=== PATIENT | male | born 1955 | race Caucasian/White ===

== ENCOUNTER 2018-04-20 19:27 | Inpatient (IN) | payer OTHER, MEDICAID ==
[~2018-04-20] VITALS: Ht 165.1 cm; Wt 62.6 kg
--- NOTE | 2018-04-20 19:27 | NUR ---
PT BIB EMS FOR SOB AND COUGH X2 WKS. CAME FROM [facility] IN [place]. PT GROSELY DISABLED. FACILITY CALLED 911 WHEN COUGH AND SOB DID NOT APPROVE. PT WAS TREATED BY FACILITY PHYSICIAN X2 WKS AGO GIVEN PREDNISONE AND AZITHROMYCIN. PT SEEN THIS AM BY PHYSICIAN AND GIVEN BREATHING TX. EMS BROUGHT PT IN ON 10L VIA NON-REBREATHER. PT O2SAT 100%. TESTED ON RA AT 96%. PT ALERT TO NAME AND PLACE. BASELINE MENTATION. PRODUCTIVE COUGH PRESENT. RIGHT LOWER LOBE DIMINISHED, LEFT LOWER LOBE COARSE, UPPER BRONCHIALS COARSE WITH THICK FLUID HEAR. WHEN PT COUGHING OX DROPS TO 90% AT RA. PROVING O2 NEEDED AT 10LMP NON-REPREATHER. REGIONAL TRAINING MANAGER FROM FACILITY AT BEDSIDE. HOB ELEVATED. SEIZURE PADS PROVIDED. ER MD AWARE. CONTINUE TO MONITOR.
--- NOTE | 2018-04-20 19:27 | NUR ---
PT BIB EMS. TRANSFERED FROM [facility] TO [facility] BY EMS AND ER STAFF. VSS UPON ER ADMISSION.
[2018-04-20 19:30] VITALS: BP 123/59
--- NOTE | 2018-04-20 19:30 | NUR ---
PT RESIDES AT: [facility], [facility]
[2018-04-20] MEDS ORDERED: NACL 0.9% 1,000 ML IV ONE (19:40)
[2018-04-20 20:16] LABS: BASOPHILS # (AUTO) 0.1 K/uL (0.00-0.22); BASOPHILS % (AUTO) 0.5 % (0.0-2.0); EOSINOPHILS # (AUTO) 0.3 K/uL (0-0.4); EOSINOPHILS % (AUTO) 2.2 % (0.0-4.0); HEMATOCRIT 38.1 % (36-52); HEMOGLOBIN 12.1 g/dL (12.0-18.0); LYMPHOCYTES # (AUTO) 1.6 K/uL (2.0-11.5); LYMPHOCYTES % (AUTO) 12.7 % (20.5-51.1); MEAN CORPUSCULAR HEMOGLOBIN 27 pg (27-31); MEAN CORPUSCULAR HGB CONC 32 g/dL (33-37); MEAN CORPUSCULAR VOLUME 85.3 fL (80-94); MONOCYTES # (AUTO) 1.3 K/uL (0.8-1.0); MONOCYTES % (AUTO) 9.7 % (1.7-9.3); NEUTROPHILS # (AUTO) 9.8 K/uL (1.8-7.7); NEUTROPHILS % (AUTO) 74.9 % (42.2-75.2); PLATELET COUNT (AUTO) 220 K/uL (140-450); RED BLOOD CELL COUNT(AUTO) 4.46 MIL/uL (4.20-6.10); RED CELL DISTRIBUTION WIDTH 15.1 % (11.6-13.7)
[2018-04-20 20:32] LABS: ANION GAP 12.1 (8-16); CARBON DIOXIDE 29.5 mmol/L (21-32); CREATININE 0.9 mg/dL (0.7-1.3); POTASSIUM 4.6 mmol/L (3.5-5.1)
[2018-04-20 20:38] LABS: ALBUMIN 2.8 g/dL (3.4-5.0); PROTHROMBIN TIME 9.9 secs (10.8-13.4); TOTAL BILIRUBIN 0.2 mg/dL (0.0-1.0)
--- NOTE | 2018-04-20 20:40 | NUR ---
CRITICAL LAB RECIEVED FROM LAB. LACTIC 3.3. DR MADDOX NOTIFIED IMMEDIATELY. CONTINUE TO MONITOR.
[2018-04-20] MEDS ORDERED: NACL 0.9% 2,000 ML IV ONE (20:45)
[2018-04-20] MEDS ORDERED: PEP15L PO (21:04)
[2018-04-20] MEDS ORDERED: RISP0.5T3 PO (21:04)
[2018-04-20] MEDS ORDERED: ACET-2619 PO (21:04)
[2018-04-20] MEDS ORDERED: FLEPED RC (21:04)
[2018-04-20] MEDS ORDERED: MULT1SGL58 PO (21:04)
[2018-04-20] MEDS ORDERED: LAM200 PO (21:04)
[2018-04-20] MEDS ORDERED: IBUP-2213 PO (21:04)
[2018-04-20] MEDS ORDERED: PRON INH (21:04)
[2018-04-20] MEDS ORDERED: BISA5ECT45 PO (21:04)
[2018-04-20] MEDS ORDERED: SYN.05 PO (21:04)
[2018-04-20] MEDS ORDERED: VALP250S5 PO (21:04)
[2018-04-20] MEDS ORDERED: METO-485 PO (21:04)
[2018-04-20] MEDS ORDERED: FAMO-90 PO (21:04)
[2018-04-20] MEDS ORDERED: PIPERACILLIN/TAZOBACTAM 3.375 GM in DEXTROSE 5% 50 ML IV ONE (21:30)
[2018-04-20] MEDS ORDERED: PIPERACILLIN/TAZOBACTAM 3.375 GM VIAL IV ONE (21:41)
[2018-04-20 22:00] VITALS: BP 115/60
--- NOTE | 2018-04-20 22:00 | NUR ---
REPORT GIVEN AND CARE TRANSFERED TO [facility] ROOM 121B. TRANSFERED VIA [facility].
--- NOTE | 2018-04-20 22:00 | NUR ---
RECEIVED FROM ER VIA [facility]. PT AWAKE, ALERT X 2. PT NON VERBAL,MUMBLING, BUT ABLE TO FOLLOW SIMPLE COMMANDS. PT WITH NON-PRODUCTIVE COUGH. NO SIGNS AND SYMPTOMS OF RESPIRATORY DISTRESS. PT TELE. PT WITH IV INFUSING ON LEFT AC, PATENT. FALL RISK. ASPIRATION RISK AND SEIZURE RISK. PT CAME IN WITH CAREGIVER FROM [facility].PLACED ON LOW BED, CALL LIGHT WITHIN EASY REACH. WILL CONTINUE TO MONITOR
[2018-04-20] MEDS ORDERED: ONDANSETRON 4 MG/2 ML VIAL IVP PRN (22:05)
[2018-04-20] MEDS ORDERED: SODIUM PHOSPHATE PEDIATRIC 67.5 ML ENEM RC PRN (22:05)
[2018-04-20] MEDS ORDERED: IBUPROFEN 600 MG TAB PO PRN (22:05)
[2018-04-20] MEDS ORDERED: ALBUTEROL 0.083% 2.5 MG/3 ML NEBU INH PRN (22:05)
[2018-04-20] MEDS ORDERED: BISMUTH SUBSALICYLATE 15 ML UDBTL PO PRN (22:05)
[2018-04-20] MEDS ORDERED: LORazepam 2 MG/ML VIAL IVP PRN (22:05)
[2018-04-20] MEDS ORDERED: BISACODYL 5 MG TABEC PO PRN (22:05)
[2018-04-20] MEDS ORDERED: ACETAMINOPHEN 325 MG TAB PO PRN (22:05)
[2018-04-20] MEDS: DEXT 5% /NACL 0.9% 1,000 ML IV SCH (22:52)
--- NOTE | 2018-04-21 02:00 | NUR ---
PT COUGHING NON-PRODUCTIVE PHLEGM. PLACED IN HIGH BACK POSITION. ORAL SUCTION DONE.NO SIGNS OF RESPIRATORY DISTRESS NOTED. WILL CONTINUE TO MONITOR
[2018-04-21] MEDS: HYDRAGUARD CREAM TP SCH ×2 (02:35→13:01)
[2018-04-21 04:00] VITALS: BP 120/60
--- NOTE | 2018-04-21 04:00 | NUR ---
VITAL SIGNS TAKEN. TELE MONITORED. NO DISTRESS NOTED. NO PAIN NOTED.WILL CONTINUE TO MONITOR. VOIDING FREELY.
[2018-04-21] MEDS ORDERED: PIPERACILLIN/TAZOBACTAM 3.375 GM in DEXTROSE 5% 50 ML IV SCH (05:00)
[2018-04-21] MEDS ORDERED: PIPERACILLIN/TAZOBACTAM 3.375 GM VIAL IV ONE (06:05)
[2018-04-21] MEDS: LEVOTHYROXINE 0.05 MG TAB PO SCH (07:04)
--- NOTE | 2018-04-21 07:20 | NUR ---
ENDORSED BEDSIDE REPORT TO AM SHIFT. NO SIGNS OF DISTRESS NOTED. NO PAIN NOTED. ABLE TO EAT PUREE FOOD/ APPLE SAUCE.
--- NOTE | 2018-04-21 07:22 | NUR ---
RECEIVED BEDSIDE REPORT FROM TIRE CENTER MANAGER RN. PT AWAKE, AOX 1-2. PT HAS HX OF MENTAL RETARDATION. ABLE TO SPEAK SIMPLE WORDS AND FOLLOW SIMPLE COMMANDS. WHEN ASKED IF PT HAS PAIN, HE REPLIED "I'M OKAY". FLACC 0. LUNG SOUNDS COARSE BILATERALLY. PT HAS INTERMITTENT, RATTLING COUGHING. SUCTIONED WITHOUT PHLEGM SEEN. NO SIGNS AND SYMPTOMS OF RESPIRATORY DISTRESS. SKIN INTACT, WITH REDNESS TO SACRUM. WILL APPLY HYDRAGUARD SCHEDULED AND PRN. ASPIRATION AND SEIZURE PRECAUTION IN PLACE. SIGN PLACED FOR THICKENED LIQUIDS ONLY. ALL SAFETY PRECAUTIONS IN PLACE, PLACED ON LOW BED, CALL LIGHT WITHIN EASY REACH. WILL CONTINUE TO MONITOR Addendum: 04/21/18 at 1447 by Myra Wilson Meng, RN PT HAS G-TUBE. PER TIRE CENTER MANAGER RN, PT HAS PASSED SWALLOW TEST AT [facility] AND DR. PATINO HAS PLACED PT ON PUREE DIET. NOT USING G-TUBE AT THIS TIME.
[2018-04-21 07:25] LABS: BASOPHILS # (AUTO) 0.1 K/uL (0.00-0.22); BASOPHILS % (AUTO) 0.5 % (0.0-2.0); EOSINOPHILS # (AUTO) 0.3 K/uL (0-0.4); EOSINOPHILS % (AUTO) 2.9 % (0.0-4.0); HEMATOCRIT 36.2 % (36-52); HEMOGLOBIN 11.6 g/dL (12.0-18.0); LYMPHOCYTES # (AUTO) 0.7 K/uL (2.0-11.5); MEAN CORPUSCULAR HEMOGLOBIN 27 pg (27-31); MEAN CORPUSCULAR HGB CONC 32 g/dL (33-37); MEAN CORPUSCULAR VOLUME 85.4 fL (80-94); MONOCYTES # (AUTO) 1.2 K/uL (0.8-1.0); MONOCYTES % (AUTO) 10.3 % (1.7-9.3); NEUTROPHILS # (AUTO) 9.1 K/uL (1.8-7.7); NEUTROPHILS % (AUTO) 80.5 % (42.2-75.2); PLATELET COUNT (AUTO) 177 K/uL (140-450); RED BLOOD CELL COUNT(AUTO) 4.24 MIL/uL (4.20-6.10); RED CELL DISTRIBUTION WIDTH 15.1 % (11.6-13.7); WHITE BLOOD COUNT (AUTO) 11.4 K/uL (4.8-10.8)
[2018-04-21] MEDS ORDERED: SODIUM PHOSPHATE 118 ML ENEM RC PRN ×2 (07:25→07:33)
[2018-04-21 07:42] LABS: ANION GAP 10.2 (8-16); CARBON DIOXIDE 26.7 mmol/L (21-32); CREATININE 0.6 mg/dL (0.7-1.3); POTASSIUM 3.9 mmol/L (3.5-5.1)
[2018-04-21 07:49] LABS: LYMPHOCYTES % (AUTO) 5.8 % (20.5-51.1)
[2018-04-21 08:00] VITALS: BP 117/57
[2018-04-21] MEDS: DEXT 5% /NACL 0.9% 1,000 ML IV SCH ×2 (08:05→11:21)
--- NOTE | 2018-04-21 08:41 | NUR ---
PATIENT HAS BEEN SCREENED AND CATEGORIZED HIGH NUTRITION RISK. PATIENT WILL BE SEEN WITHIN 1-2 DAYS OF ADMISSION. 04/21/18 04/22/[address]
[2018-04-21] MEDS ORDERED: MULTIVITAMIN 1 TAB PO SCH (09:00)
[2018-04-21] MEDS ORDERED: VALPROIC ACID 500 MG PO SCH (09:00)
[2018-04-21] MEDS: DIVALPROEX 500 MG TABEC PO SCH ×2 (09:21→21:21)
[2018-04-21] MEDS: FAMOTIDINE 20 MG TAB PO SCH ×2 (09:21→21:21)
[2018-04-21] MEDS: risperiDONE 1 MG TAB PO SCH ×2 (09:21→21:21)
[2018-04-21] MEDS: MULTIVITAMIN 1 TAB PO SCH (09:22)
[2018-04-21] MEDS: METOCLOPRAMIDE 10 MG TAB PO SCH ×3 (09:43→16:35)
--- NOTE | 2018-04-21 10:20 | NUR ---
EXPLAINED PLAN OF CARE AND PATIENT CONDITION/DX TO MARTINA, PUTTY AND PATCH WORKER AT [facility] [phone]. Addendum: 04/21/18 at 1021 by Myra Wilson Meng, RN MARTINA CALLED TO INQUIRE.
--- NOTE | 2018-04-21 10:31 | NUR ---
NOTIFIED RT TO GIVE PRN BREATHING TX TO PATIENT BECAUSE HE HAS BEEN HAVING BOUTS OF COUGHING.
--- NOTE | 2018-04-21 10:40 | NUR ---
PER RT, PT HAS REFUSED BREATHING TX AT THIS TIME. RT WILL KEEP CHECKING ON PT AND IF SHE FEELS LIKE PT NEEDS NT SUCTIONING, RT WILL CALL DR. PATINO FOR ORDER. WILL CONTINUE TO MONITOR. Addendum: 04/21/18 at 1042 by Myra Wilson Meng RN PT SATURATING AT 97% RA.
--- NOTE | 2018-04-21 10:52 | NUR ---
RT JUST GAVE PT A BREATHING TX. RT SAID SHE WILL CONTINUE TO MONITOR HIS CONDITION.
--- NOTE | 2018-04-21 11:41 | NUR ---
PT SLEEPING IN BED WITH LIGHT SNORING. AROUSABLE BY VOICE. NO COUGHING NOTED AT THIS TIME. PATIENT DENIES PAIN. STATES "I'M OKAY". VITALS WERE TAKEN ON LT ARM AND RT CALF WITH SIMILAR RESULTS. DIASTOLIC DECREASED. LT ARM BP 100/48, MAP 61, HR 78. LT CALF BP 115/43, MAP 67, HR 80. PT RECEIVING IVF AT 100ML/HR. WILL CONTINUE TO MONITOR.
[2018-04-21 12:00] VITALS: BP 115/43
[2018-04-21] MEDS: PIPER/TAZO 3.375GM/D5W PREMIX 50 ML IV SCH ×2 (13:01→21:20)
--- NOTE | 2018-04-21 13:07 | NUR ---
ADMINISTERED SCHEDULED 1300 MEDICATIONS TO PT. PT IS ABLE TO TAKE PILLS CRUSHED IN APPLE SAUCE WITHOUT PROBLEMS. NO COUGHING SEEN AT THIS TIME. PATIENT DENIES PAIN.
--- NOTE | 2018-04-21 14:38 | NUR ---
PER BASILIO EVANS, PATIENT WAS COUGHING. CRISTINA RICHMOND NOTIFIED DR. PATINO AND RECEIVED NEW ORDERS FOR BREATHING TX.
--- NOTE | 2018-04-21 15:20 | NUR ---
HELPED PATIENT WITH CHANGING THE CHANNEL FOR TV. NO S/S DISTRESS. DENIES PAIN. ABLE TO VERBALIZE SIMPLE NEEDS. PT WAS INQUIRING ABOUT DINNER TIME. TOLD PT DINNER IS SERVED AROUND 5:30PM. PT VERBALIZED UNDERSTANDING.
[2018-04-21 16:00] VITALS: BP 114/47
--- NOTE | 2018-04-21 17:16 | NUR ---
NO CHANGE IN CONDITION. PT SITTING IN BED, WATCHING TV. DENIES PAIN AND DISCOMFORT. WILL CONTINUE TO MONITOR.
--- NOTE | 2018-04-21 18:14 | NUR ---
PAGED DR. PATINO FOR 12 SEC V-FIB SEEN ON TELE STRIP AT 17:50. PT IS BEING FEED DINNER NOW. NO S/S DISTRESS. DENIES PAIN AND DISCOMFORT. WILL CONTINUE TO MONITOR.
[2018-04-21] MEDS: ACETYLCYSTEINE 10% (100 MG/ML) 100 MG/ML VIAL INH SCH (18:46)
--- NOTE | 2018-04-21 19:17 | NUR ---
ENDORSED PLAN OF CARE TO MICA MACHINE OPERATOR RN AT BEDSIDE. PT IN STABLE CONDITION. INFORMED MICA MACHINE OPERATOR RN OF THE 12 SEC VFIB EPISODE AND THAT DR. PATINO HAS BEEN PAGED.
--- NOTE | 2018-04-21 19:20 | NUR ---
RECEIVED REPORT FROM DAYSHIFT NURSE AT BEDSIDE FOR CONTINUITY OF CARE. PT AAOX1. PT IS MENTALLY DISABLED. NO SOB NO S/S OF DISTRESS LUNGS RHONCHI. IV IS LAC 20G D5 NS AT 100ML/HR. BED LOWERED CALL LIGHT WITHIN REACH WILL CONTINUE TO MONITOR.
[2018-04-21 20:00] VITALS: BP 102/40
[2018-04-22] VITALS: BP 93/50
--- NOTE | 2018-04-22 | NUR ---
PT IS SLEEPING NO SOB NO S/S OF DISTRESS ON RA. WILL CONTINUE TO MONITOR.
[2018-04-22] MEDS: HYDRAGUARD CREAM TP SCH ×2 (01:07→13:42)
[2018-04-22] MEDS: ALBUTEROL 0.083% 2.5 MG/3 ML NEBU INH SCH ×4 (01:12→19:03)
[2018-04-22] MEDS: ACETYLCYSTEINE 10% (100 MG/ML) 100 MG/ML VIAL INH SCH ×4 (01:13→19:03)
[2018-04-22 04:00] VITALS: BP 122/51
[2018-04-22] MEDS: DEXT 5% /NACL 0.9% 1,000 ML IV SCH ×2 (04:05→15:28)
[2018-04-22] MEDS: PIPER/TAZO 3.375GM/D5W PREMIX 50 ML IV SCH ×3 (05:10→21:37)
[2018-04-22] MEDS: LEVOTHYROXINE 0.05 MG TAB PO SCH (06:28)
[2018-04-22 07:08] LABS: BASOPHILS % (AUTO) 0.4 % (0.0-2.0); EOSINOPHILS # (AUTO) 0.4 K/uL (0-0.4); EOSINOPHILS % (AUTO) 3.7 % (0.0-4.0); HEMATOCRIT 34.5 % (36-52); HEMOGLOBIN 11.3 g/dL (12.0-18.0); LYMPHOCYTES # (AUTO) 0.6 K/uL (2.0-11.5); LYMPHOCYTES % (AUTO) 5.6 % (20.5-51.1); MEAN CORPUSCULAR HEMOGLOBIN 28 pg (27-31); MEAN CORPUSCULAR HGB CONC 33 g/dL (33-37); MEAN CORPUSCULAR VOLUME 85.3 fL (80-94); MONOCYTES % (AUTO) 8.6 % (1.7-9.3); NEUTROPHILS # (AUTO) 9.6 K/uL (1.8-7.7); NEUTROPHILS % (AUTO) 81.7 % (42.2-75.2); PLATELET COUNT (AUTO) 181 K/uL (140-450); RED BLOOD CELL COUNT(AUTO) 4.05 MIL/uL (4.20-6.10); WHITE BLOOD COUNT (AUTO) 11.7 K/uL (4.8-10.8)
[2018-04-22 07:16] LABS: ANION GAP 12.9 (8-16); CARBON DIOXIDE 24.8 mmol/L (21-32); CREATININE 0.9 mg/dL (0.7-1.3); POTASSIUM 3.7 mmol/L (3.5-5.1)
--- NOTE | 2018-04-22 07:23 | NUR ---
ENDORSED REPORT TO DAYSHIFT NURSE AT BEDSIDE FOR CONTINUITY OF CARE.
--- NOTE | 2018-04-22 07:24 | NUR ---
RECEIVED REPORT FROM INFORMATION SECURITY MANAGER NURSE. PATIENT LYING DOWN IN BED SLEEPING, AROUSABLE BY VOICE. NO DISTRESS NOTED. AAOX1, CALM, COOPERATIVE, SKIN COLOR APPROPRIATE TO ETHNICITY, WARM TO TOUCH. HAS SACRAL/PERINEAL REDNESS NOTED, HOWEVER, SKIN IS INTACT. LUNGS RHONCHI ON ALL LOBES. IV SITE INTACT, PATENT, AND INFUSING IVF PER MD ORDERS. GTUBE SITE INTACT, PATENT. PATIENT ABLE TO EAT ORALLY WITH ASSISTANCE. REVIEWED PLAN OF CARE WITH PATIENT. REINFORCEMENT NEEDED. SAFETY MEASURES IN PLACE, CALL LIGHT WITHIN REACH. WILL CONTINUE TO MONITOR.
[2018-04-22 08:00] VITALS: BP 144/59
[2018-04-22] MEDS: DIVALPROEX 500 MG TABEC PO SCH ×2 (10:10→21:37)
[2018-04-22] MEDS: risperiDONE 1 MG TAB PO SCH ×2 (10:10→21:39)
[2018-04-22] MEDS: MULTIVITAMIN 1 TAB PO SCH (10:10)
[2018-04-22] MEDS: FAMOTIDINE 20 MG TAB PO SCH ×2 (10:11→21:39)
[2018-04-22] MEDS: METOCLOPRAMIDE 10 MG TAB PO SCH ×3 (10:11→17:54)
[2018-04-22 12:00] VITALS: BP 109/50
--- NOTE | 2018-04-22 13:35 | NUR ---
OROPHARYNX SUCTION FOR LARGE THIN YELLOW SECRETIONS
--- NOTE | 2018-04-22 13:38 | NUR ---
PATIENT SITTING IN BED RECEIVING A BREATHING TREATMENT. SCHEDULED MEDICATIONS DUE GIVEN. SAFETY MEASURES IN PLACE, CALL LIGHT WITHIN REACH. WILL CONTINUE TO MONITOR.
--- NOTE | 2018-04-22 14:58 | NUR ---
04/22/18 RD INITIAL ASSESSMENT COMPLETED PLEASE REFER TO NUTRITION ASSESSMENT UNDER CARE ACTIVITY FOR ESTIMATED NUTRITIONAL NEEDS. 1. CONTINUE PUREE DIET WITH NECTAR THICK LIQUIDS TOLERATED 2. RD TO FOLLOW-UP 3-5 DAYS, MODERATE RISK [address]
--- NOTE | 2018-04-22 15:30 | NUR ---
PATIENT LYING DOWN IN BED SLEEPING, AROUSABLE BY VOICE. NO DISTRESS NOTED. CONDITION UNCHANGED. WILL CONTINUE TO MONITOR.
[2018-04-22 16:00] VITALS: BP 119/54
[2018-04-22] MEDS ORDERED: MUPIROCIN 2% OINT 22 GM TUBE TP SCH ×2 (16:45→17:40)
[2018-04-22] MEDS ORDERED: MUPIROCIN CA NASAL 2% 1GM TUBE NS SCH (17:45)
[2018-04-22] MEDS: CHLORHEXADINE GLUC 2% CLOTH TP SCH (17:54)
--- NOTE | 2018-04-22 18:00 | NUR ---
PATIENT SITTING DOWN IN BED WATCHING TV. NO DISTRESS NOTED. SCHEDULED MEDICATIONS DUE GIVEN. SAFETY MEASURES IN PLACE, CALL LIGHT WITHIN REACH. WILL CONTINUE TO MONITOR.
--- NOTE | 2018-04-22 19:25 | NUR ---
GAVE REPORT TO CANCER PROGRAM COORDINATOR NURSE FOR CONTINUITY OF CARE. PATIENT IN STABLE CONDITION.
--- NOTE | 2018-04-22 19:27 | NUR ---
RECEIVED PT FROM L[facility] PT AAOX2 HX MENTA; RETARDATION AND SEIZURES, ON TELMETRY SR , IV ON LEFT HAND INFUSING WELL G TUBE FEEDING IN PLACE NOT DISTRESS NOTED AT THIS TIME INITIAL ASSESSMENT DONE
[2018-04-22 20:00] VITALS: BP 105/49
[2018-04-22] MEDS ORDERED: guaiFENesin 20 MG/ML UDC PO PRN (20:20)
[2018-04-22] MEDS ORDERED: guaiFENesin 20 MG/ML UDC ONE (20:30)
[2018-04-22] MEDS: guaiFENesin 20 MG/ML UDC PO PRN (21:40)
--- NOTE | 2018-04-22 22:00 | NUR ---
PT REPOSITIONED Q2H LINEN CHANGED ON TELMETRY SR NOT SOB NOTED
[2018-04-23] VITALS: BP 108/57
--- NOTE | 2018-04-23 01:00 | NUR ---
PT REPOSITIONED Q2H AND LINEN CHANGED PT INCONTINENT ON TELEMETRY SR NOT DISTRESS NOTED
[2018-04-23] MEDS: ALBUTEROL 0.083% 2.5 MG/3 ML NEBU INH SCH ×4 (01:32→19:06)
[2018-04-23] MEDS: ACETYLCYSTEINE 10% (100 MG/ML) 100 MG/ML VIAL INH SCH ×5 (01:32→19:06)
[2018-04-23] MEDS: DEXT 5% /NACL 0.9% 1,000 ML IV SCH ×3 (01:58→13:54)
[2018-04-23] MEDS: HYDRAGUARD CREAM TP SCH ×2 (01:58→14:02)
[2018-04-23 04:00] VITALS: BP 110/62
--- NOTE | 2018-04-23 04:00 | NUR ---
SPONGE BATH GIVEN LINEN CHANGED NOT SOB NOTED NOT DISTRESS NOTED IV ON LEFT HAND INFUSING WELL
[2018-04-23] MEDS: PIPER/TAZO 3.375GM/D5W PREMIX 50 ML IV SCH ×3 (04:57→21:58)
[2018-04-23] MEDS: LEVOTHYROXINE 0.05 MG TAB PO SCH (06:03)
--- NOTE | 2018-04-23 06:08 | NUR ---
PT AWAKE, WITH PRODUCTIVE COUGH NOT SOB NOTED ON TELEMETRY SR
[2018-04-23 07:10] LABS: BASOPHILS # (AUTO) 0.1 K/uL (0.00-0.22); BASOPHILS % (AUTO) 0.5 % (0.0-2.0); EOSINOPHILS # (AUTO) 0.5 K/uL (0-0.4); EOSINOPHILS % (AUTO) 3.5 % (0.0-4.0); HEMATOCRIT 36.9 % (36-52); HEMOGLOBIN 11.9 g/dL (12.0-18.0); LYMPHOCYTES # (AUTO) 0.8 K/uL (2.0-11.5); LYMPHOCYTES % (AUTO) 5.7 % (20.5-51.1); MEAN CORPUSCULAR HEMOGLOBIN 28 pg (27-31); MEAN CORPUSCULAR HGB CONC 32 g/dL (33-37); MEAN CORPUSCULAR VOLUME 85.2 fL (80-94); MONOCYTES % (AUTO) 7.1 % (1.7-9.3); NEUTROPHILS # (AUTO) 11.7 K/uL (1.8-7.7); NEUTROPHILS % (AUTO) 83.2 % (42.2-75.2); PLATELET COUNT (AUTO) 195 K/uL (140-450); RED BLOOD CELL COUNT(AUTO) 4.33 MIL/uL (4.20-6.10); RED CELL DISTRIBUTION WIDTH 15.2 % (11.6-13.7); WHITE BLOOD COUNT (AUTO) 14.1 K/uL (4.8-10.8)
--- NOTE | 2018-04-23 07:23 | NUR ---
STARTED HHN TX BUT PT KEPT COUGHING HEAVILY. PT REQUESTED TO TURN OFF TREATMENT. TX OFF. PT IS NOW CALM. NO SOB OR DISTRESS NOTED. MUCOMYST NOT SOUND IN MED FRIDGE. WILL CONTINUE TO MONITOR.
--- NOTE | 2018-04-23 07:30 | NUR ---
RECEIVED REPORT FROM INSURANCE CLAIMS CLERK NURSE. PT LYING IN BED IN STABLE CONDITION. RESPIRATIONS EVEN AND UNLABORED. IV INTACT, PATENT, 24G LEFT HAND. REVIEWED CARE PLAN WITH PT, PT VERBALIZED UNDERSTANDING OF CARE PLAN. SAFETY MEASURES IN PLACE. CALL LIGHT AT BEDSIDE. WILL CONTINUE TO MONITOR.
[2018-04-23 07:41] LABS: ANION GAP 12.1 (8-16); CREATININE 0.8 mg/dL (0.7-1.3); POTASSIUM 4.1 mmol/L (3.5-5.1)
[2018-04-23 08:00] VITALS: BP 118/51
[2018-04-23] MEDS: risperiDONE 1 MG TAB PO SCH ×2 (09:14→21:59)
[2018-04-23] MEDS: FAMOTIDINE 20 MG TAB PO SCH ×2 (09:14→21:58)
[2018-04-23] MEDS: DIVALPROEX 500 MG TABEC PO SCH ×2 (09:14→21:59)
[2018-04-23] MEDS: METOCLOPRAMIDE 10 MG TAB PO SCH ×3 (09:15→17:58)
[2018-04-23] MEDS: MULTIVITAMIN 1 TAB PO SCH (09:15)
--- NOTE | 2018-04-23 09:15 | NUR ---
PT LYING IN BED IN STABLE CONDITION. RESPIRATIONS EVEN AND UNLABORED. DUE ORDERED MEDICATIONS GIVEN. SAFETY MEASURES IN PLACE. CALL LIGHT AT BEDSIDE. WILL CONTINUE TO MONITOR.
[2018-04-23] MEDS: MUPIROCIN CA NASAL 2% 1GM TUBE NS SCH (09:29)
[2018-04-23 10:21] LABS: APPEARANCE,URINE CLEAR (CLEAR); BILIRUBIN,URINE NEGATIVE (NEGATIVE); BLOOD, URINE NEGATIVE (NEGATIVE); COLOR,URINE YELLOW (YELLOW); LEUKOCYTE ESTERASE ,URINE NEGATIVE (NEGATIVE); NITRITE, URINE NEGATIVE (NEGATIVE); RBC,URINE 3-10 (FEW) /HPF (0-5); UGLUCOSE NEGATIVE (NEGATIVE); WBC,URINE 0-5 (RARE) /HPF (0-5)
--- NOTE | 2018-04-23 11:30 | NUR ---
PATIENT SITTING IN BED WATCHING TV. NO DISTRESS NOTED. DENIES ANY PAIN. FLACC 0. CONDITION UNCHANGED. WILL CONTINUE TO MONITOR.
[2018-04-23 12:00] VITALS: BP 109/54
--- NOTE | 2018-04-23 13:30 | NUR ---
ASSISTED ASSOCIATE CREATIVE DIRECTOR IN CLEANING AND REPOSITIONING PATIENT. CONDITION UNCHANGED. WILL CONTINUE TO MONITOR.
[2018-04-23 16:00] VITALS: BP 99/74
--- NOTE | 2018-04-23 16:00 | NUR ---
PATIENT LYING DOWN IN BED SLEEPING, AROUSABLE BY VOICE. NO DISTRESS NOTED. WILL CONTINUE TO MONITOR.
[2018-04-23] MEDS: CHLORHEXADINE GLUC 2% CLOTH TP SCH (17:50)
--- NOTE | 2018-04-23 18:31 | NUR ---
MED WAS GIVEN PER ORDER. PRIMARY NURSE LAMBERT WAS INFORMED
--- NOTE | 2018-04-23 19:25 | NUR ---
REPORTED TO PAD MACHINE FEEDER NURSE FOR CONTINUITY OF CARE. PT IN STABLE CONDITION.
--- NOTE | 2018-04-23 19:27 | NUR ---
RECEIVED REPORT FROM AM SHIFT NURSE. PT LYING IN BED IN STABLE CONDITION. RESPIRATIONS EVEN AND UNLABORED. IV INTACT, PATENT, 24G LEFT HAND. REVIEWED CARE PLAN WITH PT, PT VERBALIZED UNDERSTANDING OF CARE PLAN. SAFETY MEASURES IN PLACE. CALL LIGHT AT BEDSIDE. WILL CONTINUE TO MONITOR.
[2018-04-23 20:00] VITALS: BP 99/70
[2018-04-24] VITALS: BP 99/64
--- NOTE | 2018-04-24 | NUR ---
PT RESTING COMFORTABLE. WITH OCCASSIONAL NON-PRODUCTIVE COUGH, PT NOT IN RESPIRATORY DISTRESS. GAVE PUREE AND THICKENED LIQUIDS PT TOLERATED WELL. WILL CONTINUE TO MONITOR
[2018-04-24] MEDS: HYDRAGUARD CREAM TP SCH ×2 (01:25→13:16)
[2018-04-24] MEDS: ALBUTEROL 0.083% 2.5 MG/3 ML NEBU INH SCH ×4 (01:47→20:04)
[2018-04-24 04:00] VITALS: BP 100/63
[2018-04-24] MEDS: DEXT 5% /NACL 0.9% 1,000 ML IV SCH (05:09)
[2018-04-24] MEDS: PIPER/TAZO 3.375GM/D5W PREMIX 50 ML IV SCH ×3 (05:15→21:10)
[2018-04-24] MEDS: LEVOTHYROXINE 0.05 MG TAB PO SCH (06:46)
[2018-04-24 06:51] LABS: BASOPHILS # (AUTO) 0.1 K/uL (0.00-0.22); BASOPHILS % (AUTO) 0.6 % (0.0-2.0); EOSINOPHILS # (AUTO) 0.4 K/uL (0-0.4); EOSINOPHILS % (AUTO) 3.6 % (0.0-4.0); HEMATOCRIT 33.1 % (36-52); HEMOGLOBIN 10.9 g/dL (12.0-18.0); LYMPHOCYTES # (AUTO) 0.8 K/uL (2.0-11.5); MEAN CORPUSCULAR HEMOGLOBIN 28 pg (27-31); MEAN CORPUSCULAR HGB CONC 33 g/dL (33-37); MEAN CORPUSCULAR VOLUME 85.3 fL (80-94); MONOCYTES % (AUTO) 8.6 % (1.7-9.3); NEUTROPHILS # (AUTO) 9.7 K/uL (1.8-7.7); NEUTROPHILS % (AUTO) 80.2 % (42.2-75.2); PLATELET COUNT (AUTO) 169 K/uL (140-450); RED BLOOD CELL COUNT(AUTO) 3.88 MIL/uL (4.20-6.10); RED CELL DISTRIBUTION WIDTH 15.1 % (11.6-13.7)
--- NOTE | 2018-04-24 07:29 | NUR ---
GIVEN REPORT TO AM SHIFT NURSE. PT IN STABLE CONDITION AT THIST TIME. INFORMED STOOL 2X LAST NIGHT. LIITLE AMOUNT.
--- NOTE | 2018-04-24 07:30 | NUR ---
RECEIVED PATIENT BY BEDSIDE. PATIENT IS COMFORTABLE AND DENIES ANY PAIN AT THIS TIME.
[2018-04-24 07:41] LABS: ANION GAP 15.2 (8-16); CARBON DIOXIDE 22.8 mmol/L (21-32); CREATININE 0.8 mg/dL (0.7-1.3)
[2018-04-24 07:54] VITALS: BP 105/40
[2018-04-24] MEDS: guaiFENesin 20 MG/ML UDC PO PRN (09:51)
[2018-04-24] MEDS: risperiDONE 1 MG TAB PO SCH ×2 (09:53→21:10)
[2018-04-24] MEDS: METOCLOPRAMIDE 10 MG TAB PO SCH ×3 (09:54→16:36)
[2018-04-24] MEDS: MULTIVITAMIN 1 TAB PO SCH (09:55)
[2018-04-24] MEDS: FAMOTIDINE 20 MG TAB PO SCH ×2 (09:55→21:10)
[2018-04-24] MEDS: DIVALPROEX 500 MG TABEC PO SCH ×2 (09:56→21:10)
[2018-04-24] MEDS: MUPIROCIN CA NASAL 2% 1GM TUBE NS SCH (09:57)
--- NOTE | 2018-04-24 10:30 | NUR ---
CHANGED AND CLEANED THE PATIENT BECAUSE HE HAD A BM. PATIENT IS IN COMFORTABLE POSITION WITH THE BED AT THE LOWEST POSITION, AND CALL LIGHT WITHIN REACH.
--- NOTE | 2018-04-24 11:55 | NUR ---
PT SLEEPING . NOT IN RESPIRATORY DISTRESS. WILL CONTINUE TO MONITOR
[2018-04-24 12:00] VITALS: BP 95/48
--- NOTE | 2018-04-24 13:54 | NUR ---
PATIENT FINISHED EATING ALL OF HIS MEALS. HE IS CONTENT AND DENIES ANY PAIN. WILL CONTINUE TO MONITOR
[2018-04-24 16:00] VITALS: BP 124/52
[2018-04-24] MEDS: CHLORHEXADINE GLUC 2% CLOTH TP SCH (16:38)
--- NOTE | 2018-04-24 17:07 | NUR ---
PATIENT IS COMFORTABLE AND DENIES ANY PAIN. THE BED IS AT THE LOWEST POSITION AND CALL LIGHT WITHIN REACH. WILL CONTINUE TO FREQUENTLY MONITOR THE PATIENT
--- NOTE | 2018-04-24 18:51 | NUR ---
PATIENT VOIDED. CLEANED THE PATIENT AND REPLACED THE SOILED LINEN
--- NOTE | 2018-04-24 19:24 | NUR ---
ENDORSED PATIENT TO THE CONTINUOUS PILLOWCASE CUTTER RN BY THE PATIENT'S BEDSIDE. HE IS IN COMFORTABLE POSITION WITH THE CALL LIGHT WITHIN REACH AND BED AT THE LOWEST POSITION.
[2018-04-24 20:00] VITALS: BP 124/53
--- NOTE | 2018-04-24 20:15 | NUR ---
RECEIVED PATIENT ON ROOM AIR, O2 SAT 93%. SCHEDULED BREATHING TREATMENTS ADMINISTERED. PATIENT TOLERATED TX WELL, NO ADVERSE SIDE EFFECTS. NO DISTRESS NOTED AT THIS TIME. WILL CONTINUE TO MONITOR.
[2018-04-25] VITALS: BP 123/54
[2018-04-25] MEDS: ALBUTEROL 0.083% 2.5 MG/3 ML NEBU INH SCH ×3 (01:33→12:03)
[2018-04-25] MEDS: HYDRAGUARD CREAM TP SCH ×2 (01:34→13:00)
[2018-04-25] MEDS: guaiFENesin 20 MG/ML UDC PO PRN (01:40)
--- NOTE | 2018-04-25 01:40 | NUR ---
NON PRODUCTIVE COUGH NOTED. GIVEN COUGH MEDICINE. RT AT BEDSIDE. SUNCTION DONE BUT NO PHLEGM NOTED.
--- NOTE | 2018-04-25 01:44 | NUR ---
SCHEDULED BREATHING TREATMENT ADMINISTERED. TOLERATED TX WELL NO ADVERSE SIDE EFFECTS. WILL CONTINUE TO MONITOR.
[2018-04-25] MEDS ORDERED: LEVO750T2 PO (02:33)
[2018-04-25 04:06] VITALS: BP 122/55
--- NOTE | 2018-04-25 05:00 | NUR ---
DR. Yves PATINO CAME TO SEE PT WITH VERBAL ORDERS TO DISCHARGE IN THE AM. GIVEN PRESCRIPTION, ATTACHED TO CHART
[2018-04-25] MEDS: PIPER/TAZO 3.375GM/D5W PREMIX 50 ML IV SCH ×2 (05:26→12:16)
[2018-04-25] MEDS: LEVOTHYROXINE 0.05 MG TAB PO SCH (06:37)
[2018-04-25 06:54] VITALS: BP 122/55
--- NOTE | 2018-04-25 07:15 | NUR ---
ENDORSED BEDSIDE REPORT TO AM SHIFT PT IN STABLE CONDITION. WITH ORDERS FOR DISCHARGE TODAY IN THE AM.
[2018-04-25 07:19] LABS: BASOPHILS # (AUTO) 0.1 K/uL (0.00-0.22); BASOPHILS % (AUTO) 0.7 % (0.0-2.0); EOSINOPHILS # (AUTO) 0.3 K/uL (0-0.4); EOSINOPHILS % (AUTO) 2.9 % (0.0-4.0); HEMATOCRIT 36.6 % (36-52); HEMOGLOBIN 11.8 g/dL (12.0-18.0); LYMPHOCYTES # (AUTO) 0.9 K/uL (2.0-11.5); LYMPHOCYTES % (AUTO) 7.9 % (20.5-51.1); MEAN CORPUSCULAR HEMOGLOBIN 28 pg (27-31); MEAN CORPUSCULAR HGB CONC 32 g/dL (33-37); MEAN CORPUSCULAR VOLUME 85.4 fL (80-94); MONOCYTES # (AUTO) 0.9 K/uL (0.8-1.0); MONOCYTES % (AUTO) 7.7 % (1.7-9.3); NEUTROPHILS % (AUTO) 80.8 % (42.2-75.2); PLATELET COUNT (AUTO) 193 K/uL (140-450); RED BLOOD CELL COUNT(AUTO) 4.29 MIL/uL (4.20-6.10); RED CELL DISTRIBUTION WIDTH 15.5 % (11.6-13.7); WHITE BLOOD COUNT (AUTO) 11.1 K/uL (4.8-10.8)
[2018-04-25 07:22] LABS: ANION GAP 14.5 (8-16); CARBON DIOXIDE 26.7 mmol/L (21-32); CREATININE 0.6 mg/dL (0.7-1.3); POTASSIUM 4.2 mmol/L (3.5-5.1)
[2018-04-25 08:00] VITALS: BP 109/49
--- NOTE | 2018-04-25 08:17 | NUR ---
SPOKE TO BASILIO LUGO FROM [facility] AND INFORMED HIM ABOUT THE PATIENT'S DISCHARGE. PT TO CALL BACK REGARDING PATIENT'S TRANSPORTATION Addendum: 04/25/18 at 0910 by Nicola Jennings RN [facility] TO CALL BACK
--- NOTE | 2018-04-25 09:13 | NUR ---
PER BASILIO LUGO PATIENT TRANSPORTATION HAS BEEN ARRANGED FOR [phone] TODAY
[2018-04-25] MEDS: risperiDONE 1 MG TAB PO SCH (09:49)
[2018-04-25] MEDS: METOCLOPRAMIDE 10 MG TAB PO SCH ×2 (09:50→12:17)
[2018-04-25] MEDS: MUPIROCIN CA NASAL 2% 1GM TUBE NS SCH (09:50)
[2018-04-25] MEDS: MULTIVITAMIN 1 TAB PO SCH (09:50)
[2018-04-25] MEDS: FAMOTIDINE 20 MG TAB PO SCH (09:50)
[2018-04-25] MEDS: DIVALPROEX 500 MG TABEC PO SCH (09:50)
[2018-04-25 12:00] VITALS: BP 108/52
--- NOTE | 2018-04-25 15:50 | NUR ---
PATIENT DISCHARGED BACK TO [facility]. PATIENT PICKED UP BY HIS CAREGIVER. DISCHARGE INSTRUCTIONS AND DISCHARGE PRESCRIPTIONS GIVEN TO THE CAREGIVER. CAREGIVER VERBALIZED UNDERSTANDING. IV LINE DISCONTINUED. TELE MONITOR TAKEN OFF. PATIENT LEFT WITH ALL HIS BELONGINGS AND DISCHARGE PAPERS. PATIENT LEFT IN STABLE CONDITION
== END 2018-04-25 15:50 | DRG 871 ==
LOC: MED 19:27 → MTU 21:32
PROVIDERS: ADMIT Internal Medicine Cardiovascular Disease; ATTEND Internal Medicine Cardiovascular Disease
DX: A41.9 Sepsis, unspecified organism (principal); E43 Unspecified severe protein-calorie malnutrition; G40.909 Epilepsy, unspecified, not intractable, without status epilepticus; F31.9 Bipolar disorder, unspecified; I10 Essential (primary) hypertension; K21.9 Gastro-esophageal reflux disease without esophagitis; E03.9 Hypothyroidism, unspecified; R73.9 Hyperglycemia, unspecified; E83.52 Hypercalcemia; D64.9 Anemia, unspecified; J40 Bronchitis, not specified as acute or chronic; Z79.899 Other long term (current) drug therapy; Z68.23 Body mass index [BMI] 23.0-23.9, adult; Z88.1 Allergy status to other antibiotic agents; R54 Age-related physical debility
CPT/HCPCS: 36415; 71045; 80048; 80053; 81001; 83605; 83880; 84484; 85025; 85610; 85651; 85730; 86140; 87040; 87081; 87086; 87804; 93005; 94640; 96361; 96374; 99285; J2543; J7042; J7060; J7613; J8597; Q0092

== ENCOUNTER 2018-05-12 17:16 | Inpatient (IN) | payer OTHER, MEDICAID ==
[~2018-05-12] VITALS: Ht 167.6 cm; Wt 78.0 kg
[~2018-05-12 17:16] MED LIST: ACET-2619 PO; BISA5ECT45 PEG; FAMO-90 PO; FLEPED RC; IBUP-2213 PO; LAM200 PEG; LEVO750T2 PO; METO-485 PO; MULT1SGL58 PEG; PEP15L PO; PRON INH; RISP0.5T3 PO; SYN.05 PO; VALP250S5 PO
[2018-05-12 17:27] VITALS: BP 130/59
[2018-05-12] MEDS ORDERED: NACL 0.9% 1,000 ML IV ONE ×2 (17:31→19:00)
[2018-05-12] MEDS ORDERED: NACL 0.9% 1,000 ML IV SCH (17:31)
[2018-05-12] MEDS ORDERED: ONDANSETRON 4 MG/2 ML VIAL IVP ONE (17:35)
[2018-05-12] MEDS ORDERED: FAMOTIDINE 20 MG/2 ML VIAL IVP ONE (17:35)
[2018-05-12] MEDS ORDERED: SULF-59 PEG (17:51)
[2018-05-12] MEDS ORDERED: LACT1.4C PEG (17:51)
[2018-05-12 18:14] LABS: HEMATOCRIT 39.6 % (36-52); HEMOGLOBIN 12.9 g/dL (12.0-18.0); MEAN CORPUSCULAR HEMOGLOBIN 27 pg (27-31); MEAN CORPUSCULAR HGB CONC 33 g/dL (33-37); MEAN CORPUSCULAR VOLUME 83.6 fL (80-94); PLATELET COUNT (AUTO) 215 K/uL (140-450); RED BLOOD CELL COUNT(AUTO) 4.74 MIL/uL (4.20-6.10); RED CELL DISTRIBUTION WIDTH 14.9 % (11.6-13.7); WHITE BLOOD COUNT (AUTO) 18.7 K/uL (4.8-10.8)
[2018-05-12 18:23] LABS: ANION GAP 12.7 (8-16); CARBON DIOXIDE 27.5 mmol/L (21-32); CREATININE 0.9 mg/dL (0.7-1.3); POTASSIUM 4.2 mmol/L (3.5-5.1)
[2018-05-12 18:27] LABS: AMYLASE 36 U/L (25-115); LIPASE 226 U/L (73-393)
[2018-05-12 18:29] LABS: PROTHROMBIN TIME 9.6 secs (10.8-13.4)
[2018-05-12 18:40] LABS: ALBUMIN 3.3 g/dL (3.4-5.0); LYMPHOCYTES % (MANUAL) 6 % (20-46); MONOCYTES % (MANUAL) 5 % (5-12); TOTAL BILIRUBIN 0.2 mg/dL (0.0-1.0)
[2018-05-12 18:44] LABS: APPEARANCE,URINE CLEAR (CLEAR); BILIRUBIN,URINE NEGATIVE (NEGATIVE); BLOOD, URINE TRACE-I (NEGATIVE); COLOR,URINE YELLOW (YELLOW); LEUKOCYTE ESTERASE ,URINE NEGATIVE (NEGATIVE); NITRITE, URINE NEGATIVE (NEGATIVE); UGLUCOSE NEGATIVE (NEGATIVE)
[2018-05-12 18:45] LABS: RBC,URINE 0-5 (RARE) /HPF (0-5); WBC,URINE 0-5 (RARE) /HPF (0-5)
[2018-05-12] MEDS ORDERED: PIPERACILLIN/TAZOBACTAM 3.375 GM in DEXTROSE 5% 50 ML IV ONE (19:00)
[2018-05-12] MEDS ORDERED: methylPREDNISolone SS 125 MG/2 ML VIAL IVP ONE (19:00)
[2018-05-12] MEDS ORDERED: LEVOFLOXACIN 500 MG/D5W PREMIX 100 ML IV ONE (19:00)
[2018-05-12] MEDS ORDERED: PIPERACILLIN/TAZOBACTAM 3.375 GM VIAL IV ONE ×2 (19:12→21:07)
[2018-05-12 20:10] VITALS: BP 125/58
[2018-05-12] MEDS ORDERED: SODIUM PHOSPHATE PEDIATRIC 67.5 ML ENEM RC PRN (20:35)
[2018-05-12] MEDS ORDERED: BISACODYL 10 MG SUPP RC PRN (20:35)
[2018-05-12] MEDS ORDERED: ACETAMINOPHEN 325 MG TAB PO PRN (20:35)
[2018-05-12] MEDS ORDERED: BISMUTH SUBSALICYLATE 15 ML UDBTL PEG PRN (20:35)
[2018-05-12] MEDS ORDERED: IBUPROFEN 600 MG TAB PEG PRN (20:35)
[2018-05-12] MEDS: DEXT 5% /NACL 0.9% 1,000 ML IV SCH (20:40)
[2018-05-12] MEDS ORDERED: ONDANSETRON 4 MG/2 ML VIAL IVP PRN (20:40)
[2018-05-12] MEDS ORDERED: LORazepam 2 MG/ML VIAL IVP PRN (20:40)
[2018-05-12] MEDS ORDERED: HYDROcodone/APAP 5/325 MG 1 TAB TAB PEG PRN (20:40)
[2018-05-12] MEDS: risperiDONE 1 MG TAB PO SCH (21:34)
[2018-05-12] MEDS: FAMOTIDINE 20 MG TAB PEG SCH (21:34)
[2018-05-12] MEDS: PIPERACILLIN/TAZOBACTAM 3.375 GM in DEXTROSE 5% 50 ML IV SCH (21:52)
[2018-05-13] VITALS: BP 125/50
[2018-05-13] MEDS: ALBUTEROL 0.083% 2.5 MG/3 ML NEBU INH PRN (03:35)
[2018-05-13 04:00] VITALS: BP 126/51
[2018-05-13] MEDS ORDERED: PIPERACILLIN/TAZOBACTAM 3.375 GM VIAL IV ONE (04:12)
[2018-05-13] MEDS: PIPERACILLIN/TAZOBACTAM 3.375 GM in DEXTROSE 5% 50 ML IV SCH (04:23)
[2018-05-13] MEDS: DEXT 5% /NACL 0.9% 1,000 ML IV SCH ×2 (06:40→10:10)
[2018-05-13 07:04] LABS: HEMATOCRIT 36.4 % (36-52); HEMOGLOBIN 11.8 g/dL (12.0-18.0); MEAN CORPUSCULAR HEMOGLOBIN 27 pg (27-31); MEAN CORPUSCULAR HGB CONC 33 g/dL (33-37); MEAN CORPUSCULAR VOLUME 82.9 fL (80-94); PLATELET COUNT (AUTO) 204 K/uL (140-450); RED BLOOD CELL COUNT(AUTO) 4.39 MIL/uL (4.20-6.10); RED CELL DISTRIBUTION WIDTH 15.2 % (11.6-13.7)
[2018-05-13 07:09] LABS: ANION GAP 12.8 (8-16); CARBON DIOXIDE 25.2 mmol/L (21-32); CREATININE 0.8 mg/dL (0.7-1.3)
[2018-05-13 08:00] VITALS: BP 129/51
[2018-05-13] MEDS: ALBUTEROL 0.083% 2.5 MG/3 ML NEBU INH SCH ×3 (08:42→20:57)
[2018-05-13 08:50] LABS: LYMPHOCYTES % (MANUAL) 5 % (20-46); MONOCYTES % (MANUAL) 2 % (5-12)
[2018-05-13] MEDS: LACTOBACILLUS RHAMNOSUS GG 1 EACH CAP PEG SCH ×3 (10:05→16:49)
[2018-05-13] MEDS: MULTIVITAMIN/MINERALS 15 ML UDBTL PEG SCH (10:05)
[2018-05-13] MEDS: VALPROIC ACID 250 MG/5 ML UDC PEG SCH ×2 (10:05→20:22)
[2018-05-13] MEDS: risperiDONE 1 MG TAB PO SCH ×2 (10:06→20:23)
[2018-05-13] MEDS: FAMOTIDINE 20 MG TAB PEG SCH ×2 (10:06→20:23)
[2018-05-13] MEDS: LEVOTHYROXINE 0.05 MG TAB PEG SCH (10:06)
[2018-05-13] MEDS: METOCLOPRAMIDE 10 MG TAB PO SCH ×3 (10:07→16:49)
[2018-05-13 11:31] VITALS: BP_SYST 111; BP_SYST 129; BP_DIAS 51; BP_DIAS 56
[2018-05-13] MEDS: PIPER/TAZO 3.375GM/D5W PREMIX 50 ML IV SCH ×2 (12:41→20:22)
[2018-05-13] MEDS ORDERED: VANCOMYCIN PER PHARMACY MC PRN (14:35)
[2018-05-13] MEDS: VANCOMYCIN 1GM/DEXT 5% PREMIX 200 ML IV SCH (15:26)
[2018-05-13 16:00] VITALS: BP 138/69
[2018-05-13 20:00] VITALS: BP 121/68
[2018-05-13] MEDS: ACETYLCYSTEINE 10% (100 MG/ML) 100 MG/ML VIAL INH SCH (20:57)
[2018-05-14] VITALS: BP 135/56
[2018-05-14] MEDS: VANCOMYCIN 1GM/DEXT 5% PREMIX 200 ML IV SCH (03:05)
[2018-05-14] MEDS: DEXT 5% /NACL 0.9% 1,000 ML IV SCH ×4 (03:07→22:40)
[2018-05-14 04:00] VITALS: BP 141/60
[2018-05-14] MEDS: ACETYLCYSTEINE 10% (100 MG/ML) 100 MG/ML VIAL INH SCH ×3 (05:00→22:40)
[2018-05-14] MEDS: PIPER/TAZO 3.375GM/D5W PREMIX 50 ML IV SCH ×3 (05:08→20:09)
[2018-05-14] MEDS: ALBUTEROL 0.083% 2.5 MG/3 ML NEBU INH SCH ×3 (05:13→22:40)
[2018-05-14 06:47] LABS: BASOPHILS % (AUTO) 0.3 % (0.0-2.0); EOSINOPHILS # (AUTO) 0.1 K/uL (0-0.4); EOSINOPHILS % (AUTO) 0.4 % (0.0-4.0); HEMATOCRIT 33.5 % (36-52); LYMPHOCYTES # (AUTO) 1.3 K/uL (2.0-11.5); LYMPHOCYTES % (AUTO) 9.7 % (20.5-51.1); MEAN CORPUSCULAR HEMOGLOBIN 28 pg (27-31); MEAN CORPUSCULAR HGB CONC 33 g/dL (33-37); MONOCYTES # (AUTO) 1.4 K/uL (0.8-1.0); MONOCYTES % (AUTO) 10.2 % (1.7-9.3); NEUTROPHILS # (AUTO) 10.8 K/uL (1.8-7.7); NEUTROPHILS % (AUTO) 79.4 % (42.2-75.2); PLATELET COUNT (AUTO) 231 K/uL (140-450); RED BLOOD CELL COUNT(AUTO) 3.99 MIL/uL (4.20-6.10); RED CELL DISTRIBUTION WIDTH 15.1 % (11.6-13.7); WHITE BLOOD COUNT (AUTO) 13.7 K/uL (4.8-10.8)
[2018-05-14 07:04] LABS: ANION GAP 12.7 (8-16); CARBON DIOXIDE 25.2 mmol/L (21-32); CREATININE 0.8 mg/dL (0.7-1.3); POTASSIUM 3.9 mmol/L (3.5-5.1)
[2018-05-14] MEDS: ALBUTEROL 0.083% 2.5 MG/3 ML NEBU INH PRN (07:36)
[2018-05-14 08:00] VITALS: BP 113/57
[2018-05-14] MEDS ORDERED: SODIUM PHOSPHATE 118 ML ENEM RC PRN (08:53)
[2018-05-14] MEDS: VALPROIC ACID 250 MG/5 ML UDC PEG SCH ×2 (09:06→20:42)
[2018-05-14] MEDS: FAMOTIDINE 20 MG TAB PEG SCH ×2 (09:07→20:42)
[2018-05-14] MEDS: LEVOTHYROXINE 0.05 MG TAB PEG SCH (09:07)
[2018-05-14] MEDS: METOCLOPRAMIDE 10 MG TAB PO SCH ×3 (09:07→16:20)
[2018-05-14] MEDS: risperiDONE 1 MG TAB PO SCH ×2 (09:07→20:42)
[2018-05-14] MEDS: LACTOBACILLUS RHAMNOSUS GG 1 EACH CAP PEG SCH ×3 (09:07→16:20)
[2018-05-14] MEDS: MULTIVITAMIN/MINERALS 15 ML UDBTL PEG SCH (09:40)
[2018-05-14 12:00] VITALS: BP 105/53
[2018-05-14 16:00] VITALS: BP 107/50
[2018-05-14] MEDS: VANCOMYCIN 1,250 MG in DEXTROSE 5% 250 ML IV SCH (17:10)
[2018-05-14 21:15] VITALS: BP 98/43
[2018-05-15] VITALS: BP 112/66
[2018-05-15] MEDS: HYDRAGUARD CREAM TP SCH ×2 (01:26→13:00)
[2018-05-15 04:00] VITALS: BP 140/78
[2018-05-15] MEDS: PIPER/TAZO 3.375GM/D5W PREMIX 50 ML IV SCH ×3 (04:25→20:19)
[2018-05-15] MEDS: VANCOMYCIN 1,250 MG in DEXTROSE 5% 250 ML IV SCH ×2 (05:21→17:08)
[2018-05-15 07:05] LABS: BASOPHILS # (AUTO) 0.1 K/uL (0.00-0.22); BASOPHILS % (AUTO) 0.6 % (0.0-2.0); EOSINOPHILS # (AUTO) 0.4 K/uL (0-0.4); EOSINOPHILS % (AUTO) 2.8 % (0.0-4.0); HEMATOCRIT 32.8 % (36-52); HEMOGLOBIN 10.6 g/dL (12.0-18.0); LYMPHOCYTES % (AUTO) 15.9 % (20.5-51.1); MEAN CORPUSCULAR HEMOGLOBIN 27 pg (27-31); MEAN CORPUSCULAR HGB CONC 32 g/dL (33-37); MEAN CORPUSCULAR VOLUME 83.9 fL (80-94); MONOCYTES # (AUTO) 1.4 K/uL (0.8-1.0); NEUTROPHILS # (AUTO) 8.6 K/uL (1.8-7.7); NEUTROPHILS % (AUTO) 69.7 % (42.2-75.2); PLATELET COUNT (AUTO) 221 K/uL (140-450); RED BLOOD CELL COUNT(AUTO) 3.91 MIL/uL (4.20-6.10); RED CELL DISTRIBUTION WIDTH 14.7 % (11.6-13.7); WHITE BLOOD COUNT (AUTO) 12.4 K/uL (4.8-10.8)
[2018-05-15 07:21] LABS: ANION GAP 13.8 (8-16); CARBON DIOXIDE 25.3 mmol/L (21-32); CREATININE 0.9 mg/dL (0.7-1.3); POTASSIUM 4.1 mmol/L (3.5-5.1)
[2018-05-15] MEDS: ALBUTEROL 0.083% 2.5 MG/3 ML NEBU INH SCH ×3 (07:30→23:00)
[2018-05-15] MEDS: ACETYLCYSTEINE 10% (100 MG/ML) 100 MG/ML VIAL INH SCH ×3 (07:31→23:00)
[2018-05-15 08:07] VITALS: BP 130/70
[2018-05-15] MEDS: VALPROIC ACID 250 MG/5 ML UDC PEG SCH ×2 (09:18→20:24)
[2018-05-15] MEDS: MULTIVITAMIN/MINERALS 15 ML UDBTL PEG SCH (09:18)
[2018-05-15] MEDS: METOCLOPRAMIDE 10 MG TAB PO SCH ×3 (09:18→17:09)
[2018-05-15] MEDS: LEVOTHYROXINE 0.05 MG TAB PEG SCH (09:19)
[2018-05-15] MEDS: risperiDONE 1 MG TAB PO SCH ×2 (09:19→20:25)
[2018-05-15] MEDS: FAMOTIDINE 20 MG TAB PEG SCH ×2 (09:20→20:25)
[2018-05-15] MEDS: DEXT 5% /NACL 0.9% 1,000 ML IV SCH ×2 (09:20→20:17)
[2018-05-15] MEDS: LACTOBACILLUS RHAMNOSUS GG 1 EACH CAP PEG SCH ×3 (09:20→17:09)
[2018-05-15 12:00] VITALS: BP 120/55
[2018-05-15 16:00] VITALS: BP 114/53
[2018-05-15 20:00] VITALS: BP 109/50
[2018-05-16] VITALS: BP 129/59
[2018-05-16] MEDS: HYDRAGUARD CREAM TP SCH ×2 (01:13→12:05)
[2018-05-16 04:00] VITALS: BP 133/71
[2018-05-16] MEDS: DEXT 5% /NACL 0.9% 1,000 ML IV SCH ×3 (04:40→20:39)
[2018-05-16] MEDS: VANCOMYCIN 1,250 MG in DEXTROSE 5% 250 ML IV SCH ×2 (05:13→16:40)
[2018-05-16] MEDS: PIPER/TAZO 3.375GM/D5W PREMIX 50 ML IV SCH ×3 (05:14→20:40)
[2018-05-16] MEDS: ACETYLCYSTEINE 10% (100 MG/ML) 100 MG/ML VIAL INH SCH ×3 (06:46→23:43)
[2018-05-16] MEDS: ALBUTEROL 0.083% 2.5 MG/3 ML NEBU INH SCH ×3 (06:46→23:43)
[2018-05-16 07:24] LABS: ANION GAP 12.5 (8-16); CARBON DIOXIDE 26.7 mmol/L (21-32); CREATININE 0.8 mg/dL (0.7-1.3); POTASSIUM 4.2 mmol/L (3.5-5.1)
[2018-05-16 08:00] VITALS: BP 134/68
[2018-05-16] MEDS: LEVOTHYROXINE 0.05 MG TAB PEG SCH (09:08)
[2018-05-16] MEDS: LACTOBACILLUS RHAMNOSUS GG 1 EACH CAP PEG SCH ×3 (09:08→13:00)
[2018-05-16] MEDS: MULTIVITAMIN/MINERALS 15 ML UDBTL PEG SCH (09:08)
[2018-05-16] MEDS: VALPROIC ACID 250 MG/5 ML UDC PEG SCH ×2 (09:08→20:40)
[2018-05-16] MEDS: risperiDONE 1 MG TAB PO SCH ×2 (09:09→20:40)
[2018-05-16] MEDS: METOCLOPRAMIDE 10 MG TAB PO SCH ×4 (09:09→16:42)
[2018-05-16] MEDS: FAMOTIDINE 20 MG TAB PEG SCH ×2 (09:09→20:40)
[2018-05-16 12:00] VITALS: BP 129/57
[2018-05-16 16:00] VITALS: BP 121/51
[2018-05-16 20:00] VITALS: BP 111/61
[2018-05-17] VITALS: BP 97/54
[2018-05-17] MEDS: HYDRAGUARD CREAM TP SCH ×2 (00:54→12:57)
[2018-05-17 04:00] VITALS: BP 133/60
[2018-05-17] MEDS: PIPER/TAZO 3.375GM/D5W PREMIX 50 ML IV SCH ×2 (04:34→12:56)
[2018-05-17] MEDS: VANCOMYCIN 1,250 MG in DEXTROSE 5% 250 ML IV SCH (04:35)
[2018-05-17] MEDS: ACETYLCYSTEINE 10% (100 MG/ML) 100 MG/ML VIAL INH SCH (06:38)
[2018-05-17] MEDS: ALBUTEROL 0.083% 2.5 MG/3 ML NEBU INH SCH ×3 (06:39→23:01)
[2018-05-17 08:00] VITALS: BP 146/52
[2018-05-17] MEDS: VALPROIC ACID 250 MG/5 ML UDC PEG SCH (08:37)
[2018-05-17] MEDS: risperiDONE 1 MG TAB PO SCH ×2 (08:37→20:18)
[2018-05-17] MEDS: MULTIVITAMIN/MINERALS 15 ML UDBTL PEG SCH (08:37)
[2018-05-17] MEDS: LEVOTHYROXINE 0.05 MG TAB PEG SCH (08:38)
[2018-05-17] MEDS: LACTOBACILLUS RHAMNOSUS GG 1 EACH CAP PO SCH (08:38)
[2018-05-17] MEDS: FAMOTIDINE 20 MG TAB PEG SCH (08:38)
[2018-05-17] MEDS: METOCLOPRAMIDE 10 MG TAB PO SCH ×3 (08:40→16:29)
[2018-05-17 09:03] LABS: BASOPHILS # (AUTO) 0.1 K/uL (0.00-0.22); BASOPHILS % (AUTO) 0.8 % (0.0-2.0); EOSINOPHILS # (AUTO) 0.3 K/uL (0-0.4); EOSINOPHILS % (AUTO) 2.8 % (0.0-4.0); HEMATOCRIT 35.9 % (36-52); HEMOGLOBIN 11.7 g/dL (12.0-18.0); LYMPHOCYTES # (AUTO) 1.3 K/uL (2.0-11.5); LYMPHOCYTES % (AUTO) 12.4 % (20.5-51.1); MEAN CORPUSCULAR HEMOGLOBIN 27 pg (27-31); MEAN CORPUSCULAR HGB CONC 33 g/dL (33-37); MEAN CORPUSCULAR VOLUME 84.1 fL (80-94); MONOCYTES # (AUTO) 0.7 K/uL (0.8-1.0); MONOCYTES % (AUTO) 6.8 % (1.7-9.3); NEUTROPHILS # (AUTO) 8.2 K/uL (1.8-7.7); NEUTROPHILS % (AUTO) 77.2 % (42.2-75.2); PLATELET COUNT (AUTO) 216 K/uL (140-450); RED BLOOD CELL COUNT(AUTO) 4.27 MIL/uL (4.20-6.10); RED CELL DISTRIBUTION WIDTH 14.8 % (11.6-13.7); WHITE BLOOD COUNT (AUTO) 10.6 K/uL (4.8-10.8)
[2018-05-17 09:25] LABS: ANION GAP 10.6 (8-16); CARBON DIOXIDE 27.2 mmol/L (21-32); CREATININE 0.8 mg/dL (0.7-1.3); PHOSPHORUS 3.6 mg/dL (2.5-4.9); POTASSIUM 3.8 mmol/L (3.5-5.1)
[2018-05-17] MEDS: DEXT 5% /NACL 0.9% 1,000 ML IV SCH ×2 (10:40→12:56)
[2018-05-17 12:00] VITALS: BP 118/57
[2018-05-17 16:00] VITALS: BP 106/55
[2018-05-17] MEDS: VANCOMYCIN 1GM/DEXT 5% PREMIX 200 ML IV SCH (16:29)
[2018-05-17 20:00] VITALS: BP 116/55
[2018-05-17] MEDS: FAMOTIDINE 20 MG TAB PO SCH (20:17)
[2018-05-17] MEDS: VALPROIC ACID 250 MG/5 ML UDC PO SCH (20:19)
[2018-05-18] VITALS: BP 106/55
[2018-05-18] MEDS: HYDRAGUARD CREAM TP SCH ×2 (01:00→12:45)
[2018-05-18 03:45] VITALS: BP 117/68
[2018-05-18] MEDS: DEXT 5% /NACL 0.9% 1,000 ML IV SCH (05:34)
[2018-05-18] MEDS: VANCOMYCIN 1GM/DEXT 5% PREMIX 200 ML IV SCH ×2 (05:35→17:39)
[2018-05-18] MEDS ORDERED: LEVOTHYROXINE 0.05 MG TAB PO SCH (06:30)
[2018-05-18] MEDS: ALBUTEROL 0.083% 2.5 MG/3 ML NEBU INH SCH ×2 (06:39→15:15)
[2018-05-18 07:18] LABS: BASOPHILS # (AUTO) 0.1 K/uL (0.00-0.22); BASOPHILS % (AUTO) 1.1 % (0.0-2.0); EOSINOPHILS # (AUTO) 0.3 K/uL (0-0.4); EOSINOPHILS % (AUTO) 2.4 % (0.0-4.0); HEMATOCRIT 34.5 % (36-52); HEMOGLOBIN 11.2 g/dL (12.0-18.0); LYMPHOCYTES # (AUTO) 1.5 K/uL (2.0-11.5); LYMPHOCYTES % (AUTO) 14.9 % (20.5-51.1); MEAN CORPUSCULAR HEMOGLOBIN 27 pg (27-31); MEAN CORPUSCULAR HGB CONC 33 g/dL (33-37); MEAN CORPUSCULAR VOLUME 84.1 fL (80-94); MONOCYTES # (AUTO) 0.7 K/uL (0.8-1.0); MONOCYTES % (AUTO) 7.1 % (1.7-9.3); NEUTROPHILS # (AUTO) 7.7 K/uL (1.8-7.7); NEUTROPHILS % (AUTO) 74.5 % (42.2-75.2); PLATELET COUNT (AUTO) 232 K/uL (140-450); RED CELL DISTRIBUTION WIDTH 14.5 % (11.6-13.7); WHITE BLOOD COUNT (AUTO) 10.3 K/uL (4.8-10.8)
[2018-05-18 08:00] VITALS: BP 128/63
[2018-05-18] MEDS: VALPROIC ACID 250 MG/5 ML UDC PO SCH (08:35)
[2018-05-18] MEDS: FAMOTIDINE 20 MG TAB PO SCH (08:38)
[2018-05-18] MEDS: METOCLOPRAMIDE 10 MG TAB PO SCH ×2 (08:38→12:45)
[2018-05-18] MEDS: risperiDONE 1 MG TAB PO SCH (08:39)
[2018-05-18] MEDS: LACTOBACILLUS RHAMNOSUS GG 1 EACH CAP PO SCH (08:43)
[2018-05-18] MEDS ORDERED: MULTIVITAMIN/MINERALS 15 ML UDBTL PO SCH (09:00)
[2018-05-18 09:48] LABS: ANION GAP 10.7 (8-16); CARBON DIOXIDE 27.3 mmol/L (21-32); CREATININE 0.8 mg/dL (0.7-1.3)
[2018-05-18 09:53] LABS: ALBUMIN 2.7 g/dL (3.4-5.0); TOTAL BILIRUBIN 0.3 mg/dL (0.0-1.0)
[2018-05-18 12:00] VITALS: BP 118/65
[2018-05-18 16:00] VITALS: BP 105/61
[2018-05-18] MEDS ORDERED: PIPE1PDS26 IV (17:51)
[2018-05-18] MEDS ORDERED: VANC1PLA9 IV (17:51)
== END 2018-05-18 18:00 | DRG 871 ==
LOC: MED 17:16 → MTU 19:11
PROVIDERS: ADMIT Preventive Medicine Preventive Medicine/Occupational Environmental Medicine; ATTEND Preventive Medicine Preventive Medicine/Occupational Environmental Medicine
DX: A41.9 Sepsis, unspecified organism (principal); J18.9 Pneumonia, unspecified organism; E87.0 Hyperosmolality and hypernatremia; K80.20 Calculus of gallbladder without cholecystitis without obstruction; K57.90 Diverticulosis of intestine, part unspecified, without perforation or abscess without bleeding; K21.9 Gastro-esophageal reflux disease without esophagitis; G80.9 Cerebral palsy, unspecified; G40.909 Epilepsy, unspecified, not intractable, without status epilepticus; E03.9 Hypothyroidism, unspecified; D64.9 Anemia, unspecified; I10 Essential (primary) hypertension; E88.09 Other disorders of plasma-protein metabolism, not elsewhere classified; N20.0 Calculus of kidney; R13.10 Dysphagia, unspecified; Z93.1 Gastrostomy status; Z86.14 Personal history of Methicillin resistant Staphylococcus aureus infection; Z88.1 Allergy status to other antibiotic agents; R73.9 Hyperglycemia, unspecified
CPT/HCPCS: 36415; 36600; 71045; 80048; 80053; 80202; 81001; 82150; 82550; 82803; 83605; 83690; 83735; 83880; 84100; 84484; 85025; 85610; 85651; 85730; 86140; 87040; 87081; 87086; 92526; 92610; 93005; 94640; 96361; 96365; 96375; 97110; 97116; 97530; 99285; C1758; J1956; J2060; J2405; J2543; J2930; J3370; J3490; J7042; J7060; J7613; J8597; Q0092

== ENCOUNTER 2018-06-16 04:27 | Inpatient (IN) | payer OTHER, MEDICAID ==
[~2018-06-16] VITALS: Ht 167.6 cm; Wt 67.6 kg
[~2018-06-16 04:27] MED LIST changes: +LACT1.4C PEG; +PIPE1PDS26 IV; +SULF-59 PEG; +VANC1PLA9 IV
--- NOTE | 2018-06-16 04:27 | NUR ---
PT TYRA ALS. TAKEN TO BED 7
[2018-06-16 04:30] VITALS: BP 138/69
--- NOTE | 2018-06-16 04:35 | NUR ---
PT BIBA FOR DIFF. BREATHING / DE-SATING AT FACILITY. PT HAS PRODUCTIVE COUGH, RR EVEN AND UNLABORED, BL UPPER BS COARSE/RHONCHI NOTED ON EXPIRATION, BL LOWER LOBES CLEAR. PT BASELINE NEURO, ANSWERS QUESTIONS YES AND NO STATES NAME, PT STATES HE IS IN NO PAIN AT THIS TIME. PMH cerebral palsy, Sz dx, hypothyroid, GERD
--- NOTE | 2018-06-16 04:49 | NUR ---
Dr. Alex evaluating patient at bedside.
[2018-06-16] MEDS ORDERED: SYN.1 PO (04:50)
[2018-06-16] MEDS ORDERED: POLY17PD65 PO (04:50)
[2018-06-16] MEDS ORDERED: LEVOFLOXACIN 500 MG/D5W PREMIX 100 ML IV ONE (05:05)
--- NOTE | 2018-06-16 05:14 | NUR ---
X-Ray at bedside.
[2018-06-16] MEDS ORDERED: ALBUTEROL SULFATE/IPRATROPIU 3 ML SOL IH ONE (05:35)
--- NOTE | 2018-06-16 05:39 | NUR ---
Respiratory Therapist at bedside for respiratory intervention.
[2018-06-16 05:52] LABS: BASOPHILS % (AUTO) 0.2 % (0.0-2.0); EOSINOPHILS # (AUTO) 0.3 K/uL (0-0.4); EOSINOPHILS % (AUTO) 2.2 % (0.0-4.0); HEMATOCRIT 38.5 % (36-52); HEMOGLOBIN 12.3 g/dL (12.0-18.0); LYMPHOCYTES % (AUTO) 6.4 % (20.5-51.1); MEAN CORPUSCULAR HEMOGLOBIN 27 pg (27-31); MEAN CORPUSCULAR HGB CONC 32 g/dL (33-37); MEAN CORPUSCULAR VOLUME 83.5 fL (80-94); MONOCYTES # (AUTO) 1.1 K/uL (0.8-1.0); MONOCYTES % (AUTO) 7.3 % (1.7-9.3); NEUTROPHILS # (AUTO) 13.1 K/uL (1.8-7.7); NEUTROPHILS % (AUTO) 83.9 % (42.2-75.2); PLATELET COUNT (AUTO) 181 K/uL (140-450); RED BLOOD CELL COUNT(AUTO) 4.61 MIL/uL (4.20-6.10); RED CELL DISTRIBUTION WIDTH 14.7 % (11.6-13.7); WHITE BLOOD COUNT (AUTO) 15.5 K/uL (4.8-10.8)
[2018-06-16 05:56] LABS: ANION GAP 13.5 (8-16); CARBON DIOXIDE 28.7 mmol/L (21-32); CREATININE 0.8 mg/dL (0.7-1.3); POTASSIUM 4.2 mmol/L (3.5-5.1)
[2018-06-16 06:02] LABS: APPEARANCE,URINE CLEAR (CLEAR); BILIRUBIN,URINE NEGATIVE (NEGATIVE); BLOOD, URINE TRACE-I (NEGATIVE); COLOR,URINE YELLOW (YELLOW); LEUKOCYTE ESTERASE ,URINE NEGATIVE (NEGATIVE); NITRITE, URINE NEGATIVE (NEGATIVE); TOTAL BILIRUBIN 0.3 mg/dL (0.0-1.0); UGLUCOSE NEGATIVE (NEGATIVE)
--- NOTE | 2018-06-16 06:02 | NUR ---
PT IN BED SLEEPING, VSS, WILL CONTINUE TO MONITOR.
[2018-06-16] MEDS ORDERED: NACL 0.9% 1,000 ML IV ONE (06:05)
[2018-06-16 06:12] LABS: PROTHROMBIN TIME 9.3 secs (10.8-13.4)
[2018-06-16 06:17] LABS: RBC,URINE 3-10 (FEW) /HPF (0-5); WBC,URINE 0-5 (RARE) /HPF (0-5)
--- NOTE | 2018-06-16 07:16 | NUR ---
REPORT TO BASILIO MORA, TRANSFER OF CARE AT THIS TIME.
--- NOTE | 2018-06-16 07:30 | NUR ---
Patient appears to be resting comfortably in bed. Vital Signs within normal limits. Respirations even and unlabored.
--- NOTE | 2018-06-16 07:30 | NUR ---
ENDORSED PT TO BUILDING AND CONSTRUCTION MANAGER NURSEWILLIAM FOR CONTINUITY OF CARE. PT IS STABLE AT THIS TIME. Addendum: 06/16/18 at 1999 by Vale Alcaraz RN WRONG TIME ENTRY FOR THE SAID ABOVE NOTE. RIGHT TIME IS 1929.
[2018-06-16] MEDS ORDERED: NACL 0.9% 1,000 ML IV SCH (07:44)
[2018-06-16] MEDS ORDERED: IPRATROPIUM 0.02% 0.5 MG/2.5 ML NEBU INH PRN (07:45)
[2018-06-16] MEDS ORDERED: PNEUMOCOCCAL VACCINE 23 MCG/0.5 ML VIAL IMVAC SCH (07:45)
[2018-06-16] MEDS ORDERED: INFLUENZA VIRUS VACCINE QUAD 0.5 ML SYR IMVAC SCH (07:45)
--- NOTE | 2018-06-16 08:47 | NUR ---
Patient will be admitted to care of DR. PATINO. Admited to TELE FLOOR. Will go to room 121-B. Belongings list completed. Report to BASILIO FINK.
[2018-06-16 08:50] VITALS: BP 122/71
--- NOTE | 2018-06-16 08:50 | NUR ---
RECEIVED PT FROM ER NURSE VIA CHRIS, PT IS AWAKE AND WAS MADE COMFORTABLE ON THE BED, PT HAS A G-TUBE IN PLACE IN MID-ABDOMEN. PT HAS AN IV LINE ON THE LEFT AC G. 22 ON SALINE LOCK, INTACT, PT DENIES PAIN AND WAS HOOKED TO O2 2L VIA NC. VITAL SIGNS TAKEN AND IS WITHIN NORMAL LIMITS, O2 SATURATION AT 98%. NO SIGN OF DISTRESS NOTED AND WILL CONTINUE TO MONITOR PT.
[2018-06-16] MEDS ORDERED: ALBUTEROL 0.083% 2.5 MG/3 ML NEBU INH SCH (09:48)
[2018-06-16] MEDS ORDERED: ENOXAPARIN 40 MG/0.4 ML SYR SUBQ SCH (09:54)
[2018-06-16] MEDS ORDERED: IPRATROPIUM 0.02% 0.5 MG/2.5 ML NEBU INH SCH ×2 (09:56→12:00)
--- NOTE | 2018-06-16 10:15 | NUR ---
MRSA SWAB DONE TO PT AND SAMPLE WAS SENT TO LAB.
--- NOTE | 2018-06-16 10:37 | NUR ---
DR. SORIA CAME TO PT'S ROOM AND CHECKED ON PT.
--- NOTE | 2018-06-16 10:38 | NUR ---
PT IS AWAKE AND IV MEDICATION GIVEN VIA IVPB, AND LOVENOX VIA SUBQ INN ABDOMEN WAS GIVEN ALSO, PLATELET IS 181, NO SIGN OF DISTRESS BNOTED AND WILL CONTINUE TO MONITOR PT.
[2018-06-16] MEDS: ALBUTEROL 0.083% 2.5 MG/3 ML NEBU INH SCH ×2 (11:15→15:32)
[2018-06-16 12:00] VITALS: BP 135/65
--- NOTE | 2018-06-16 12:46 | NUR ---
PT IS AWAKE AND VITAL SIGNS TAKEN AND IS WITHIN NORMAL LIMIT, MEDICATION GIVEN VIA IVPB AND PT TOLERATED IT, NO REACTION NOTED, WILL CONTINUE TO MONITOR PT.
[2018-06-16] MEDS ORDERED: SODIUM CHLORIDE FLUSH 10 ML SYR IVF SCH (13:00)
[2018-06-16] MEDS ORDERED: metroNIDAZOLE 500 MG/NS PREMIX 100 ML IV SCH (13:00)
--- NOTE | 2018-06-16 13:31 | NUR ---
ELIAS BLACKMAN CALLED AND SAID THAT HE HAD COLLECTED SPUTUM FROM THE PT AND SAMPLE WAS SENT TO LAB, ACKNOWLEDGED.
[2018-06-16] MEDS: IPRATROPIUM 0.02% 0.5 MG/2.5 ML NEBU INH SCH ×2 (15:33→20:16)
[2018-06-16 16:00] VITALS: BP 125/62
--- NOTE | 2018-06-16 16:00 | NUR ---
INFLUENZA A&B ANTIGENS WAS DONE TO PT NOW AND SAMPLE WAS SENT TO LAB.
--- NOTE | 2018-06-16 17:44 | NUR ---
DR. COOL CAME TO THE PT'S ROOM AND ASSESSED PT, REPORTED TO DR. COOL INFORMATION REGARDING PT AND CONDITION. ACKNOWLEDGED AND SAID THAT HE WILL CHANGE THE ANTIBIOTIC.
[2018-06-16] MEDS ORDERED: VANCOMYCIN PER PHARMACY MC PRN (17:45)
--- NOTE | 2018-06-16 19:10 | NUR ---
RECEIVED REPORT FROM DAY SHIFT NURSE AT PT BEDSIDE. PT IN STABLE CONDITION. PT IS AA0X2. PT IS ON NC 2L WITH RESPIRATIONS EVEN AND UNLABORED. IV ACCESS IN L AC 22G SALINE LOCKED. IV IS PATENT AND INTACT. WOUND IN TO SACRAL AREA COVERED WITH DRY AND INTACT DRESSING. PT HAS NO C/O PAIN AT THIS TIME. SEIZURE PRECAUTIONS IN PLACE. BED IS LOCKED, LOW POSITION WITH SIDE RAILS UP X2. CALL LIGHT WITHIN REACH, BOARD UPDATED. WILL CONTINUE TO MONITOR PT.
[2018-06-16 20:00] VITALS: BP 134/66
[2018-06-16] MEDS ORDERED: VANCOMYCIN 1GM/DEXT 5% PREMIX 200 ML IV SCH (20:00)
--- NOTE | 2018-06-16 20:01 | NUR ---
DR. CAREY KHAN.
--- NOTE | 2018-06-16 20:30 | NUR ---
DR. MONACO, COVERING FOR DR. PATINO CALLED BACK. NO ORDERS GIVEN FOR DIET OR CODE STATUS. WILL PAGE DR. VAZQUEZ.
--- NOTE | 2018-06-16 20:35 | NUR ---
DR. MUNOZ CALLED BACK. ORDERS RECEIVED.
[2018-06-16] MEDS ORDERED: VANCOMYCIN 1,000 MG VIAL ONE (20:59)
--- NOTE | 2018-06-16 21:04 | NUR ---
ADMINISTERED SCHEDULED MEDICATION. PT TOLERATING WELL. NO S/SX OF DISTRESS. WILL CONTINUE TO MONITOR.
--- NOTE | 2018-06-16 23:09 | NUR ---
PT PULLED UP IN BED. PT REFUSING TO BE TURNED AT THIS TIME. PT HAS NO S/SX OF DISTRESS. WILL CONTINUE TO MONITOR.
[2018-06-17] VITALS: BP 138/57
--- NOTE | 2018-06-17 00:20 | NUR ---
RT AT BEDSIDE. PT HAS NO S/SX OF DISTRESS. WILL CONTINUE TO MONITOR.
--- NOTE | 2018-06-17 00:30 | NUR ---
SUCTIONED PATIENT'S UPPER AIRWAY WITH A 14FR CATHETER. PATIENT WAS ABLE TO COUGH UP/ EXPEL A SMALL AMOUNT OF THICK CLEAR SECRETIONS. VITALS REMAINED STABLE NAD PATIENT VERBALIZED FEELING BETTER.
--- NOTE | 2018-06-17 00:31 | NUR ---
PATIENT PLACED ON HUMIDIFIED AEROSOL ON 28%/ 6L TO SOOTHE UPPER AIRWAY AND PERSISTENT NON-PRODUCTIVE COUGH, AND TO HUMIDIFY SECRETIONS. WILL MONITOR CLOSELY FOR MORE INDICATIONS FOR SUCTIONING. VITALS STABLE.
--- NOTE | 2018-06-17 02:03 | NUR ---
PT ASLEEP IN BED. PT HAS NO S/SX OF DISTRESS. WILL CONTINUE TO MONITOR.
[2018-06-17 04:00] VITALS: BP 133/67
--- NOTE | 2018-06-17 04:00 | NUR ---
PT ASLEEP IN BED. NO SIGNS OR SYMPTOMS OF DISTRESS. WILL CONTINUE TO MONITOR.
[2018-06-17] MEDS: LEVOFLOXACIN 750 MG/D5W PREMIX 150 ML IV SCH (04:49)
--- NOTE | 2018-06-17 04:50 | NUR ---
SCHEDULED MEDICATION ADMINISTERED. PT TOLERATING WELL. NO SIGNS OR SYMPTOMS OF DISTRESS. WILL CONTINUE TO MONITOR.
[2018-06-17] MEDS: IPRATROPIUM 0.02% 0.5 MG/2.5 ML NEBU INH SCH ×5 (07:07→23:48)
--- NOTE | 2018-06-17 07:14 | NUR ---
ENDORSED PT TO DAY SHIFT NURSE FOR CONTINUITY OF CARE. PT IN STABLE CONDITION.
--- NOTE | 2018-06-17 07:16 | NUR ---
RECEIVED BEDSIDE REPORT FROM NUCLEAR MEDICINE PET CT TECHNOLOGIST NURSE. PATIENT AAOX4. PATIENT UNABLE TO AMBULATE. INCONTINENT OF BOWEL AND BLADDER. NO SIGNS OF RESPIRATORY DISTRESS, ON AEROSOL MIST AT 6 L. PATIENT ON TELE MONITOR. IV ON L AC 22 G INFUSING NS AT 20. IV CLEAN DRY AND INTACT. SKIN INTACT. FALL RISK PROTOCOL IN PLACE. SEIZURE PRECAUTION SIGN POSTED IN HOB. BED IN LOW POSITION, CALL LIGHT WITHIN REACH. WILL CONTINUE TO MONITOR.
[2018-06-17 08:00] VITALS: BP 112/67
--- NOTE | 2018-06-17 08:48 | NUR ---
PATIENT HAS BEEN SCREENED AND CATEGORIZED HIGH NUTRITION RISK. PATIENT WILL BE SEEN WITHIN 1-2 DAYS OF ADMISSION. 06/17/[address]
[2018-06-17] MEDS: ENOXAPARIN 40 MG/0.4 ML SYR SUBQ SCH (09:26)
[2018-06-17] MEDS: VANCOMYCIN 1GM/DEXT 5% PREMIX 200 ML IV SCH ×2 (09:30→20:47)
--- NOTE | 2018-06-17 09:35 | NUR ---
ADMINISTERED SCHEDULED MEDS. PATIENT TOLERATED WELL. WILL CONTINUE TO MONITOR.
--- NOTE | 2018-06-17 11:30 | NUR ---
PATIENT BEING FED HIS LUNCH. PATIENT TOLERATED WELL. WILL CONTINUE TO MONITOR.
--- NOTE | 2018-06-17 11:36 | NUR ---
WOUND CARE EVALUATION NOTE: REASON FOR EVALUATION: LOW JAMES SCALE SKIN ASSESSMENT DONE TO THIS 62 Y/O MALE FROM [facility] WITH INITIAL DX OF SOB AND COUGHING. PAST HX INCLUDING HTN, GERD AND SEIZURE. PT SKIN IS WARM AND DRY. CLARIFICATION: NO PRESSURE INJURY TO SACRALCOCCYX AREA. INTEGUMENTARY: - GT SITE MELCHOR STOMA SKIN DRY AND CLEAN -INCONTINENT ASSOCIATE DERMATITIS (IAD) TO: B/L GROINS EXTENDED TO PERINEUM REDNESS -IAD TO RIGHT AND LEFT INNER BUTTOCKS SLIT 1X0.5X0.1 CM, PARTIAL THICKNESS SKIN EROSION, WOUND BED IS DRY AND PINK, NO ODOR. -SACRALCOCCYX BLANCHABLE REDNESS WITH SKIN INTACT. RECOMMENDATIONS: -KEEP SKIN DRY AND CLEAN AT ALL TIMES, PLEASE CHECK Q2H AND PRN FOR INCONTINENCY OF BOWEL AND BLADDER. - CLEANSE INNER BUTTOCKS WITH MILD SOAP AND WATER, PAT DRY, APPLY Z-GUARD TO INNER BUTTOCKS SLIT AND COVER WITH FOAM DRESSING QD AND PRN IF SOILING -OFFLOAD BILATERAL HEELS BY PLACING PILLOWS UNDER CALVES UNLESS OTHERWISE CONTRAINDICATED -PRESSURE REDISTRIBUTION SURFACE THERAPY -TURN AND REPOSITION Q2H, OFFLOAD SACRALCOCCYX BY TURNING RIGHT AND LEFT -CONTINUE TO FOLLOW RD RECOMMENDATIONS ALL ABOVE RECOMMENDATIONS DISCUSSED WITH PRIMARY RN. WILL FOLLOW UP PT Q7-10 DAYS. PLEASE CONTACT WOUND CARE NURSE FOR ANY QUESTION AND CHANGE OF WOUND CONDITION.
--- NOTE | 2018-06-17 11:58 | NUR ---
06/17/18 RD INITIAL ASSESSMENT COMPLETED PLEASE REFER TO NUTRITION ASSESSMENT UNDER CARE ACTIVITY FOR ESTIMATED NUTRITIONAL NEEDS. 1. CONTINUE PUREE DIET TOLERATED 2. RECOMMEND OWEN BID 3. RD TO FOLLOW-UP 3-5 DAYS, MODERATE RISK [address] RD
[2018-06-17 12:00] VITALS: BP 143/64
[2018-06-17 12:38] LABS: HEMATOCRIT 39.3 % (36-52); HEMOGLOBIN 12.6 g/dL (12.0-18.0); MEAN CORPUSCULAR HEMOGLOBIN 27 pg (27-31); MEAN CORPUSCULAR HGB CONC 32 g/dL (33-37); PLATELET COUNT (AUTO) 186 K/uL (140-450); RED BLOOD CELL COUNT(AUTO) 4.68 MIL/uL (4.20-6.10); RED CELL DISTRIBUTION WIDTH 14.9 % (11.6-13.7)
[2018-06-17 12:50] LABS: EOSINOPHILS % (MANUAL) 2 % (0-4); LYMPHOCYTES % (MANUAL) 15 % (20-46); MONOCYTES % (MANUAL) 5 % (5-12)
--- NOTE | 2018-06-17 13:15 | NUR ---
PATIENT LYING IN BED. NO SIGNS OF RESPIRATORY DISTRESS, ON AEROSOL MIST AT 6 L. WILL CONTINUE TO MONITOR.
[2018-06-17] MEDS: HYDRAGUARD CREAM TP SCH (13:32)
[2018-06-17] MEDS: Z-GUARD PASTE TP SCH (13:32)
--- NOTE | 2018-06-17 15:20 | NUR ---
PATIENT WATCHING TV. NO SIGNS OF RESPIRATORY DISTRESS, ON AEROSOL MIST AT 6 L. WILL CONTINUE TO MONITOR.
[2018-06-17 16:00] VITALS: BP 125/61
--- NOTE | 2018-06-17 18:42 | NUR ---
PATIENT WATCHING TV. NO SIGNS OF DISTRESS NOTED, ON AEROSOL MIST. WILL CONTINUE TO MONITOR.
--- NOTE | 2018-06-17 19:37 | NUR ---
GAVE BEDSIDE REPORT TO INTEGRATED SPECIALIST NURSE. PATIENT ENDORSED IN STABLE CONDITION.
[2018-06-17] MEDS: ALBUTEROL 0.083% 2.5 MG/3 ML NEBU INH PRN (19:59)
[2018-06-17 20:00] VITALS: BP 111/73
--- NOTE | 2018-06-17 20:03 | NUR ---
RT AT BEDSIDE.
--- NOTE | 2018-06-17 20:47 | NUR ---
ADMINISTERED SCHEDULED MEDICATION. PT IS RESTING IN BED COMFORTABLY. NO SIGNS OR SYMPTOMS OF DISTRESS. WILL CONTINUE TO MONITOR.
--- NOTE | 2018-06-17 23:00 | NUR ---
PT ASLEEP IN BED. NO S/SX OF DISTRESS. WILL CONTINUE TO MONITOR.
[2018-06-18] VITALS: BP 114/54
[2018-06-18] MEDS: HYDRAGUARD CREAM TP SCH ×2 (01:14→13:00)
[2018-06-18] MEDS: Z-GUARD PASTE TP SCH ×2 (01:14→13:00)
--- NOTE | 2018-06-18 01:15 | NUR ---
NO CHANGE IN CONDITION. WILL CONTINUE TO MONITOR PT.
[2018-06-18] MEDS: IPRATROPIUM 0.02% 0.5 MG/2.5 ML NEBU INH SCH ×6 (03:27→23:45)
[2018-06-18 04:00] VITALS: BP 124/55
--- NOTE | 2018-06-18 04:33 | NUR ---
ADMINISTERED SCHEDULED MEDICATION. PT RESTING IN BED COMFORTABLY. NO S/SX OF DISTRESS. WILL CONTINUE TO MONITOR.
[2018-06-18] MEDS: LEVOFLOXACIN 750 MG/D5W PREMIX 150 ML IV SCH (04:34)
--- NOTE | 2018-06-18 07:34 | NUR ---
PATIENT INSTRUCTED ON SPUTUM INDUCTION AND ITS IMPORTANCE. PT WAS UNABLE TO PRODUCE SPUTUM AT THIS TIME. CUP LEFT AT BEDSIDE.
--- NOTE | 2018-06-18 07:40 | NUR ---
ENDORSED PT TO DAY SHIFT NURSE FOR CONTINUITY OF CARE. PT IN STABLE CONDITION.
--- NOTE | 2018-06-18 07:41 | NUR ---
RECEIVED BEDSIDE REPORT FROM ENGRAVER RUBBER NURSE. PATIENT IS AWAKE, ALERT AND ORIENTEDX3. NO SIGNS OF DISTRESS ON 2L NC. PATIENT IS BEDBOUND. SKIN HAS SKIN TEAR SACRAL AREA. DRESSING IS INTACT. PATIENT IS INCONTINENT. FALL RISK PROTOCOL, SEIZURE PRECAUTIONS IN PLACE. BED IN LOW POSITION. CALL LIGHT WITHIN REACH. PATIENT HAS NO COMPLAINTS AT THIS TIME. IV ON L AC 22G INFUSING NS AT 20. CLEAN,DRY AND INTACT.
[2018-06-18 07:47] LABS: BASOPHILS % (AUTO) 0.3 % (0.0-2.0); EOSINOPHILS # (AUTO) 0.3 K/uL (0-0.4); EOSINOPHILS % (AUTO) 2.1 % (0.0-4.0); HEMATOCRIT 37.6 % (36-52); HEMOGLOBIN 11.8 g/dL (12.0-18.0); LYMPHOCYTES % (AUTO) 8.7 % (20.5-51.1); MEAN CORPUSCULAR HEMOGLOBIN 27 pg (27-31); MEAN CORPUSCULAR HGB CONC 32 g/dL (33-37); MEAN CORPUSCULAR VOLUME 84.4 fL (80-94); MONOCYTES # (AUTO) 1.1 K/uL (0.8-1.0); MONOCYTES % (AUTO) 9.2 % (1.7-9.3); NEUTROPHILS # (AUTO) 9.5 K/uL (1.8-7.7); NEUTROPHILS % (AUTO) 79.7 % (42.2-75.2); PLATELET COUNT (AUTO) 199 K/uL (140-450); RED BLOOD CELL COUNT(AUTO) 4.46 MIL/uL (4.20-6.10); RED CELL DISTRIBUTION WIDTH 14.8 % (11.6-13.7); WHITE BLOOD COUNT (AUTO) 11.9 K/uL (4.8-10.8)
[2018-06-18 08:00] VITALS: BP 121/67
[2018-06-18 08:40] LABS: ANION GAP 12.3 (8-16); CARBON DIOXIDE 25.8 mmol/L (21-32); CREATININE 0.8 mg/dL (0.7-1.3); POTASSIUM 4.1 mmol/L (3.5-5.1)
[2018-06-18] MEDS: VANCOMYCIN 1GM/DEXT 5% PREMIX 200 ML IV SCH ×2 (09:21→21:56)
[2018-06-18] MEDS: ENOXAPARIN 40 MG/0.4 ML SYR SUBQ SCH (09:25)
--- NOTE | 2018-06-18 09:26 | NUR ---
ADMINISTERED MEDS. PATIENT TOLERATED WELL. WILL CONTINUE TO MONITOR THE PATIENT
--- NOTE | 2018-06-18 11:06 | NUR ---
PATIENT BEING CLEANED BY LINEMAN APPRENTICE. NO SIGNS OF DISTRESS. WILL CONTINUE TO MONITOR THE PATIENT.
[2018-06-18 12:00] VITALS: BP 145/77
--- NOTE | 2018-06-18 12:33 | NUR ---
PATIENT BEING FED. NO SIGNS OF DISTRESS. BED IN LOW POSITION. CALL LIGHT WITHIN REACH. WILL CONTINUE TO MONITOR
[2018-06-18] MEDS: MUPIROCIN CA NASAL 2% 1GM TUBE NS SCH (13:00)
[2018-06-18] MEDS: CHLORHEXADINE GLUC 2% CLOTH TP SCH (13:00)
--- NOTE | 2018-06-18 14:40 | NUR ---
PATIENT SITTING IN BED WATCHING TV. NO SIGNS OF DISTRESS ON 2L NC. BED IN LOW POSITION. CALL LIGHT WITHIN REACH
--- NOTE | 2018-06-18 15:26 | NUR ---
RT WITH PATIENT. WILL CONTINUE TO MONITOR
[2018-06-18 16:00] VITALS: BP 124/72
--- NOTE | 2018-06-18 16:53 | NUR ---
PATIENT ASKING WHEN DINNER WILL COME. TOLD PATIENT THAT IT WILL BE HERE IN ABOUT 30 MINS. PATIENT SAID OK. WILL CONTINUE TO MONITOR
--- NOTE | 2018-06-18 18:18 | NUR ---
PATIENT BEING FED AT THIS TIME BY PROPOSAL ENGINEER. WILL CONTINUE TO MONITOR
--- NOTE | 2018-06-18 18:50 | NUR ---
PATIENT HAD A BM, PATIENT BEING CLEANED BY MEDICAL RECORDS DIRECTOR
--- NOTE | 2018-06-18 19:26 | NUR ---
GAVE BEDSIDE REPORT TO CAREER AND TECHNOLOGY EDUCATION TEACHER NURSE. PATIENT ENDORSED IN STABLE CONDITION
[2018-06-18 20:00] VITALS: BP 132/75
--- NOTE | 2018-06-18 20:25 | NUR ---
PT REFUSED HHN TX. NO SOB OR DISTRESS NOTED. WILL CONTINUE TO MONITOR.
--- NOTE | 2018-06-18 21:57 | NUR ---
ADMINSTERED SCHEDULED MEDICATION. PT RESTING IN BED COMFORTABLY. NO S/SX OF DISTRESS. WILL CONTINUE TO MONITOR.
[2018-06-19] VITALS: BP 136/71
--- NOTE | 2018-06-19 | NUR ---
PT RESTING COMFORTABLY IN BED. NO S/SX OF DISTRESS. WILL CONTINUE TO MONITOR.
[2018-06-19] MEDS: HYDRAGUARD CREAM TP SCH ×2 (01:36→13:36)
[2018-06-19] MEDS: Z-GUARD PASTE TP SCH ×2 (01:36→13:36)
--- NOTE | 2018-06-19 02:03 | NUR ---
NO CHANGE IN CONDITION. WILL CONTINUE OT MONITOR.
[2018-06-19] MEDS: IPRATROPIUM 0.02% 0.5 MG/2.5 ML NEBU INH SCH ×6 (03:45→23:00)
[2018-06-19] MEDS: LEVOFLOXACIN 750 MG/D5W PREMIX 150 ML IV SCH (04:58)
--- NOTE | 2018-06-19 04:58 | NUR ---
ORDERED ANTIBIOTIC GIVEN. PT RESTING COMFORTABLY IN BED. NO S/SX OF DISTRESS. WILL CONTINUE TO MONITOR.
[2018-06-19 05:01] VITALS: BP 146/73
--- NOTE | 2018-06-19 07:16 | NUR ---
ENDORSED PT TO DAY SHIFT NURSE FOR CONTINUITY OF CARE. PT IN STABLE CONDITION.
[2018-06-19 08:00] VITALS: BP 136/61
--- NOTE | 2018-06-19 08:00 | NUR ---
PATIENT WAS AWAKE, ALERT, EATING BREAKFAST COMFORTABLY. RESPIRATION EVEN, UNLABOR ON 2L NC. SKIN DRY AND WARM. IV PATENT AND INTACT. DENIED PAIN AT THIS TIME. GTUBE DRY AND CLEAN. PLAN OF CARE WAS DISCUSSED WITH PATIENT. BED AT LOW POSITION, SIDE RAILS UP. CALL LIGHT WITHIN REACH.
--- NOTE | 2018-06-19 09:00 | NUR ---
DR. PATINO WAS PAGED REGARDING OR TO CONTINUE HOME MEDS
[2018-06-19] MEDS: VANCOMYCIN 1GM/DEXT 5% PREMIX 200 ML IV SCH ×2 (09:13→21:44)
[2018-06-19] MEDS: ENOXAPARIN 40 MG/0.4 ML SYR SUBQ SCH (09:17)
--- NOTE | 2018-06-19 10:00 | NUR ---
OK TO CONTINUE HOME MEDS PER DR. PATINO
[2018-06-19] MEDS ORDERED: risperiDONE 1 MG TAB PEG SCH (10:13)
[2018-06-19] MEDS ORDERED: VALPROIC ACID 250 MG/5 ML UDC GT SCH (10:16)
[2018-06-19] MEDS ORDERED: VALPROIC ACID 500 MG PO SCH (11:00)
--- NOTE | 2018-06-19 11:40 | NUR ---
PATIENT WAS AWAKE, FOLLOW COMMANDS. PATIENT DESAT ON 2L NC. PATIENT WAS PLACED ON 3L VIA NC, SP02 96%. RT WAS AT BEDSIDE. VS IS STABLE. DENIED PAIN, SOB AT THIS TIME. CALL LIGHT WITHIN REACH
--- NOTE | 2018-06-19 11:46 | NUR ---
SCHEDULED BREATHING TREATMENT ADMINISTERED. TOLERATED TX WELL, NO ADVERSE SIDE EFFECTS. WILL CONTINUE TO MONITOR.
[2018-06-19 12:00] VITALS: BP 104/80
[2018-06-19] MEDS: CHLORHEXADINE GLUC 2% CLOTH TP SCH (13:35)
[2018-06-19] MEDS: MUPIROCIN CA NASAL 2% 1GM TUBE NS SCH (13:35)
[2018-06-19] MEDS: METOCLOPRAMIDE 10 MG/10 ML SYRP UDC PO SCH ×2 (13:35→16:06)
--- NOTE | 2018-06-19 14:03 | NUR ---
PATIENT WAS AWAKE, FOLLOW COMMANDS. RESPIRATION EVEN, UNLABOR ON 3L NC. WOUND DRESSING WAS CHANGED, WOUND CARE WAS GIVEN, PATIENT TOLERATED WELL. NO DISTRESS NOTED. CALL LIGHT WITHIN REACH
[2018-06-19 15:35] LABS: BASOPHILS # (AUTO) 0.1 K/uL (0.00-0.22); BASOPHILS % (AUTO) 0.4 % (0.0-2.0); EOSINOPHILS # (AUTO) 0.2 K/uL (0-0.4); EOSINOPHILS % (AUTO) 1.3 % (0.0-4.0); HEMATOCRIT 38.7 % (36-52); HEMOGLOBIN 12.4 g/dL (12.0-18.0); LYMPHOCYTES # (AUTO) 1.6 K/uL (2.0-11.5); LYMPHOCYTES % (AUTO) 10.7 % (20.5-51.1); MEAN CORPUSCULAR HEMOGLOBIN 27 pg (27-31); MEAN CORPUSCULAR HGB CONC 32 g/dL (33-37); MEAN CORPUSCULAR VOLUME 82.7 fL (80-94); MONOCYTES % (AUTO) 6.8 % (1.7-9.3); NEUTROPHILS # (AUTO) 12.3 K/uL (1.8-7.7); NEUTROPHILS % (AUTO) 80.8 % (42.2-75.2); PLATELET COUNT (AUTO) 231 K/uL (140-450); RED BLOOD CELL COUNT(AUTO) 4.68 MIL/uL (4.20-6.10); RED CELL DISTRIBUTION WIDTH 14.5 % (11.6-13.7); WHITE BLOOD COUNT (AUTO) 15.2 K/uL (4.8-10.8)
[2018-06-19 16:00] VITALS: BP 122/69
--- NOTE | 2018-06-19 16:00 | NUR ---
PATIENT WAS AWAKE, FOLLOW COMMANDS. RESPIRATION EVEN, UNLABOR ON 3L NC. MOIST INTERMITTEN COUGH WAS SEEN. IV PATENT AND INTACT. G TUBE DRY AND CLEAN, FLUSHING WELL. VS IS STABLE. NO DISTRESS NOTED AT THIS TIME
--- NOTE | 2018-06-19 18:21 | NUR ---
PATIENT WAS AWAKE, FOLLOW COMMANDS. RESPIRATION EVEN, UNLABOR ON 3L NC. IV PATENT AND INTACT. NO DISTRESS NOTED AT THIS TIME. CALL LIGHT WITHIN REACH
--- NOTE | 2018-06-19 18:39 | NUR ---
SPUTUM SAMPLE WAS COLLECTED AND SENT TO LAB PER ORDER
--- NOTE | 2018-06-19 19:16 | NUR ---
ENDORSEMENT GIVEN TO CHISEL WORKER NURSE. PATIENT IS STABLE AT THIS TIME
--- NOTE | 2018-06-19 19:17 | NUR ---
RECEIVED BEDSIDE REPORT FROM DAY SHIFT NURSE JILLIAN RN, PT STABLE, NO DISTRESS NOTED, IV TO L AC 22G PATENT, INTACT, PT ON 3LPM O2 VIA NC, NO SOB NOTED, DRESSING INTACT, PT RESTING, NO C/O PAIN, FLACC 0, INITIAL ASSESSMENT DONE, ALL SAFETY PRECAUTION MET, CALL LIGHT WITHIN REACH, WILL CONTINUE TO MONITOR.
[2018-06-19] MEDS: ALBUTEROL 0.083% 2.5 MG/3 ML NEBU INH PRN (19:24)
[2018-06-19 20:00] VITALS: BP 112/66
--- NOTE | 2018-06-19 20:10 | NUR ---
CALLED PT SISTER LAKIA DAVIS AT TO OBTAIN PHONE CONSENT FOR PT PROCEDURE CT CHEST ANGIO WITH OR WITHOUT CONTRAST, CONSENT OBTAINED OVER THE PHONE, PT SISTER STATED UNDERSTANDING OF PROCEDURE, PT SISTER ALSO TALKED TO CHARGE NURSE MANUEL TO VERIFY CONSENT.
[2018-06-19] MEDS: VALPROIC ACID 250 MG/5 ML UDC GT SCH (21:44)
[2018-06-19] MEDS: risperiDONE 1 MG TAB PEG SCH (21:45)
--- NOTE | 2018-06-19 21:45 | NUR ---
DUE MEDICATION ADMINISTERED, PT TOLERATED WELL, NO DISTRESS NOTED, CALL LIGHT WITHIN REACH, WILL CONTINUE TO MONITOR.
--- NOTE | 2018-06-19 23:29 | NUR ---
CHECKED ON PT, PT SLEEPING, NO DISTRESS NOTED, V/S TAKEN WNL, CALL LIGHT WITHIN REACH, WILL CONTINUE TO MONITOR.
[2018-06-20 00:30] VITALS: BP 143/53
[2018-06-20] MEDS: HYDRAGUARD CREAM TP SCH ×2 (00:48→12:07)
[2018-06-20] MEDS: Z-GUARD PASTE TP SCH ×2 (00:48→12:07)
--- NOTE | 2018-06-20 00:58 | NUR ---
CHECKED ON PT, DRESSINGS CHANGED, PT TOLERATED WELL, NO DISTRESS NOTED, CALL LIGHT WITHIN REACH, WILL CONTINUE TO MONITOR.
[2018-06-20] MEDS: IPRATROPIUM 0.02% 0.5 MG/2.5 ML NEBU INH SCH ×6 (03:23→23:34)
--- NOTE | 2018-06-20 03:55 | NUR ---
CHECKED ON PT, PT SLEEPING, NO DISTRESS NOTED, V/S TAKEN, WNL, CALL LIGHT WITHIN REACH, WILL CONTINUE TO MONITOR.
[2018-06-20 04:00] VITALS: BP 108/51
[2018-06-20] MEDS: LEVOTHYROXINE 0.1 MG TAB PO SCH (05:34)
[2018-06-20] MEDS: LEVOFLOXACIN 750 MG/D5W PREMIX 150 ML IV SCH (05:34)
--- NOTE | 2018-06-20 05:34 | NUR ---
DUE MEDICATION ADMINISTERED, PT TOLERATED WELL, NO DISTRESS NOTED, CALL LIGHT WITHIN REACH, WILL CONTINUE TO MONITOR.
--- NOTE | 2018-06-20 07:16 | NUR ---
ENDORSED PT TO DAY SHIFT NURSE AKIL RN, PT STABLE, NO DISTRESS NOTED, CALL LIGHT WITHIN REACH.
--- NOTE | 2018-06-20 07:17 | NUR ---
Received bedside report from pm nurse Kellie. Pt awake, respirations even & nonlabored on O2 @ 2Lpm via n/c, FLACC 0. Call light within reach.
[2018-06-20 07:32] LABS: BASOPHILS # (AUTO) 0.1 K/uL (0.00-0.22); BASOPHILS % (AUTO) 0.6 % (0.0-2.0); EOSINOPHILS # (AUTO) 0.1 K/uL (0-0.4); EOSINOPHILS % (AUTO) 1.1 % (0.0-4.0); HEMATOCRIT 37.5 % (36-52); HEMOGLOBIN 12.1 g/dL (12.0-18.0); LYMPHOCYTES # (AUTO) 1.3 K/uL (2.0-11.5); MEAN CORPUSCULAR HEMOGLOBIN 27 pg (27-31); MEAN CORPUSCULAR HGB CONC 32 g/dL (33-37); MEAN CORPUSCULAR VOLUME 82.9 fL (80-94); MONOCYTES # (AUTO) 1.1 K/uL (0.8-1.0); MONOCYTES % (AUTO) 7.8 % (1.7-9.3); NEUTROPHILS # (AUTO) 11.4 K/uL (1.8-7.7); NEUTROPHILS % (AUTO) 81.5 % (42.2-75.2); PLATELET COUNT (AUTO) 221 K/uL (140-450); RED BLOOD CELL COUNT(AUTO) 4.53 MIL/uL (4.20-6.10); RED CELL DISTRIBUTION WIDTH 14.4 % (11.6-13.7)
[2018-06-20 08:00] VITALS: BP 109/47
[2018-06-20] MEDS ORDERED: NON-FORMULARY ITEM (Multivitamin (Multivitamins) 1 CAP) PEG SCH (09:00)
[2018-06-20] MEDS: VALPROIC ACID 250 MG/5 ML UDC GT SCH ×2 (09:01→22:25)
[2018-06-20] MEDS: METOCLOPRAMIDE 10 MG/10 ML SYRP UDC PO SCH ×3 (09:01→17:46)
[2018-06-20] MEDS: VANCOMYCIN 1GM/DEXT 5% PREMIX 200 ML IV SCH ×2 (09:01→21:00)
[2018-06-20] MEDS: MULTIVITAMIN 5 ML ORASYR GT SCH (09:01)
[2018-06-20] MEDS: risperiDONE 1 MG TAB PEG SCH ×2 (09:02→22:25)
--- NOTE | 2018-06-20 09:15 | NUR ---
Per [employer], unable to perform CT chest angiogram d/t pending physician signature. Awaiting Dr Martin/Dr Ivan. Pt currently resting comfortably at this time. Respirations even & nonlabored on O2 @ 2Lpm via n/c. Intermittent dry cough present. Call light within reach. Addendum: 06/20/18 at 1258 by Vicki Goldberg RN Addendum: Right forearm IV asymptomatic with ongoing NS @ 10ml/hr TKVO.
[2018-06-20] MEDS: ENOXAPARIN 40 MG/0.4 ML SYR SUBQ SCH (09:16)
--- NOTE | 2018-06-20 11:40 | NUR ---
SCHEDULED BREATHING TREATMENT ADMINISTERED. TOLERATED TREATMENT WELL, NO ADVERSE SIDE EFFECTS. NO RESPIRATORY DISTRESS NOTED AT THIS TIME. WILL CONTINUE TO MONITOR.
[2018-06-20 12:00] VITALS: BP 116/61
[2018-06-20] MEDS: MUPIROCIN CA NASAL 2% 1GM TUBE NS SCH (12:06)
[2018-06-20] MEDS: CHLORHEXADINE GLUC 2% CLOTH TP SCH (12:06)
--- NOTE | 2018-06-20 13:25 | NUR ---
Dr Martin in unit. Obtained signature for CT chest angiogram consent. nanoscience technician notified, states they will come for pt around 2pm.
[2018-06-20] MEDS: ALBUTEROL 0.083% 2.5 MG/3 ML NEBU INH PRN (14:18)
[2018-06-20 16:00] VITALS: BP 94/48
--- NOTE | 2018-06-20 16:50 | NUR ---
Pt left unit via hospital bed for CT. Pt awake, verbally responsive, respirations even & nonlabored on O2 @ 1.5Lpm via n/c.
--- NOTE | 2018-06-20 17:14 | NUR ---
Came back from CT via hospital bed. Pt awake, respirations even & nonlabored on O2 @ 1.5 Lpm via n/c, FLACC 0. Call light within reach.
--- NOTE | 2018-06-20 19:30 | NUR ---
RECEIVED REPORT FROM AKIL RN DAYSHIFT FOR CONTINUITY OF CARE, PT IN STABLE CONDITION.
--- NOTE | 2018-06-20 20:00 | NUR ---
PT IN BED WITH ALL FALLS AND SEIZURE PRECAUTIONS IN PLACE. PT HAS 1 LITER N/C SUPPLEMENTAL O2. PT LUNG SOUNDS NOTED WITH RAILS. PT HAS NO S/S OF RESPIRATORY DISTRESS NOTED. PT HAS GTUBE WHICH WAS FLUSHED PATENT HAS NO S/S OF PAIN OR DITRESS NOTED. V/S FOLLOWS T 97.7 P 72 R 18 B/P 130/68 02 94% WITH 1 LITER SUPPLEMENTAL 02. Addendum: 06/21/18 at 0424 by Ashtyn Modi RN B/P IS 114/44 P 87
--- NOTE | 2018-06-20 21:00 | NUR ---
PT GIVEN ALL DUE MEDICATIONS , DEPAKENE, LAMICTAL AND RISPERDAL WELL IV ABT VANCOMYCIN. NO ADVERSE EFFECTS OF MEDS NOTED.
--- NOTE | 2018-06-20 23:00 | NUR ---
PT TURNED AND CHANGED IN BED, NO S/S OF PAIN OR DISTRESS NOTED ALL ORDERED PRECAUTIONS IN PLACE.
[2018-06-21] VITALS: BP 130/68
--- NOTE | 2018-06-21 00:45 | NUR ---
PT ASLEEP IN BED NO S/S OF PAIN OR DISTRESS NOTED V/S FOLLOWS T 97.7 P 72 R 18 B/P 130/68 02 94% ON R/A. ALL NEEDS ATTENDED BY STAFF AND CALL [place] IN REACH.
[2018-06-21] MEDS: Z-GUARD PASTE TP SCH ×2 (01:00→13:21)
[2018-06-21] MEDS: HYDRAGUARD CREAM TP SCH ×2 (01:00→13:23)
[2018-06-21] MEDS: IPRATROPIUM 0.02% 0.5 MG/2.5 ML NEBU INH SCH ×4 (03:43→16:05)
[2018-06-21] MEDS: LEVOFLOXACIN 750 MG/D5W PREMIX 150 ML IV SCH (05:00)
[2018-06-21] MEDS: LEVOTHYROXINE 0.1 MG TAB PO SCH (06:37)
--- NOTE | 2018-06-21 07:30 | NUR ---
ENDORSED CARE TO MICHELE RN DAYSHIFT NURSE AT BEDSIDE FOR CONTINUITY OF CARE, PT IN STABLE CONDITION.
--- NOTE | 2018-06-21 07:31 | NUR ---
RECEIVED REPORT FROM HAND SCRAPER NURSE. PT IN STABLE CONDITION. RESPIRATIONS EVEN AND UNLABORED. IV INTACT AND PATENT. SAFETY MEASURES IN PLACE. CALL LIGHT AT BEDSIDE. BED IN LOW POSITION. WILL CONTINUE TO MONITOR.
[2018-06-21 08:00] VITALS: BP 126/58
[2018-06-21 08:06] LABS: BASOPHILS # (AUTO) 0.1 K/uL (0.00-0.22); BASOPHILS % (AUTO) 0.7 % (0.0-2.0); EOSINOPHILS # (AUTO) 0.2 K/uL (0-0.4); EOSINOPHILS % (AUTO) 1.6 % (0.0-4.0); HEMATOCRIT 39.1 % (36-52); HEMOGLOBIN 12.6 g/dL (12.0-18.0); LYMPHOCYTES % (AUTO) 9.3 % (20.5-51.1); MEAN CORPUSCULAR HEMOGLOBIN 27 pg (27-31); MEAN CORPUSCULAR HGB CONC 32 g/dL (33-37); MEAN CORPUSCULAR VOLUME 83.3 fL (80-94); MONOCYTES # (AUTO) 0.7 K/uL (0.8-1.0); MONOCYTES % (AUTO) 6.1 % (1.7-9.3); NEUTROPHILS # (AUTO) 8.9 K/uL (1.8-7.7); NEUTROPHILS % (AUTO) 82.3 % (42.2-75.2); PLATELET COUNT (AUTO) 256 K/uL (140-450); RED CELL DISTRIBUTION WIDTH 14.9 % (11.6-13.7); WHITE BLOOD COUNT (AUTO) 10.8 K/uL (4.8-10.8)
--- NOTE | 2018-06-21 08:10 | NUR ---
ASSISTED IN FEEDING PT BREAKFAST. PT TOLERATED WELL. WILL CONTINUE TO MONITOR.
[2018-06-21] MEDS: VALPROIC ACID 250 MG/5 ML UDC GT SCH (09:04)
[2018-06-21] MEDS: MULTIVITAMIN 5 ML ORASYR GT SCH (09:04)
[2018-06-21] MEDS: METOCLOPRAMIDE 10 MG/10 ML SYRP UDC PO SCH ×2 (09:04→13:20)
[2018-06-21] MEDS: VANCOMYCIN 1GM/DEXT 5% PREMIX 200 ML IV SCH (09:05)
[2018-06-21] MEDS: risperiDONE 1 MG TAB PEG SCH (09:05)
[2018-06-21] MEDS: ENOXAPARIN 40 MG/0.4 ML SYR SUBQ SCH (09:08)
--- NOTE | 2018-06-21 09:10 | NUR ---
GAVE ORDERED MEDICATIONS. PT TOLERATED WELL. WILL CONTINUE TO MONITOR.
[2018-06-21 09:27] LABS: ALBUMIN 2.8 g/dL (3.4-5.0); ANION GAP 13.4 (8-16); CARBON DIOXIDE 27.7 mmol/L (21-32); CREATININE 0.7 mg/dL (0.7-1.3); MAGNESIUM 1.9 mg/dL (1.8-2.4); POTASSIUM 4.1 mmol/L (3.5-5.1); TOTAL BILIRUBIN 0.3 mg/dL (0.0-1.0)
[2018-06-21 12:00] VITALS: BP 115/50
--- NOTE | 2018-06-21 12:15 | NUR ---
ASSISTED PT WITH LUNCH. PT TOLERATED WELL. WILL CONTINUE TO MONITOR.
[2018-06-21] MEDS: MUPIROCIN CA NASAL 2% 1GM TUBE NS SCH (13:20)
[2018-06-21] MEDS: CHLORHEXADINE GLUC 2% CLOTH TP SCH (13:22)
--- NOTE | 2018-06-21 14:00 | NUR ---
PT LYING IN BED IN STABLE CONDITION. RESPIRATIONS EVEN AND UNLABORED. WILL CONTINUE TO MONITOR.
[2018-06-21] MEDS ORDERED: LEVO750T2 PO (14:50)
--- NOTE | 2018-06-21 17:00 | NUR ---
ASSISTED PT WITH CLEANING AFTER BM. PT TOLERATED WELL. WILL CONTINUE TO MONITOR.
--- NOTE | 2018-06-21 17:45 | NUR ---
GAVE REPORT TO BHARTI FROM [facility]. ALL QUESTIONS ANSWERED AT THIS TIME.
--- NOTE | 2018-06-21 17:55 | NUR ---
GAVE DISCHARGE INSTRUCTIONS AND PRESCRIPTION FOR PHARMACY. ALL QUESTIONS ANSWERED AT THIS TIME. IV REMOVED, LUMEN INTACT. PT PICKED UP FROM [facility]. PT WAS WHEELED TO LOBBY IN PERSONAL WHEELCHAIR. PT IN STABLE CONDITION.
== END 2018-06-21 17:55 | disposition home or self-care (01) | DRG 871 ==
LOC: MED 04:27 → MTU 08:22
PROVIDERS: ADMIT Internal Medicine Cardiovascular Disease; ATTEND Internal Medicine Cardiovascular Disease
DX: A41.9 Sepsis, unspecified organism (principal); J18.9 Pneumonia, unspecified organism; J96.01 Acute respiratory failure with hypoxia; I10 Essential (primary) hypertension; K21.9 Gastro-esophageal reflux disease without esophagitis; E03.9 Hypothyroidism, unspecified; G80.8 Other cerebral palsy; F79 Unspecified intellectual disabilities; J40 Bronchitis, not specified as acute or chronic; G40.909 Epilepsy, unspecified, not intractable, without status epilepticus; N20.0 Calculus of kidney; K80.20 Calculus of gallbladder without cholecystitis without obstruction; K57.90 Diverticulosis of intestine, part unspecified, without perforation or abscess without bleeding; Z93.1 Gastrostomy status; Z88.1 Allergy status to other antibiotic agents; Z87.442 Personal history of urinary calculi; Z22.322 Carrier or suspected carrier of Methicillin resistant Staphylococcus aureus; Z79.899 Other long term (current) drug therapy
CPT/HCPCS: 36415; 71045; 71275; 80048; 80053; 80202; 81001; 82948; 83605; 83735; 83880; 84484; 85025; 85610; 85730; 87040; 87070; 87081; 87086; 87205; 87804; 89220; 93005; 94640; 96365; 96366; 97530; 99285; J0696; J1650; J1956; J3370; J3490; J7030; J7042; J7060; J7613; J7620; J7644; J8597; Q9967

== ENCOUNTER 2018-11-28 07:19 | Inpatient (IN) | payer MEDICAID, OTHER ==
[~2018-11-28] VITALS: Ht 165.1 cm; Wt 77.1 kg
[~2018-11-28 07:19] MED LIST changes: -FLEPED RC; -LACT1.4C PEG; -PIPE1PDS26 IV; +POLY17PD65 PO; -SULF-59 PEG; -SYN.05 PO; +SYN.1 PO; -VANC1PLA9 IV
--- NOTE | 2018-11-28 07:19 | NUR ---
BIBA FROM [facility]. C/O SOB AND BLACK EMESIS X 1, SPO2 87 ON RA. PT PLACED ON O2 3LPM NC. O2 SAT AT 95%. TRINO UPPER LOBES RONCHI INSPIRATORY AND EXPIRATORY UPON AUSCULTATION. PT WAS THROWING UP BLACK EMESIS, SUCTIONED MOUTH VIA YAUNKER, PT TOLERATED WELL. BLACK GASTRIC CONTENT ASPIRATED VIA GTUBE, SUCTIONED AIR AND BLACK GASTRIC CONTENT OUTPUT 500 ML. PT PLACED ON FULL AUTO CLAIM REPRESENTATIVE. CAREGIVER AT BEDSIDE AT THIS TIME. HOB UP. BEDSIDE RAILS UP X1. ON LOW BED POSITION, LOCKED. ER MADE AWARE OF PT STATUS.
--- NOTE | 2018-11-28 07:19 | NUR ---
Patient [facility], transferred to bed 10. RN evaluating patient at bedside.
[2018-11-28 07:21] VITALS: BP 121/68
[2018-11-28] MEDS ORDERED: NACL 0.9% 1,000 ML IV SCH (07:28)
[2018-11-28] MEDS ORDERED: PIPERACILLIN/TAZOBACTAM 3.375 GM in DEXT 5% MINI-BAG PLUS 50 ML IV ONE (07:30)
[2018-11-28] MEDS ORDERED: methylPREDNISolone SS 125 MG/2 ML VIAL IVP ONE (07:30)
[2018-11-28] MEDS ORDERED: MAG SULF 2000 MG/WATER PREMIX 50 ML IV ONE (07:30)
--- NOTE | 2018-11-28 07:32 | NUR ---
DR DANIEL AT BEDSIDE FOR PT EVAL
[2018-11-28] MEDS ORDERED: PROMETHAZINE 25 MG/ML VIAL IM ONE (07:35)
[2018-11-28] MEDS ORDERED: FAMOTIDINE 20 MG/2 ML VIAL IVP ONE (07:35)
--- NOTE | 2018-11-28 07:46 | NUR ---
cxr at bedside
--- NOTE | 2018-11-28 08:15 | NUR ---
PT ASLEEP. AROUSABLE TO TOUCH. VSS. NO SIGNS AND SYMPTOMS OF DISTRESS NOTED. SAFETY ENSURED. WILL CONTINUE TO MONITOR.
[2018-11-28 09:00] LABS: APPEARANCE,URINE CLEAR (CLEAR); BILIRUBIN,URINE NEGATIVE (NEGATIVE); BLOOD, URINE 1+ (NEGATIVE); COLOR,URINE YELLOW (YELLOW); LEUKOCYTE ESTERASE ,URINE NEGATIVE (NEGATIVE); NITRITE, URINE NEGATIVE (NEGATIVE); PH,URINE 6.5 (5.0-9.0); UGLUCOSE NEGATIVE (NEGATIVE)
[2018-11-28 09:10] LABS: WBC,URINE 0-5 /HPF (0-5)
[2018-11-28 09:11] LABS: RBC,URINE 11-20 (MOD) /HPF (0-5)
--- NOTE | 2018-11-28 09:20 | NUR ---
DR DANIEL AT BEDSIDE FOR PT RE EVALUATION
--- NOTE | 2018-11-28 09:20 | NUR ---
DR DANIEL AT BEDSIDE FOR FEMORAL STICK FOR LABS
[2018-11-28 09:51] LABS: BASOPHILS # (AUTO) 0.1 K/uL (0.00-0.22); BASOPHILS % (AUTO) 0.4 % (0.0-2.0); EOSINOPHILS % (AUTO) 0.1 % (0.0-4.0); HEMATOCRIT 27.9 % (36-52); LYMPHOCYTES # (AUTO) 0.4 K/uL (2.0-11.5); MEAN CORPUSCULAR HEMOGLOBIN 27 pg (27-31); MEAN CORPUSCULAR HGB CONC 32 g/dL (33-37); MEAN CORPUSCULAR VOLUME 82.3 fL (80-94); MONOCYTES # (AUTO) 2.1 K/uL (0.8-1.0); MONOCYTES % (AUTO) 7.3 % (1.7-9.3); NEUTROPHILS # (AUTO) 26.5 K/uL (1.8-7.7); PLATELET COUNT (AUTO) 233 K/uL (140-450); RED BLOOD CELL COUNT(AUTO) 3.39 MIL/uL (4.20-6.10); RED CELL DISTRIBUTION WIDTH 15.7 % (11.6-13.7)
--- NOTE | 2018-11-28 09:56 | NUR ---
CRITICAL LAB REPORT RECEIVED FROM [facility]. WBC:29.2. READ BACK RESULTS. NOTIFIED DR DANIEL.
[2018-11-28 09:57] LABS: WHITE BLOOD COUNT (AUTO) 29.2 K/uL (4.8-10.8)
[2018-11-28 10:01] LABS: CREATININE 0.6 mg/dL (0.7-1.3)
[2018-11-28 10:04] LABS: LYMPHOCYTES % (AUTO) 1.5 % (20.5-51.1); NEUTROPHILS % (AUTO) 90.7 % (42.2-75.2)
[2018-11-28 10:18] LABS: ALBUMIN 2.1 g/dL (3.4-5.0); TOTAL BILIRUBIN 0.2 mg/dL (0.0-1.0)
--- NOTE | 2018-11-28 10:22 | NUR ---
RECEIVED CALL FROM [facility] AND [facility] AND SPOKE TO BASILIO LUGO TO CONFIRM PT'S ADMITTING DIAGNOSIS.
--- NOTE | 2018-11-28 10:23 | NUR ---
RECEIVED CALL FROM DALTON BAHENA FROM [facility], ASSOCIATE PRODUCT INTEGRITY ENGINEER TO CONFIRM PT'S DIAGNOSIS AND MEDICATION GIVEN TO INFORM PT'S SISTER
[2018-11-28 11:05] VITALS: BP 108/62
--- NOTE | 2018-11-28 11:05 | NUR ---
Patient will be admitted to care of Dr. Martin. Admited to TELE. Will go to room 105 A. Belongings list completed. Report to BASILIO VERDIN.
--- NOTE | 2018-11-28 11:05 | NUR ---
PATIENT ARRIVED FROM ER VIA GURNEY. NO DISTRESS NOTED. NO VOMITING AT THIS TIME. TRANSFERRED PATIENT TO [facility] BED SAFELY. AAOX1, MENTAL DISABILITY NOTED, CALM, COOPERATIVE, SKIN COLOR APPROPRIATE TO ETHNICITY, WARM TO TOUCH. SKIN INTACT. GTUBE IN PLACE, INTACT, AND SITE CLEAN, NO GRANULOMAS NOTED. HAS DRY COUGH. LUNGS COURSE THROUGHOUT ALL LOBES. IV SITE INTACT, PATENT, AND ON SALINE LOCK AT THIS TIME. REVIEWED PLAN OF CARE WITH PATIENT. REINFORCEMENT NEEDED. SAFETY MEASURES IN PLACE, CALL LIGHT WITHIN REACH. WILL CONTINUE TO MONITOR.
[2018-11-28] MEDS ORDERED: MORPHINE SULFATE 4 MG/ML SYR IVP PRN (11:45)
[2018-11-28] MEDS ORDERED: ONDANSETRON 4 MG/2 ML VIAL IVP PRN (11:45)
[2018-11-28] MEDS ORDERED: MORPHINE SULFATE 2 MG/ML SYR IVP PRN (11:45)
[2018-11-28] MEDS ORDERED: LORazepam 2 MG/ML VIAL IVP PRN (11:45)
--- NOTE | 2018-11-28 12:00 | NUR ---
DR. PATINO AT BEDSIDE REVIEWING PLAN OF CARE WITH PATIENT. WILL CONTINUE TO MONITOR.
[2018-11-28] MEDS: DEXT 5% /NACL 0.9% 1,000 ML IV SCH ×2 (12:46→20:39)
--- NOTE | 2018-11-28 12:56 | NUR ---
PATIENT LYING DOWN IN BED SLEEPING, AROUSABLE BY VOICE AND TOUCH. SCHEDULED ANTIBIOTIC DUE GIVEN. WILL CONTINUE TO MONITOR.
[2018-11-28] MEDS ORDERED: LEVOFLOXACIN 500 MG/D5W PREMIX 100 ML IV SCH (13:00)
--- NOTE | 2018-11-28 14:53 | NUR ---
PATIENT LYING DOWN IN BED. AROUSABLE BY VOICE AND TOUCH. DROWSY. CONDITION UNCHANGED. WILL CONTINUE TO MONITOR.
[2018-11-28 16:00] VITALS: BP 125/42
[2018-11-28] MEDS: PIPER/TAZO 3.375GM/D5W PREMIX 50 ML IV SCH (17:17)
--- NOTE | 2018-11-28 17:20 | NUR ---
PATIENT LYING DOWN IN BED AWAKE, WATCHING TV. NO DISTRESS NOTED. CONTINUES TO HAVE DRY, BARKING COUGH. SCHEDULED ANTIBIOTICS DUE GIVEN. WILL CONTINUE TO MONITOR.
--- NOTE | 2018-11-28 17:26 | NUR ---
PT DEFERS SPUTUM SAMPLE CUP BEDSIDE
--- NOTE | 2018-11-28 18:00 | NUR ---
ASSISTED MICROMATIC HONE OPERATOR IN CLEANING AND REPOSITIONING PATIENT. CONDITION UNCHANGED. WILL CONTINUE TO MONITOR.
--- NOTE | 2018-11-28 19:19 | NUR ---
GAVE REPORT TO SUBSTATION INSPECTOR NURSE FOR CONTINUITY OF CARE. PATIENT IN STABLE CONDITION.
--- NOTE | 2018-11-28 19:20 | NUR ---
RECEIVED FROM AM RN IN BED AWAKE AND WITH DX. GI BLEED. HX. CEREBRAL PALSY AND WITH CHALLENGED MENTALLY. ABLE TO VERBALIZE SIMPLE NEEDS. ON 02 AT 2 LPM/NC. BED ALARM ON AND WITH PADDED SIDE RAILS FOR SEIZURE PRECAUTIONS. NEEDS WILL BE ANTICIPATED AND WILL BE MET. NO VOMITING NOTED .GT IN PLACE AND NPO AT THIS TIME.
[2018-11-28 20:06] VITALS: BP 95/45
[2018-11-29] VITALS: BP 95/41
--- NOTE | 2018-11-29 | NUR ---
SLEEPING. WOKE UP WHEN VITALS TAKEN. NO COMPLAINTS DONE. ON 02 AT 2LPM/NC WITH 02 SAT 94 TP 96 %. IVF SITES WITH GOOD BLOOD RETURN. NEEDS WILL BE ANTICIPATED AND WILL BE MET. TOTAL CARE.
[2018-11-29] MEDS: PIPER/TAZO 3.375GM/D5W PREMIX 50 ML IV SCH ×4 (00:13→18:15)
[2018-11-29] MEDS: DEXT 5% /NACL 0.9% 1,000 ML IV SCH ×3 (00:57→17:45)
[2018-11-29 04:14] VITALS: BP 103/45
--- NOTE | 2018-11-29 05:09 | NUR ---
PT. AWAKE AT THIS TIME. REQUESTED TO KEEP HEAD UP. AM PERSONAL HYGIENE RENDERED BY CNAS. KEPT CLEAN,DRY AND COMFORTABLE. NEEDS ANTICIPATED. TURNED TO SIDES Q 2H WITH PILLOW SUPPORT TO PRESSURE AREAS. TELEMETRY MONITORING. BED ALARM ON. WILL ENDORSE TO AM RN FOR CONTINUITY OF CARE.
--- NOTE | 2018-11-29 07:13 | NUR ---
ENDORSE TO AM RN FOR CONTINUITY OF CARE. SLEEPING BUT ABLE TO WAKE UP ESILY WHEN CALLED BY NAME OR TOUCHED.
--- NOTE | 2018-11-29 07:14 | NUR ---
RECEIVED REPORT FROM PREASSEMBLER AND INSPECTOR NURSE. PATIENT LYING DOWN IN BED SLEEPING, AROUSABLE BY VOICE. NO DISTRESS NOTED. DENIES ANY PAIN AT THIS TIME. AAOX1, CALM, COOPERATIVE, SKIN COLOR APPROPRIATE TO ETHNICITY, WARM TO TOUCH. SKIN INTACT. RESPIRATIONS EVEN, UNLABORED, ON ROOM AIR. HAS DRY INTERMITTENT COUGHING. LUNGS COARSE THOUGHOUT ALL LOBES. IV SITE INTACT, PATENT, AND INFUSING IVF PER MD ORDERS. REVIEWED PLAN OF CARE WITH PATIENT. REINFORCEMENT NEEDED. SAFETY MEASURES IN PLACE, CALL LIGHT WITHIN REACH. WILL CONTINUE TO MONITOR.
--- NOTE | 2018-11-29 07:44 | NUR ---
PATIENT HAS BEEN SCREENED AND CATEGORIZED HIGH NUTRITION RISK. PATIENT WILL BE SEEN WITHIN 1-2 DAYS OF ADMISSION. 11/29/[address]
[2018-11-29 08:00] VITALS: BP 107/49
--- NOTE | 2018-11-29 08:03 | NUR ---
DR. LANCASTER AT BEDSIDE REVIEWING PLAN OF CARE WITH PATIENT. PER DR. LANCASTER, PATIENT IS CLEARED TO GO HOME ANYTIME FROM HIS VIEWPOINT. WILL CONTINUE TO MONITOR.
[2018-11-29 08:44] LABS: BASOPHILS % (AUTO) 0.1 % (0.0-2.0); HEMATOCRIT 26.4 % (36-52); HEMOGLOBIN 8.4 g/dL (12.0-18.0); LYMPHOCYTES # (AUTO) 0.5 K/uL (2.0-11.5); LYMPHOCYTES % (AUTO) 2.3 % (20.5-51.1); MEAN CORPUSCULAR HEMOGLOBIN 26 pg (27-31); MEAN CORPUSCULAR HGB CONC 32 g/dL (33-37); MEAN CORPUSCULAR VOLUME 82.2 fL (80-94); MONOCYTES # (AUTO) 1.5 K/uL (0.8-1.0); MONOCYTES % (AUTO) 6.9 % (1.7-9.3); NEUTROPHILS # (AUTO) 20.3 K/uL (1.8-7.7); NEUTROPHILS % (AUTO) 90.7 % (42.2-75.2); PLATELET COUNT (AUTO) 201 K/uL (140-450); RED BLOOD CELL COUNT(AUTO) 3.21 MIL/uL (4.20-6.10); RED CELL DISTRIBUTION WIDTH 15.6 % (11.6-13.7); WHITE BLOOD COUNT (AUTO) 22.3 K/uL (4.8-10.8)
[2018-11-29 08:51] LABS: ANION GAP 10.5 (8-16); CARBON DIOXIDE 26.8 mmol/L (21-32); CREATININE 0.7 mg/dL (0.7-1.3); POTASSIUM 4.3 mmol/L (3.5-5.1)
--- NOTE | 2018-11-29 09:18 | NUR ---
ASSISTED PLANT WORKER IN CLEANING AND REPOSITIONING PATIENT. WILL CONTINUE TO MONITOR.
--- NOTE | 2018-11-29 11:00 | NUR ---
PATIENT SITTING IN BED WATCHING TV. NO DISTRESS NOTED. CONDITION UNCHANGED. WILL CONTINUE TO MONITOR.
[2018-11-29 12:00] VITALS: BP 107/49
--- NOTE | 2018-11-29 12:16 | NUR ---
PATIENT SITTING IN BED WATCHING TV. NO DISTRESS NOTED. DENIES ANY PAIN, FLACC 0. SCHEDULED MEDICATIONS DUE GIVEN. WILL CONTINUE TO MONITOR.
--- NOTE | 2018-11-29 13:30 | NUR ---
PT SLEEPING UNABLE TO SXN AT THIS TIME
--- NOTE | 2018-11-29 13:55 | NUR ---
11/29/18 RD INITIAL ASSESSMENT COMPLETED * PLEASE REFER TO NUTRITION ASSESSMENT UNDER CARE ACTIVITY FOR ESTIMATED NUTRITIONAL NEEDS. RD RECOMMENDATIONS: 1.IF PT IS TO START OF TF, RECOMMEND JEVITY 1.2 AT 10ML/HR, INCREASE 10ML Q 4HR TO GOAL 55ML/HR, FWF:50ML Q 4HR VIA G-TUBE. THIS PROVIDES 1440KCAL, 73G PROTEIN AND 1365ML TOTAL FLUID DAILY. THIS MEETS 93% CALROIC NEEDS AND 117% PROTEIN NEEDS. 2. RD WILL F/U 2-3 DAYS; HIGH RISK. CARMEN ECHOL[address] RD
[2018-11-29 16:00] VITALS: BP 117/49
--- NOTE | 2018-11-29 18:15 | NUR ---
PATIENT SITTING IN BED WATCHING TV. CONDITION UNCHANGED. SCHEDULED MEDICATIONS DUE GIVEN. WILL CONTINUE TO MONITOR.
--- NOTE | 2018-11-29 19:33 | NUR ---
GAVE REPORT TO DOCUMENTATION BILLING CLERK NURSE. PATIENT IN STABLE CONDITION.
--- NOTE | 2018-11-29 19:34 | NUR ---
RECEIVED BEDSIDE REPORT FROM DAY SHIFT RN LAMBERT. PT A/O X1. MENTAL DELAY. ABLE TO MAKE NEEDS KNOWN. NO SIGNS OF RESP DISTRESS. NC @2L. SKIN INTACT. R FA 22G INFUSING LR @100. PATENT AND INTACT. INCONTINENT. UNABLE TO AMBULATE. TELE MONITOR. STD ISOLATION. G TUBE. CLEAN DRY AND PATENT. FALL RISK PRECAUTIONS IN PLACE. BED IN LOW POSITION. CALL LIGHT WITHIN REACH. WILL CONTINUE TO MONITOR.
--- NOTE | 2018-11-29 20:00 | NUR ---
PT SITTING UP IN BED WATCHING TV. NO SIGNS OF RESP DISTRESS. NO COMPLAINTS AT THIS TIME. DENIES PAIN. WILL CONTINUE TO MONITOR.
--- NOTE | 2018-11-29 20:30 | NUR ---
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 PPE AVAILABLE BEFORE ENTERING ROOM.
--- NOTE | 2018-11-29 20:45 | NUR ---
SPUTUM CULTURE RECOLLECTED
[2018-11-29 21:43] VITALS: BP 139/56
[2018-11-30] VITALS: BP 121/53
--- NOTE | 2018-11-30 00:02 | NUR ---
ADMINISTERED MEDS SCHEDULED. EDUCATED ON SIDE EFFECTS. TOLERATED WELL. VITALS WNL. WILL CONTINUE TO MONITOR.
[2018-11-30] MEDS: DEXT 5% /NACL 0.9% 1,000 ML IV SCH ×3 (00:30→23:13)
[2018-11-30] MEDS: PIPER/TAZO 3.375GM/D5W PREMIX 50 ML IV SCH ×5 (00:31→23:13)
--- NOTE | 2018-11-30 01:00 | NUR ---
AIR LEAK IN NASAL CANULA. RT REPLACED NASAL CANULA WITH NEW ONE. O2 DROPPED TO 85%. O2 NOW AT 95%. WILL CONTINUE TO MONITOR.
--- NOTE | 2018-11-30 03:00 | NUR ---
PT AWAKE IN BED WATCHING TV. NASAL CANULA @3L. NO SIGNS OF RESP DISTRESS. BED IN LOW POSITION. CALL LIGHT WITHIN REACH. WILL CONTINUE TO MONITOR.
[2018-11-30 04:00] VITALS: BP 120/50
--- NOTE | 2018-11-30 04:46 | NUR ---
AWAKE LAYING IN BED. NO SIGNS OF RESP DISTRESS NOTED. NO DISCOMFORT. DENIES PAIN. BED IN LOW POSITION. CALL LIGHT WITHIN REACH. WILL CONTINUE TO MONITOR.
--- NOTE | 2018-11-30 05:34 | NUR ---
ADMINISTERED ZOSYN SCHEDULED. EDUCATED ON SIDE EFFECTS. TOLERATED WELL. WILL CONTINUE TO MONITOR.
--- NOTE | 2018-11-30 06:47 | NUR ---
WILL ENDORSE PT TO DAY SHIFT RN. PT IN STABLE CONDITION.AWAKE IN BED. NO SIGNS OF DISTRESS. WILL CONTINUE TO MONITOR.
--- NOTE | 2018-11-30 07:10 | NUR ---
RECEIVED REPORT FROM CHIN STRAP CUTTER NURSE. PT AAOX1, CALM AND COOPERATIVE. PT SITTING UP IN BED, RESPIRATIONS EVEN AND UNLABORED ON O2 3L VIA N/C, RALES AUDIBLE UPON AUSCULTATION. IV SITE IS PATENT, INTACT, CLEAN, AND DRY ON RT FA 22GA RUNNING IVF PER ORDER. STOMACH IS FLAT, SOFT AND NON-DISTENDED, ACTIVE BOWEL SOUNDS. SKIN COLOR IS APPROPRIATE TO ETHNICITY, WARM TO TOUCH, SKIN IS CLEAN, DRY AND INTACT. NO EDEMA NOTED AT THIS TIME. PT ON FALL PRECAUTIONS, SAFETY MEASURES IN PLACE, BED ON LOW POSITION, WITH YELLOW ARM BAD AND SOCKS. CALL LIGHT WITHIN REACH. WILL CONTINUE TO MONITOR. Addendum: 11/30/18 at 0958 by Deanna Hills RN ADDITIONAL: G-TUBE PATENT AND IN PLACE. DRESSING INTACT, CLEAN AND DRY. NO RESIDUAL AT THIS TIME.
[2018-11-30 07:31] LABS: BASOPHILS # (AUTO) 0.1 K/uL (0.00-0.22); BASOPHILS % (AUTO) 0.6 % (0.0-2.0); EOSINOPHILS # (AUTO) 0.2 K/uL (0-0.4); EOSINOPHILS % (AUTO) 1.1 % (0.0-4.0); HEMATOCRIT 26.8 % (36-52); HEMOGLOBIN 8.6 g/dL (12.0-18.0); MEAN CORPUSCULAR HEMOGLOBIN 27 pg (27-31); MEAN CORPUSCULAR HGB CONC 32 g/dL (33-37); MEAN CORPUSCULAR VOLUME 82.5 fL (80-94); MONOCYTES # (AUTO) 1.8 K/uL (0.8-1.0); MONOCYTES % (AUTO) 10.8 % (1.7-9.3); NEUTROPHILS # (AUTO) 13.2 K/uL (1.8-7.7); NEUTROPHILS % (AUTO) 81.5 % (42.2-75.2); PLATELET COUNT (AUTO) 219 K/uL (140-450); RED BLOOD CELL COUNT(AUTO) 3.25 MIL/uL (4.20-6.10); RED CELL DISTRIBUTION WIDTH 15.3 % (11.6-13.7)
[2018-11-30 07:43] LABS: ALBUMIN 2.3 g/dL (3.4-5.0); ANION GAP 11.6 (8-16); CARBON DIOXIDE 26.4 mmol/L (21-32); CREATININE 0.8 mg/dL (0.7-1.3); TOTAL BILIRUBIN 0.2 mg/dL (0.0-1.0)
[2018-11-30 08:00] VITALS: BP 112/59
[2018-11-30 08:34] LABS: WHITE BLOOD COUNT (AUTO) 16.3 K/uL (4.8-10.8)
--- NOTE | 2018-11-30 09:47 | NUR ---
PT GIVEN SPONGE BATH, LINEN CHANGE CHANGED. SKIN IS CLEAN AND INTACT, NO REDNESS NOTED. RESPIRATIONS EVEN AND UNLABORED ON O2 3L VIA N/C. PT AGITATED WITH VOICE INCREASED. PT TRIED TO HIT NURSE. CONDUCTED DE-ESCALATION TECHNIQUES. WILL CONTINUE TO MONITOR.
--- NOTE | 2018-11-30 10:08 | NUR ---
Pt angrily yelling by himself in room. Asked pt if he needs assistance. Pt crossed his arms & yells unintelligibly. Asked pt to slow down & enunciate words. Pt states he needs to see the doctor. Pt currently in no distress, respirations even & nonlabored. Pt turns his head away from nurse & refuses to answer when asked if he has an urgent question for the doctor. Explained to pt that Dr. Martin will be coming later today to assess him. Pt quiet, no signs of distress. Call light within reach.
--- NOTE | 2018-11-30 11:03 | NUR ---
PT AWAKE IN BED. RESPIRATIONS EVEN AND UNLABORED ON O2 3L/MIN VIA N/C, NO DISTRESS NOTED AT THIS TIME. WILL CONTINUE TO MONITOR.
[2018-11-30 12:00] VITALS: BP 141/65
--- NOTE | 2018-11-30 12:43 | NUR ---
PT ALERT AND AWAKE LYING IN BED. REPLENISHED IVF PER ORDER. IV SITE AND DRESSING INTACT, CLEAN AND DRY. OFFERED ASSISTANCE TO PT. PT CROSSED ARMS AND TURNED HEAD AWAY FROM NURSE. WILL CONTINUE TO MONITOR PT.
--- NOTE | 2018-11-30 14:16 | NUR ---
PT GIVEN MELCHOR CARE. PT IS AGITATED, YELLS AT STAFF AND ATTEMPTED TO HIT NURSE. ASKED PT TO REFRAIN FROM HITTING AND CLARIFY REQUEST. PT STAYS QUIET. WILL CONTINUE TO CONDUCT DE-ESCALATION TECHNIQUES AND MONITOR PT. PT ON FALL PRECAUTIONS, SAFETY MEASURES IN PLACE. CALL LIGHT WITHIN REACH.
--- NOTE | 2018-11-30 14:33 | NUR ---
ASKED PT TO MAKE REQUEST CLEAR AND SPEAK SLOW. SPENT TIME WITH PT AND ASKED NOT TO HIT STAFF. CONTINUES TO YELL AND ATTEMPTS TO HIT NURSE. ATIVAN GIVEN TO PATIENT. WILL REASSESS PT CONDITION IN 1 HOUR. BILATERAL UPPER SIDE RAILS UP FOR SAFETY, BED ALARMS ON, AND CALL LIGHT WITHIN REACH.
--- NOTE | 2018-11-30 15:30 | NUR ---
PT ASLEEP IN BED, IN SUPINE POSITION. VSS. RESPIRATIONS EVEN AND UNLABORED ON O2 3L/MIN VIA N/C. NO DISTRESS NOTED AT THIS TIME. WILL CONTINUE TO MONITOR.
[2018-11-30 16:00] VITALS: BP 103/62
--- NOTE | 2018-11-30 16:36 | NUR ---
Left voicemail for Dr Royal to confirm pulmonology consult for pt & to verify what time he is coming to see pt. Awaiting call back.
--- NOTE | 2018-11-30 17:45 | NUR ---
PT AWAKE AND ALERT IN BED. N/C WAS FOUND DISPLACED FROM PT. REAPPLIED ON PT AND CURRENTLY RECEIVING O2 3L/MIN VIA N/C. RESPIRATIONS EVEN AND UNLABORED. PT CONTINUES TO RAISE VOICE AT NURSE. ASKED PATIENT TO SPEAK SLOWLY. PT CROSSED ARMS AND TURNED HEAD AWAY FROM NURSE. NO S/S OF DISTRESS. CALL LIGHT WITHIN REACH. WILL CONTINUE TO MONITOR PT.
--- NOTE | 2018-11-30 18:18 | NUR ---
PT GIVEN IV ABX PER ORDER. OFFERED TO CHANGE G-TUBE DRESSING, BUT PATIENT REFUSED, SHOUTED NO, AND STATED THAT HE WILL CALL THE EMPLOYMENT ASSISTANT. WILL ENDORSE TO PLANT BREEDER SCIENTIST NURSE. RESPIRATIONS EVEN AND UNLABORED ON O2 3L/MIN VIA N/C. PT ON FALL PRECAUTIONS, SAFETY MEASURES IN PLACE, CALL LIGHT WITHIN REACH. WILL CONTINUE TO MONITOR.
--- NOTE | 2018-11-30 18:30 | NUR ---
O2 TITRATED DOWN TO 2L/MIN VIA N/C. RESPIRATIONS EVEN AND UNLABORED. SPO2 AT 97%.
--- NOTE | 2018-11-30 19:14 | NUR ---
ENDORSED PT TO NOC SHIFT NURSE FOR CONTINUITY OF CARE. PATIENT IS STABLE AT THIS TIME.
--- NOTE | 2018-11-30 19:15 | NUR ---
RECEIVED PT FROM DAY SHIFT BASILIO BARNARD. PT A/O X1. HX OF INTELLECTUAL DELAY. ABLE TO UNDERSTAND COMMANDS. VERBALIZES UNDERSTANDING. NO SIGNS OF DISTRESS. NASAL CANULA @ 2L. NPO, SIGN AT DOOR. STANDARD PRECAUTIONS. FALL PRECAUTIONS IN PLACE. BED IN LOW POSITION. CALL LIGHT WITHIN PLACE. SKIN IS INTACT. R FA 22G INFUSING D5NS. PATENT AND INTACT. WILL CONTINUE TO MONITOR.
[2018-11-30 20:00] VITALS: BP 133/68
--- NOTE | 2018-11-30 20:27 | NUR ---
PATIENT UNABLE TO GIVE SPUTUM SAMPLE. PATIENT IS AWAKE AND ORIENTED. CUP LEFT AT BED SIDE. UNABLE TO UPTAIN SPUTUM SAMPLE AT THIS TIME. PT IS DRY AND BREATH SOUHNDS ARE CLEAR
--- NOTE | 2018-11-30 21:32 | NUR ---
ATTEMPTED TO COLLECT SPUTUM. PT UNABLE TO PRODUCE SPUTUM. COUGH IS UNPRODUCTIVE. NO SIGNS OF DISTRESS. READJUSTED NASAL CANULA FITTED WELL. STILL AT 2L. WILL CONTINUE TO MONITOR. BED ALARM ON. CALL LIGHT WITHIN REACH.
--- NOTE | 2018-11-30 23:16 | NUR ---
ADMINISTERED ZOSYN SCHEDULED. REPLACED D5NS WITH NEW BAG INFUSING AT 100ML/HR. EDUCATED ON SIDE EFFECTS. TOLERATED WELL. NO COMPLAINTS AT THIS TIME. DENIES PAIN. WILL CONTINUE TO MONITOR.
[2018-12-01] VITALS: BP 130/60
--- NOTE | 2018-12-01 01:29 | NUR ---
PT SLEEPING IN BED EASILY AROUSABLE. NO SIGNS OF DISTRESS NOTED. READJUSTED NASAL CANULA. REMAINS AT 2L. REPOSITIONED PT. WILL CONTINUE TO MONITOR. CALL LIGHT WITHIN REACH.
--- NOTE | 2018-12-01 03:38 | NUR ---
SLEEPING IN BED. EASILY AROUSABLE. EVEN AND UNLABORED BREATHING. READJUSTED NASAL CANULA. REMAINS AT 2L. REQUESTED TO TURN OFF SEC DEVICES. BED IN LOWEST POSITION. CALL LIGHT WITHIN REACH. WILL CONTINUE TO MONITOR.
[2018-12-01 04:00] VITALS: BP 101/46
--- NOTE | 2018-12-01 04:49 | NUR ---
R FA 22G IV SITE INFILTRATED. REMOVED IV. CANULA INTACT. NO SIGNS OF RESP DISTRESS. WILL REINSERT NEW IV. WILL CONTINUE TO MONITOR.
[2018-12-01] MEDS: PIPER/TAZO 3.375GM/D5W PREMIX 50 ML IV SCH ×5 (05:03→23:36)
--- NOTE | 2018-12-01 05:04 | NUR ---
NEW IV INSERTED INTO LEFT HAND FINGER. 24G. PATENT AND INTACT. NO SIGNS OF DISTRESS. WILL CONTINUE TO MONITOR.
--- NOTE | 2018-12-01 06:26 | NUR ---
PT REMOVED LEFT HAND FINGER IV. BLOOD ON ALL LINENS. ALL LINENS CHANGED. GOWN CHANGED.
--- NOTE | 2018-12-01 07:34 | NUR ---
ENDORSED PT TO DAYSHIFT RN. PT IN STABLE CONDITION.
--- NOTE | 2018-12-01 07:35 | NUR ---
RECEIVED REPORT FROM BUSINESS LAW TEACHER NURSE. PT IS NII SITTING UP IN BED, CALM AT THIS TIME. RESPIRATIONS EVEN AND UNLABORED ON O2 2L VIA N/C, RALES AUDIBLE UPON AUSCULTATION. NO IV IN PLACE. PER RN NAZIA, PT PULLED OUT IV DURING NOC SHIFT. STOMACH IS FLAT, SOFT AND NON-DISTENDED, ACTIVE BOWEL SOUNDS. G-TUBE PATENT AND IN PLACE. DRESSING INTACT, CLEAN AND DRY. NO RESIDUAL AT THIS TIME. SKIN COLOR IS APPROPRIATE TO ETHNICITY, WARM TO TOUCH, SKIN IS CLEAN, DRY AND INTACT. NO EDEMA NOTED AT THIS TIME. PT ON FALL PRECAUTIONS, SAFETY MEASURES IN PLACE, BED ON LOW POSITION, WITH YELLOW SIGN AT DOOR, GOWN, ARM BAND AND SOCKS. DISCUSSED POC WITH PT. PT NEEDS REINFORCEMENT, REMINDERS, AND REORIENTATION. CALL LIGHT WITHIN REACH. WILL CONTINUE TO MONITOR.
[2018-12-01 07:36] LABS: ANION GAP 13.4 (8-16); CARBON DIOXIDE 24.4 mmol/L (21-32); CREATININE 0.7 mg/dL (0.7-1.3); POTASSIUM 3.8 mmol/L (3.5-5.1)
[2018-12-01 08:00] VITALS: BP 114/57
--- NOTE | 2018-12-01 10:15 | NUR ---
RESPIRATORY THERAPIST AT BEDSIDE. SPUTUM CULTURE COLLECTED, CLEAR, SMALL AMOUNT, AND STICKY CONSISTENCY NOTED. PT TOLERATED WELL. NO S/S OF DISTRESS. WILL CONTINUE TO MONITOR.
[2018-12-01 10:50] LABS: BASOPHILS # (AUTO) 0.1 K/uL (0.00-0.22); EOSINOPHILS # (AUTO) 0.2 K/uL (0-0.4); EOSINOPHILS % (AUTO) 1.8 % (0.0-4.0); HEMATOCRIT 26.6 % (36-52); HEMOGLOBIN 8.7 g/dL (12.0-18.0); LYMPHOCYTES # (AUTO) 0.9 K/uL (2.0-11.5); LYMPHOCYTES % (AUTO) 7.4 % (20.5-51.1); MEAN CORPUSCULAR HEMOGLOBIN 26 pg (27-31); MEAN CORPUSCULAR HGB CONC 33 g/dL (33-37); MEAN CORPUSCULAR VOLUME 80.8 fL (80-94); MONOCYTES # (AUTO) 1.7 K/uL (0.8-1.0); MONOCYTES % (AUTO) 13.4 % (1.7-9.3); NEUTROPHILS # (AUTO) 9.5 K/uL (1.8-7.7); NEUTROPHILS % (AUTO) 76.4 % (42.2-75.2); PLATELET COUNT (AUTO) 249 K/uL (140-450); RED BLOOD CELL COUNT(AUTO) 3.29 MIL/uL (4.20-6.10); RED CELL DISTRIBUTION WIDTH 15.5 % (11.6-13.7); WHITE BLOOD COUNT (AUTO) 12.4 K/uL (4.8-10.8)
[2018-12-01 12:00] VITALS: BP 121/59
--- NOTE | 2018-12-01 12:00 | NUR ---
INSERTED IV 22 GA ON PT'S LT AC, BLOOD RETURN NOTED, NOW INFUSING IV ABX PER ORDER. PT TOLERATED WELL. SAFETY MEASURES IN PLACE, CALL LIGHT WITHIN REACH.
--- NOTE | 2018-12-01 15:30 | NUR ---
TRIED TO CONTACT DR. PATINO REGARDING PT CONDITION, HYDRATION AND NUTRITION STATUS. LINE WAS BUSY, UNABLE TO LEAVE VOICEMAIL. WILL TRY AGAIN LATER.
[2018-12-01 16:00] VITALS: BP 116/47
--- NOTE | 2018-12-01 16:30 | NUR ---
SECOND ATTEMPT TO CONTACT DR. PATINO REGARDING PT'S CONDITION, HYDRATION AND NUTRITION STATUS. LINE WAS BUSY, UNABLE TO LEAVE VOICEMAIL. WILL TRY AGAIN LATER.
--- NOTE | 2018-12-01 17:35 | NUR ---
PT AT BEDSIDE. YELLING AT STAFF SAYING I WILL CALL THE WORSHIP DIRECTOR ON YOU. IV CATHETER FOUND ON FLOOR. NO ACTIVE BLEEDING NOTED ON LT ARM. PT TRIED TO KICK NURSE, AND STRIKE WITH LEFT HAND. ASKED PT WHAT HE WANTS AND TO SAY HIS REQUEST SLOWLY. PT CROSSES ARMS AND TURNS HEAD AWAY FROM NURSE. NO DISTRESS NOTED AT THIS TIME. RESPIRATIONS EVEN AND UNLABORED ON O2 1.5L/MIN VIA N/C. CALL LIGHT WITHIN REACH.
[2018-12-01] MEDS ORDERED: LORazepam 2 MG/ML VIAL IM PRN (18:10)
--- NOTE | 2018-12-01 18:15 | NUR ---
DR. PATINO CALLED BACK. ORDERED ATIVAN IM/IVP, IVF D5 NS, AND DIETARY CONSULT. ORDERS NOTED AND CARRIED OUT.
--- NOTE | 2018-12-01 19:19 | NUR ---
PAGED SECURITY TO ASSIST WITH ADMINISTRATION OF IM ATIVAN D/T PT COMBATIVENESS. ATIVAN ADMINISTERED TO LT DELTOID.
--- NOTE | 2018-12-01 19:24 | NUR ---
REPORT GIVEN TO SNACK BAR COOK NURSE. PT AWAKE IN BED. NO DISTRESS NOTED.
--- NOTE | 2018-12-01 19:49 | NUR ---
REPORT RECEIVED FROM AM NURSE AT BEDSIDE. PT IN STABLE CONDITION. AAOX1. INTRODUCED SELF TO PT. BOARD UPDATED. NO COMPLAINTS OF PAIN. NO SOB ON 1.5L O2 VIA NC. AFEBRILE. PT CURRENTLY HAS NO IV SITE DUE TO PT PULLING OUT THE LINE. SKIN WARM, DRY, AND INTACT WITH NO OPEN WOUNDS. PT HAS GTUBE. BED LOCKED IN LOW POSITION. CALL [place] WITHIN REACH. SAFETY PRECAUTION IN PLACE. ALL NEEDS MET AT THIS TIME.
--- NOTE | 2018-12-01 20:20 | NUR ---
IV LINE INSERTED R HAND 24G PATENT AND INTACT. IV SITE LABELED.
--- NOTE | 2018-12-01 20:20 | NUR ---
SERENITY HUNG AND RUNNING. PT TOLERATING WELL.
--- NOTE | 2018-12-01 22:00 | NUR ---
PT SLEEPING COMFORTABLY IN BED. NO S/S OF DISTRESS NOTED. WILL CONTINUE TO MONITOR.
--- NOTE | 2018-12-01 23:30 | NUR ---
WENT INTO ROOM TO FIND IV HAS BEEN PULLED OUT AGAIN. WILL REINSERT IV. CANNULA INTACT.
--- NOTE | 2018-12-01 23:40 | NUR ---
IV REINSERTED R WRIST 24G. PT TOLERATED WELL. IV SITE LABELED. IV SITE WRAPPED.
--- NOTE | 2018-12-01 23:41 | NUR ---
SERENITY HUNG AND RUNNING. PT TOLERATING WELL.
[2018-12-02] VITALS: BP 119/52
--- NOTE | 2018-12-02 01:45 | NUR ---
PT SLEEPING COMFORTABLY IN BED. NO S/S OF DISTRESS NOTED. RESPIRATIONS EVEN, UNLABORED, AND WNL. WILL CONTINUE TO MONITOR.
--- NOTE | 2018-12-02 04:00 | NUR ---
PT SLEEPING COMFORTABLY IN BED BUT AROUSABLE. NO S/S OF DISTRESS NOTED. NO COMPLAINTS OF PAIN. NO SOB. AFEBRILE. WILL CONTINUE TO MONITOR.
[2018-12-02] MEDS: DEXT 5% /NACL 0.9% 1,000 ML IV SCH ×3 (04:20→14:20)
[2018-12-02] MEDS: PIPER/TAZO 3.375GM/D5W PREMIX 50 ML IV SCH ×3 (05:03→17:58)
--- NOTE | 2018-12-02 05:03 | NUR ---
SERENITY HUNG AND RUNNING. PT TOLERATING WELL.
--- NOTE | 2018-12-02 07:20 | NUR ---
REPORT GIVEN TO AM NURSE AT BEDSIDE. PT IN STABLE CONDITION.
--- NOTE | 2018-12-02 07:21 | NUR ---
RECEIVED REPORT FROM SENIOR PIPING DESIGNER NURSE. NO DISTRESS NOTED. PATIENT LYING DOWN IN BED SLEEPING, AROUSABLE BY VOICE. DENIES ANY PAIN, FLACC 0. AAOX1, CALM, COOPERATIVE, APPROPRIATE AFFECT AT THIS TIME. SKIN INTACT. IV SITE INTACT, PATENT, AND INFUSING IVF PER MD ORDERS. GTUBE SITE INTACT, PATENT, NO FEEDING AT THIS TIME. LUNGS CTA ON ALL LOBES. REVIEWED PLAN OF CARE WITH PATIENT. REINFORCEMENT NEEDED. SAFETY MEASURES IN PLACE, CALL LIGHT WITHIN REACH. WILL CONTINUE TO MONITOR.
[2018-12-02 07:33] LABS: BASOPHILS # (AUTO) 0.1 K/uL (0.00-0.22); BASOPHILS % (AUTO) 0.8 % (0.0-2.0); EOSINOPHILS # (AUTO) 0.3 K/uL (0-0.4); EOSINOPHILS % (AUTO) 3.2 % (0.0-4.0); HEMATOCRIT 28.7 % (36-52); HEMOGLOBIN 9.4 g/dL (12.0-18.0); LYMPHOCYTES # (AUTO) 1.2 K/uL (2.0-11.5); LYMPHOCYTES % (AUTO) 11.2 % (20.5-51.1); MEAN CORPUSCULAR HEMOGLOBIN 27 pg (27-31); MEAN CORPUSCULAR HGB CONC 33 g/dL (33-37); MEAN CORPUSCULAR VOLUME 81.3 fL (80-94); MONOCYTES # (AUTO) 1.3 K/uL (0.8-1.0); MONOCYTES % (AUTO) 12.3 % (1.7-9.3); NEUTROPHILS # (AUTO) 7.6 K/uL (1.8-7.7); NEUTROPHILS % (AUTO) 72.5 % (42.2-75.2); PLATELET COUNT (AUTO) 276 K/uL (140-450); RED BLOOD CELL COUNT(AUTO) 3.53 MIL/uL (4.20-6.10); WHITE BLOOD COUNT (AUTO) 10.4 K/uL (4.8-10.8)
[2018-12-02 08:00] VITALS: BP 105/61
[2018-12-02 08:43] LABS: ANION GAP 17.2 (8-16); CARBON DIOXIDE 23.6 mmol/L (21-32); POTASSIUM 3.8 mmol/L (3.5-5.1)
[2018-12-02 08:44] LABS: CREATININE 0.8 mg/dL (0.7-1.3)
[2018-12-02] MEDS ORDERED: PIPE1SOL IV (08:45)
--- NOTE | 2018-12-02 09:00 | NUR ---
FAXED ALL PAPER WORK TO [facility] FOR A SHORT TERM PLACEMENT FOR IV ABX .
--- NOTE | 2018-12-02 11:37 | NUR ---
MICKY FROM [facility] ACCEPTED THE PATIENT AND CAN GO TO ROOM 2A .CALLED [facility] NOTIFIED [place] THAT PATIENT IS GOING TO SNF FOR IV ABX
--- NOTE | 2018-12-02 12:33 | NUR ---
PATIENT LYING DOWN IN BED WATCHING TV. NO DISTRESS NOTED. DENIES ANY PAIN. SCHEDULED MEDICATIONS DUE GIVEN. WILL CONTINUE TO MONITOR.
--- NOTE | 2018-12-02 13:31 | NUR ---
ARRANGED TRANSPORT WITH Megan PEREZ MANAGER BUSINESS INFORMATION TIME 6:30 PM NOTIFIED LAMBERT RICHMOND.
--- NOTE | 2018-12-02 15:00 | NUR ---
PATIENT LYING DOWN IN BED SLEEPING, AROUSABLE BY VOICE. CONDITION UNCHANGED. WILL CONTINUE TO MONITOR.
[2018-12-02 16:00] VITALS: BP 131/52
--- NOTE | 2018-12-02 17:12 | NUR ---
GAVE REPORT TO NANCY AT [facility] [phone] FOR TRANSFER SCHEDULED AT 1830 TONIGHT. ANSWERED ALL OF NANCY'S QUESTIONS REGARDING TRANSFER AND CONTINUED IV ANTIBIOTICS. NANCY VERBALIZED COMPLETE UNDERSTANDING AND AWAITING FOR PATIENT'S ARRIVAL LATER TONIGHT. DISCHARGE INSTRUCTIONS GIVEN TO PATIENT REGARDING TRANSFER TO [facility] FOR CONTINUED IV ANTIBIOTICS. ANSWERED ALL OF PATIENT'S QUESTIONS. PATIENT VERBALIZED COMPLETE UNDERSTANDING. NOTIFIED PARISH MERCADO, TRIM MACHINE ADJUSTER AT [facility] TODAY IN PERSON WHEN SHE VISITED PATIENT THAT PATIENT WAS BEING TRANSFERRED TO [facility] FOR IV ANTIBIOTICS X 10 DAYS BEFORE GOING BACK TO THEIR BOARD AND USP. PARISH VERBALIZED UNDERSTANDING. NOTIFIED CELENA SUSAN, SISTER, REGARDING TRANSFER TO [facility] FOR 10 DAYS FOR IV ANTIBIOTICS THEN TRANSFER BACK TO [facility]. CELENA VERBALIZED COMPLETE UNDERSTANDING.
--- NOTE | 2018-12-02 18:07 | NUR ---
PATIENT SITTING DOWN IN BED WATCHING TV. NO DISTRESS NOTED. DENIES ANY PAIN. SCHEDULED MEDICATIONS DUE GIVEN. WILL CONTINUE TO MONITOR.
--- NOTE | 2018-12-02 18:30 | NUR ---
M AND J TRANSPORTER ON UNIT READY TO TAKE PATIENT TO [facility]. ID BANDS REMOVED. IV SITE STAYING IN PLACE FOR CONTINUED IV ANTIBIOTICS. PATIENT DISCHARGED TO SNF AT THIS TIME IN STABLE CONDITION.
--- NOTE | 2018-12-30 11:04 | NUR ---
Please disregard above note, incorrect patient.
--- NOTE | 2018-12-30 11:11 | NUR ---
Please disregard intervention from 12/02/2018 9:08. Incorrect patient. Addendum: 12/30/18 at 1112 by Anthony Frost SS Amended: Links added.
== END 2018-12-02 18:30 | DRG 871 ==
LOC: MED 07:19 → MTU 10:17
PROVIDERS: ADMIT Preventive Medicine Preventive Medicine/Occupational Environmental Medicine; ATTEND Preventive Medicine Preventive Medicine/Occupational Environmental Medicine
DX: A41.9 Sepsis, unspecified organism (principal); E43 Unspecified severe protein-calorie malnutrition; J96.00 Acute respiratory failure, unspecified whether with hypoxia or hypercapnia; J69.0 Pneumonitis due to inhalation of food and vomit; E87.1 Hypo-osmolality and hyponatremia; K92.2 Gastrointestinal hemorrhage, unspecified; K94.21 Gastrostomy hemorrhage; E83.52 Hypercalcemia; G40.909 Epilepsy, unspecified, not intractable, without status epilepticus; D64.9 Anemia, unspecified; E03.9 Hypothyroidism, unspecified; G80.9 Cerebral palsy, unspecified; K21.9 Gastro-esophageal reflux disease without esophagitis; R13.12 Dysphagia, oropharyngeal phase; F79 Unspecified intellectual disabilities; Z88.1 Allergy status to other antibiotic agents; R73.9 Hyperglycemia, unspecified; Z68.28 Body mass index [BMI] 28.0-28.9, adult; Z88.8 Allergy status to other drugs, medicaments and biological substances
CPT/HCPCS: 36415; 36600; 71045; 80048; 80053; 81001; 82803; 83605; 83880; 84484; 85025; 85610; 85651; 86140; 86886; 86900; 86901; 87040; 87070; 87081; 87086; 87205; 89220; 93005; 96365; 96368; 96372; 96375; 99285; J1956; J2060; J2543; J2550; J2930; J3475; J3490; J7030; J7042; J7060; Q0092

== ENCOUNTER 2018-12-28 10:14 | Inpatient (IN) | payer OTHER ==
[~2018-12-28] VITALS: Ht 165.1 cm; Wt 78.9 kg
--- NOTE | 2018-12-28 | NUR ---
PT SLEEPING, EASILY AROUSABLE, VITAL SIGNS STABLE, NO SOB NOTED, NO SIGNS OF PAIN, IVF INFUSING WELL, CONTINUE TO MONITOR CLOSELY. Addendum: 12/29/18 at 0341 by Jared Ayala RN WRONG TIME
[~2018-12-28 10:14] MED LIST changes: -LEVO750T2 PO; +PIPE1SOL IV
--- NOTE | 2018-12-28 10:14 | NUR ---
Patient BIBA BLS, transferred to bed 1. RN evaluating patient at bedside.
[2018-12-28 10:24] VITALS: BP 109/49
--- NOTE | 2018-12-28 10:38 | NUR ---
brought in by EMS from pt's senior care [facility] c/o pt seemed lethargic , general weakness, and cough returning they denied to ems any recent injury/trauma ---moving all extremities equally, G-tube clean and in place. DENIES N/V/D; SKIN IS PINK/WARM/DRY; AAOX1 WITH EVEN AND STEADY GAIT; PT DENIES ANY FEVER, SOB AT THIS TIME; PATIENT STATES PAIN OF 0/10 AT THIS TIME; VSS; PATIENT POSITIONED FOR COMFORT; HOB ELEVATED; BEDRAILS UP X2; BED DOWN. ER MD MADE AWARE OF PT STATUS. Caregiver is at bedside.
--- NOTE | 2018-12-28 10:45 | NUR ---
Dr. Almanzar evaluating patient at bedside.
[2018-12-28] MEDS ORDERED: NACL 0.9% 500 ML IV SCH (10:52)
[2018-12-28 11:28] LABS: HEMATOCRIT 35.2 % (36-52); MEAN CORPUSCULAR HEMOGLOBIN 25 pg (27-31); MEAN CORPUSCULAR HGB CONC 31 g/dL (33-37); MEAN CORPUSCULAR VOLUME 78.8 fL (80-94); PLATELET COUNT (AUTO) 268 K/uL (140-450); RED BLOOD CELL COUNT(AUTO) 4.47 MIL/uL (4.20-6.10); RED CELL DISTRIBUTION WIDTH 15.6 % (11.6-13.7); WHITE BLOOD COUNT (AUTO) 20.2 K/uL (4.8-10.8)
[2018-12-28 11:40] LABS: LYMPHOCYTES % (MANUAL) 6 % (20-46); MONOCYTES % (MANUAL) 4 % (5-12)
[2018-12-28 11:48] LABS: PROTHROMBIN TIME 9.7 secs (10.8-13.4)
[2018-12-28] MEDS ORDERED: PIPERACILLIN/TAZOBACTAM 3.375 GM in DEXTROSE 5% 50 ML IV ONE (12:25)
[2018-12-28] MEDS ORDERED: PIPERACILLIN/TAZOBACTAM 3.375 GM VIAL IV ONE (12:40)
[2018-12-28 13:07] LABS: APPEARANCE,URINE CLEAR (CLEAR); BILIRUBIN,URINE NEGATIVE (NEGATIVE); BLOOD, URINE TRACE-I (NEGATIVE); COLOR,URINE YELLOW (YELLOW); LEUKOCYTE ESTERASE ,URINE NEGATIVE (NEGATIVE); NITRITE, URINE NEGATIVE (NEGATIVE); UGLUCOSE NEGATIVE (NEGATIVE)
[2018-12-28 13:23] LABS: ANION GAP 16.3 (8-16); CREATININE 0.9 mg/dL (0.7-1.3); POTASSIUM 4.3 mmol/L (3.5-5.1)
[2018-12-28 13:26] LABS: WBC,URINE 0-5 /HPF (0-5)
[2018-12-28 13:28] LABS: ALBUMIN 3.1 g/dL (3.4-5.0); TOTAL BILIRUBIN 0.2 mg/dL (0.0-1.0)
[2018-12-28 14:30] VITALS: BP 133/63
--- NOTE | 2018-12-28 14:30 | NUR ---
RECEIVED REPORT FROM EMERGENCY ROOM NURSE FOR CONTINUITY OF CARE. PT IN STABLE CONDITION. IV INTACT AND PATENT. BED IN LOW POSITION. CALL LIGHT AT BEDSIDE. BED ALARM ON. WILL CONTINUE TO MONITOR.
--- NOTE | 2018-12-28 14:30 | NUR ---
Patient will be admitted to TELEMETRY. Will go to room 107B. Belongings list completed. Report to BASILIO [place].
[2018-12-28] MEDS ORDERED: ONDANSETRON 4 MG/2 ML VIAL IVP PRN (15:45)
[2018-12-28] MEDS ORDERED: LORazepam 2 MG/ML VIAL IVP PRN (15:45)
--- NOTE | 2018-12-28 16:01 | NUR ---
PT IN BED SLEEPING AT THIS TIME. RESPIRATIONS EVEN AND UNLABORED. BED IN LOW POSITION. CALL LIGHT AT BEDSIDE. BED ALARM ON. WILL CONTINUE TO MONITOR.
--- NOTE | 2018-12-28 17:05 | NUR ---
PT IN BED SLEEPING AT THIS TIME. RESPIRATIONS EVEN AND UNLABORED. BED IN LOW POSITION. CALL LIGHT AT BEDSIDE. BED ALARM ON. WILL CONTINUE TO MONITOR.
--- NOTE | 2018-12-28 19:28 | NUR ---
GAVE REPORT TO HIDES AND SKINS COLORER NURSE MANUEL FOR CONTINUITY OF CARE. PT IN STABLE CONDITION.
--- NOTE | 2018-12-28 19:30 | NUR ---
RECEIVED PT SLEEPING, AROUSABLE BUT LETHARGIC, OPEN EYES THEN GOES BACK TO SLEEP RIGHT AWAY, ON SEIZURE PRECAUTION WITH SIDE RAILS UP AND PADDED, BED ALARM ON, CALL LIGHT WITHIN REACH.
[2018-12-28 20:00] VITALS: BP_SYST 88; BP_SYST 91; BP_DIAS 42; BP_DIAS 48
[2018-12-28] MEDS ORDERED: NACL 0.9% 1,000 ML IV ONE (20:15)
--- NOTE | 2018-12-28 20:15 | NUR ---
BP-91/42 (RT ARM), 88/48 (LT ARM), PAGED DR Fermín PATINO, WITH NEW ORDER TO GIVE BOLUS NS 1L THEN D5NS AT 100ML IVF, MAINTAIN NPO EXCEPT MEDS ORDERED, WILL CARRY OUT ORDERS.
[2018-12-28] MEDS: PIPERACILLIN/TAZOBACTAM 3.375 GM in DEXTROSE 5% 100 ML IV SCH (20:21)
--- NOTE | 2018-12-28 22:30 | NUR ---
PT MORE AWAKE, TALKING BUT WITH MUFFLED SPEECH, MAINTAINED ON NPO EXCEPT MEDS, G-TUBE CLAMPED COVERED WITH ABDOMINAL BINDER, MONITORED CLOSELY.
[2018-12-28] MEDS: DEXT 5% /NACL 0.9% 1,000 ML IV SCH (23:30)
[2018-12-29] VITALS: BP 124/52
--- NOTE | 2018-12-29 | NUR ---
PT SLEEPING, EASILY AROUSABLE, VITAL SIGNS STABLE, NO SOB NOTED, NO SIGNS OF PAIN, IVF INFUSING WELL, CONTINUE TO MONITOR CLOSELY.
--- NOTE | 2018-12-29 01:20 | NUR ---
PT INCONTINENT OF URINE, CLEANED AND REPOSITIONED, TOLERATED WELL, NO RESP DISTRESS NOTED.
--- NOTE | 2018-12-29 03:45 | NUR ---
PT SLEEPING, EASILY AROUSABLE, VITAL SIGNS STABLE, OCCASIONAL MOIST COUGH NOTED, ENCOURAGE TO EXPECTORATE SPUTUM BUT UNABLE TO DO SO, SUCTION SECRETION WITH YANKAUER, MINIMAL SECRETION NOTED, MONITORED CLOSELY.
[2018-12-29 04:00] VITALS: BP 127/60
[2018-12-29] MEDS: PIPERACILLIN/TAZOBACTAM 3.375 GM in DEXTROSE 5% 100 ML IV SCH ×3 (04:38→20:41)
--- NOTE | 2018-12-29 05:20 | NUR ---
0515 SUCTIONED PATIENT FOR SPUTUM SAMPLE. SAMPLE TAKEN TO LAB
--- NOTE | 2018-12-29 06:00 | NUR ---
PT SLEEPING, NO SIGNS OF DISTRESS, IVF INFUSING WELL, NO SEIZURE ACTIVITY THE WHOLE SHIFT, SIDE RAILS UP AND PADDED, BED ALARM ON, MONITORED CLOSELY.
[2018-12-29] MEDS: DEXT 5% /NACL 0.9% 1,000 ML IV SCH ×3 (06:09→16:15)
--- NOTE | 2018-12-29 07:10 | NUR ---
PT AWAKE, NO SIGNS OF DISTRESS, REPORT GIVEN TO LAMBERT RICHMOND FOR CONTINUITY OF CARE.
--- NOTE | 2018-12-29 07:11 | NUR ---
RECEIVED REPORT FROM SUPERVISOR BLAST FURNACE AUXILIARIES NURSE. PATIENT LYING DOWN IN BED COMFORTABLY. NO DISTRESS NOTED. DENIES ANY PAIN. RESPIRATIONS EVEN, UNLABORED, ON O2 2L/MIN VIA NC. HAS INTERMITTENT COUGHING, PATIENT UNABLE TO COUGH UP PHLEGM. IV SITE INTACT, PATENT, AND INFUSING IVF PER MD ORDERS. AAOX1, CALM, COOPERATIVE, INTERMITTENT CONFUSION, SKIN COLOR APPROPRIATE TO ETHNICITY, WARM TO TOUCH. SKIN INTACT. GTUBE PRESENT ON ABDOMEN, INTACT, AND PATENT. NO FEEDING AT THIS TIME. SAFETY MEASURES IN PLACE, CALL LIGHT WITHIN REACH. WILL CONTINUE TO MONITOR.
[2018-12-29 07:17] LABS: ANION GAP 14.9 (8-16); CARBON DIOXIDE 24.1 mmol/L (21-32); CREATININE 0.7 mg/dL (0.7-1.3)
[2018-12-29 07:25] LABS: BASOPHILS % (AUTO) 0.2 % (0.0-2.0); EOSINOPHILS # (AUTO) 0.1 K/uL (0-0.4); EOSINOPHILS % (AUTO) 0.8 % (0.0-4.0); HEMATOCRIT 30.9 % (36-52); HEMOGLOBIN 9.8 g/dL (12.0-18.0); LYMPHOCYTES # (AUTO) 0.4 K/uL (2.0-11.5); LYMPHOCYTES % (AUTO) 3.4 % (20.5-51.1); MEAN CORPUSCULAR HEMOGLOBIN 25 pg (27-31); MEAN CORPUSCULAR HGB CONC 32 g/dL (33-37); MEAN CORPUSCULAR VOLUME 78.9 fL (80-94); MONOCYTES # (AUTO) 0.8 K/uL (0.8-1.0); MONOCYTES % (AUTO) 8.2 % (1.7-9.3); NEUTROPHILS # (AUTO) 9.1 K/uL (1.8-7.7); NEUTROPHILS % (AUTO) 87.4 % (42.2-75.2); PLATELET COUNT (AUTO) 211 K/uL (140-450); RED BLOOD CELL COUNT(AUTO) 3.91 MIL/uL (4.20-6.10); WHITE BLOOD COUNT (AUTO) 10.4 K/uL (4.8-10.8)
[2018-12-29 08:00] VITALS: BP 106/50
--- NOTE | 2018-12-29 08:12 | NUR ---
PATIENT HAS BEEN SCREENED AND CATEGORIZED HIGH NUTRITION RISK. PATIENT WILL BE SEEN WITHIN 1-2 DAYS OF ADMISSION. 12/29/18-12/30/[address]
--- NOTE | 2018-12-29 09:09 | NUR ---
PATIENT LYING DOWN IN BED WATCHING TV. NO DISTRESS NOTED. CONDITION UNCHANGED. DENIES ANY PAIN. WILL CONTINUE TO MONITOR.
--- NOTE | 2018-12-29 11:25 | NUR ---
PATIENT LYING DOWN IN BED WATCHING TV. NO DISTRESS NOTED. CONDITION UNCHANGED. WILL CONTINUE TO MONITOR.
[2018-12-29 12:00] VITALS: BP 120/73
--- NOTE | 2018-12-29 13:25 | NUR ---
PATIENT LYING DOWN IN BED WATCHING TV. NO DISTRESS NOTED. DENIES ANY PAIN. SCHEDULED MEDICATIONS DUE GIVEN. WILL CONTINUE TO MONITOR.
--- NOTE | 2018-12-29 14:00 | NUR ---
12/29/18 RD INITIAL ASSESSMENT COMPLETED PLEASE REFER TO NUTRITION ASSESSMENT UNDER CARE ACTIVITY FOR ESTIMATED NUTRITIONAL NEEDS. 1. RECOMMEND JEVITY @ 50 ML/HR. START AT 25 ML/HR AND INCREASE BY 25 ML/HR Q6H 2. RECOMMEND 80 ML OF FREE WATER FLUSH Q4H 3. IF MEDICALLY APPROPRIATE CONSIDER A SWALLOW EVALUATION FOR AN ORAL DIET 4. RD TO FOLLOW-UP 2-3 DAYS, HIGH RISK [address]
[2018-12-29] MEDS ORDERED: BISMUTH SUBSALICYLATE 15 ML UDBTL GT PRN (15:15)
[2018-12-29] MEDS ORDERED: IBUPROFEN CHILDRENS 100 MG/5 ML UDC GT PRN (15:15)
[2018-12-29] MEDS ORDERED: ACETAMINOPHEN 650 MG/20.3 ML UDC GT PRN (15:15)
[2018-12-29] MEDS ORDERED: BISACODYL 5 MG TABEC GT PRN (15:15)
[2018-12-29 16:00] VITALS: BP 120/45
[2018-12-29] MEDS ORDERED: ALBUTEROL 0.083% 2.5 MG/3 ML NEBU INH SCH (17:00)
[2018-12-29] MEDS: METOCLOPRAMIDE 10 MG TAB GT SCH (17:18)
--- NOTE | 2018-12-29 17:28 | NUR ---
PATIENT LYING DOWN IN BED. NO DISTRESS NOTED. DENIES ANY PAIN. SCHEDULED MEDICATIONS DUE GIVEN. WILL CONTINUE TO MONITOR.
--- NOTE | 2018-12-29 18:00 | NUR ---
GTUBE FEEDING STARTED PER MD ORDERS. WILL CONTINUE TO MONITOR.
--- NOTE | 2018-12-29 19:16 | NUR ---
GAVE REPORT TO RESIDENTIAL TEAM LEADER NURSE FOR CONTINUITY OF CARE. PATIENT IN STABLE CONDITION.
--- NOTE | 2018-12-29 19:17 | NUR ---
RECEIVED PT AWAKE ON BED, DELAYED SPEECH, ABLE TO FOLLOW SIMPLE COMMANDS, VITAL SIGNS STABLE, NO SIGNS OF PAIN OR SOB NOTED, OCCASIONAL MOIST COUGH, PT UNABLE TO EXPECTORATE SPUTUM, IVF INFUSING WELL, G-TUBE ON-GOING AT 20ML/H, HOB ELEVATED AT ALL TIMES, SAFETY MEASURES AND SEIZURE PRECAUTION IN PLACE, CALL LIGHT WITHIN REACH.
[2018-12-29 20:00] VITALS: BP 115/55
[2018-12-29] MEDS: CHLORHEXADINE GLUC 2% CLOTH TP SCH (20:36)
[2018-12-29] MEDS: VALPROIC ACID 250 MG/5 ML UDC GT SCH (20:40)
[2018-12-29] MEDS: risperiDONE 1 MG TAB GT SCH (20:40)
[2018-12-29] MEDS: MUPIROCIN CA NASAL 2% 1GM TUBE NS SCH (20:41)
[2018-12-29] MEDS: FAMOTIDINE 20 MG TAB GT SCH (20:41)
--- NOTE | 2018-12-29 20:50 | NUR ---
10 ML G-TUBE RESIDUAL NOTED, DUE MEDS ADMINISTERED, TUBE FEEDING INCREASED TO 30ML/H WITH FREE WATER FLUSH OF 80ML Q4H, MAINTAINED HOB ELEVATED AT ALL TIMES, ALL NEEDS ANTICIPATED.
[2018-12-29] MEDS ORDERED: Z-GUARD PASTE TP PRN (21:15)
--- NOTE | 2018-12-29 21:40 | NUR ---
PT CALLED INDICATING THAT HE IS WET, INCONTINENT OF URINE, CLEANED AND REPOSITIONED, MONITORED CLOSELY.
--- NOTE | 2018-12-29 23:45 | NUR ---
PT SLEEPING, EASILY AROUSABLE, VITAL SIGNS TAKEN, BP ON THE MOW SIDE BUT STABLE, NO SOB NOTED, IVF INFUSING WELL, G-TUBE FEEDING ON-GOING, CONTINUE TO MONITOR CLOSELY.
[2018-12-30] VITALS: BP 104/48
[2018-12-30] MEDS: Z-GUARD PASTE TP SCH ×2 (01:11→14:28)
[2018-12-30] MEDS: DEXT 5% /NACL 0.9% 1,000 ML IV SCH ×3 (01:13→22:27)
--- NOTE | 2018-12-30 02:00 | NUR ---
PT SLEEPING, 20ML G-TUBE RESIDUAL NOTED, INCREASED G-TUBE FEEDING TO 40ML/H ORDERED, HOB ELEVATED AT ALL TIMES, NO SOB NOTED, IVF INFUSING WELL, MONITORED CLOSELY.
[2018-12-30 04:00] VITALS: BP 112/53
--- NOTE | 2018-12-30 04:10 | NUR ---
PT SLEEPING, EASILY AROUSABLE, VITAL SIGNS STABLE, NO SIGNS OF SOB NOTED, ORAL CARE DONE, TOLERATED WELL, TOLERATING G-TUBE FEEDING AT 40ML/H, MONITORED CLOSELY.
[2018-12-30] MEDS: PIPERACILLIN/TAZOBACTAM 3.375 GM in DEXTROSE 5% 100 ML IV SCH ×3 (05:12→20:48)
[2018-12-30] MEDS: LEVOTHYROXINE 0.1 MG TAB GT SCH (05:52)
--- NOTE | 2018-12-30 06:00 | NUR ---
PT AWAKE, NO SIGNS OF DISTRESS, 10ML RESIDUAL NOTED, DUE MEDICATION ADMINISTERED, FEEDING RATE INCREASED TO 50ML/H WITH H2O FLUSH OF 80ML Q4H, OCCASIONAL MOIST COUGH NOTED, ENCOURAGE TO COUGH OUT PHLEGM, SUCTIONED WITH YANKAUER, SCANTY SECRETION NOTED, MONITORED CLOSELY.
[2018-12-30 06:55] LABS: HEMOGLOBIN 8.9 g/dL (12.0-18.0); MEAN CORPUSCULAR HEMOGLOBIN 25 pg (27-31); MEAN CORPUSCULAR HGB CONC 32 g/dL (33-37); MEAN CORPUSCULAR VOLUME 78.6 fL (80-94); PLATELET COUNT (AUTO) 178 K/uL (140-450); RED BLOOD CELL COUNT(AUTO) 3.56 MIL/uL (4.20-6.10); RED CELL DISTRIBUTION WIDTH 16.2 % (11.6-13.7); WHITE BLOOD COUNT (AUTO) 7.9 K/uL (4.8-10.8)
[2018-12-30 06:57] LABS: ANION GAP 15.2 (8-16); CARBON DIOXIDE 24.4 mmol/L (21-32); CREATININE 0.7 mg/dL (0.7-1.3); POTASSIUM 3.6 mmol/L (3.5-5.1)
--- NOTE | 2018-12-30 07:15 | NUR ---
RECEIVED REPORT FROM CUSTOMER SUPPORT ASSOCIATE NURSE. PT LYING IN BED, AAOX1. RESPIRATIONS EVEN AND UNLABORED ON O2 2L VIA N/C. COARSE CRACKLES UPON AUSCULTATION, PT HAS BREATHING TREATMENTS. IV ON LT HAND 24 GA RUNNING IVF PER ORDER. GTUBE IN PLACE, DRESSING CLEAN, DRY AND INTACT, NO RESIDUALS AT THIS TIME, PT TOLERATING FEEDING WELL. PT ON FALL RISK, SAFETY MEASURES IN PLACE, BED ON LOW POSITION, CALL LIGHT WITHIN REACH. SKIN IS INTACT, REDNESS NOTED TO SACRAL AREA, WILL PROVIDE SKIN CARE. NO EDEMA TO EXTREMITIES NOTED AT THIS TIME. REVIEWED POC WITH PT, WILL NEED REINFORCEMENT. WILL CONTINUE TO MONITOR.
--- NOTE | 2018-12-30 07:20 | NUR ---
PT AWAKE, NO SIGNS OF DISTRESS, BEDSIDE REPORT GIVEN TO BASILIO DEWITT FOR CONTINUITY OF CARE.
[2018-12-30 08:00] VITALS: BP 115/68
[2018-12-30 08:27] LABS: LYMPHOCYTES % (MANUAL) 8 % (20-46); MONOCYTES % (MANUAL) 12 % (5-12)
[2018-12-30] MEDS: ALBUTEROL 0.083% 2.5 MG/3 ML NEBU INH SCH ×3 (08:48→19:27)
[2018-12-30] MEDS: FAMOTIDINE 20 MG TAB GT SCH ×2 (09:13→20:49)
[2018-12-30] MEDS: VALPROIC ACID 250 MG/5 ML UDC GT SCH ×2 (09:14→20:47)
[2018-12-30] MEDS: risperiDONE 1 MG TAB GT SCH ×2 (09:14→20:48)
[2018-12-30] MEDS: METOCLOPRAMIDE 10 MG TAB GT SCH ×3 (09:14→17:12)
[2018-12-30] MEDS: POLYETHYLENE GLYCOL 17 GM/PKT GT SCH (09:15)
[2018-12-30] MEDS: MULTIVITAMIN/MINERALS 15 ML UDBTL GT SCH (09:15)
--- NOTE | 2018-12-30 10:50 | NUR ---
CONTACTED [facility] AT [phone], ABLE TO SPEAK TO JOSI (POWER WOOD SAWYER). SHE REFERRED ME TO MARTINA CEDENO [phone].
[2018-12-30 12:00] VITALS: BP 123/79
--- NOTE | 2018-12-30 15:36 | NUR ---
SATURATION 98% ON SUPPLEMENTAL OXYGEN AT 2 LPM VIA NC POST HHN THERAPY TITRATED FIO2 TO ROOM AIR CRAFT MANAGER TO MONITOR NASOTRACHEAL SUCTION FOR SMALL THIN YELLOW SECRETIONS ESDRAS/RN NOTIFIED
[2018-12-30 16:00] VITALS: BP 130/63
--- NOTE | 2018-12-30 16:25 | NUR ---
PER RT NIKO, UNABLE TO COLLECT SPUTUM AT THIS TIME. PT HAS DIFFICULTY EXPECTORATING. RT WILL RE-ATTEMPT AT A LATER TIME AND ENDORSE TO POULTRY SLAUGHTERER STAFF.
--- NOTE | 2018-12-30 16:43 | NUR ---
ERIN SORIA D/T CONSULT ORDERED BY DR. PATINO. AWAITING CALL BACK.
--- NOTE | 2018-12-30 16:47 | NUR ---
RECEIVED CALL FROM DR. SORIA. HE WILL SEE PATIENT LATER TODAY.
--- NOTE | 2018-12-30 17:12 | NUR ---
RESIDUALS CHECKED AT 35 MLS AT THIS TIME. PT TOLERATING FEEDING WELL. WILL CONTINUE TO MONITOR.
--- NOTE | 2018-12-30 19:10 | NUR ---
ENDORSED PT TO FIRE TECHNOLOGY INSTRUCTOR NURSE. NO SIGNS OF DISTRESS AT THIS TIME.
--- NOTE | 2018-12-30 19:11 | NUR ---
RECEIVED REPORT FROM DAY SHIFT NURSE. NO SOB OR ANY RESP. DISTRESS NOTED ON ROOM AIR. HAS INTERMITTENT COUGHING, PATIENT UNABLE TO COUGH UP PHLEGM. IV SITE ON LEFT HAND, 24G, INTACT, PATENT, AND INFUSING IVF PER MD ORDERS. SKIN COLOR APPROPRIATE TO ETHNICITY, WARM TO TOUCH. G-TUBE PRESENT ON ABDOMEN. SAFETY MEASURES IN PLACE, CALL LIGHT WITHIN REACH. WILL CONTINUE TO MONITOR.
[2018-12-30 20:00] VITALS: BP 135/52
--- NOTE | 2018-12-30 20:49 | NUR ---
GIVEN DEPAKENE, LAMICTAL, PEPCID, RISPERDAL, ZOSYN DR. WEI. PT TOLERATED WELL. Addendum: 12/30/18 at 2205 by Marcial Meek RN 30ML RESIDUAL NOTED.
[2018-12-30] MEDS: MUPIROCIN CA NASAL 2% 1GM TUBE NS SCH (21:32)
[2018-12-30] MEDS: CHLORHEXADINE GLUC 2% CLOTH TP SCH (21:32)
--- NOTE | 2018-12-30 21:32 | NUR ---
APPLY BACTROBAN TO NARES AND CLEAN PT WITH CHLORHEXADINE ORDERED. PT TOLERATED WELL. WILL CONTINUE TO MONITOR.
--- NOTE | 2018-12-30 23:50 | NUR ---
VS CHECKED, WITHIN NORMAL RANGE. PT SLEEPING IN BED. NO ACUTE DISTRESS NOTED.
[2018-12-31] VITALS: BP 121/63
[2018-12-31] MEDS: Z-GUARD PASTE TP SCH ×2 (01:30→12:28)
--- NOTE | 2018-12-31 02:35 | NUR ---
PT SLEEPING IN BED. COUGHING INTERMITTENTLY. BREATHING EVEN AND UNLABORED. BED IN LOW POSITION.
[2018-12-31 04:00] VITALS: BP 119/56
--- NOTE | 2018-12-31 04:15 | NUR ---
PT SLEEPING IN BED. NO ACUTE DISTRESS NOTED. WILL CONTINUE TO MONITOR.
[2018-12-31] MEDS: PIPERACILLIN/TAZOBACTAM 3.375 GM in DEXTROSE 5% 100 ML IV SCH ×3 (05:57→20:26)
--- NOTE | 2018-12-31 05:57 | NUR ---
GIVEN ZOSYN AND SYNTHROID DRMatt ORDERED. PT TOLERATED WELL. BED IN LOW POSITION.
[2018-12-31] MEDS: LEVOTHYROXINE 0.1 MG TAB GT SCH (05:58)
[2018-12-31 06:34] LABS: ANION GAP 13.1 (8-16); CREATININE 0.6 mg/dL (0.7-1.3); POTASSIUM 4.1 mmol/L (3.5-5.1)
[2018-12-31 06:56] LABS: BASOPHILS % (AUTO) 0.3 % (0.0-2.0); EOSINOPHILS # (AUTO) 0.2 K/uL (0-0.4); EOSINOPHILS % (AUTO) 1.7 % (0.0-4.0); HEMOGLOBIN 9.2 g/dL (12.0-18.0); LYMPHOCYTES # (AUTO) 0.8 K/uL (2.0-11.5); LYMPHOCYTES % (AUTO) 8.6 % (20.5-51.1); MEAN CORPUSCULAR HEMOGLOBIN 25 pg (27-31); MEAN CORPUSCULAR HGB CONC 32 g/dL (33-37); MEAN CORPUSCULAR VOLUME 78.9 fL (80-94); MONOCYTES # (AUTO) 1.3 K/uL (0.8-1.0); MONOCYTES % (AUTO) 14.4 % (1.7-9.3); NEUTROPHILS # (AUTO) 6.9 K/uL (1.8-7.7); PLATELET COUNT (AUTO) 200 K/uL (140-450); RED BLOOD CELL COUNT(AUTO) 3.67 MIL/uL (4.20-6.10); RED CELL DISTRIBUTION WIDTH 15.8 % (11.6-13.7); WHITE BLOOD COUNT (AUTO) 9.1 K/uL (4.8-10.8)
--- NOTE | 2018-12-31 07:21 | NUR ---
ENDORSED PT TO DAY SHIFT NURSE. PT IN STABLE CONDITION.
--- NOTE | 2018-12-31 07:22 | NUR ---
RECEIVED BED SIDE REPORT FROM MUSHROOM PACKER RN ABEBE. PT AWAKE WITH G TUBE FEEDING RUNNING 50CC/HR AND NS RUNNING 100CC/HR. PT IN NO RESPIRATORY DISTRESS, ON RA, AND APPEARS IN NO PAIN. INDUCED SPUTUM WAITING FOR RT
[2018-12-31] MEDS: ALBUTEROL 0.083% 2.5 MG/3 ML NEBU INH SCH ×3 (07:29→19:38)
[2018-12-31 08:00] VITALS: BP 133/60
[2018-12-31] MEDS: DEXT 5% /NACL 0.9% 1,000 ML IV SCH ×2 (08:15→19:28)
[2018-12-31] MEDS: risperiDONE 1 MG TAB GT SCH ×2 (09:38→20:26)
[2018-12-31] MEDS: FAMOTIDINE 20 MG TAB GT SCH ×2 (09:39→20:26)
[2018-12-31] MEDS: VALPROIC ACID 250 MG/5 ML UDC GT SCH ×2 (09:39→20:25)
[2018-12-31] MEDS: METOCLOPRAMIDE 10 MG TAB GT SCH ×3 (09:39→17:43)
[2018-12-31] MEDS: MULTIVITAMIN/MINERALS 15 ML UDBTL GT SCH (09:40)
[2018-12-31] MEDS: POLYETHYLENE GLYCOL 17 GM/PKT GT SCH (09:40)
[2018-12-31 12:00] VITALS: BP 123/49
--- NOTE | 2018-12-31 12:00 | NUR ---
GASTRIC RESIDUAL 5CC. PT SLEEPING. LAB STARTED NEW IV RIGHT UPPER ARM 24G. GAVE ROCEPHIN PER MD ORDER. REPOSITIONED AND APPLIED HYDROGUARD TO SACRAL AND PERINEAL AREA. PT ON RA 96%. VS STABLE
--- NOTE | 2018-12-31 14:35 | NUR ---
RECEIVED REPORT FROM AYLIN FOR CONTINUITY OF CARE. PT IN STABLE CONDITION. RESPIRATIONS EVEN AND UNLABORED. IV INTACT AND PATENT. G-TUBE INTACT AND PATENT. BED IN LOW POSITION. BED ALARM ON. CALL LIGHT AT BEDSIDE. WILL CONTINUE TO MONITOR.
--- NOTE | 2018-12-31 14:35 | NUR ---
GAVE BED SIDE REPORT TO BASILIO BAUTISTA. PT IN STABLE CONDITION
--- NOTE | 2018-12-31 15:30 | NUR ---
MEDICATION VIA HHN NOT GIVEN DUE MOTORIZED SQUAD COMMANDING OFFICER MST-117 WITH PATIENT TRANSFER TO ICU-7 AND PREVENTATIVE MAINTENANCE TECHNICIAN ASSIST FOR INTUBATION THEREAFTER RIGHT J LINE
[2018-12-31 16:00] VITALS: BP 126/62
--- NOTE | 2018-12-31 16:02 | NUR ---
PT LYING IN BED SLEEPING AT THIS TIME. RESPIRATIONS EVEN AND UNLABORED. BED IN LOW POSITION. BED ALARM ON. CALL LIGHT AT BEDSIDE. WILL CONTINUE TO MONITOR.
--- NOTE | 2018-12-31 17:53 | NUR ---
CHANGED FEEDING TUBES AND REPLACED JEVITY 1.2 WITH NEW CONTAINER AT THIS TIME.
--- NOTE | 2018-12-31 18:05 | NUR ---
RECEIVED REPORT FROM AYLIN FOR CONTINUITY OF CARE. PT IN STABLE CONDITION. RESPIRATIONS EVEN AND UNLABORED. IV INTACT AND PATENT. G-TUBE INTACT AND PATENT. BED IN LOW POSITION. BED ALARM ON. CALL LIGHT AT BEDSIDE. WILL CONTINUE TO MONITOR. Addendum: 12/31/18 at 1807 by Padmini Garcia RN 1435 NOTE
--- NOTE | 2018-12-31 18:07 | NUR ---
PT LYING IN BED WATCHING TV AT THIS TIME IN STABLE CONDITION. BED IN LOW POSITION. BED ALARM ON. CALL LIGHT AT BEDSIDE. WILL CONTINUE TO MONITOR.
--- NOTE | 2018-12-31 19:15 | NUR ---
RECEIVED REPORT FROM DAY SHIFT NURSE. NO SOB OR ANY RESP. DISTRESS NOTED ON ROOM AIR. HAS INTERMITTENT COUGHING, PATIENT UNABLE TO COUGH UP PHLEGM. IV SITE ON ISAAK, 24G, INTACT, PATENT, AND INFUSING IVF PER MD ORDERS. SKIN COLOR APPROPRIATE TO ETHNICITY, WARM TO TOUCH. G-TUBE PRESENT ON ABDOMEN. SAFETY MEASURES IN PLACE, CALL LIGHT WITHIN REACH. WILL CONTINUE TO MONITOR.
[2018-12-31 20:00] VITALS: BP 116/43
[2018-12-31] MEDS: MUPIROCIN CA NASAL 2% 1GM TUBE NS SCH (20:26)
--- NOTE | 2018-12-31 20:26 | NUR ---
GASTRIC RESIDUAL 5CC. GIVEN DEPAKENE, LAMICTAL, PEPCID, RISPERDAL, ZOSYN AND APPLY BACTROBAN TO NARES AND CLEAN PT WITH CHLORHEXADINE ORDERED. PT TOLERATED WELL. WILL CONTINUE TO MONITOR.
[2018-12-31] MEDS: CHLORHEXADINE GLUC 2% CLOTH TP SCH (20:27)
--- NOTE | 2018-12-31 22:46 | NUR ---
PT SLEEPING IN BED COMFORTABLE. NO ACUTE DISTRESS NOTED.
--- NOTE | 2018-12-31 23:05 | NUR ---
SPUTUM COLLECTED AND DROPPED OFF AT LAB.
[2019-01-01] VITALS: BP 97/45
--- NOTE | 2019-01-01 00:43 | NUR ---
PT SLEEPING. NO SOB NOTED. BREATHING EVEN AND UNLABORED. BED IN LOW POSITION.
[2019-01-01] MEDS: Z-GUARD PASTE TP SCH ×2 (01:07→13:09)
--- NOTE | 2019-01-01 02:30 | NUR ---
PT SLEEPING IN BED. NO ACUTE DISTRESS NOTED. WILL CONTINUE TO MONITOR.
[2019-01-01 04:00] VITALS: BP 87/42
--- NOTE | 2019-01-01 04:00 | NUR ---
VS CHECKED. BP CHECKED SEVERAL TIMES, THE HIGHEST 87/42 AND THE LOWEST 67/34, NOTIFIED TO DR. CAREY Marinelli AND RECEIVED ORDER OF 1000ML NS BOLUS. HANG 1L NS, PT TOLERATED WELL. WILL RECHECK BP WHEN IT IS DONE.
[2019-01-01] MEDS: DEXT 5% /NACL 0.9% 1,000 ML IV SCH (04:22)
[2019-01-01] MEDS ORDERED: NACL 0.9% 1,000 ML IV ONE (04:25)
[2019-01-01] MEDS: LEVOTHYROXINE 0.1 MG TAB GT SCH (05:41)
--- NOTE | 2019-01-01 05:44 | NUR ---
0 RESIDUAL NOTED. GIVEN SYNTHROID ORDERED. PT TOLERATED WELL. 1L OF NS BOLUS STILL INFUSING. BP 121//53 NOTED. WILL CONTINUE TO MONITOR.
[2019-01-01 06:38] LABS: BASOPHILS # (AUTO) 0.1 K/uL (0.00-0.22); BASOPHILS % (AUTO) 0.7 % (0.0-2.0); EOSINOPHILS # (AUTO) 0.3 K/uL (0-0.4); EOSINOPHILS % (AUTO) 2.7 % (0.0-4.0); HEMATOCRIT 31.5 % (36-52); LYMPHOCYTES # (AUTO) 1.1 K/uL (2.0-11.5); LYMPHOCYTES % (AUTO) 11.7 % (20.5-51.1); MEAN CORPUSCULAR HEMOGLOBIN 25 pg (27-31); MEAN CORPUSCULAR HGB CONC 32 g/dL (33-37); MEAN CORPUSCULAR VOLUME 78.8 fL (80-94); MONOCYTES # (AUTO) 1.2 K/uL (0.8-1.0); MONOCYTES % (AUTO) 13.1 % (1.7-9.3); NEUTROPHILS # (AUTO) 6.6 K/uL (1.8-7.7); NEUTROPHILS % (AUTO) 71.8 % (42.2-75.2); PLATELET COUNT (AUTO) 212 K/uL (140-450); RED CELL DISTRIBUTION WIDTH 15.9 % (11.6-13.7); WHITE BLOOD COUNT (AUTO) 9.3 K/uL (4.8-10.8)
--- NOTE | 2019-01-01 07:05 | NUR ---
ENDORSED PT TO DAY SHIFT NURSE. PT IN STABLE CONDITION.
--- NOTE | 2019-01-01 07:15 | NUR ---
RECEIVED BEDSIDE REPORT FROM INFECTION CONTROL COORDINATOR NURSE. PT IS AWAKE BUT APPEARS DISORIENTED. PT IS NON-VERBAL AT BASELINE. NO S/S OF ANY ACUTE DISTRESS OR SOB NOTED. PT IS ON ROOM AIR, SKIN IS INTACT, BUT HAS SOME REDNESS ON THE SACRAL AREA DUE TO INCONTINENCE. PT HAS A G-TUBE, CURRENTLY INFUSING JEVITY 1.2 50 ML/HR WITH 80 ML WATER FLUSHES Q4H. IV IS NOTED ON THE R AC, 24 G, INFUSING D5NS 100 ML/HR. FALL AND SEIZURE PRECAUTIONS ARE IN PLACE; CONTACT ISOLATION IN PLACE FOR MRSA OF NARES. CALL LIGHT IS WITHIN REACH, WILL CONTINUE TO MONITOR.
[2019-01-01 07:20] LABS: ANION GAP 14.4 (8-16); CREATININE 0.7 mg/dL (0.7-1.3); POTASSIUM 4.4 mmol/L (3.5-5.1)
[2019-01-01] MEDS: ALBUTEROL 0.083% 2.5 MG/3 ML NEBU INH SCH (07:56)
[2019-01-01 08:00] VITALS: BP 124/58
[2019-01-01] MEDS: FAMOTIDINE 20 MG TAB GT SCH (09:37)
[2019-01-01] MEDS: POLYETHYLENE GLYCOL 17 GM/PKT GT SCH (09:37)
[2019-01-01] MEDS: VALPROIC ACID 250 MG/5 ML UDC GT SCH (09:37)
[2019-01-01] MEDS: METOCLOPRAMIDE 10 MG TAB GT SCH (09:38)
[2019-01-01] MEDS: MULTIVITAMIN/MINERALS 15 ML UDBTL GT SCH (09:38)
[2019-01-01] MEDS: risperiDONE 1 MG TAB GT SCH (09:38)
--- NOTE | 2019-01-01 09:45 | NUR ---
PT CLEANED, CHANGED, REPOSITIONED, AND LINENS CHANGED.
--- NOTE | 2019-01-01 10:15 | NUR ---
AM MEDS ADMINISTERED, PT TOLERATED WELL.
--- NOTE | 2019-01-01 10:15 | NUR ---
CALLED [facility], , INFORMED OF DC ORDER, SHE WILL CALL US BACK WITH TRANSPORTATION ARRANGEMENT ETA.
--- NOTE | 2019-01-01 10:18 | NUR ---
[facility] CALLED BACK, THEY WILL PICK HIM UP AROUND 1230, PRIMARY NURSE KOURTNEY AWARE.
[2019-01-01 12:00] VITALS: BP 111/54
--- NOTE | 2019-01-01 13:15 | NUR ---
PHONE REPORT GIVEN TO BASILIO LUGO, AT THE [facility], FOR PT'S DISCHARGE TODAY.
--- NOTE | 2019-01-01 13:19 | NUR ---
PT DRESSED AND IV REMOVED, AND READY TO GO. WAITING FOR [facility] TO COME PICK HIM UP.
--- NOTE | 2019-01-01 13:30 | NUR ---
PT HAS DISCHARGED. IV SITE AND WRIST BANDS WERE REMOVED. DISCHARGE DOCUMENTS WERE GIVEN TO PT'S NITROCELLULOSE OPERATOR GERALD, GERALD IS AWARE THAT I ALREADY GAVE PT REPORT TO BASILIO LUGO. PT LEFT WITH ALL HIS BELONGINGS IN STABLE CONDITION.
== END 2019-01-01 13:30 | DRG 871 ==
LOC: MED 10:14 → MTU 13:46
PROVIDERS: ADMIT Preventive Medicine Preventive Medicine/Occupational Environmental Medicine; ATTEND Preventive Medicine Preventive Medicine/Occupational Environmental Medicine
DX: A41.9 Sepsis, unspecified organism (principal); J18.9 Pneumonia, unspecified organism; J96.00 Acute respiratory failure, unspecified whether with hypoxia or hypercapnia; K21.9 Gastro-esophageal reflux disease without esophagitis; D64.9 Anemia, unspecified; E03.9 Hypothyroidism, unspecified; E88.09 Other disorders of plasma-protein metabolism, not elsewhere classified; F31.9 Bipolar disorder, unspecified; F79 Unspecified intellectual disabilities; G40.909 Epilepsy, unspecified, not intractable, without status epilepticus; G80.9 Cerebral palsy, unspecified; I10 Essential (primary) hypertension; K80.20 Calculus of gallbladder without cholecystitis without obstruction; N20.0 Calculus of kidney; R13.10 Dysphagia, unspecified; Z87.01 Personal history of pneumonia (recurrent); Z87.442 Personal history of urinary calculi; Z88.1 Allergy status to other antibiotic agents; Z93.1 Gastrostomy status; R73.9 Hyperglycemia, unspecified; Z88.8 Allergy status to other drugs, medicaments and biological substances
CPT/HCPCS: 36415; 36600; 71045; 80048; 80053; 81001; 82803; 83605; 83880; 84484; 85025; 85610; 85651; 85730; 86140; 87040; 87070; 87081; 87086; 87205; 89220; 93005; 94640; 96365; 99285; C1758; J2543; J7030; J7042; J7060; J7613; J8597; Q0092

== ENCOUNTER 2019-02-04 21:53 | Inpatient (IN) | payer OTHER, MEDICAID ==
[~2019-02-04] VITALS: Ht 167.6 cm; Wt 72.6 kg
[2019-02-04 21:53] VITALS: BP 127/54
[~2019-02-04 21:53] MED LIST changes: -PIPE1SOL IV
--- NOTE | 2019-02-04 21:53 | NUR ---
PT [facility] BLS. TAKEN TO BED 10
--- NOTE | 2019-02-04 22:00 | NUR ---
63 Y/O MALE BIBA FROM [facility]. PRESENTS TO ED, C/O SOB X2 DAYS. PT HAS COARSE LUNG SOUNDS WITH PRODUCTIVE COUGH. PLACED ON 4L O2 VIA NC. HX OF COPD CHF, HTN, SEIZURES. PT VSS. ERMD AWARE. WILL CONTINUE TO MONITOR.
--- NOTE | 2019-02-04 22:18 | NUR ---
Dr. Mohan examining patient.
[2019-02-04] MEDS ORDERED: NACL 0.9% 500 ML IV SCH (22:28)
[2019-02-04 23:08] LABS: BASOPHILS # (AUTO) 0.1 K/uL (0.00-0.22); EOSINOPHILS # (AUTO) 0.2 K/uL (0-0.4); HEMOGLOBIN 8.9 g/dL (12.0-18.0); RED CELL DISTRIBUTION WIDTH 17.3 % (11.6-13.7)
[2019-02-04 23:15] LABS: ANION GAP 10.4 (8-16); CARBON DIOXIDE 30.8 mmol/L (21-32); CREATININE 0.9 mg/dL (0.7-1.3); POTASSIUM 4.2 mmol/L (3.5-5.1)
[2019-02-04 23:16] LABS: BASOPHILS % (AUTO) 0.4 % (0.0-2.0); EOSINOPHILS % (AUTO) 1.5 % (0.0-4.0); HEMATOCRIT 28.4 % (36-52); MEAN CORPUSCULAR HEMOGLOBIN 23 pg (27-31); MEAN CORPUSCULAR HGB CONC 31 g/dL (33-37); MEAN CORPUSCULAR VOLUME 73.2 fL (80-94); MONOCYTES # (AUTO) 1.4 K/uL (0.8-1.0); MONOCYTES % (AUTO) 9.1 % (1.7-9.3); NEUTROPHILS # (AUTO) 12.3 K/uL (1.8-7.7); NEUTROPHILS % (AUTO) 82.2 % (42.2-75.2); PLATELET COUNT (AUTO) 270 K/uL (140-450); RED BLOOD CELL COUNT(AUTO) 3.88 MIL/uL (4.20-6.10)
[2019-02-04 23:16] LABS: APPEARANCE,URINE CLEAR (CLEAR); BILIRUBIN,URINE NEGATIVE (NEGATIVE); BLOOD, URINE TRACE-I (NEGATIVE); COLOR,URINE YELLOW (YELLOW); LEUKOCYTE ESTERASE ,URINE NEGATIVE (NEGATIVE); NITRITE, URINE NEGATIVE (NEGATIVE); UGLUCOSE NEGATIVE (NEGATIVE)
[2019-02-04 23:21] LABS: ALBUMIN 2.4 g/dL (3.4-5.0); TOTAL BILIRUBIN 0.2 mg/dL (0.0-1.0)
[2019-02-04 23:28] LABS: LYMPHOCYTES % (AUTO) 6.8 % (20.5-51.1); PROTHROMBIN TIME 10.1 secs (10.8-13.4)
[2019-02-04 23:33] LABS: RBC,URINE 0-5 /HPF (0-5); WBC,URINE 0-5 /HPF (0-5)
[2019-02-04] MEDS ORDERED: PIPERACILLIN/TAZOBACTAM 3.375 GM in DEXTROSE 5% 50 ML IV ONE (23:55)
[2019-02-05] MEDS ORDERED: PIPERACILLIN/TAZOBACTAM 3.375 GM VIAL IV ONE (00:19)
--- NOTE | 2019-02-05 00:20 | NUR ---
PT LAYING IN BED, AROUSABLE TO NAME, SPO2 97% ON 2L NC, RR 18 EVEN AND UNLABORED. OCCASIONAL PRODUCTIVE COUGH NOTED. ALL NEEDS MET.
[2019-02-05] MEDS ORDERED: ACET-2619 PO (01:14)
[2019-02-05] MEDS ORDERED: MIRABULK PO (01:14)
[2019-02-05] MEDS ORDERED: METO5TAB4 GT (01:14)
[2019-02-05] MEDS ORDERED: SYN.075 GT (01:14)
[2019-02-05] MEDS ORDERED: BENZ-248 GT (01:14)
[2019-02-05] MEDS ORDERED: MULT-2472 GT (01:14)
[2019-02-05] MEDS ORDERED: FAMO10TA93 GT (01:14)
[2019-02-05] MEDS ORDERED: VALP-22 GT (01:14)
[2019-02-05] MEDS ORDERED: FURO-572 PO (01:14)
[2019-02-05] MEDS ORDERED: ATRN NEB (01:14)
[2019-02-05] MEDS ORDERED: LAM200 GT (01:14)
[2019-02-05] MEDS ORDERED: RISP0.5T3 GT (01:14)
[2019-02-05] MEDS ORDERED: IBUP-2213 GT (01:15)
[2019-02-05] MEDS ORDERED: NA P135N RC (01:15)
[2019-02-05] MEDS ORDERED: BISA-246 RC (01:15)
[2019-02-05] MEDS ORDERED: PHE25S GT (01:23)
[2019-02-05] MEDS ORDERED: [UNRECOGNIZED DRUG - CODE] GT (01:23)
[2019-02-05] MEDS ORDERED: GUAI118S41 GT (01:23)
[2019-02-05] MEDS ORDERED: NYST100022 TOP (01:23)
[2019-02-05] MEDS ORDERED: KETO5DRO4 OP (01:23)
[2019-02-05 01:30] VITALS: BP 122/60
--- NOTE | 2019-02-05 01:45 | NUR ---
PT ADMITTED TO [facility] ROOM 113. TRANSFERRED VIA GURNEY. REPORT GIVEN TO OSMEL RICHMOND. PT STABLE AT TRANSPORT. PT CARE TRANSFERRED.
--- NOTE | 2019-02-05 01:45 | NUR ---
Patient arrived in unit via gurney, accompanied by two FILLER IN's. Patient A/Ox1 due to mental disability, responds to name. Patient unable to ambulate. Introduced self, updated board, oriented patient to room and hospital environment. Chief complaint SOB for two days, DX is PNA. No SOB or distress noted, on O2 2LPM via nasal cannula. IV site on right wrist, 20 gauge, saline locked. Noted with incontinent dermatitis in sacral coccyx area. Bed in the lowest position ,call light within reach. Initial assessment done. Will continue to monitor.
[2019-02-05] MEDS ORDERED: BISMUTH SUBSALICYLATE 15 ML UDBTL GT PRN (02:50)
[2019-02-05] MEDS ORDERED: PROMETHAZINE 6.25 MG/5 ML ORASYR GT PRN (02:50)
[2019-02-05] MEDS ORDERED: SODIUM PHOSPHATE 118 ML ENEM RC PRN (02:50)
[2019-02-05] MEDS ORDERED: ACETAMINOPHEN 325 MG TAB PO PRN (02:50)
[2019-02-05] MEDS ORDERED: GUAIFENESIN GT PRN (02:50)
[2019-02-05] MEDS ORDERED: NYSTATIN 500 MU/5 ML UDC GT PRN (02:50)
[2019-02-05] MEDS ORDERED: BISACODYL 10 MG RC PRN (02:50)
[2019-02-05] MEDS ORDERED: DEXTROMETHORPHAN GT PRN (02:50)
[2019-02-05] MEDS ORDERED: NYSTATIN CRE 100 MU/GM 15 GM TUBE TP SCH (02:50)
[2019-02-05] MEDS ORDERED: IBUPROFEN 600 MG TAB GT PRN ×2 (02:50→15:20)
[2019-02-05] MEDS: NACL 0.9% 1,000 ML IV SCH (04:18)
--- NOTE | 2019-02-05 04:30 | NUR ---
Checks made, no SOB or distress noted.
[2019-02-05] MEDS: LEVOTHYROXINE 0.075 MG TAB GT SCH (06:30)
--- NOTE | 2019-02-05 06:30 | NUR ---
Vitals stable, due meds given and g-tube aspirated, no residual noted. Will endorse to AM shift RN for continuity of care.
--- NOTE | 2019-02-05 07:37 | NUR ---
RECEIVED REPORT FROM COUNT TEAM CLERK RN. PT IN STABLE CONDITION AT THIS TIME. WILL MONITOR PT CLOSELY THROUGHOUT THE SHIFT.
--- NOTE | 2019-02-05 07:53 | NUR ---
PATIENT HAS BEEN SCREENED AND CATEGORIZED HIGH NUTRITION RISK. PATIENT WILL BE SEEN WITHIN 1-2 DAYS OF ADMISSION. 02/05/19-02/06/[address]
[2019-02-05 08:00] VITALS: BP 102/48
[2019-02-05] MEDS ORDERED: guaiFENesin DM 200/20 MG-10 ML 10 ML UDC PO PRN (08:00)
[2019-02-05] MEDS ORDERED: IPRATROPIUM 0.02% 0.5 MG/2.5 ML NEBU INH SCH (08:17)
[2019-02-05] MEDS ORDERED: NYSTATIN CRE 100 MU/GM 15 GM TUBE TP PRN (08:30)
[2019-02-05] MEDS: VALPROIC ACID 250 MG/5 ML UDC GT SCH ×2 (08:38→23:22)
[2019-02-05] MEDS: PIPERACILLIN/TAZOBACTAM 3.375 GM in DEXTROSE 5% 50 ML IV SCH ×2 (08:38→16:43)
[2019-02-05] MEDS: METOCLOPRAMIDE 10 MG/10 ML SYRP UDC GT SCH (08:39)
[2019-02-05] MEDS: FAMOTIDINE 20 MG TAB GT SCH ×2 (08:39→23:24)
[2019-02-05] MEDS: MULTIVITAMIN 5 ML ORASYR GT SCH (08:39)
[2019-02-05] MEDS: risperiDONE 1 MG TAB GT SCH ×2 (08:40→23:23)
[2019-02-05] MEDS: POLYETHYLENE GLYCOL 17 GM/PKT GT SCH (08:40)
[2019-02-05] MEDS: BENZTROPINE 1 MG TAB GT SCH ×2 (08:40→23:22)
--- NOTE | 2019-02-05 08:49 | NUR ---
ADMINISTERED MORNING MEDS TO PT. PT TOLERATED THEM WELL. ALL MEDS ADMINISTERED THROUGH G-TUBE. WILL CONTINUE TO ROUND FREQUENTLY ON PT.
[2019-02-05] MEDS ORDERED: KETOTIFEN FUMARATE OP SCH (09:00)
[2019-02-05] MEDS ORDERED: NON-FORMULARY ITEM (Multivitamin (Multivitamins) 1 TAB) GT SCH (09:00)
[2019-02-05] MEDS ORDERED: NON-FORMULARY ITEM (Metoclopramide HCl 5 MG) GT SCH (09:00)
[2019-02-05] MEDS ORDERED: FUROSEMIDE 20 MG TAB GT SCH (09:00)
[2019-02-05] MEDS ORDERED: NON-FORMULARY ITEM (Famotidine (Famotidine) 20 MG) GT SCH (09:00)
--- NOTE | 2019-02-05 11:17 | NUR ---
PT SLEEPING IN BED. WILL CONTINUE TO ROUND FREQUENTLY ON PT. BED IN LOW POSITION, CALL LIGHT WITHIN REACH
--- NOTE | 2019-02-05 13:31 | NUR ---
PT SLEEPING IN BED. RECENTLY CLEANED AND TURNED PT. PT TOLERATED WELL, HE HELPS TURN HIMSELF WELL. ALL OTHER NEEDS MET AT THIS TIME. WILL CONTINUE TO ROUND FREQUENTLY ON PT.
--- NOTE | 2019-02-05 14:32 | NUR ---
02/05/19 RD INITIAL ASSESSMENT COMPLETED PLEASE REFER TO NUTRITION ASSESSMENT UNDER CARE ACTIVITY FOR ESTIMATED NUTRITIONAL NEEDS. 1. CONTINUE PUREE DIET WITH PROSOURCE TOLERATED 2. IF PATIENT DOES NOT TOLERATE PO DIET CONSIDER ENTERAL NUTRITION WITH JEVITY @ 55 ML/HR. FREE WATER FLUSH [address] TO FOLLOW-UP 2-3 DAYS, HIGH RISK CALDERON [address]A, DAYANA
[2019-02-05] MEDS: IPRATROPIUM 0.02% 0.5 MG/2.5 ML NEBU INH SCH ×2 (15:21→18:46)
--- NOTE | 2019-02-05 15:45 | NUR ---
PT RESTING IN BED WATCHING TV. ALL NEEDS CURRENTLY MET. WILL CONTINUE TO MONITOR PT CLOSELY.
[2019-02-05 16:00] VITALS: BP 111/52
--- NOTE | 2019-02-05 17:49 | NUR ---
PT SLEEPING IN BED. NO SIGNS OF PAIN OR DISTRESS. WILL CONTINUE TO ROUND FREQUENTLY ON PT
--- NOTE | 2019-02-05 19:55 | NUR ---
RECIEVED PT AWAKE AND ALERT BUT NOT WELL ORIENTED DUE TO MENTALLY DELAYED , NID , IV SITE INTACT AND PATENT , G TUBE INTACT AND PATENT . ON SAFETY PROTOCOL , CALL LIGHT WITH IN REACH , WILL CONT. TO MONITOR.
--- NOTE | 2019-02-05 19:55 | NUR ---
ENDORSED PT TO JET DYEING MACHINE OPERATOR FOR CONTINUITY OF CARE. PT IN STABLE CONDITION AT THIS TIME.
--- NOTE | 2019-02-06 | NUR ---
MADE ROUNDS . RESP EVEN AND UNLABORED , CALL LIGHT WITHIN REACH
[2019-02-06] MEDS: PIPERACILLIN/TAZOBACTAM 3.375 GM in DEXTROSE 5% 50 ML IV SCH ×3 (00:09→15:43)
[2019-02-06] MEDS: NACL 0.9% 1,000 ML IV SCH ×2 (03:00→15:39)
--- NOTE | 2019-02-06 04:00 | NUR ---
MADE ROUNDS RESP .EVEN AND UNLABORED - CALL LIGHT WITHIN REACH
[2019-02-06] MEDS: IPRATROPIUM 0.02% 0.5 MG/2.5 ML NEBU INH SCH ×3 (06:58→19:28)
[2019-02-06] MEDS: LEVOTHYROXINE 0.075 MG TAB GT SCH (07:08)
--- NOTE | 2019-02-06 07:35 | NUR ---
ENDORSED TO AM SHIFT NURSE .
--- NOTE | 2019-02-06 07:36 | NUR ---
RECEIVED ENDORSEMENT FROM SIZER HAND NURSE. PATIENT HAS A MENTAL DELAY, [place]ER SPEAKING. RESPIRATIONS ARE EVEN AND UNLABORED ON 2L NC. FLACC O. G-TUBE IS INTACT. RIGHT HAND 20G IV INTACT, PATENT, AND INFUSING IVF. PLAN OF CARE WAS REVIEWED WITH PATIENT, PATIENT VERBALIZED UNDERSTANDING. SAFETY MEASURES IN PLACE, SEIZURE PRECAUTIONS IN PLACE, CALL LIGHT WITHIN REACH.
[2019-02-06 08:00] VITALS: BP 108/53
[2019-02-06] MEDS: METOCLOPRAMIDE 10 MG/10 ML SYRP UDC GT SCH (08:33)
[2019-02-06] MEDS: FAMOTIDINE 20 MG TAB GT SCH ×2 (08:33→21:27)
[2019-02-06] MEDS: risperiDONE 1 MG TAB GT SCH ×2 (08:33→21:28)
[2019-02-06] MEDS: BENZTROPINE 1 MG TAB GT SCH ×2 (08:34→21:28)
[2019-02-06] MEDS: FUROSEMIDE 40 MG/5 ML ORAL SOL UDC GT SCH (08:35)
[2019-02-06] MEDS: POLYETHYLENE GLYCOL 17 GM/PKT GT SCH (08:35)
[2019-02-06] MEDS: MULTIVITAMIN 5 ML ORASYR GT SCH (08:35)
[2019-02-06] MEDS: VALPROIC ACID 250 MG/5 ML UDC GT SCH ×2 (08:35→21:29)
--- NOTE | 2019-02-06 08:35 | NUR ---
ADMINISTERED SCHEDULED MEDICATION. PATIENT TOLERATED WELL. NO OTHER NEEDS AT THIS TIME. WILL CONTINUE TO MONITOR. Addendum: 02/07/19 at 0831 by Anali Mixon RN SUDHA LASMIKE FOR BP WITHIN NORMAL LIMIT.
[2019-02-06 10:09] LABS: BASOPHILS # (AUTO) 0.1 K/uL (0.00-0.22); BASOPHILS % (AUTO) 0.7 % (0.0-2.0); EOSINOPHILS # (AUTO) 0.3 K/uL (0-0.4); HEMATOCRIT 28.4 % (36-52); HEMOGLOBIN 8.9 g/dL (12.0-18.0); LYMPHOCYTES # (AUTO) 0.4 K/uL (2.0-11.5); LYMPHOCYTES % (AUTO) 5.7 % (20.5-51.1); MEAN CORPUSCULAR HEMOGLOBIN 23 pg (27-31); MEAN CORPUSCULAR HGB CONC 31 g/dL (33-37); MEAN CORPUSCULAR VOLUME 73.9 fL (80-94); MONOCYTES # (AUTO) 0.7 K/uL (0.8-1.0); MONOCYTES % (AUTO) 9.2 % (1.7-9.3); NEUTROPHILS # (AUTO) 6.3 K/uL (1.8-7.7); NEUTROPHILS % (AUTO) 80.4 % (42.2-75.2); PLATELET COUNT (AUTO) 241 K/uL (140-450); RED BLOOD CELL COUNT(AUTO) 3.84 MIL/uL (4.20-6.10); RED CELL DISTRIBUTION WIDTH 17.4 % (11.6-13.7); WHITE BLOOD COUNT (AUTO) 7.8 K/uL (4.8-10.8)
--- NOTE | 2019-02-06 10:48 | NUR ---
PATIENT SLEEPING, EASILY AROUSABLE. FLACC 0. NO OTHER NEEDS AT THIS TIME, WILL CONTINUE TO MONITOR.
[2019-02-06 11:07] LABS: ALBUMIN 2.1 g/dL (3.4-5.0); ANION GAP 12.8 (8-16); CREATININE 0.9 mg/dL (0.7-1.3); POTASSIUM 3.8 mmol/L (3.5-5.1); TOTAL BILIRUBIN 0.2 mg/dL (0.0-1.0)
[2019-02-06 11:18] LABS: MAGNESIUM 1.9 mg/dL (1.8-2.4); THYROID STIMULATING HORMONE 7.02 uIU/mL (0.34-3.74)
--- NOTE | 2019-02-06 12:15 | NUR ---
PATIENT SLEEPING, VISIBLE RISE AND FALL OF CHEST. NO OTHER NEEDS AT THIS TIME. WILL CONTINUE TO MONITOR.
--- NOTE | 2019-02-06 13:31 | NUR ---
PATIENT SLEEPING. VISIBLE RISE AND FALL OF CHEST. NO DISTRESS NOTED. NO OTHER NEEDS AT THIS TIME, WILL CONTINUE TO MONITOR.
--- NOTE | 2019-02-06 15:45 | NUR ---
ADMINISTERED SCHEDULED MEDICATION. PATIENT TOLERATED WELL. PATIENT DENIES ANY PAIN AT THIS TIME. NO OTHER NEEDS AT THIS TIME, WILL CONTINUE TO MONITOR.
[2019-02-06 16:00] VITALS: BP 110/52
--- NOTE | 2019-02-06 17:31 | NUR ---
PATIENT SLEEPING. VISIBLE RISE AND FALL OF CHEST. PATIENT DENIES ANY PAIN. NO OTHER NEEDS AT THIS TIME, WILL CONTINUE TO MONITOR.
--- NOTE | 2019-02-06 19:20 | NUR ---
ENDORSED TO HARNESS WORKER NURSE FOR CONTINUITY OF CARE. PATIENT IS STABLE AT THIS TIME
--- NOTE | 2019-02-06 19:21 | NUR ---
RECEIVED ENDORSEMENT FROM DAY RN. PATIENT IS MENTAL DELAY BUT ABLE TO MAKE NEEDS KNOWN. COLOMBIAN SPEAKING. RESPIRATIONS ARE EVEN AND UNLABORED ON 2L NC. FLACC O. G-TUBE IS INTACT. RIGHT HAND 20G IV INTACT, PATENT, AND INFUSING IVF. PLAN OF CARE WAS REVIEWED WITH PATIENT, PATIENT VERBALIZED UNDERSTANDING. SAFETY MEASURES IN PLACE, SEIZURE PRECAUTIONS IN PLACE, CALL LIGHT WITHIN REACH. WILL ROUND FREQUENTLY.
[2019-02-06 20:00] VITALS: BP 106/53
--- NOTE | 2019-02-06 21:30 | NUR ---
SCHEDULED MEDICATIONS CRUSHED AND GIVEN VIA G TUBE, PT TOLERATED WELL. ALL NEEDS MET AT THIS TIME. CALL LIGHT IS WITHIN REACH. WILL CONTINUE TO MONITOR.
--- NOTE | 2019-02-06 22:30 | NUR ---
PATIENT IS SLEEPING COMFORTABLY IN BED. CHEST RISE AND FALL. ALL NEEDS MET AT THIS TIME. CALL LIGHT IS WITHIN REACH.
--- NOTE | 2019-02-07 | NUR ---
ZOSYN NOW INFUSING PER ORDERS. VITAL SIGNS ARE WITHIN NORMAL LIMITS. ALL NEEDS MET AT THIS TIME. CALL LIGHT IS WITHIN REACH. WILL CONTINUE TO MONITOR.
[2019-02-07] MEDS: PIPERACILLIN/TAZOBACTAM 3.375 GM in DEXTROSE 5% 50 ML IV SCH ×3 (00:39→16:07)
--- NOTE | 2019-02-07 02:15 | NUR ---
PATIENT IS SLEEPING COMFORTABLY IN BED. CHEST RISE AND FALL. CALL LIGHT IS WITHIN REACH. WILL CONTINUE TO MONITOR.
--- NOTE | 2019-02-07 05:00 | NUR ---
PATIENT WAS CLEANED AND REPOSITION FOR COMFORT. ALL NEEDS MET AT THIS TIME. CALL LIGHT IS WITHIN REACH
[2019-02-07] MEDS: LEVOTHYROXINE 0.075 MG TAB GT SCH (05:52)
--- NOTE | 2019-02-07 05:52 | NUR ---
BOBBY MEDICATION GIVEN VIA GTUBE PT TOLERATED WELL. ALL NEEDS MET AT THIS TIME. WILL CONTINUE TO MONITOR.
[2019-02-07 06:54] LABS: BASOPHILS # (AUTO) 0.1 K/uL (0.00-0.22); EOSINOPHILS # (AUTO) 0.3 K/uL (0-0.4); EOSINOPHILS % (AUTO) 4.1 % (0.0-4.0); HEMATOCRIT 31.5 % (36-52); HEMOGLOBIN 9.9 g/dL (12.0-18.0); LYMPHOCYTES # (AUTO) 0.8 K/uL (2.0-11.5); LYMPHOCYTES % (AUTO) 11.2 % (20.5-51.1); MEAN CORPUSCULAR HEMOGLOBIN 23 pg (27-31); MEAN CORPUSCULAR HGB CONC 31 g/dL (33-37); MEAN CORPUSCULAR VOLUME 73.7 fL (80-94); MONOCYTES # (AUTO) 0.9 K/uL (0.8-1.0); MONOCYTES % (AUTO) 12.5 % (1.7-9.3); NEUTROPHILS # (AUTO) 5.1 K/uL (1.8-7.7); NEUTROPHILS % (AUTO) 71.2 % (42.2-75.2); PLATELET COUNT (AUTO) 281 K/uL (140-450); RED BLOOD CELL COUNT(AUTO) 4.27 MIL/uL (4.20-6.10); RED CELL DISTRIBUTION WIDTH 17.3 % (11.6-13.7); WHITE BLOOD COUNT (AUTO) 7.1 K/uL (4.8-10.8)
[2019-02-07] MEDS: IPRATROPIUM 0.02% 0.5 MG/2.5 ML NEBU INH SCH ×3 (07:01→19:14)
[2019-02-07 07:15] LABS: ALBUMIN 2.3 g/dL (3.4-5.0); ANION GAP 9.6 (8-16); CREATININE 0.8 mg/dL (0.7-1.3); POTASSIUM 4.6 mmol/L (3.5-5.1); TOTAL BILIRUBIN 0.2 mg/dL (0.0-1.0)
--- NOTE | 2019-02-07 07:18 | NUR ---
GAVE BEDSIDE REPORT TO DAY RN. PT ENDORSED IN STABLE CONDITION.
--- NOTE | 2019-02-07 07:19 | NUR ---
RECEIVED ENDORSEMENT FROM LOG SNAKER NURSE. PATIENT HAS A MENTAL DELAY BUT ALERT AND ABLE TO COMMUNICATE HIS NEEDS. RESPIRATIONS ARE EVEN AND UNLABORED ON 2LNC. FLACC 0. RIGHT WRIST 20G IV INTACT, PATENT, AND INFUSING IVF. PLAN OF CARE WAS REVIEWED WITH PATIENT, PATIENT UNABLE TO VERBALIZE UNDERSTANDING. SAFETY MEASURES IN PLACE, SEIZURE PRECAUTIONS IN PLACE, CALL LIGHT WITHIN REACH.
[2019-02-07 08:00] VITALS: BP 112/39
[2019-02-07] MEDS: MULTIVITAMIN 5 ML ORASYR GT SCH (08:26)
[2019-02-07] MEDS: POLYETHYLENE GLYCOL 17 GM/PKT GT SCH (08:26)
[2019-02-07] MEDS: VALPROIC ACID 250 MG/5 ML UDC GT SCH ×2 (08:26→21:20)
[2019-02-07] MEDS: METOCLOPRAMIDE 10 MG/10 ML SYRP UDC GT SCH (08:27)
[2019-02-07] MEDS: risperiDONE 1 MG TAB GT SCH ×2 (08:28→21:21)
[2019-02-07] MEDS: BENZTROPINE 1 MG TAB GT SCH ×2 (08:28→21:22)
[2019-02-07] MEDS: FUROSEMIDE 40 MG/5 ML ORAL SOL UDC GT SCH (08:29)
[2019-02-07] MEDS: FAMOTIDINE 20 MG TAB GT SCH ×2 (08:29→21:20)
--- NOTE | 2019-02-07 08:32 | NUR ---
ADMINISTERED SCHEDULED MEDICATIONS. PATIENT TOLERATED WELL. HELD LASIX FOR BP OF 112/39. NO OTHER NEEDS AT THIS TIME, WILL CONTINUE TO MONITOR.
[2019-02-07] MEDS ORDERED: SODIUM PHOSPHATE 118 ML ENEM RC PRN (09:00)
--- NOTE | 2019-02-07 10:18 | NUR ---
PATIENT SLEEPING, EASILY AROUSABLE. FLACC 0. NO OTHER NEEDS AT THIS TIME. WILL CONTINUE TO MONITOR.
[2019-02-07] MEDS: NACL 0.9% 1,000 ML IV SCH (12:30)
--- NOTE | 2019-02-07 12:49 | NUR ---
PATIENT WATCHING TV. FLACC 0. NO SIGNS OF DISTRESS NOTED. NO OTHER NEEDS AT THIS TIME. WILL CONTINUE TO MONITOR.
--- NOTE | 2019-02-07 14:53 | NUR ---
PATIENT SLEEPING, VISIBLE RISE AND FALL OF CHEST. NO OTHER NEEDS AT THIS TIME, WILL CONTINUE TO MONITOR.
[2019-02-07 16:00] VITALS: BP 112/40
--- NOTE | 2019-02-07 16:10 | NUR ---
ADMINISTERED SCHEDULED MEDICATION. PATIENT TOLERATED WELL. FLACC 0. NO OTHER NEEDS AT THIS TIME, WILL CONTINUE TO MONITOR.
--- NOTE | 2019-02-07 17:30 | NUR ---
PATIENTS IV LINE INFILTRATED. REMOVED IV,CANNULA INTACT WITH MINIMAL BLEEDING. ATTEMPTED TO START ANOTHER IV LINE BUT WAS UNABLE TO. CHARGE NURSE IS AWARE. PATIENT DENIES ANY PAIN. NO OTHER NEEDS AT THIS TIME, WILL CONTINUE TO MONITOR.
--- NOTE | 2019-02-07 19:24 | NUR ---
PATIENT RESTING IN BED WATCHING TV. REQUESTED ASSISTANCE WITH PUTTING NASAL CANNULA BACK ON. NO OTHER NEEDS AT THIS TIME, WILL CONTINUE TO MONITOR.
[2019-02-07 20:00] VITALS: BP 99/41
[2019-02-07] MEDS: ACETAMINOPHEN 325 MG TAB GT PRN (21:21)
--- NOTE | 2019-02-07 21:22 | NUR ---
ADMINISTERED SCHEDULED MEDICATIONS. PATIENT TOLERATED WELL. NO OTHER NEEDS AT THIS TIME, WILL CONTINUE TO MONITOR.
--- NOTE | 2019-02-07 22:10 | NUR ---
PATIENT SLEEPING. VISIBLE RISE AND FALL OF CHEST. NO DISTRESS NOTED. NO OTHER NEEDS AT THIS TIME, WILL CONTINUE TO MONITOR.
--- NOTE | 2019-02-07 23:09 | NUR ---
RECEIVED PT FROM KAYLYN RN PT SLEEPING NOT DISTRESS NOTED IV ON LEFT HAND GAUGE #24, PT REPOSITIONED INITIAL ASSESSMENT DONE
--- NOTE | 2019-02-07 23:10 | NUR ---
ENDORSED TO WATER TEAM LEADER NURSE FOR CONTINUITY OF CARE. PATIENT IS STABLE AT THIS TIME.
[2019-02-08] VITALS: BP 97/42
[2019-02-08] MEDS: PIPERACILLIN/TAZOBACTAM 3.375 GM in DEXTROSE 5% 50 ML IV SCH ×3 (00:49→16:43)
--- NOTE | 2019-02-08 01:51 | NUR ---
PT REMAIN STBLE SLEEPING AND PT IS REPOSITIONED Q2H NOT DISTRESS NOTED
--- NOTE | 2019-02-08 04:00 | NUR ---
SPONGE BATH GIVEN LINEN CHANGED REPOSITIONED Q2H NOT DISTRESS NOTED G TUBE FEEDING PATENT
[2019-02-08] MEDS: LEVOTHYROXINE 0.075 MG TAB GT SCH (06:40)
--- NOTE | 2019-02-08 06:45 | NUR ---
PT AAOX1 NOT FEVER, REMAIN STABLE AT THIS TIME , PT SHERICE BE ENDORSED TO DAY SHIFT NURSE FOR CONTINUE OF CARE.
[2019-02-08] MEDS: IPRATROPIUM 0.02% 0.5 MG/2.5 ML NEBU INH SCH ×3 (07:04→19:13)
--- NOTE | 2019-02-08 07:05 | NUR ---
RECEIVED REPORT FROM QUALITY CONTROL TECHNICIAN RNJOSEPH. PATIENT SLEEPING, NO SIGNS OF DISTRESS ON 2L O2 VIA NC. VISIBLE CHEST RISE, UNLABORED AND SYMMETRICAL. BED LOW, CALL LIGHT IN REACH, IV INFUSING AT 30ML/HR TO LEFT HAND 24 GAUGE IV CATHETER. WILL CONTINUE TO MONITOR.
[2019-02-08 08:00] VITALS: BP 118/48
[2019-02-08 09:16] LABS: BASOPHILS # (AUTO) 0.1 K/uL (0.00-0.22); EOSINOPHILS # (AUTO) 0.3 K/uL (0-0.4); EOSINOPHILS % (AUTO) 4.1 % (0.0-4.0); HEMATOCRIT 30.9 % (36-52); HEMOGLOBIN 9.6 g/dL (12.0-18.0); LYMPHOCYTES # (AUTO) 1.1 K/uL (2.0-11.5); MEAN CORPUSCULAR HEMOGLOBIN 23 pg (27-31); MEAN CORPUSCULAR HGB CONC 31 g/dL (33-37); MEAN CORPUSCULAR VOLUME 73.1 fL (80-94); NEUTROPHILS # (AUTO) 5.1 K/uL (1.8-7.7); NEUTROPHILS % (AUTO) 67.9 % (42.2-75.2); PLATELET COUNT (AUTO) 304 K/uL (140-450); RED BLOOD CELL COUNT(AUTO) 4.22 MIL/uL (4.20-6.10); RED CELL DISTRIBUTION WIDTH 17.3 % (11.6-13.7); WHITE BLOOD COUNT (AUTO) 7.5 K/uL (4.8-10.8)
[2019-02-08] MEDS ORDERED: BISACODYL 10 MG SUPP RC PRN (09:25)
[2019-02-08] MEDS: risperiDONE 1 MG TAB GT SCH ×2 (09:31→22:24)
[2019-02-08] MEDS: VALPROIC ACID 250 MG/5 ML UDC GT SCH ×2 (09:31→22:25)
[2019-02-08] MEDS: BENZTROPINE 1 MG TAB GT SCH ×2 (09:31→22:25)
--- NOTE | 2019-02-08 09:31 | NUR ---
ADMINISTERED SCHEDULED MEDICATIONS VIA G-TUBE, PATIENT HAD 250 ML RESIDUAL FOLLOWING RECENT CONSUMPTION OF BREAKFAST. PATIENT IS REQUESTING TO HAVE HEAD OF BED LOWERED. EDUCATED PATIENT ON NEED TO REMAIN UPRIGHT FOLLOWING BREAKFAST AND MEDICATION ADMINISTRATION. PATIENT VERBALIZED UNDERSTANDING. PATIENT IS ABLE TO MAKE NEEDS KNOWN, ALL NEEDS MET AT THIS TIME. SAFETY PRECAUTIONS IN PLACE. WILL CONTINUE TO MONITOR.
[2019-02-08] MEDS: METOCLOPRAMIDE 10 MG/10 ML SYRP UDC GT SCH (09:32)
[2019-02-08] MEDS: FAMOTIDINE 20 MG TAB GT SCH ×2 (09:32→22:25)
[2019-02-08] MEDS: FUROSEMIDE 40 MG/5 ML ORAL SOL UDC GT SCH (09:32)
[2019-02-08] MEDS: MULTIVITAMIN 5 ML ORASYR GT SCH (09:32)
[2019-02-08] MEDS: POLYETHYLENE GLYCOL 17 GM/PKT GT SCH (09:32)
[2019-02-08 09:48] LABS: ALBUMIN 2.3 g/dL (3.4-5.0); ANION GAP 12.1 (8-16); CARBON DIOXIDE 28.3 mmol/L (21-32); CREATININE 0.8 mg/dL (0.7-1.3); POTASSIUM 4.4 mmol/L (3.5-5.1); TOTAL BILIRUBIN 0.3 mg/dL (0.0-1.0)
--- NOTE | 2019-02-08 12:05 | NUR ---
PATIENT RESTING IN BED, NO C/O PAIN, NO SIGNS OF DISTRESS ON 2L O2 NC, CALL LIGHT IN REACH, BED LOW, ALL NEEDS MET AT THIS TIME. WILL CONTINUE TO MONITOR.
--- NOTE | 2019-02-08 14:17 | NUR ---
CLEANED AND REPOSITIONED PATIENT. CLEANSED G-TUBE SITE WITH NORMAL SALINE, APPLIED MYCOSTATIN, PATIENT TOLERATED WELL. SAFETY PRECAUTIONS IN PLACE. WILL CONTINUE TO MONITOR.
--- NOTE | 2019-02-08 14:44 | NUR ---
02/08/19 RD FOLLOW UP COMPLETED PLEASE REFER TO NUTRITION ASSESSMENT UNDER CARE ACTIVITY FOR ESTIMATED NUTRITIONAL NEEDS. 1. CONTINUE PUREE DIET WITH PROSOURCE (PROTEIN SUPPLEMENT) TOLERATED 2. IF PATIENT DOES NOT TOLERATE PO DIET CONSIDER ENTERAL NUTRITION WITH JEVITY @ 55 ML/HR. FREE WATER FLUSH [address] TO FOLLOW-UP 3-5 DAYS, MODERATE RISK [address]
[2019-02-08 16:00] VITALS: BP 111/42
[2019-02-08] MEDS ORDERED: HYDRAGUARD CREAM TP PRN (16:40)
--- NOTE | 2019-02-08 16:47 | NUR ---
ADMINISTERED SCHEDULED MEDICATIONS, PATIENT CLEANED AND REPOSITIONED. NO SIGNS OF DISTRESS ON 2L O2 NC. BED LOW, CALL LIGHT IN REACH. WILL CONTINUE TO MONITOR.
--- NOTE | 2019-02-08 18:25 | NUR ---
PATIENT SITTING UP IN BED WATCHING TV. NO SIGNS OF DISTRESS ON 2L OR2 NC, NO C/O PAIN, BED LOW, CALL LIGHT IN REACH. ALL NEEDS MET AT THIS TIME.
--- NOTE | 2019-02-08 19:10 | NUR ---
GAVE BEDSIDE REPORT TO SERGEANT MISSILE CREWMAN RN. PATIENT IN STABLE CONDITION.
--- NOTE | 2019-02-08 19:12 | NUR ---
RECEIVED BEDSIDE REPORT FROM AM SHIFT RN FOR PT'S CONTINUITY OF CARE. PATIENT IS LYING DOWN AWAKE, WATCHING TV WITH DEV DELAY, AND WITH NO SIGNS OF DISTRESS. PATIENT IS ON 2L NC, HAS LEFT HAND 24G INFUSING WITH NS AT 30ML/HR, HAS INCONTINENT DERMATITIS. WILL MONITOR PT THROUGHOUT SHIFT.
--- NOTE | 2019-02-08 22:24 | NUR ---
ADMINISTERED SCHEDULED MEDICATIONS ORDERED, THROUGH G-TUBE. PATIENT TOLERATED IT WELL. WILL CONTINUE TO MONITOR PATIENT. PATIENT IS LYING DOWN ASLEEP BUT EASY TO AROUSE.
--- NOTE | 2019-02-09 00:10 | NUR ---
VS CHECKED AND CHARTED. PT ASLEEP, WITH NO SIGNS OF DISTRESS. WILL CONTINUE TO MONITOR PT.
[2019-02-09] MEDS: PIPERACILLIN/TAZOBACTAM 3.375 GM in DEXTROSE 5% 50 ML IV SCH ×2 (01:03→09:00)
[2019-02-09] MEDS: NACL 0.9% 1,000 ML IV SCH (01:03)
--- NOTE | 2019-02-09 01:05 | NUR ---
ADMINISTERED IV ABX ORDERED, AND HUNG NEW IV NS. PT ASLEEP, WITH NO SIGNS OF DISTRESS.
--- NOTE | 2019-02-09 03:30 | NUR ---
ASSISTED FINANCIAL ANALYSIS MANAGER TO CHANGE PT'S LINENS. PT HAD BM. PT AWAKE, WITH NO C/O PAIN. PT TOLERATED ACTIVITY WELL. WILL CONTINUE TO MONITOR PT.
--- NOTE | 2019-02-09 05:30 | NUR ---
PT WAS GETTING AGITATED, MUMBLING INCOHERENT WORDS. PLACED O2 NC BACK ON HIS NOSE, PT CALMED DOWN WITHIN MINUTES. WILL CONTINUE TO MONITOR PT.
[2019-02-09] MEDS: LEVOTHYROXINE 0.075 MG TAB GT SCH (06:05)
--- NOTE | 2019-02-09 06:09 | NUR ---
ADMINISTERED SCHEDULED MEDICATION ORDERED, THROUGH [employer]. PATIENT TOLERATED IT WELL.
--- NOTE | 2019-02-09 06:28 | NUR ---
PATIENT LYING DOWN, ASLEEP, WITH NO SIGNS OF DISTRESS. WILL ENDORSE TO AM SHIFT RN FOR PT'S CONTINUITY OF CARE.
[2019-02-09] MEDS: IPRATROPIUM 0.02% 0.5 MG/2.5 ML NEBU INH SCH ×3 (06:36→19:06)
--- NOTE | 2019-02-09 07:20 | NUR ---
RECEIVED BEDSIDE REPORT FROM BAR EXAMINER NURSE. PATIENT IS AWAKE, ALERT AND ORIENTEDX1. NO SIGNS OF DISTRESS ON 2L NC. SKIN IS INTACT. PATIENT INCONTINENT W INCONTINENT DERMATITIS. BEDBOUND. FALL RISK PROTOCOL IN PLACE. SEIZURE PRECAUTIONS. L HAND 24G INFUSING NS AT 30. CLEAN, DRY AND INTACT. BED IN LOW POSITION. CALL LIGHT WITHIN REACH. WILL CONTINUE TO MONITOR THE PATIENT. Addendum: 02/09/19 at 0834 by Idalia De Guzman RN GTUBE IN PLACE. CLEAN, DRY AND INTACT
[2019-02-09 08:00] VITALS: BP 120/61
--- NOTE | 2019-02-09 08:34 | NUR ---
STUDENT NURSE FEEDING THE PATIENT. PATIENT IS TOLERATING WELL
[2019-02-09] MEDS: MULTIVITAMIN 5 ML ORASYR GT SCH (08:54)
[2019-02-09] MEDS: FUROSEMIDE 40 MG/5 ML ORAL SOL UDC GT SCH (08:55)
[2019-02-09] MEDS: BENZTROPINE 1 MG TAB GT SCH ×2 (08:55→20:17)
[2019-02-09] MEDS: POLYETHYLENE GLYCOL 17 GM/PKT GT SCH (08:56)
[2019-02-09] MEDS: risperiDONE 1 MG TAB GT SCH ×2 (08:56→20:17)
[2019-02-09] MEDS: FAMOTIDINE 20 MG TAB GT SCH ×2 (08:58→20:16)
[2019-02-09] MEDS: METOCLOPRAMIDE 10 MG/10 ML SYRP UDC GT SCH (08:59)
[2019-02-09] MEDS: VALPROIC ACID 250 MG/5 ML UDC GT SCH ×2 (08:59→20:17)
[2019-02-09 09:00] LABS: BASOPHILS # (AUTO) 0.1 K/uL (0.00-0.22); EOSINOPHILS # (AUTO) 0.3 K/uL (0-0.4); EOSINOPHILS % (AUTO) 3.2 % (0.0-4.0); HEMATOCRIT 30.9 % (36-52); HEMOGLOBIN 9.7 g/dL (12.0-18.0); LYMPHOCYTES # (AUTO) 0.9 K/uL (2.0-11.5); LYMPHOCYTES % (AUTO) 8.9 % (20.5-51.1); MEAN CORPUSCULAR HEMOGLOBIN 23 pg (27-31); MEAN CORPUSCULAR HGB CONC 31 g/dL (33-37); MONOCYTES # (AUTO) 1.2 K/uL (0.8-1.0); MONOCYTES % (AUTO) 11.9 % (1.7-9.3); NEUTROPHILS # (AUTO) 7.6 K/uL (1.8-7.7); PLATELET COUNT (AUTO) 339 K/uL (140-450); RED BLOOD CELL COUNT(AUTO) 4.23 MIL/uL (4.20-6.10); RED CELL DISTRIBUTION WIDTH 17.3 % (11.6-13.7); WHITE BLOOD COUNT (AUTO) 10.1 K/uL (4.8-10.8)
--- NOTE | 2019-02-09 09:15 | NUR ---
ADMINISTERED MEDS. PATIENT TOLERATED WELL. EDUCATED ON SIDE EFFECTS. PATIENT UNABLE TO VERBALIZE UNDERSTANDING AT THIS TIME. WILL CONTINUE TO MONITOR THE PATIENT.
[2019-02-09 10:21] LABS: ANION GAP 9.9 (8-16); CARBON DIOXIDE 29.5 mmol/L (21-32); CREATININE 0.7 mg/dL (0.7-1.3); POTASSIUM 4.4 mmol/L (3.5-5.1); TOTAL BILIRUBIN 0.1 mg/dL (0.0-1.0)
[2019-02-09 10:22] LABS: ALBUMIN 2.4 g/dL (3.4-5.0)
--- NOTE | 2019-02-09 11:30 | NUR ---
PATIENT IN NO DISTRESS. WILL CONTINUE TO MONITOR THE PATIENT
--- NOTE | 2019-02-09 12:49 | NUR ---
CAD LIBRARIAN FEEDING THE PATIENT AT THIS TIME. WILL CONTINUE TO MONITOR THE PATIENT.
--- NOTE | 2019-02-09 14:33 | NUR ---
PATIENT IS WET. CALLED THE COMMISSIONS COORDINATOR TO CHANGE THE PATIENT
--- NOTE | 2019-02-09 15:35 | NUR ---
PATIENT RESTING IN BED. WILL CONTINUE TO MONITOR
[2019-02-09 16:00] VITALS: BP 106/57
--- NOTE | 2019-02-09 17:02 | NUR ---
PER DR COOL HE WILL CHANGE THE ANTIBIOTIC ORDERS.
[2019-02-09] MEDS ORDERED: LEVOFLOXACIN 750 MG/D5W PREMIX 150 ML IV SCH (18:00)
--- NOTE | 2019-02-09 19:03 | NUR ---
ADMINISTERED IV ANTIBIOTICS. PATIENT TOLERATED WELL. EDUCATED ON SIDE EFFECTS. WILL CONTINUE TO MONITOR
--- NOTE | 2019-02-09 19:08 | NUR ---
GAVE BEDSIDE REPORT TO JET DYEING MACHINE TENDER NURSE. PATIENT ENDORSED IN STABLE CONDITION.
--- NOTE | 2019-02-09 19:09 | NUR ---
RECEIVED BEDSIDE REPORT FROM AM SHIFT NURSE. PATIENT IS AWAKE, ALERT AND ORIENTEDX1. BEDBOUND NO SIGNS OF DISTRESS ON 2L NC. SKIN IS INTACT. W INCONTINENT DERMATITIS. GTUBE IN PLACE. CLEAN, DRY AND INTACT. FALL RISK PROTOCOL IN PLACE. SEIZURE PRECAUTIONS. L HAND 24G INFUSING NS AT 30. CLEAN, DRY AND INTACT. BED IN LOW POSITION. CALL LIGHT WITHIN REACH. WILL CONTINUE TO MONITOR THE PATIENT.
--- NOTE | 2019-02-09 21:20 | NUR ---
MEDICATED PATIENT; PT CLEANED AND TURNED TO SIDE W/ PT'S HELP. WILL CONTINUE TO MONITOR
--- NOTE | 2019-02-09 23:30 | NUR ---
PT TOOK OUT/PULLED OUT HIS IV LINE ON LEFT HAND G 24; CANNULA INTACT. WILL INSERT IN ANOTHER SITE
--- NOTE | 2019-02-10 00:30 | NUR ---
22G PERIPHERAL IV INSERTED ON RIGHT HAND, PATIENT TOLERATED WELL, FLUSHED, PATENT AND CONNECTED TO FLUIDS. SITE IS WRAPPED WITH KERLIX ROLL WITH BINDER TO PREVENT DISPLACEMENT. PATIENT DENIES PAIN AT THIS TIME, TURNED AND REPOSITIONED. WILL CONTINUE TO MONITOR
--- NOTE | 2019-02-10 01:29 | NUR ---
PT CLEANED AND TURNED TO SIDE; APPLIED MYCOSTATIN ON GT SITE
[2019-02-10] MEDS: NACL 0.9% 1,000 ML IV SCH (03:00)
--- NOTE | 2019-02-10 03:00 | NUR ---
PT'S IVF STILL INFUSING WELL, PATENT AND INTACT
--- NOTE | 2019-02-10 04:39 | NUR ---
PT SLEEPING IN BED, BUT EASILY AROUSABLE BY VERBAL AND TACTILE STIMULI
[2019-02-10] MEDS: LEVOTHYROXINE 0.075 MG TAB GT SCH (05:42)
--- NOTE | 2019-02-10 05:56 | NUR ---
PT STILL SLEEPING IN BED, BUT EASILY AROUSABLE BY NAME. PT HAS NO SOB, EVEN RESPIRATIONS, NO RESPIRATORY DISTRESS. PT STABLE AT THIS TIME.WILL ENDORSE TO NEXT SHIFT.
[2019-02-10] MEDS: IPRATROPIUM 0.02% 0.5 MG/2.5 ML NEBU INH SCH ×2 (07:24→14:57)
--- NOTE | 2019-02-10 07:25 | NUR ---
RECEIVED BEDSIDE REPORT FROM TRAVEL COTA NURSE. PATIENT IS AWAKE, ALERT AND ORIENTEDX2. NO SIGNS OF DISTRESS ON 2L NC. SKIN HAS INCONTINENT DERMATITIS. PATIENT IS BEDBOUND, FALL RISK PROTOCOL IN PLACE. INCONTINENT. IV R HAND 22G INFUSING NS AT 30. CLEAN, DRY AND INTACT. BED IN LOW POSITION. CALL LIGHT WITHIN REACH. WILL CONTINUE TO MONITOR THE PATIENT.
[2019-02-10 08:00] VITALS: BP 125/52
[2019-02-10] MEDS: POLYETHYLENE GLYCOL 17 GM/PKT GT SCH (08:58)
[2019-02-10] MEDS: MULTIVITAMIN 5 ML ORASYR GT SCH (08:59)
[2019-02-10] MEDS: risperiDONE 1 MG TAB GT SCH (08:59)
[2019-02-10] MEDS: FAMOTIDINE 20 MG TAB GT SCH (08:59)
[2019-02-10] MEDS: VALPROIC ACID 250 MG/5 ML UDC GT SCH (08:59)
[2019-02-10] MEDS: BENZTROPINE 1 MG TAB GT SCH (08:59)
[2019-02-10] MEDS: METOCLOPRAMIDE 10 MG/10 ML SYRP UDC GT SCH (08:59)
[2019-02-10] MEDS: FUROSEMIDE 40 MG/5 ML ORAL SOL UDC GT SCH (09:00)
--- NOTE | 2019-02-10 09:07 | NUR ---
CHECKED FOR GTUBE PLACEMENT USING SWOOSH. SWOOSH HEARD. 60 RESIDUAL GIVEN BACK TO THE PATIENT. CRUSHED AND ADMINISTERED MEDS. PATIENT TOLERATED WELL. EDUCATED ON SIDE EFFECTS. WILL CONTINUE TO MONITOR THE PATIENT
[2019-02-10] MEDS: ACETAMINOPHEN 325 MG TAB GT PRN (11:27)
--- NOTE | 2019-02-10 11:30 | NUR ---
ADMINISTERED PRN PAIN MED. PATIENT HAS A CALVERT. WILL CONTINUE TO MONITOR THE PATIENT
--- NOTE | 2019-02-10 12:56 | NUR ---
PATIENT WITH DOOR FRAME BUILDER. NO SIGNS OF DISTRESS. WILL CONTINUE TO MONITOR THE PATIENT
--- NOTE | 2019-02-10 14:00 | NUR ---
PATIENT LAYING IN BED. NO SIGNS OF DISTRESS
[2019-02-10] MEDS ORDERED: LEVO750T2 PO (14:57)
--- NOTE | 2019-02-10 14:57 | NUR ---
CALLED DR PATINO Y REGARDING THE D/C PLAN PER MD OK TO GO HOME WITH HUBER LARA , DR VALDEZ WILL CALL PATIENT'S PHARMACY WHICH IS [facility] [phone]. CALLED [address] SPOKE WITH SANTA WILL COME TO PLC CONTROLS ENGINEER PATIENT. SANTA'S # [phone]
--- NOTE | 2019-02-10 15:43 | NUR ---
CALLED MARTINA FROM [facility]. TOLD HER THE PATIENT IS BEING DISCHARGED. [phone]. SHE SAID SHE WILL ARRANGE TRANSPORT. CALLED PARISH AT [phone] TO GIVE REPORT SHE DID NOT ANSWER, LEFT A MESSAGE
[2019-02-10 16:00] VITALS: BP 99/53
--- NOTE | 2019-02-10 16:55 | NUR ---
PATIENT IS ANGRY BECAUSE HE WANTS TO BE CHANGED, TOLD PATIENT HE IS NOT LEAVING TILL ABOUT 1830 AND THAT WE WILL CHANGE HIM BEFORE HE LEAVES. PATIENT SAID OK.
--- NOTE | 2019-02-10 17:24 | NUR ---
GAVE REPORT TO PARISH AT [phone]. ANSWERED ALL QUESTIONS.
--- NOTE | 2019-02-10 17:30 | NUR ---
[facility]ISH STATED PATIENT HAS NO OXYGEN AT HOME. TOOK OFF OXYGEN OFF PATIENT. O2SAT IS 93-95% INFORMED PARISH AND SHE SAID OK TO STILL DISCHARGE PATIENT
--- NOTE | 2019-02-10 17:45 | NUR ---
EDUCATED PATIENT ON DISEASE PROCESS, ABN/SX, WHEN TO GO TO THE ER, EDUCATED ON MEDS, MEDS SENT TO PHARMACY, EDUCATED ON FOLLOW UP W PCP IN 7 DAYS. PNA AND FLU VACCINE UP TO DATE. REMOVED IV, TIP INTACT. REMOVED ID BANDS. PATIENT LEFT IN STABLE CONDITION IN WHEELCHAIR WITH STAFF FROM [facility]. PATIENT IS GOING TO BACK TO [facility]
== END 2019-02-10 17:45 | disposition home or self-care (01) | DRG 871 ==
LOC: MED 21:53 → MTU 02-05 01:02
PROVIDERS: ADMIT Internal Medicine Cardiovascular Disease; ATTEND Internal Medicine Cardiovascular Disease
DX: A41.50 Gram-negative sepsis, unspecified (principal); J96.00 Acute respiratory failure, unspecified whether with hypoxia or hypercapnia; J18.9 Pneumonia, unspecified organism; E03.9 Hypothyroidism, unspecified; G40.909 Epilepsy, unspecified, not intractable, without status epilepticus; G80.9 Cerebral palsy, unspecified; I11.9 Hypertensive heart disease without heart failure; K21.9 Gastro-esophageal reflux disease without esophagitis; K80.20 Calculus of gallbladder without cholecystitis without obstruction; N20.0 Calculus of kidney; D64.9 Anemia, unspecified; E88.09 Other disorders of plasma-protein metabolism, not elsewhere classified; E77.8 Other disorders of glycoprotein metabolism; Z93.1 Gastrostomy status; Z88.1 Allergy status to other antibiotic agents
CPT/HCPCS: 36415; 36600; 71045; 80053; 81001; 82803; 83605; 83735; 83880; 84443; 84484; 85025; 85610; 85730; 87040; 87081; 87086; 87186; 93005; 94640; 96365; 99285; J1956; J2543; J7030; J7060; J7644; J8597; Q0092

== ENCOUNTER 2019-02-23 11:06 | Inpatient (IN) | payer OTHER, MEDICAID ==
[~2019-02-23] VITALS: Ht 162.6 cm; Wt 69.9 kg
[~2019-02-23 11:06] MED LIST changes: +ATRN NEB; +BENZ-248 GT; +BISA-246 RC; -BISA5ECT45 PEG; -FAMO-90 PO; +FAMO10TA93 GT; +FURO-572 PO; +GUAI118S41 GT; +IBUP-2213 GT; -IBUP-2213 PO; +KETO5SOL OP; +LAM200 GT; -LAM200 PEG; +LEVO750T2 PO; -METO-485 PO; +METO5TAB4 GT; +MIRABULK PO; +MULT-2472 GT; -MULT1SGL58 PEG; +NA P135N RC; +NYST100022 TOP; -PEP15L PO; +PHE25S GT; -POLY17PD65 PO; -PRON INH; +RISP0.5T3 GT; -RISP0.5T3 PO; +SYN.075 GT; -SYN.1 PO; +VALP-22 GT; -VALP250S5 PO; +[UNRECOGNIZED DRUG - CODE] GT
[2019-02-23 11:12] VITALS: BP 98/62
--- NOTE | 2019-02-23 11:28 | NUR ---
PT BIB AMBULANCE FROM [facility], ALTERED MENTAL STATUS BEGINNING AROUND 0730 TODAY. PT HAD ASPIRATION PNEUMONIA 1 MO AGO. O2 SAT 88 ON ROOM AIR, GIVEN 2L NC IN AMBULANCE WENT TO 92%. PT HAS G-TUBE PLACED. MEDHX: SEIZURE, ID, DYSPHAGIA ALLERGIES: AZITHROMYCIN CONTACT INFO: CUAUHTEMOC MOURA
[2019-02-23] MEDS ORDERED: NACL 0.9% 500 ML IV SCH (11:29)
--- NOTE | 2019-02-23 11:36 | NUR ---
BLOOD COLLECTED AND HANDED TO LES GEORGES
--- NOTE | 2019-02-23 11:45 | NUR ---
RT AT BEDSIDE
[2019-02-23 11:48] LABS: BASOPHILS # (AUTO) 0.1 K/uL (0.00-0.22); BASOPHILS % (AUTO) 0.5 % (0.0-2.0); EOSINOPHILS # (AUTO) 0.2 K/uL (0-0.4); EOSINOPHILS % (AUTO) 1.3 % (0.0-4.0); HEMATOCRIT 32.8 % (36-52); HEMOGLOBIN 10.1 g/dL (12.0-18.0); LYMPHOCYTES # (AUTO) 1.1 K/uL (2.0-11.5); LYMPHOCYTES % (AUTO) 9.1 % (20.5-51.1); MEAN CORPUSCULAR HEMOGLOBIN 22 pg (27-31); MEAN CORPUSCULAR HGB CONC 31 g/dL (33-37); MEAN CORPUSCULAR VOLUME 70.9 fL (80-94); MONOCYTES # (AUTO) 1.1 K/uL (0.8-1.0); MONOCYTES % (AUTO) 9.2 % (1.7-9.3); NEUTROPHILS # (AUTO) 9.2 K/uL (1.8-7.7); NEUTROPHILS % (AUTO) 79.9 % (42.2-75.2); PLATELET COUNT (AUTO) 243 K/uL (140-450); RED BLOOD CELL COUNT(AUTO) 4.62 MIL/uL (4.20-6.10); RED CELL DISTRIBUTION WIDTH 17.5 % (11.6-13.7); WHITE BLOOD COUNT (AUTO) 11.5 K/uL (4.8-10.8)
[2019-02-23 11:58] LABS: ANION GAP 16.3 (8-16); CARBON DIOXIDE 24.4 mmol/L (21-32); CREATININE 0.8 mg/dL (0.7-1.3); POTASSIUM 4.7 mmol/L (3.5-5.1)
[2019-02-23 12:10] LABS: APPEARANCE,URINE CLEAR (CLEAR); BILIRUBIN,URINE NEGATIVE (NEGATIVE); BLOOD, URINE NEGATIVE (NEGATIVE); COLOR,URINE YELLOW (YELLOW); LEUKOCYTE ESTERASE ,URINE NEGATIVE (NEGATIVE); NITRITE, URINE NEGATIVE (NEGATIVE); PH,URINE 7.5 (5.0-9.0); UGLUCOSE NEGATIVE (NEGATIVE)
[2019-02-23 12:11] LABS: PROTHROMBIN TIME 9.9 secs (10.8-13.4)
[2019-02-23 12:14] LABS: ALBUMIN 2.8 g/dL (3.4-5.0); TOTAL BILIRUBIN 0.2 mg/dL (0.0-1.0)
--- NOTE | 2019-02-23 12:18 | NUR ---
PT TAKEN TO CT
--- NOTE | 2019-02-23 12:26 | NUR ---
PT RETURNED FROM CT
[2019-02-23] MEDS ORDERED: cefTRIAXone 1,000 MG VIAL ONE (13:39)
--- NOTE | 2019-02-23 14:44 | NUR ---
repositioned up in [facility]---continues to wait for available room for admission- diaper remains clean and dry
--- NOTE | 2019-02-23 15:05 | NUR ---
CUAUHTEMOC MOURA FROM [facility] WAS INFORMED OF ADMISSION OF PT.
--- NOTE | 2019-02-23 15:40 | NUR ---
RECEIVED BEDSIDE REPORT FROM ER NURSE. PATIENT IS AWAKE, ALERT AND ORIENTEDX2. NO SIGNS OF DISTRESS ON 3L NC. SEIZURE PRECAUTIONS AND FALL RISK PROTOCOL IN PLACE, PATIENT IS UNSTEADY. SKIN HAS INCONTINENT DERMATITIS. IV ON R HAND 22G, L HAND 20 BOTH CLEAN, DRY AND INTACT. TELE MONITOR IN PLACE. BED IN LOW POSITION, CALL LIGHT WITHIN REACH. WILL CONTINUE TO MONITOR THE PATIENT.
--- NOTE | 2019-02-23 15:56 | NUR ---
Pt report given to KATT. Transfer of care at this time. PT TO TELE ROOM 123B.
[2019-02-23 16:00] VITALS: BP 127/46
[2019-02-23] MEDS ORDERED: ONDANSETRON 4 MG/2 ML VIAL IVP PRN (17:25)
[2019-02-23] MEDS ORDERED: ACETAMINOPHEN 325 MG TAB PO PRN (17:25)
--- NOTE | 2019-02-23 17:28 | NUR ---
PATIENT LAYING IN BED. NO SIGNS OF DISTRESS. WILL CONTINUE TO MONITOR THE PATIENT
--- NOTE | 2019-02-23 19:22 | NUR ---
GAVE BEDSIDE REPORT TO SOCIOLOGY FACULTY MEMBER NURSE. PATIENT ENDORSED IN STABLE CONDITION
--- NOTE | 2019-02-23 19:23 | NUR ---
REPORT RECEIVED FROM AM NURSE AT BEDSIDE. PT IN STABLE CONDITION. AAOX1-2. INTRODUCED SELF TO PT. BOARD UPDATED. NO COMPLAINTS OF PAIN. NO SOB ON 3L O2 VIA NC. AFEBRILE. PT IS ON BED REST. IV SITE R HAND 22G SL PATENT AND INTACT. SECOND IV ON THE R HAND 20G SL PATENT AND INTACT. SKIN WARM, DRY, AND INTACT WITH NO OPEN WOUNDS. BED LOCKED IN LOW POSITION. CALL [place] WITHIN REACH SAFETY PRECAUTION IN PLACE. ALL NEEDS MET AT THIS TIME.
[2019-02-23 20:00] VITALS: BP 125/50
[2019-02-23] MEDS: PIPERACILLIN/TAZOBACTAM 3.375 GM in DEXTROSE 5% 50 ML IV SCH (20:44)
--- NOTE | 2019-02-23 20:44 | NUR ---
SERENITY HUNG AND RUNNING. PT TOLERATED WELL.
[2019-02-23] MEDS: ALBUTEROL 0.083% 2.5 MG/3 ML NEBU NEB PRN (22:44)
[2019-02-23] MEDS: IPRATROPIUM 0.02% 0.5 MG/2.5 ML NEBU INH PRN (22:44)
--- NOTE | 2019-02-23 23:00 | NUR ---
PT SLEEPING COMFORTABLY IN BED BUT AROUSABLE. NO S/S OF DISTRESS NOTED. WILL CONTINUE TO MONITOR.
[2019-02-24] VITALS: BP 103/44
--- NOTE | 2019-02-24 01:05 | NUR ---
PT SLEEPING COMFORTABLY BUT AROUSABLE. NO S/S OF DISTRESS NOTED. FLACC 0. NO SOB ON 3L O2 VIA NC. AFEBRILE. WILL CONTINUE TO MONITOR.
--- NOTE | 2019-02-24 02:45 | NUR ---
PT SLEEPING COMFORTABLY BUT AROUSABLE. NO S/S OF DISTRESS NOTED. RESPIRATIONS EVEN, UNLABORED, AND WNL. WILL CONTINUE TO MONITOR.
[2019-02-24 04:00] VITALS: BP 91/49
[2019-02-24] MEDS: PIPERACILLIN/TAZOBACTAM 3.375 GM in DEXTROSE 5% 50 ML IV SCH ×3 (04:16→20:59)
--- NOTE | 2019-02-24 04:16 | NUR ---
SERENITY HUNG AND RUNNING. PT TOLERATING WELL.
[2019-02-24 06:40] LABS: BASOPHILS # (AUTO) 0.1 K/uL (0.00-0.22); BASOPHILS % (AUTO) 0.8 % (0.0-2.0); EOSINOPHILS # (AUTO) 0.3 K/uL (0-0.4); EOSINOPHILS % (AUTO) 2.7 % (0.0-4.0); HEMATOCRIT 32.9 % (36-52); HEMOGLOBIN 10.3 g/dL (12.0-18.0); LYMPHOCYTES # (AUTO) 0.5 K/uL (2.0-11.5); LYMPHOCYTES % (AUTO) 4.1 % (20.5-51.1); MEAN CORPUSCULAR HEMOGLOBIN 22 pg (27-31); MEAN CORPUSCULAR HGB CONC 31 g/dL (33-37); MEAN CORPUSCULAR VOLUME 71.2 fL (80-94); MONOCYTES # (AUTO) 1.3 K/uL (0.8-1.0); MONOCYTES % (AUTO) 10.4 % (1.7-9.3); NEUTROPHILS # (AUTO) 10.1 K/uL (1.8-7.7); PLATELET COUNT (AUTO) 254 K/uL (140-450); RED BLOOD CELL COUNT(AUTO) 4.62 MIL/uL (4.20-6.10); WHITE BLOOD COUNT (AUTO) 12.3 K/uL (4.8-10.8)
--- NOTE | 2019-02-24 06:45 | NUR ---
PT SLEEPING COMFORTABLY BUT AROUSABLE. NO S/S OF DISTRESS NOTED. WILL CONTINUE TO MONITOR.
[2019-02-24 06:56] LABS: ALBUMIN 2.6 g/dL (3.4-5.0); ANION GAP 11.8 (8-16); CARBON DIOXIDE 28.6 mmol/L (21-32); CREATININE 0.9 mg/dL (0.7-1.3); MAGNESIUM 1.8 mg/dL (1.8-2.4); POTASSIUM 4.4 mmol/L (3.5-5.1); TOTAL BILIRUBIN 0.3 mg/dL (0.0-1.0)
--- NOTE | 2019-02-24 08:22 | NUR ---
PATIENT HAS BEEN SCREENED AND CATEGORIZED HIGH NUTRITION RISK. PATIENT WILL BE SEEN WITHIN 1-2 DAYS OF ADMISSION. 02/24/19-02/25/[address]
[2019-02-24 08:25] VITALS: BP 111/42
--- NOTE | 2019-02-24 08:27 | NUR ---
RECEIVED BED SIDE REPORT FROM CARDIOVASCULAR LAB DIRECTOR RN. PT SLEEPING AT THIS TIME, ON 3L NC IN NO RESP DISTRESS, VS STABLE. TWO IV LINES: RIGHT HAND 22G SL, LEFT HAND 20G RUNNING NS TKO. SKIN INTACT. PT HAS G TUBE IN PLACE, NO G TUBE FEEDING ORDER IN PLACE. VS STABLE. WILL CONTINUE TO MONITOR.
--- NOTE | 2019-02-24 09:17 | NUR ---
SCREEN FOR LOW JAMES SCALE AT RISK, CONTINUE TO FOLLOW PRESSURE ULCER PREVENTION INTERVENTIONS. -TURN AND REPOSITION PATIENT Q 2H -ASSESS AND MONITOR SKIN CONDITION DURING POSITION CHANGE -OFFLOAD BILATERAL HEELS BY PLACING PILLOWS UNDER CALVES AT ALL TIMES, UNLESS OTHERWISE CONTRAINDICATED -PRESSURE REDISTRIBUTION BY PLACING PILLOWS AND OFFLOADING SACRALCOCCYX -KEEP SKIN CLEAN AND DRY AT ALL TIMES.
--- NOTE | 2019-02-24 10:15 | NUR ---
REPOSITIONED PT. SKIN INTACT. MELCHOR AREA RED, WILL NOTIFY MD ABOUT Z-GUARD ORDER.
--- NOTE | 2019-02-24 11:37 | NUR ---
CALLED CELENA DAVIS (PT'S SISTER) FOR THE SIGNING OF PAPERWORK. NO ANSWER. LEFT VOICEMAIL.
--- NOTE | 2019-02-24 12:04 | NUR ---
GOT A CALL FRO IMANI DAVIS (SISTER) AND SHE STATED SHE IS IN [place] AND CANNOT COME SIGN ADMISSION PAPERWORK, NOTIFIED ADMITTING AND SPOKE WITH MIGUELINA AND SHE STATED SHE WILL FOLLOW UP ON PAPERWORK.
[2019-02-24 12:28] VITALS: BP 102/70
--- NOTE | 2019-02-24 13:51 | NUR ---
PT SLEEPING, APPEARS IN NO RESP DISTRESS. BED LOW, BED ALARM ON, CALL LIGHT WITHIN REACH.
--- NOTE | 2019-02-24 14:00 | NUR ---
PER , HE ORDERED OXYGEN TO BE DECREASED FROM 3L/MIN TO 1L/MIN. O2 SAT 94%.
--- NOTE | 2019-02-24 15:29 | NUR ---
02/24/19 RD INITIAL ASSESSMENT COMPLETED PLEASE REFER TO NUTRITION ASSESSMENT UNDER CARE ACTIVITY FOR ESTIMATED NUTRITIONAL NEEDS. 1. CONTINUE PUREE DIET TOLERATED 2. ENCOURAGE PO INTAKE AND PROVIDE ASSISTANCE WHEN FEEDING 3. RD TO FOLLOW-UP 2-3 DAYS, HIGH RISK CALDERON ESPAÑA, RD
--- NOTE | 2019-02-24 15:30 | NUR ---
RECEIVED A CALL FROM [facility]. ANSWERED ALL OF HER QUESTIONS REGARDING PATIENT'S AND PATIENT'S CONDITION.
[2019-02-24 16:15] VITALS: BP 96/56
--- NOTE | 2019-02-24 16:49 | NUR ---
Requirements Manager Note: I called account development manager of [facility] (name of company is [employer], type of facility: [facility]) Yun Drake , no answer, left message. I called patient's machine adjuster leader case trim from [facility] Sulema Knowles. Sulema stated [facility] [place] staff notified her patient was transferred to our hospital but she was not aware patient was admitted. She reported patient is not conserved and patient's sister Indio Dunn is his health care decision maker. She stated Indio lives in [place] and if for some reason we could not speak with Indio for medical consents [facility] can be contacted. I asked her if she would like to obtain an update on patient's current medical condition from RN. She responded "yes", I referred her to nurses' station.
--- NOTE | 2019-02-24 16:50 | NUR ---
[facility] IVELISSE CAMACHO (GOLD [employer]ER) CALLED TO ASK ABOUT PATIENT'S STATUS. DID NOT GIVE ANY SPECIFIC MEDICAL INFORMATION.
--- NOTE | 2019-02-24 19:13 | NUR ---
GAVE BEDSIDE REPORT FROM THERMITE WELDER RN. PT STABLE.
--- NOTE | 2019-02-24 19:15 | NUR ---
RECEIVED PT IN STABLE CONDITION FROM AM NURSE. AWAKE,ALERT AND ORIENTED X1-2 . ON TELE MONITOR. BEDREST. WITH NO CO ANY DISCOMFORT NOR PAIN NOTED. LUNG SOUNDS DIMINISHED. NO SOB NOTED BUT WITH OCCASIONAL NON PRODUCTIVE COUGH. O2 SAT 95% ON O21L/NC. IV ACCESS ON THE LT FA G#20.CLEAR AND PATENT. BED ON LOWEST POSITION. FREQ ROUNDS NEEDED. CALL LIGHT PLACED WITHIN EASY REACH. WILL CONTINUE TO MONITOR.
[2019-02-24 19:50] VITALS: BP 128/53
[2019-02-24] MEDS: LACTULOSE 20 GM/30 ML UDC PO SCH (21:00)
--- NOTE | 2019-02-24 21:00 | NUR ---
TOOK LACTULOSE ORDERED WITH APPLE SAUCE WITH NO PROBLEM. SWALLOWED VERY WELL.
[2019-02-24] MEDS: IPRATROPIUM 0.02% 0.5 MG/2.5 ML NEBU INH PRN (23:12)
[2019-02-24] MEDS: ALBUTEROL 0.083% 2.5 MG/3 ML NEBU NEB PRN (23:12)
[2019-02-25] VITALS (7 sets, daily range): BP systolic 91–135; BP diastolic 44–76
--- NOTE | 2019-02-25 00:30 | NUR ---
INCONTINENT OF URINE. CLEANED AND KEPT DRY. REPOSITIONED FOR COMFORT.
--- NOTE | 2019-02-25 02:00 | NUR ---
YUSUF ROUNDS. PT SLEEP. NO S/S OF ANY RESPIRATORY DISTRESS NOTED.
[2019-02-25] MEDS ORDERED: HYDRAGUARD CREAM TP PRN (02:25)
[2019-02-25] MEDS: PIPERACILLIN/TAZOBACTAM 3.375 GM in DEXTROSE 5% 50 ML IV SCH ×3 (04:36→21:09)
--- NOTE | 2019-02-25 05:00 | NUR ---
PT HAD A LARGE SOFT YELLOW BM. SCROTAL AREA REDNESS AND TRINO GROINS EXCORIATION CLEANED THEN PAT DRY. WILL APPLY HYDRA GUARD ORDERED. Brie VILLAFANA NOT AVAILABLE .
[2019-02-25] MEDS ORDERED: Z-GUARD PASTE TP PRN (05:35)
[2019-02-25] MEDS ORDERED: Z-GUARD PASTE TP ONE (05:42)
--- NOTE | 2019-02-25 06:31 | NUR ---
PT ASLEEP . NO S/S OF ANY DISTRESS NOR DISCOMFORT NOTED.
--- NOTE | 2019-02-25 07:01 | NUR ---
ENDORSED PT IN STABLE CONDITION TO AM NURSE.
--- NOTE | 2019-02-25 08:01 | NUR ---
RECEIVED BED SIDE REPORT FROM COAT OPERATOR INSULATOR. PT A/O X1, SKIN INTACT, EXCORIATION IN SACRAL AND GROIN AREA. HYDROGUARD AND Z-GUARD ORDERED, VS STABLE ON RA O2 SAT 97% ON 1L O2 NC. PT HAS G TUBE ALREADY IN PLACE, NO G TUBE FEEDING ORDERED. PER NIGHT SHFIT, PT HAD A BM THIS AM. BED ALARM ON, CALL LIGHT WITHIN REACH, WILL CONTINUE TO MONITOR.
[2019-02-25] MEDS: LACTULOSE 20 GM/30 ML UDC PO SCH ×2 (08:31→21:09)
--- NOTE | 2019-02-25 10:42 | NUR ---
PT ON CONTACT PRECAUTIONS FOR POSITIVE MRSA. CONTACT SIGN POSTED OUTSIDE. WILL NOTIFY
[2019-02-25] MEDS: CHLORHEXADINE GLUC 2% CLOTH TP SCH (13:08)
[2019-02-25] MEDS: MUPIROCIN CA NASAL 2% 1GM TUBE NS SCH (13:08)
--- NOTE | 2019-02-25 15:34 | NUR ---
Guest Room Attendant Note: I called and spoke with global program manager of [facility] (name of company is [employer], type of facility: [facility]) Yun Juan . Per Yun, patient has been living at their facility over 1 year. She stated patient has a wheelchair at facility and his pcp is Yohan Dickinson. Prior to hospital admission patient was not receiving home health services at [facility]. If patient is in need of abx iv he cannot return to [facility] upon discharge. [facility] superintendent transportation is available 7 days a week, 6am-6pm. Guest Room Attendant and/or Quality Assurance Manager will follow up as needed.
--- NOTE | 2019-02-25 15:37 | NUR ---
RECEIVED A CALL FROM CUAUHTEMOC MOURA FROM [employer]. ANSWERED QUESTIONS ABOUT PT'S MEDICAL CONDITION.
--- NOTE | 2019-02-25 16:55 | NUR ---
PT REPOSITIONED AND CLEANED WITH CHLORHEXIDINE CLOTHS PER MD ORDER. PT STABLE. ON RA O2 SAT 93%. PER BENITO JULIAN FOR PT TO BE OFF OXYGEN IF O2 SAT ABOVE 90%.
--- NOTE | 2019-02-25 19:22 | NUR ---
GAVE BED SIDE REPORT TO SUPERANNUATION CLERK RN. PT STABLE.
--- NOTE | 2019-02-25 19:25 | NUR ---
RECEIVED FROM AM RN IN BED AWAKE. MALE PT. HX. MENTALLY CHALLENGED. DX. OF PNA ENCEPHALOPATHY. ON ROOM AIR AT THIS TIME WITH 02 SAT AT 94 %. A/O X 2. NEEDS WILL BE ANTICIPATED AND WILL BE MET. BED ALARM ON. CALL LIGHT WITH IN REACH. TELEMETRY MONITORING.
[2019-02-25] MEDS: IPRATROPIUM 0.02% 0.5 MG/2.5 ML NEBU INH PRN (20:25)
[2019-02-25] MEDS: ALBUTEROL 0.083% 2.5 MG/3 ML NEBU NEB PRN (20:25)
--- NOTE | 2019-02-25 20:37 | NUR ---
RECEIVED PATIENT ON ROOM AIR, PULSE OX SAT 91%. PRN BREATHING TREATMENT ADMINISTERED. TOLERATED TX WELL WITHOUT ADVERSE SIDE EFFECTS. COACHED PATIENT ON COUGH TECHNIQUE. NO ACUTE RESPIRATORY DISTRESS NOTED AT TIME. WILL CONTINUE.
--- NOTE | 2019-02-25 21:25 | NUR ---
P.O.MEDICATION TOLERATED WELL WITH APPLE SAUCE. NO NOTED COUGHING OR ANY SIGNS OF ASPIRATION. PT. ABLE TO SAY YES OR NO. IVF SITE TO LEFT HAND DISCONTINUED RT WITH OUT GOOD BLOOD RETURN . TOLERATED WELL. COVERED WITH BAND AID. TIP INTACT. NEEDS WILL BE ANTICIPATED AND WILL BE MET THIS SHIFT. ON TELEMETRY MONITORING AND BREATHING TREATMENTS. COUGHING INTERMITTENTLY NON PRODUCTIVE.
--- NOTE | 2019-02-25 23:58 | NUR ---
PT. TURNED TO SIDES AND CLEANED UP RT WITH BM. PILLOW SUPPORT TO PRESSURE AREAS. ISOLATION PRECAUTIONS RT HX. MRSA NARES. NEEDS ANTICIPATED AND WILL BE MET. TELEMETRY MONITORING.
--- NOTE | 2019-02-26 03:57 | NUR ---
SLEEPING WELL. NO RESTLESSNESS. CALL LIGHT WITH IN REACH. NEEDS ANTICIPATED AND MET. TOTAL CARE.
[2019-02-26 04:12] VITALS: BP 129/53
[2019-02-26] MEDS: PIPERACILLIN/TAZOBACTAM 3.375 GM in DEXTROSE 5% 50 ML IV SCH (04:26)
--- NOTE | 2019-02-26 04:30 | NUR ---
AM PERSONAL HYGIENE RENDERED BY CNAS. TURNED TO SIDES. PILLOW SUPPORT TO PRESSURE AREAS DONE. DENIES PAIN. NEEDS ANTICIPATED AND MET. TOTALS CARE. NO ADVERSE REACTION TO IV ABT .
--- NOTE | 2019-02-26 06:28 | NUR ---
PT. SLEEPING AT THIS TIME. NEEDS ANTICIPATED AND WERE MET FOR THIS SHIFT. CALL LIGHT WITH IN REACH. NO SOB. NO RESTLESSNESS AT THIS TIME. AFEBRILE. WILL ENDORSE TO AM RN FOR CONTINUITY OF CARE. HAD 1 BM THIS SHIFT. TELEMETRY MONITORING WITH NSR.
--- NOTE | 2019-02-26 07:21 | NUR ---
RECEIVED BEDSIDE REPORT FROM DESIGN SUPERVISOR RNSHASHANK. PATIENT RESTING IN BED, NO SIGNS OF DISTRESS ON RA. SPEECH MUMBLED AT BASELINE DUE TO CEREBRAL PALSY, AIRWAY PATENT. PATIENT ASKING FOR BREAKFAST. NO C/O PAIN. SKIN NORMAL IN COLOR, EVEN UNLABORED BREATHING, LEFT HAND 22 GAUGE IV CATHETER IS SALINE LOCKED. BED LOW, CALL LIGHT IN REACH. WILL CONTINUE TO MONITOR.
[2019-02-26 08:00] VITALS: BP_SYST 130; BP_SYST 143; BP_DIAS 43; BP_DIAS 75
[2019-02-26 09:31] LABS: BASOPHILS # (AUTO) 0.1 K/uL (0.00-0.22); BASOPHILS % (AUTO) 0.9 % (0.0-2.0); EOSINOPHILS # (AUTO) 0.5 K/uL (0-0.4); EOSINOPHILS % (AUTO) 6.7 % (0.0-4.0); HEMATOCRIT 32.1 % (36-52); HEMOGLOBIN 9.9 g/dL (12.0-18.0); LYMPHOCYTES # (AUTO) 0.9 K/uL (2.0-11.5); LYMPHOCYTES % (AUTO) 12.1 % (20.5-51.1); MEAN CORPUSCULAR HEMOGLOBIN 22 pg (27-31); MEAN CORPUSCULAR HGB CONC 31 g/dL (33-37); MONOCYTES # (AUTO) 0.8 K/uL (0.8-1.0); MONOCYTES % (AUTO) 9.9 % (1.7-9.3); NEUTROPHILS # (AUTO) 5.5 K/uL (1.8-7.7); NEUTROPHILS % (AUTO) 70.4 % (42.2-75.2); PLATELET COUNT (AUTO) 209 K/uL (140-450); RED BLOOD CELL COUNT(AUTO) 4.46 MIL/uL (4.20-6.10); RED CELL DISTRIBUTION WIDTH 17.5 % (11.6-13.7); WHITE BLOOD COUNT (AUTO) 7.8 K/uL (4.8-10.8)
[2019-02-26] MEDS: LACTULOSE 20 GM/30 ML UDC PO SCH (09:43)
--- NOTE | 2019-02-26 09:45 | NUR ---
ADMINISTERED SCHEDULED MEDICATIONS. PATIENT TOLERATED WELL. CLEANED AND REPOSITIONED PATIENT APPLIED HYDRAGAURD TO REDDENED AREAS. PATIENT SATING 96% ON 1.5L OR VIA NC. BED IS LOW, CALL LIGHT IN REACH.
[2019-02-26 09:47] LABS: ALBUMIN 2.4 g/dL (3.4-5.0); CARBON DIOXIDE 25.7 mmol/L (21-32); CREATININE 0.9 mg/dL (0.7-1.3); POTASSIUM 3.7 mmol/L (3.5-5.1); TOTAL BILIRUBIN 0.2 mg/dL (0.0-1.0)
[2019-02-26] MEDS ORDERED: LEVO750T2 PO (10:49)
--- NOTE | 2019-02-26 11:45 | NUR ---
VITALS STABLE ON RA, PATIENT SITTING UP IN BED, SPEECH GARBLED AT BASELINE, AIRWAY PATENT. PATIENT IS REQUESTING LUNCH AND WILL BE FED WHEN TRAYS ARRIVE. BED LOW, CALL LIGHT IN REACH.
[2019-02-26] MEDS ORDERED: HYDRAGUARD CREAM TP PRN (11:50)
[2019-02-26 12:00] VITALS: BP 130/43
--- NOTE | 2019-02-26 13:38 | NUR ---
SPOKE WITH CUAUHTEMOC THE METAL TREATER AT [facility] TO NOTIFY HER OF PT DISCHARGE. PER CUAUHTEMOC, SHE WILL ARRANGE TRANSPORT FOR PT AND CALL US BACK WITH PICKUP TIME.
--- NOTE | 2019-02-26 14:59 | NUR ---
SPOKE TO DR. DANIEL PATINO REGARDING PATIENT (+) MRSA NARES RESULT. PATIENT WILL RECEIVE 1ST OF 5 DOSES OF BACTROBAN NASAL AND [facility] HERE AT [facility] AND WILL CONTINUE THE TREATMENT AT [facility]WAYS UNDER THE CARE OF DR. PATINO. DR. PATINO AWARE.
[2019-02-26] MEDS: CHLORHEXADINE GLUC 2% CLOTH TP SCH (15:07)
[2019-02-26] MEDS: MUPIROCIN CA NASAL 2% 1GM TUBE NS SCH (15:07)
--- NOTE | 2019-02-26 15:23 | NUR ---
ADMINISTERED SCHEDULED MEDICATIONS, PATIENT TOLERATED WELL. CLEANED AND REPOSITIONED PATIENT. CALL LIGHT IN REACH. NO DISTRESS NOTED ON RA. BED LOW WILL CONTINUE TO MONITOR.
--- NOTE | 2019-02-26 16:05 | NUR ---
ASSISTED PATIENT TO CHANGE INTO STREET CLOTHES, REMOVED 22 GAUGE IV CATHETER FROM RIGHT HAND, TIP INTACT. PATIENT TOLERATED WELL. PATIENT TRANSFERRED TO WHEELCHAIR WITH ASSISTANCE WELL. PATIENT BELONGS AND DISCHARGE PAPER REVIEWED AND PROVIDED TO CAMPAIGN MARKETING SPECIALIST INCLUDING DISCHARGE PRESCRIPTION, CAREGIVER VERBALIZED UNDERSTANDING. REMOVED WRIST BAND, CAREGIVER ESCORTED PATIENT FROM HOSPITAL. PATIENT DISCHARGED BACK TO [facility].
[2019-02-26] MEDS ORDERED: AMOXIL/CLAVULANATE 875/125 MG 1 TAB PO SCH (21:00)
[2019-02-28] MEDS ORDERED: LEVOFLOXACIN 500 MG TAB PO SCH (09:00)
== END 2019-02-26 16:42 | disposition home or self-care (01) | DRG 871 ==
LOC: MED 11:06 → MTU 14:56
PROVIDERS: ADMIT Internal Medicine Cardiovascular Disease; ATTEND Internal Medicine Cardiovascular Disease
DX: A41.9 Sepsis, unspecified organism (principal); J69.0 Pneumonitis due to inhalation of food and vomit; J98.11 Atelectasis; G93.40 Encephalopathy, unspecified; F79 Unspecified intellectual disabilities; G80.9 Cerebral palsy, unspecified; E03.9 Hypothyroidism, unspecified; G40.909 Epilepsy, unspecified, not intractable, without status epilepticus; K21.9 Gastro-esophageal reflux disease without esophagitis; R62.59 Other lack of expected normal physiological development in childhood; F31.9 Bipolar disorder, unspecified; I10 Essential (primary) hypertension; R13.10 Dysphagia, unspecified; Z93.1 Gastrostomy status; Z88.1 Allergy status to other antibiotic agents; Z79.899 Other long term (current) drug therapy
CPT/HCPCS: 36415; 36600; 70450; 71045; 80053; 81003; 82140; 82803; 82948; 83605; 83735; 83880; 84443; 84484; 85025; 85610; 85730; 87040; 87081; 87086; 89220; 93005; 94640; 96365; 99291; J0696; J2543; J7030; J7060; J7613; J7644; Q0092

== ENCOUNTER 2019-03-16 18:30 | Inpatient (IN) | payer OTHER, MEDICAID ==
[~2019-03-16] VITALS: Ht 177.8 cm; Wt 104.3 kg
[~2019-03-16 18:30] MED LIST changes: +BENZ-203 GT; -BENZ-248 GT; -FURO-572 PO; -PHE25S GT
--- NOTE | 2019-03-16 18:49 | NUR ---
Patient transferred to bed 2. RN evaluating patient at bedside.
--- NOTE | 2019-03-16 19:00 | NUR ---
Note undone in EDM - 03/16/19 at 2006 by MED3 63/m presented to kathleen rodriguez from [facility]. scientific manager with pt witnessed large coffee ground emesis today--- pt eats by mouth but liquids by g-tube. pale appearing. no pain reported. hx---bipolar, seizure, cerebral palsy, hypothyroid, gerd, rx--miralax, motrin, bisacodyl, tylenol, valproic acid, risperidone, cogentin, pepcid, lamotrigine, levothyroxine, etoclopramide
[2019-03-16 19:03] VITALS: BP 105/45
--- NOTE | 2019-03-16 19:05 | NUR ---
63/m presented to ed jennifer from [facility]. optical instrument repairer with pt witnessed large coffee ground emesis today--- pt eats by mouth but liquids by g-tube. pale appearing. no pain reported. hx---bipolar, seizure, cerebral palsy, hypothyroid, gerd, rx--miralax, motrin, bisacodyl, tylenol, valproic acid, risperidone, cogentin, pepcid, lamotrigine, levothyroxine, etoclopramide
[2019-03-16] MEDS ORDERED: NACL 0.9% 1,000 ML IV SCH (19:22)
[2019-03-16] MEDS ORDERED: PANTOPRAZOLE 40 MG INJ VIAL IVP ONE (19:25)
[2019-03-16] MEDS ORDERED: ONDANSETRON 4 MG/2 ML VIAL IVP ONE (19:25)
--- NOTE | 2019-03-16 20:00 | NUR ---
LAB AT BEDSIDE
[2019-03-16 20:12] LABS: BASOPHILS % (AUTO) 0.2 % (0.0-2.0); EOSINOPHILS # (AUTO) 0.1 K/uL (0-0.4); EOSINOPHILS % (AUTO) 0.7 % (0.0-4.0); HEMATOCRIT 28.2 % (36-52); HEMOGLOBIN 8.6 g/dL (12.0-18.0); LYMPHOCYTES # (AUTO) 1.1 K/uL (2.0-11.5); LYMPHOCYTES % (AUTO) 8.4 % (20.5-51.1); MEAN CORPUSCULAR HEMOGLOBIN 22 pg (27-31); MEAN CORPUSCULAR HGB CONC 31 g/dL (33-37); MEAN CORPUSCULAR VOLUME 70.8 fL (80-94); MONOCYTES # (AUTO) 1.6 K/uL (0.8-1.0); MONOCYTES % (AUTO) 12.5 % (1.7-9.3); NEUTROPHILS # (AUTO) 9.8 K/uL (1.8-7.7); NEUTROPHILS % (AUTO) 78.2 % (42.2-75.2); PLATELET COUNT (AUTO) 253 K/uL (140-450); RED BLOOD CELL COUNT(AUTO) 3.99 MIL/uL (4.20-6.10); RED CELL DISTRIBUTION WIDTH 17.4 % (11.6-13.7); WHITE BLOOD COUNT (AUTO) 12.5 K/uL (4.8-10.8)
[2019-03-16 20:27] LABS: ANION GAP 13.4 (8-16); CARBON DIOXIDE 27.8 mmol/L (21-32); CREATININE 0.7 mg/dL (0.7-1.3); POTASSIUM 4.2 mmol/L (3.5-5.1)
[2019-03-16 20:33] LABS: ALBUMIN 2.6 g/dL (3.4-5.0); TOTAL BILIRUBIN 0.2 mg/dL (0.0-1.0)
--- NOTE | 2019-03-16 21:00 | NUR ---
CARGIVER AT BEDSIDE. NO SIGNS OF DISTRESS. WILL CONTINUE TO MONITOR.
--- NOTE | 2019-03-16 21:40 | NUR ---
Admitted from ER TO MED SURGICAL UNIT , with chief complaint of VOMITING COFFEE GROUND LIQUID WITH FOUL ODOR THIS AFTERNOON,63 y/o ,Male, Cooperative, AWAKE, ALERT, ORIENTED X1, OCCASIONALLY ABLE TO FOLLOW COMMANDS. WITH HX OF CEREBRAL PALSY, RESIDENT OF [facility] LONGTERM. WITH IV SALINE LOCK AT THE LEFT HAND G22, PATENT, INTACT. WITH GT, PER CAREGIVER BEING USED FOR WATER AND MEDICATION ADMINISTRATION. PATIENT IS ABLE TO EAT PUREED DIET. ADMISSION DATA GATHERED FROM MEDICAL RECORDS AND CAREGIVER JOSEPH WHO ACCOMPANIED PATIENT. HEAD TO TOE ASSESSMENT DONE WITH BASILIO MORA. NOTED REDNESS AT THE SACRAL AREA. SKIN INTACT. PATIENT IS BEDBOUND/WHEELCHAIR BOUND, INCONTINENT. ON SEIZURE PRECAUTION, SIDE RAILS PADDED. PUT BED ON ALARM. REORIENTED TO HOSPITAL SETTING. PLAN OF CARE DISCUSSED. NEEDS REINFORCEMENT. NO APPEARANCE OF PAIN NOTED, FLACC -0. oriented to call light, bed, phone,television, bathroom, smoking policy,visiting hours, procedures, ID bracelet on. Belongings list checked.
[2019-03-16 21:50] VITALS: BP 108/52
--- NOTE | 2019-03-16 22:00 | NUR ---
Patient will be admitted to care of [facility]. Admited to [facility]. Will go to room 126 B. Belongings list completed. Report to GERMAINE RICHMOND.
[2019-03-16] MEDS ORDERED: ONDANSETRON 4 MG/2 ML VIAL IVP PRN (22:15)
[2019-03-16 22:43] LABS: PROTHROMBIN TIME 9.9 secs (10.8-13.4)
[2019-03-16] MEDS: DEXT 5% / NACL 0.45% 1,000 ML IV SCH (23:18)
[2019-03-17] VITALS: BP 105/55
--- NOTE | 2019-03-17 | NUR ---
SLEEPING COMFORTABLY IN BED.
[2019-03-17 04:00] VITALS: BP 107/50
[2019-03-17 06:54] LABS: BASOPHILS % (AUTO) 0.3 % (0.0-2.0); EOSINOPHILS # (AUTO) 0.1 K/uL (0-0.4); EOSINOPHILS % (AUTO) 0.9 % (0.0-4.0); HEMATOCRIT 26.7 % (36-52); HEMOGLOBIN 8.2 g/dL (12.0-18.0); LYMPHOCYTES # (AUTO) 1.2 K/uL (2.0-11.5); LYMPHOCYTES % (AUTO) 14.5 % (20.5-51.1); MEAN CORPUSCULAR HEMOGLOBIN 22 pg (27-31); MEAN CORPUSCULAR HGB CONC 31 g/dL (33-37); MEAN CORPUSCULAR VOLUME 71.3 fL (80-94); MONOCYTES # (AUTO) 1.2 K/uL (0.8-1.0); MONOCYTES % (AUTO) 14.6 % (1.7-9.3); NEUTROPHILS # (AUTO) 5.8 K/uL (1.8-7.7); NEUTROPHILS % (AUTO) 69.7 % (42.2-75.2); PLATELET COUNT (AUTO) 209 K/uL (140-450); RED BLOOD CELL COUNT(AUTO) 3.75 MIL/uL (4.20-6.10); RED CELL DISTRIBUTION WIDTH 17.5 % (11.6-13.7); WHITE BLOOD COUNT (AUTO) 8.3 K/uL (4.8-10.8)
--- NOTE | 2019-03-17 07:00 | NUR ---
ABLE TO SLEEP WELL.
--- NOTE | 2019-03-17 07:30 | NUR ---
CONDITION REMAIN STABLE. NO BM DURING SHIFT. ENDORSED TO AM SHIFT NURSE FOR CONTINUITY OF CARE.
--- NOTE | 2019-03-17 07:31 | NUR ---
RECEIVED BEDSIDE REPORT FROM SENIOR ANALYST NURSE. PATIENT IS AWAKE, ALERT AND ORIENTEDX2. NO SIGNS OF DISTRESS ON 2L NC. SKIN IS INTACT BUT REDNESS ON SACRAL AREA. FALL RISK PROTOCOL IN PLACE, PATIENT IS BEDBOUND. INCONTINENT. L HAND 22G INFUSING D5 1/2NS AT 100. CLEAN, DRY AND INTACT. BED IN LOW POSITION. CALL LIGHT WITHIN REACH. WILL CONTINUE TO MONITOR THE PATIENT
[2019-03-17 07:35] LABS: ANION GAP 13.2 (8-16); CARBON DIOXIDE 25.9 mmol/L (21-32); CREATININE 0.6 mg/dL (0.7-1.3); POTASSIUM 4.1 mmol/L (3.5-5.1)
[2019-03-17 08:00] VITALS: BP 123/57
--- NOTE | 2019-03-17 08:29 | NUR ---
PATIENT HAS BEEN SCREENED AND CATEGORIZED HIGH NUTRITION RISK. PATIENT WILL BE SEEN WITHIN 1-2 DAYS OF ADMISSION. 03/17/19-03/18/[address]
--- NOTE | 2019-03-17 08:31 | NUR ---
Patient's Plan of Care was discussed and reviewed with DIRECTOR SMB SALES: GERMAINE DIAL.
[2019-03-17] MEDS: DEXT 5% / NACL 0.45% 1,000 ML IV SCH ×3 (09:12→23:02)
[2019-03-17] MEDS: PANTOPRAZOLE 40 MG INJ VIAL IVP SCH ×2 (09:12→21:51)
--- NOTE | 2019-03-17 09:15 | NUR ---
ADMINISTERED MEDS. PATIENT TOLERATED WELL. EDUCATED ON SIDE EFFECTS. WILL CONTINUE TO MONITOR
--- NOTE | 2019-03-17 11:45 | NUR ---
PATIENT REQUESTING CALL LIGHT. GAVE PATIENT THE CALL LIGHT
--- NOTE | 2019-03-17 13:31 | NUR ---
EGD CONSENT RECEIVED BY SISTER LAKIA AT [phone], CONFIRMED WITH ANOTHER NURSE CHARGE NURSE CRISTINA. DR NICOLE TO DO EGD TODAY
[2019-03-17] MEDS ORDERED: diphenhydrAMINE 50 MG/ML VIAL ONE (13:46)
[2019-03-17] MEDS ORDERED: MIDAZOLAM 2 MG/2 ML VIAL ONE (13:46)
[2019-03-17] MEDS ORDERED: fentaNYL 0.05 MG/ML VIAL ONE (13:46)
--- NOTE | 2019-03-17 13:50 | NUR ---
PATIENT PICKED UP BY OR NURSE
[2019-03-17] MEDS ORDERED: MAGNESIUM CITRATE 300 ML BTL PO SCH ×2 (14:24→22:00)
--- NOTE | 2019-03-17 14:47 | NUR ---
PATIENT BACK FROM OR. PATIENT BACK IN STABLE CONDITION. WILL MONITOR VITALS. FIRST VITALS ARE STABLE AT THIS TIME
[2019-03-17] MEDS ORDERED: fentaNYL 0.05 MG/ML VIAL IVP ONE (15:05)
[2019-03-17] MEDS ORDERED: MIDAZOLAM 2 MG/2 ML VIAL IVP ONE (15:05)
--- NOTE | 2019-03-17 15:47 | NUR ---
POST OP VITALS ARE WITHIN NORMAL LIMITS
[2019-03-17 16:00] VITALS: BP 118/67
--- NOTE | 2019-03-17 17:05 | NUR ---
PATIENT LAYING IN BED. NO DISTRESS. WILL CONTINUE TO MONITOR
--- NOTE | 2019-03-17 17:47 | NUR ---
HAVENT GIVEN MEDICATIONS. PATIENT IS NPO AND DO NOT HAVE GTUBE CONNECTOR. [employer] JUDGE PARISH SAID SHE WILL BRING THE CONNECTOR BY TODAY
--- NOTE | 2019-03-17 18:24 | NUR ---
PATIENT DRANK MAG CITRATE. DR NICOLE SAID OK TO GIVE CLEAR LIQ AND NPO AFTER MIDNIGHT. TELEPHONE CONSENT DONE Mendoza SMALLWOOD RN. LAKIA THE SISTER CONSENTED TO COLONOSCOPY TOMORROW
[2019-03-17] MEDS: LACTULOSE 20 GM/30 ML UDC PO SCH ×2 (18:30→21:58)
[2019-03-17] MEDS: SENNA 8.6 MG TAB PO SCH (18:30)
--- NOTE | 2019-03-17 18:31 | NUR ---
NO GTUBE CONNECTOR AT THIS TIME. MIXED MEDS W FOOD. PATIENT TOLERATED WELL
[2019-03-17] MEDS: METOCLOPRAMIDE 10 MG/2 ML INJ VIAL IVP SCH (18:40)
--- NOTE | 2019-03-17 19:15 | NUR ---
GAVE BEDSIDE REPORT TO NON DESTRUCTIVE TESTING INSPECTOR NURSE. PATIENT ENDORSED IN STABLE CONDITION
--- NOTE | 2019-03-17 19:16 | NUR ---
RECD. RESTING IN BED, AWAKE, A/OX1. RESPIRATION EVEN AND UNLABORED. OCCASIONAL UNPRODUCTIVE COUGH NOTED. MENTALLY CHALLENGED. OCCASIONALLY ABLE TO FOLLOW COMMANDS. IV OF D5 1/2 NS AT 100 ML/HR INFUSING LEFT HAND G22. WITH GT IN PLACED, INTACT. SAFETY MEASURES ENFORCED. SIDE RAILS PADDED. BED ON ALARM. REORIENTED TO HOSPITAL SETTING. PLAN OF CARE FOR THE SHIFT DISCUSSED. NEEDS REINFORCEMENT. NO APPEARANCE OF PAIN NOTED 0/10.
--- NOTE | 2019-03-17 20:00 | NUR ---
Patient's Plan of Care was discussed and reviewed with EARLY CHILDHOOD SPECIAL EDUCATOR: GERMAINE DIAL LVN
--- NOTE | 2019-03-17 21:00 | NUR ---
HAD LARGE LOOSE BM. CLEANSED AND REPOSITIONED IN BED.
--- NOTE | 2019-03-17 21:51 | NUR ---
PROTONIX GIVEN IVP. PT TOLERATED WELL.
--- NOTE | 2019-03-17 21:59 | NUR ---
LACTULOSE GIVEN WITH JELLO, TOLERATED WELL. ADDED SOME THICKENER WITH CITROMA, ABLE TO TAKE THEM.
[2019-03-17 22:38] LABS: THYROID STIMULATING HORMONE 7.69 uIU/mL (0.34-3.74)
--- NOTE | 2019-03-18 | NUR ---
SLEEPING COMFORTABLY IN BED.
[2019-03-18] MEDS: METOCLOPRAMIDE 10 MG/2 ML INJ VIAL IVP SCH ×4 (00:03→18:20)
--- NOTE | 2019-03-18 00:03 | NUR ---
REGLAN GIVEN IVP. PT TOLERATED WELL.
[2019-03-18] MEDS: DEXT 5% / NACL 0.45% 1,000 ML IV SCH ×2 (04:15→14:15)
--- NOTE | 2019-03-18 05:00 | NUR ---
HAD LARGE LOOSE BM, CHOCOLATE COLORED BM. CLEANSED AND REPOSITIONED IN BED.
[2019-03-18 06:00] VITALS: BP 102/50
--- NOTE | 2019-03-18 06:41 | NUR ---
REGLAN GIVEN IVP. PT TOLERATED WELL.
--- NOTE | 2019-03-18 07:30 | NUR ---
ENDORSED TO AM SHIFT NURSE FOR CONTINUITY OF CARE.
[2019-03-18 07:31] LABS: BASOPHILS % (AUTO) 0.3 % (0.0-2.0); EOSINOPHILS # (AUTO) 0.1 K/uL (0-0.4); EOSINOPHILS % (AUTO) 0.8 % (0.0-4.0); HEMATOCRIT 26.2 % (36-52); HEMOGLOBIN 7.9 g/dL (12.0-18.0); LYMPHOCYTES # (AUTO) 1.3 K/uL (2.0-11.5); LYMPHOCYTES % (AUTO) 10.7 % (20.5-51.1); MEAN CORPUSCULAR HEMOGLOBIN 22 pg (27-31); MEAN CORPUSCULAR HGB CONC 30 g/dL (33-37); MONOCYTES # (AUTO) 1.4 K/uL (0.8-1.0); MONOCYTES % (AUTO) 11.1 % (1.7-9.3); NEUTROPHILS # (AUTO) 9.4 K/uL (1.8-7.7); NEUTROPHILS % (AUTO) 77.1 % (42.2-75.2); PLATELET COUNT (AUTO) 246 K/uL (140-450); RED BLOOD CELL COUNT(AUTO) 3.64 MIL/uL (4.20-6.10); RED CELL DISTRIBUTION WIDTH 17.7 % (11.6-13.7); WHITE BLOOD COUNT (AUTO) 12.1 K/uL (4.8-10.8)
--- NOTE | 2019-03-18 07:31 | NUR ---
Received report from pm nurse. Pt resting in bed, awake, no signs of distress, no c/o discomfort. Respirations even & nonlabored. Left hand IV intact with ongoing D5 1/2 NS @ 80ml/hr. Call light within reach. Bed alarm on.
[2019-03-18 07:51] LABS: ANION GAP 10.8 (8-16); CARBON DIOXIDE 29.7 mmol/L (21-32); CREATININE 0.6 mg/dL (0.7-1.3); POTASSIUM 4.5 mmol/L (3.5-5.1)
[2019-03-18] MEDS ORDERED: diphenhydrAMINE 50 MG/ML VIAL ONE (09:23)
[2019-03-18] MEDS ORDERED: fentaNYL 0.05 MG/ML VIAL ONE (09:23)
[2019-03-18] MEDS ORDERED: MIDAZOLAM 2 MG/2 ML VIAL ONE (09:23)
--- NOTE | 2019-03-18 09:30 | NUR ---
Dr. Carranza notified that pt with watery brown BM. Per dr, will do colonoscopy this afternoon.
[2019-03-18] MEDS: SENNA 8.6 MG TAB PO SCH ×3 (09:50→17:02)
[2019-03-18] MEDS: PANTOPRAZOLE 40 MG INJ VIAL IVP SCH ×2 (09:51→22:14)
[2019-03-18] MEDS: LACTULOSE 20 GM/30 ML UDC PO SCH ×4 (09:52→22:14)
[2019-03-18] MEDS: HYDRAGUARD CREAM TP SCH (12:52)
--- NOTE | 2019-03-18 14:15 | NUR ---
PT IN BED AND RESTING. NO FACIAL GRIMACING NOTED. PT TOLERATED ORAL FLUIDS AND MEDICATIONS WELL. G TUBE INTACT. PATIENT REPOSITIONED AND CALL LIGHTS WITHIN REACH.
--- NOTE | 2019-03-18 15:11 | NUR ---
03/18/19 RD INITIAL ASSESSMENT COMPLETED PLEASE REFER TO NUTRITION ASSESSMENT UNDER CARE ACTIVITY FOR ESTIMATED NUTRITIONAL NEEDS. 1. CONTINUE NPO MEDICALLY APPROPRIATE 2. IF/WHEN MEDICALLY STABLE CONSIDER ADVANCING TO PUREE DIET TOLERATED 3. RD TO FOLLOW-UP 2-3 DAYS, HIGH RISK CALDERON ESPAÑA, RD
[2019-03-18 16:00] VITALS: BP 125/55
[2019-03-18] MEDS: MUPIROCIN CA NASAL 2% 1GM TUBE NS SCH (18:20)
[2019-03-18] MEDS: CHLORHEXADINE GLUC 2% CLOTH TP SCH (18:23)
--- NOTE | 2019-03-18 19:25 | NUR ---
Report given to pm nurse Kimberly. Pt resting in bed, watching TV, no signs of distress. Left hand IV intact with ongoing D5 1/2NS @ 100ml/hr. Call light within reach.
--- NOTE | 2019-03-18 19:25 | NUR ---
RECIEVED PT AAOX1 TO 2 , NID , MENTALLY CHALLENGE , IV SITE INTACT AND PATENT , NOC/O OF VOMITING , FOR COLONOSCOPY ARIANA. WITH CONSENT . PLAN OF CARE DISCUSSED BUT POOR UNDERSTANDING DUE TO MENTAL STATUS , ON SAFETY / FALL PRECAUTION PROTOCOL , CALL LIGHT WITHIN REACH - BED ALARM ON , NPO POST MN , WILL CONT. TO MONITOR.
[2019-03-19] VITALS: BP 120/67
--- NOTE | 2019-03-19 | NUR ---
REMINDS NPO , NO COMPLAIN MADE AT THIS TIME.
[2019-03-19] MEDS: METOCLOPRAMIDE 10 MG/2 ML INJ VIAL IVP SCH ×4 (01:00→13:35)
[2019-03-19] MEDS: HYDRAGUARD CREAM TP SCH ×2 (01:00→13:36)
--- NOTE | 2019-03-19 04:00 | NUR ---
MADE ROUNDS , NID , NO COMPLAIN MADE AT THIS TIME.
[2019-03-19] MEDS ORDERED: ceFAZolin 1,000 MG VIAL ONE (04:55)
[2019-03-19] MEDS: DEXT 5% / NACL 0.45% 1,000 ML IV SCH ×2 (05:05→10:55)
--- NOTE | 2019-03-19 07:56 | NUR ---
Received report from retail shift supervisor nurse. Pt is lying in bed and sleeping. No signs of distress and no complains of pain. Call light within reach.
--- NOTE | 2019-03-19 07:56 | NUR ---
ENDORSED TO AM SHIFT FOR CONT. OF CARE.
[2019-03-19 08:00] VITALS: BP 108/66
[2019-03-19 08:06] LABS: BASOPHILS # (AUTO) 0.1 K/uL (0.00-0.22); BASOPHILS % (AUTO) 0.5 % (0.0-2.0); EOSINOPHILS # (AUTO) 0.1 K/uL (0-0.4); EOSINOPHILS % (AUTO) 1.5 % (0.0-4.0); HEMATOCRIT 25.5 % (36-52); HEMOGLOBIN 7.7 g/dL (12.0-18.0); LYMPHOCYTES # (AUTO) 1.2 K/uL (2.0-11.5); LYMPHOCYTES % (AUTO) 12.5 % (20.5-51.1); MEAN CORPUSCULAR HEMOGLOBIN 22 pg (27-31); MEAN CORPUSCULAR HGB CONC 30 g/dL (33-37); MEAN CORPUSCULAR VOLUME 72.4 fL (80-94); MONOCYTES # (AUTO) 1.2 K/uL (0.8-1.0); MONOCYTES % (AUTO) 12.1 % (1.7-9.3); NEUTROPHILS # (AUTO) 7.1 K/uL (1.8-7.7); NEUTROPHILS % (AUTO) 73.4 % (42.2-75.2); PLATELET COUNT (AUTO) 268 K/uL (140-450); RED BLOOD CELL COUNT(AUTO) 3.51 MIL/uL (4.20-6.10); RED CELL DISTRIBUTION WIDTH 17.5 % (11.6-13.7); WHITE BLOOD COUNT (AUTO) 9.7 K/uL (4.8-10.8)
[2019-03-19 09:17] LABS: ANION GAP 10.5 (8-16); CREATININE 0.7 mg/dL (0.7-1.3); POTASSIUM 3.5 mmol/L (3.5-5.1)
[2019-03-19] MEDS: LACTULOSE 20 GM/30 ML UDC PO SCH ×3 (09:23→13:35)
[2019-03-19] MEDS: PANTOPRAZOLE 40 MG INJ VIAL IVP SCH (09:24)
[2019-03-19] MEDS: SENNA 8.6 MG TAB PO SCH ×2 (09:24→13:00)
--- NOTE | 2019-03-19 12:07 | NUR ---
Pt was straight cath F15. No urine return.
--- NOTE | 2019-03-19 13:30 | NUR ---
Urine collected via straight cath. Pt in no distress, no bladder distention. No c/o discomfort.
[2019-03-19 13:51] LABS: APPEARANCE,URINE CLEAR (CLEAR); BILIRUBIN,URINE NEGATIVE (NEGATIVE); BLOOD, URINE 1+ (NEGATIVE); COLOR,URINE YELLOW (YELLOW); LEUKOCYTE ESTERASE ,URINE NEGATIVE (NEGATIVE); NITRITE, URINE NEGATIVE (NEGATIVE); UGLUCOSE NEGATIVE (NEGATIVE)
[2019-03-19 14:09] LABS: WBC,URINE NONE SEEN /HPF (0-5)
[2019-03-19] MEDS ORDERED: MIDAZOLAM 2 MG/2 ML VIAL ONE (14:30)
[2019-03-19] MEDS ORDERED: fentaNYL 0.05 MG/ML VIAL ONE (14:30)
[2019-03-19] MEDS ORDERED: diphenhydrAMINE 50 MG/ML VIAL ONE (14:31)
--- NOTE | 2019-03-19 16:20 | NUR ---
Pt came back to room 126B from GI lab s/p colonoscopy. Received report from OR nurse Kayce. Pt aaox2, no c/o discomfort, no signs of distress, able to follow simple commands. Left hand IV intact with ongoing D5 1/2 NS @ 100ml/hr. Call light within reach.
[2019-03-19 16:30] VITALS: BP 108/66
[2019-03-19] MEDS ORDERED: MIDAZOLAM 2 MG/2 ML VIAL IVP ONE (16:35)
[2019-03-19] MEDS ORDERED: fentaNYL 0.05 MG/ML VIAL IVP ONE (16:35)
[2019-03-19] MEDS: MUPIROCIN CA NASAL 2% 1GM TUBE NS SCH (17:48)
[2019-03-19] MEDS: FERROUS SULFATE 325 MG TABEC PO SCH (17:49)
[2019-03-19] MEDS: CHLORHEXADINE GLUC 2% CLOTH TP SCH (17:54)
--- NOTE | 2019-03-19 18:36 | NUR ---
PT RESTING IN BED AFTER OR PROCEDURE. V/S SIGNS TAKEN AT 15 MINS INTERVAL. WITHIN NORMAL RANGE. NO DISTRESS NO C/O PAIN. PT EAT DINNER SOFT WITH WITH ASSISTANCE TOLERATING WELL.
--- NOTE | 2019-03-19 19:15 | NUR ---
RECIEVED PT AAOX 1 TO 2 , WITH HX OF CEREBRAL PALSY , NID , IV SITE INTACT AND PATENT , NO C/O PAIN OR VOMITING AT THIS TIME , ORAL FOOD TOLERATED AM SHIFT NOD REPORTED TO ME. PLAN OF CARE DISCUSSED BUT POOR UNDERSTANDING DUE TO MENTAL STATUS . ON SAFETY / FALL PRECAUTION PROTOCOL - BED ALARM ON , CALL LIGHT WITHIN REACH .WILL CONT. TO MONITOR.
--- NOTE | 2019-03-19 19:15 | NUR ---
Report given to pm nurse Kimberly. Pt resting in bed, no signs of distress.
[2019-03-19] MEDS ORDERED: SENNA 8.6 MG TAB PO SCH (21:00)
--- NOTE | 2019-03-19 22:00 | NUR ---
MADE ROUNDS , NO COMPLAIN MADE AT THIS TIME . WILL CONT. TO MONITOR.
[2019-03-20] VITALS: BP 110/70
[2019-03-20] MEDS: HYDRAGUARD CREAM TP SCH ×2 (01:00→13:58)
--- NOTE | 2019-03-20 07:25 | NUR ---
RECEIVED PT FROM NIGHT NURSE. PT SLEEPING. NO SIGNS OF DISTRESS OR PAIN. SKIN DRY WARM AND INTACT. RESPIRATIONS EVEN AND UNLABORED. IV IN PLACE HEP LOCKED. BED IN LOW POSITION, SAFETY MEASURES IN PLACE. CALL LIGHT WITHIN REACH. WILL CONTINUE TO MONITOR.
[2019-03-20 08:00] VITALS: BP 114/51
[2019-03-20] MEDS ORDERED: FER325 PO (08:27)
[2019-03-20] MEDS ORDERED: LACT10SO11 PO (08:27)
[2019-03-20] MEDS ORDERED: FOLI1TAB90 PO (08:27)
[2019-03-20] MEDS ORDERED: SENN-74 PO (08:27)
[2019-03-20] MEDS ORDERED: LACTULOSE 20 GM/30 ML UDC PO SCH (09:00)
[2019-03-20] MEDS ORDERED: FOLIC ACID 1 MG TAB PO SCH (09:00)
[2019-03-20] MEDS: FERROUS SULFATE 325 MG TABEC PO SCH ×3 (09:36→16:17)
--- NOTE | 2019-03-20 09:41 | NUR ---
MEDICATIONS ADMINISTERED PER ORDER. PT TOLERATED WELL. IN NO DISTRESS. BED IN LOW POSITION, SAFETY MEASURES IN PLACE. CALL LIGHT WITHIN REACH. WILL CONTINUE TO MONITOR.
[2019-03-20 11:37] LABS: BASOPHILS % (AUTO) 0.4 % (0.0-2.0); EOSINOPHILS # (AUTO) 0.1 K/uL (0-0.4); EOSINOPHILS % (AUTO) 1.1 % (0.0-4.0); HEMATOCRIT 24.2 % (36-52); HEMOGLOBIN 7.3 g/dL (12.0-18.0); LYMPHOCYTES # (AUTO) 1.4 K/uL (2.0-11.5); LYMPHOCYTES % (AUTO) 12.7 % (20.5-51.1); MEAN CORPUSCULAR HEMOGLOBIN 22 pg (27-31); MEAN CORPUSCULAR HGB CONC 30 g/dL (33-37); MEAN CORPUSCULAR VOLUME 72.4 fL (80-94); MONOCYTES # (AUTO) 1.5 K/uL (0.8-1.0); MONOCYTES % (AUTO) 12.8 % (1.7-9.3); NEUTROPHILS # (AUTO) 8.3 K/uL (1.8-7.7); PLATELET COUNT (AUTO) 272 K/uL (140-450); RED BLOOD CELL COUNT(AUTO) 3.34 MIL/uL (4.20-6.10); RED CELL DISTRIBUTION WIDTH 18.3 % (11.6-13.7); WHITE BLOOD COUNT (AUTO) 11.4 K/uL (4.8-10.8)
[2019-03-20 12:12] LABS: ANION GAP 12.3 (8-16); CARBON DIOXIDE 27.2 mmol/L (21-32); CREATININE 0.7 mg/dL (0.7-1.3); POTASSIUM 3.5 mmol/L (3.5-5.1)
--- NOTE | 2019-03-20 12:20 | NUR ---
03/20/19 RD FOLLOW UP COMPLETED PLEASE REFER TO NUTRITION ASSESSMENT UNDER CARE ACTIVITY FOR ESTIMATED NUTRITIONAL NEEDS. CONTINUE SOFT DIET TOLERATED IF PO MEETING <75% BY FOLLOWING ASSESSMENT, CONSIDER ONS BID 3. RD TO FOLLOW-UP 2-3 DAYS, HIGH RISK MIKE DE LA FUENTE, RD
--- NOTE | 2019-03-20 13:15 | NUR ---
MEDICATIONS ADMINISTERED PER ORDER. PT TOLERATED WELL AND IS IN NO DISTRESS. SAFETY MEASURES IN PLACE. WILL CONTINUE TO MONITOR.
--- NOTE | 2019-03-20 15:32 | NUR ---
CONTACTED DR. CANSECO AND DR. CAREY BAUTISTA, RELAYED PT'S LATEST HEMOGLOBIN AND HEMATOCRIT. BOTH DOCTORS AGREED TO DISCHARGE PT BACK TO [facility].
[2019-03-20 16:00] VITALS: BP 129/59
[2019-03-20 16:12] VITALS: BP 129/59
[2019-03-20] MEDS: CHLORHEXADINE GLUC 2% CLOTH TP SCH (16:17)
[2019-03-20] MEDS: MUPIROCIN CA NASAL 2% 1GM TUBE NS SCH (16:17)
--- NOTE | 2019-03-20 16:18 | NUR ---
PATIENT LYING DOWN IN BED. NO DISTRESS NOTED. ASSISTED RAWHIDE TRIMMER IN CLEANING AND REPOSITIONING PATIENT. SCHEDULED MEDICATIONS DUE GIVEN. MUPIROCIN AND CHLOROHEXADINE WIPES ADMINISTERED EARLY AT THIS TIME SINCE PATIENT TO BE DISCHARGED BACK TO [facility], AND TRANSPORT IS ARRIVING SOON PER [facility] FACILITY. WILL CONTINUE TO MONITOR.
--- NOTE | 2019-03-20 18:30 | NUR ---
PT DISCHARGED TO [facility]. PT IN STABLE CONDITION. VITAL SIGNS WITHIN NORMAL RANGE, RESPIRATIONS EVEN AND UNLABORED. DISCHARGE INSTRUCTIONS AND EDUCATION GIVEN. PT EXPRESSED UNDERSTANDING. PT ESCORTED OFF UNIT ACCOMPANIED BY CAREGIVER.
== END 2019-03-20 18:32 | DRG 377 ==
LOC: MED 18:30 → MMU 21:07
PROVIDERS: ADMIT Preventive Medicine Preventive Medicine/Occupational Environmental Medicine; ATTEND Preventive Medicine Preventive Medicine/Occupational Environmental Medicine
PROC: 0DJ08ZZ Inspection of Upper Intestinal Tract, Via Natural or Artificial Opening Endoscopic (ICD-10-PCS; principal; 2019-03-17 13:40)
PROC: 0DJD8ZZ Inspection of Lower Intestinal Tract, Via Natural or Artificial Opening Endoscopic (ICD-10-PCS; 2019-03-19)
DX: K92.0 Hematemesis (principal); E43 Unspecified severe protein-calorie malnutrition; E87.1 Hypo-osmolality and hyponatremia; K31.1 Adult hypertrophic pyloric stenosis; R65.10 Systemic inflammatory response syndrome (SIRS) of non-infectious origin without acute organ dysfunction; D72.829 Elevated white blood cell count, unspecified; G40.909 Epilepsy, unspecified, not intractable, without status epilepticus; K21.9 Gastro-esophageal reflux disease without esophagitis; Z93.1 Gastrostomy status; R13.10 Dysphagia, unspecified; D50.9 Iron deficiency anemia, unspecified; E03.9 Hypothyroidism, unspecified; E83.52 Hypercalcemia; F03.90 Unspecified dementia, unspecified severity, without behavioral disturbance, psychotic disturbance, mood disturbance, and anxiety; G80.9 Cerebral palsy, unspecified; I11.0 Hypertensive heart disease with heart failure; R73.9 Hyperglycemia, unspecified; I50.9 Heart failure, unspecified; K44.9 Diaphragmatic hernia without obstruction or gangrene; K57.30 Diverticulosis of large intestine without perforation or abscess without bleeding; Z22.322 Carrier or suspected carrier of Methicillin resistant Staphylococcus aureus; Z87.442 Personal history of urinary calculi; Z88.8 Allergy status to other drugs, medicaments and biological substances; Z68.33 Body mass index [BMI] 33.0-33.9, adult
CPT/HCPCS: 36415; 71045; 76770; 80048; 80053; 81001; 82728; 83540; 84443; 85025; 85610; 85730; 86886; 86900; 86901; 87040; 87081; 87086; 93005; 96361; 96374; 96375; 99285; C1758; C9113; J0690; J1200; J2250; J2405; J2765; J3010; J7030; J7060; Q0092

== ENCOUNTER 2019-07-15 22:00 | Inpatient (IN) | payer OTHER, MEDICAID ==
[~2019-07-15] VITALS: Ht 157.5 cm; Wt 74.4 kg
[~2019-07-15 22:00] MED LIST changes: +FER325 PO; +FOLI1TAB90 PO; +KETO5DRO OP; -KETO5SOL OP; +LACT10SO11 PO; +SENN-74 PO
[2019-07-15 22:01] VITALS: BP 126/64
--- NOTE | 2019-07-15 22:01 | NUR ---
BIBA TO ER BED 2
--- NOTE | 2019-07-15 22:10 | NUR ---
PMH: INTELLECTUAL DISABILITY, BIPOLAR, HYPOTHYROID.
--- NOTE | 2019-07-15 22:10 | NUR ---
PT BIBA C/O COUGH AND CONGESTION X 1HR TODAY. PT IS FORM A BORDING FACILITY CALLED [facility]. SMALL PARTS SHAPER OPERATOR SAID THERES A FLU GOING AROUND AT THE FACILITY. PT SPO2 IS 95% 2L NC. NO RESP DISTRESS NOTED. A&0 X 2 (PERSON,PLACE). LUNG SOUNDS ARE RONCHI ON UPPER LOBES. DIMINISHED ON RIGHT MID TO LOWER LOBES. NO USE OF ACCCESSORY MUSCLE NOTED. PRODUCTIVE COUGH PRESENT. ALLERGIES: ERTHYROMICIN PMH: CEREBRAL PALSY, EPILESPSY, COPD, EMPHYSEMA, GERD.
[2019-07-15] MEDS ORDERED: BLOOD GLUCOSE MONITORING 1 DEV DEV FS STA (22:39)
[2019-07-15] MEDS ORDERED: NACL 0.9% 0 ML IV STA (22:39)
[2019-07-15 23:41] LABS: BASOPHILS % (AUTO) 0.3 % (0.0-2.0); EOSINOPHILS # (AUTO) 0.1 K/uL (0-0.4); EOSINOPHILS % (AUTO) 1.2 % (0.0-4.0); HEMATOCRIT 37.4 % (36-52); HEMOGLOBIN 11.8 g/dL (12.0-18.0); LYMPHOCYTES # (AUTO) 0.9 K/uL (2.0-11.5); MEAN CORPUSCULAR HEMOGLOBIN 26 pg (27-31); MEAN CORPUSCULAR HGB CONC 32 g/dL (33-37); MEAN CORPUSCULAR VOLUME 83.3 fL (80-94); MONOCYTES # (AUTO) 1.2 K/uL (0.8-1.0); MONOCYTES % (AUTO) 9.9 % (1.7-9.3); NEUTROPHILS # (AUTO) 10.1 K/uL (1.8-7.7); PLATELET COUNT (AUTO) 232 K/uL (140-450); RED BLOOD CELL COUNT(AUTO) 4.49 MIL/uL (4.20-6.10); WHITE BLOOD COUNT (AUTO) 12.4 K/uL (4.8-10.8)
[2019-07-15] MEDS ORDERED: ALBUTEROL 0.083% 2.5 MG/3 ML NEBU INH ONE (23:55)
[2019-07-15] MEDS ORDERED: PIPERACILLIN/TAZOBACTAM 3.375 GM in DEXTROSE 5% 50 ML IV ONE (23:55)
[2019-07-15 23:57] LABS: CARBON DIOXIDE 28.2 mmol/L (21-32); CREATININE 0.7 mg/dL (0.7-1.3); POTASSIUM 4.2 mmol/L (3.5-5.1)
[2019-07-16] LABS: LYMPHOCYTES % (AUTO) 7.6 % (20.5-51.1)
[2019-07-16 00:04] LABS: ALBUMIN 2.9 g/dL (3.4-5.0); TOTAL BILIRUBIN 0.2 mg/dL (0.0-1.0)
[2019-07-16 00:22] LABS: APPEARANCE,URINE CLEAR (CLEAR); BILIRUBIN,URINE NEGATIVE (NEGATIVE); BLOOD, URINE TRACE-I (NEGATIVE); COLOR,URINE YELLOW (YELLOW); LEUKOCYTE ESTERASE ,URINE NEGATIVE (NEGATIVE); NITRITE, URINE NEGATIVE (NEGATIVE); UGLUCOSE NEGATIVE (NEGATIVE)
--- NOTE | 2019-07-16 00:31 | NUR ---
FLU SWAB COLLECTED.
[2019-07-16] MEDS ORDERED: PIPERACILLIN/TAZOBACTAM 3.375 GM VIAL IV ONE (00:33)
[2019-07-16 00:42] LABS: RBC,URINE 0-5 /HPF (0-5); WBC,URINE NONE SEEN /HPF (0-5)
[2019-07-16] MEDS ORDERED: BENZ-203 PO (00:56)
[2019-07-16] MEDS ORDERED: FURO-572 PO (00:59)
[2019-07-16] MEDS ORDERED: METO-485 GT (01:03)
[2019-07-16] MEDS ORDERED: RISP0.5T3 GT (01:06)
--- NOTE | 2019-07-16 02:00 | NUR ---
ADMITTED THIS 63 YEAR OLD MALE PATIENT FROM ER DUE TO COUGH AND CONGESTION WITH THE ADMITTING DIAGNOSIS OF PNEUMONIA PER CHRIS. ASSISTED IN ICU BED 8; HOOKED TO COMPUTER CONSOLE OPERATOR, SCOPE SHOWS ON SINUS RHYTHM HR 85/MIN NO ARRHYTHMIAS SEEN; PERIPHERAL PULSES + NO PEDAL EDEMA SEEN. PATIENT IS AWAKE,ABLE TO FOLLOW ONE STEP COMMAND, WITH GARBLED SPEECH BUT WITH MENTAL CHALLENGE.BREATHING EVEN AND UNLABORED; ON 2 LITERS 02/NC S02 97-98%. WITH G22 IV CANNULA ON EACH HAND; INTACT. ABDOMEN IS SOFT, HYPOACTIVE BOWEL SOUNDS WITH G TUBE IN PLACE; INTACT.VOIDING THRU DIAPER AND NOTED WITH SLIGHT REDNESS OF THE SCROTUM.
--- NOTE | 2019-07-16 02:00 | NUR ---
Patient will be admitted to care of DR. PATINO. Admited to ICU. Will go to room 8. Belongings list completed. Report to BASILIO GALVEZ.
[2019-07-16 04:00] VITALS: BP 103/44
--- NOTE | 2019-07-16 04:00 | NUR ---
ABLE TO TURNED AND REPOSITIONED HIMSELF.
[2019-07-16] MEDS ORDERED: PIPERACILLIN/TAZOBACTAM 3.375 GM in DEXTROSE 5% 50 ML IV SCH (06:00)
[2019-07-16] MEDS ORDERED: LORazepam 2 MG/ML VIAL IVP PRN (06:10)
[2019-07-16] MEDS ORDERED: BISACODYL 10 MG SUPP RC PRN ×2 (06:10→07:38)
[2019-07-16] MEDS ORDERED: ACETAMINOPHEN 325 MG TAB PO PRN (06:10)
[2019-07-16] MEDS ORDERED: ALBUTEROL 0.083% 2.5 MG/3 ML NEBU INH PRN (06:10)
[2019-07-16] MEDS ORDERED: BISMUTH SUBSALICYLATE 15 ML UDBTL GT PRN (06:10)
[2019-07-16] MEDS ORDERED: ONDANSETRON 4 MG/2 ML VIAL IVP PRN (06:10)
[2019-07-16] MEDS ORDERED: SODIUM PHOSPHATE 118 ML ENEM RC PRN (06:10)
[2019-07-16] MEDS ORDERED: IBUPROFEN CHILDRENS 100 MG/5 ML UDC GT PRN (06:10)
--- NOTE | 2019-07-16 06:30 | NUR ---
TRANSFER PATIENT TO TELEMETRY UNIT PER BED IN STABLE CONDITION. ENDORSED TO BASILIO IYER FOR CONTINUITY OF CARE.
--- NOTE | 2019-07-16 07:30 | NUR ---
RECEIVED PT FROM PM SHIFT RN. PT SLEEPING BUT AROUSABLE. ON O2 NC 2L/MIN. NO S/S OF RESPIRATORY DISTRESS NOTED. PT HAS IV TO RIGHT HAND #22 AND LEFT HAND #24. SALINE LOCKED. SKIN INTACT, FLACC 0. HOB ELEVATED 30 DEGREES WITH LOW BED POSITION. WILL CONTINUE TO MONITOR.
[2019-07-16 08:00] VITALS: BP 99/45
--- NOTE | 2019-07-16 08:00 | NUR ---
PT SCREAMING IN BED, WHEN I WALKED IN PT'S ROOM, ASKED " ANY PAIN? ANY DISCOMFORT?" PT DENIED AND SAID " SORRY". PT CALMS DOWN WHILE I WAS THERE AND SCREAMING AGAIN WHEN I LEFT.
[2019-07-16] MEDS: IPRATROPIUM 0.02% 0.5 MG/2.5 ML NEBU INH SCH ×3 (08:20→20:00)
[2019-07-16] MEDS: VALPROIC ACID 250 MG/5 ML UDC GT SCH ×2 (08:21→21:18)
[2019-07-16] MEDS: POLYETHYLENE GLYCOL 17 GM/PKT PO SCH (08:22)
[2019-07-16] MEDS: METOCLOPRAMIDE 10 MG/10 ML SYRP UDC GT SCH ×3 (08:22→17:50)
[2019-07-16] MEDS: BENZTROPINE 1 MG TAB PO SCH ×2 (08:23→21:19)
[2019-07-16] MEDS: FUROSEMIDE 20 MG TAB PO SCH (08:23)
[2019-07-16] MEDS: MULTIVITAMIN 1 TAB GT SCH (08:23)
[2019-07-16 08:24] LABS: BASOPHILS # (AUTO) 0.1 K/uL (0.00-0.22); BASOPHILS % (AUTO) 0.5 % (0.0-2.0); EOSINOPHILS # (AUTO) 0.1 K/uL (0-0.4); EOSINOPHILS % (AUTO) 1.3 % (0.0-4.0); HEMATOCRIT 38.3 % (36-52); HEMOGLOBIN 12.3 g/dL (12.0-18.0); LYMPHOCYTES # (AUTO) 0.5 K/uL (2.0-11.5); LYMPHOCYTES % (AUTO) 4.2 % (20.5-51.1); MEAN CORPUSCULAR HEMOGLOBIN 27 pg (27-31); MEAN CORPUSCULAR HGB CONC 32 g/dL (33-37); MEAN CORPUSCULAR VOLUME 82.8 fL (80-94); MONOCYTES # (AUTO) 1.1 K/uL (0.8-1.0); MONOCYTES % (AUTO) 9.8 % (1.7-9.3); NEUTROPHILS # (AUTO) 9.3 K/uL (1.8-7.7); NEUTROPHILS % (AUTO) 84.2 % (42.2-75.2); PLATELET COUNT (AUTO) 226 K/uL (140-450); RED BLOOD CELL COUNT(AUTO) 4.62 MIL/uL (4.20-6.10); RED CELL DISTRIBUTION WIDTH 18.6 % (11.6-13.7)
[2019-07-16] MEDS: LEVOTHYROXINE 0.075 MG TAB GT SCH (08:24)
[2019-07-16] MEDS: risperiDONE 1 MG TAB GT SCH ×2 (08:29→21:20)
[2019-07-16] MEDS: DEXT 5% /NACL 0.9% 1,000 ML IV SCH (08:30)
--- NOTE | 2019-07-16 08:31 | NUR ---
PATIENT HAS BEEN SCREENED AND CATEGORIZED HIGH NUTRITION RISK. PATIENT WILL BE SEEN WITHIN 1-2 DAYS OF ADMISSION. 07/16/19-07/17/[address]
[2019-07-16 08:40] LABS: ALBUMIN 2.8 g/dL (3.4-5.0); ANION GAP 11.3 (8-16); CARBON DIOXIDE 26.7 mmol/L (21-32); CREATININE 0.7 mg/dL (0.7-1.3); TOTAL BILIRUBIN 0.2 mg/dL (0.0-1.0)
--- NOTE | 2019-07-16 08:51 | NUR ---
IV TO LEFT HAND # 24 CAME OUT. RIGHT HAND # 22.
--- NOTE | 2019-07-16 10:40 | NUR ---
SCREEN FOR LOW JAMES SCALE AT RISK, CONTINUE TO FOLLOW PRESSURE ULCER PREVENTION INTERVENTIONS. - CONTINUE TO APPLY HYDRAGUARD CREAM FOR SCROTAL REDNESS DUE TO INCONTINENT ASSOCIATE DERMATITIS. -TURN AND REPOSITION PATIENT Q2H, ASSIST IF NEEDED -ASSESS AND MONITOR SKIN CONDITION DURING POSITION CHANGES -OFFLOAD BILATERAL HEELS BY PLACING PILLOWS UNDER CALVES AT ALL TIMES, UNLESS OTHERWISE CONTRAINDICATED -PRESSURE REDISTRIBUTION BY PLACING PILLOWS AND OFFLOADING SACRALCOCCYX -KEEP SKIN CLEAN AND DRY AT ALL TIMES. - CONTINUE TO APPLY HYDRAGUARD BARRIER CREAM ON SCROTAL REDNESS AND PERINEAL AREA ASSOCIATED WITH INCONTINENCE DERMATITIS PER MD ORDERS.
[2019-07-16] MEDS: FAMOTIDINE 20 MG TAB GT SCH ×2 (11:34→21:19)
[2019-07-16] MEDS: PIPERACILLIN/TAZOBACTAM 3.375 GM in DEXTROSE 5% 50 ML IV SCH ×2 (11:34→17:50)
[2019-07-16 12:00] VITALS: BP 103/55
--- NOTE | 2019-07-16 12:14 | NUR ---
IV TO RIGHT HAND CAME OUT, REINSERTED IV TO RIGHT THUMB #24 AND LEFT HAND #22.
[2019-07-16] MEDS: HYDRAGUARD CREAM TP SCH (13:00)
--- NOTE | 2019-07-16 13:59 | NUR ---
*S.T. BEDSIDE SWALLOW EVAL COMPLETED* See report for details. Pt presents w/ severe-profound oropharyngeal dysphagia c/b inability to manage oral bolus and propel posteriorly, absent pharyngeal swallow response w/ resultant oral pooling on R side, drooling and required bolus extraction by clinician. Pt is deemed extremely high risk for aspiration. Recommend: 1) Strict NPO including meds; alternate means of nutrition/hydration/meds, such as G-tube, which pt currently has. 2) Aggressive oral care due to high aspiration risk. Pt has long hx of dysphagia w/ non-oral feeding and presents as poor rehab candidate due to cognitive linguistic limitations, as well. No further swallow tx is indicated at this time. DC to [facility]. Endorsed to BASILIO Renteria. Time [phone]
--- NOTE | 2019-07-16 14:01 | NUR ---
07/16/19 RD INITIAL ASSESSMENT COMPLETED PLEASE REFER TO NUTRITION ASSESSMENT UNDER CARE ACTIVITY FOR ESTIMATED NUTRITIONAL NEEDS. 1. PATIENT FAILED SWALLOW EVALUATION, PIGMENT MIXER RECOMMENDED NPO 2. RECOMMEND JEVITY 1.2 @ 55ML/HR X 24 HR -THIS WILL PROVIDE 1320 ML OF VOLUME, 1584 KCAL, AND 73 GM OF PROTEIN WHICH MEETS 100% OF ESTIMATED NUTRIENT NEEDS. 3. RECOMMEND FREE WATER FLUSH [address] TO FOLLOW-UP 2-3 DAYS, HIGH RISK [address]
--- NOTE | 2019-07-16 14:46 | NUR ---
PT SLEEPING IN BED. NO S/S OF RESPIRATORY DISTRESS NOTED.
[2019-07-16 16:00] VITALS: BP 112/50
--- NOTE | 2019-07-16 17:30 | NUR ---
STARTED TUBE FEEDING .
[2019-07-16] MEDS ORDERED: VANCOMYCIN PER PHARMACY MC PRN (18:10)
--- NOTE | 2019-07-16 19:35 | NUR ---
RECEIVED REPORT FROM DAY SHIFT NURSE. PT SLEEPING BUT EASILY AROUSABLE. NO S/S OF PAIN OR RESPIRATORY DISTRESS. ON O2 AT 2L/MIN VIA NC. IV TO LEFT HAND #22G, D5NS AT 50 ML/HR INFUSING WELL AND RIGHT THUMB #24G, SALINE LOCK. PT HAS G-TUBE WITH FEEDING, JEVITY 1.2 AT 20 ML/HR. SEIZURE AND FALL PRECAUTION IN PLACE. CALL LIGHT WITHIN REACH.
[2019-07-16 20:00] VITALS: BP 108/51
--- NOTE | 2019-07-16 20:00 | NUR ---
PT TOLERATING FEEDING WELL. G-TUBE FEEDING INCREASED RATE TO 30 ML/HR. ASPIRATION PRECAUTION IN PLACE. CALL LIGHT WITHIN REACH.
[2019-07-16] MEDS: OSELTAMIVIR PHOSPHATE 75 MG CAP PO SCH (21:19)
[2019-07-16] MEDS: SENNA 8.6 MG TAB PO SCH (21:19)
[2019-07-16] MEDS: VANCOMYCIN 1,000 MG in DEXTROSE 5% 250 ML IV SCH (21:20)
--- NOTE | 2019-07-16 23:00 | NUR ---
GT RESIDUAL 5 ML. INCREASED RATE TO 55 ML/HR, GOAL RATE. PT TOLERATING FEEDING WELL. ASPIRATION AND SAFETY PRECAUTIONS IN PLACE
[2019-07-17] VITALS: BP 111/52
[2019-07-17] MEDS: PIPERACILLIN/TAZOBACTAM 3.375 GM in DEXTROSE 5% 50 ML IV SCH ×4 (00:23→17:42)
[2019-07-17] MEDS: HYDRAGUARD CREAM TP SCH ×2 (00:27→13:46)
--- NOTE | 2019-07-17 02:00 | NUR ---
PT SLEEPING BUT AROUSABLE. REPOSITIONED PT Q2H. PT KEPT DRY AND COMFORTABLE.
[2019-07-17] MEDS: DEXT 5% /NACL 0.9% 1,000 ML IV SCH ×2 (03:00→23:00)
[2019-07-17 04:00] VITALS: BP 97/51
--- NOTE | 2019-07-17 04:45 | NUR ---
PT IN BED, AWAKE. DENIES PAIN OR SOB. PT REPOSITIONED Q2HRS. PT TOLERATING FEEDING WELL. ASPIRATION AND FALL PRECAUTION IN PLACE.
[2019-07-17] MEDS: LEVOTHYROXINE 0.075 MG TAB GT SCH (06:46)
[2019-07-17] MEDS: METOCLOPRAMIDE 10 MG/10 ML SYRP UDC GT SCH ×3 (06:46→17:41)
--- NOTE | 2019-07-17 07:05 | NUR ---
RECEIVE REPORT FROM NIGHT NURSE, PT ASLEEP IN BED, PT IS STABLE, PT HAS LEFT HAND 22G, RIGHT THUMB 24 G, RUINNING D5NS A5 50 ML/H ON LH, G-TUBE FEEDING IS JEVITY 1.2 RUNNING AT 55 ML/H , WITH WATER FLUSH OF 110ML Q6 H, SAFETY MEASURES IN PLACE, UPDATE WHITEBOARD, WILL CONTINUE TO MONITOR, CALL LIGHT WITHIN REACH.
--- NOTE | 2019-07-17 07:05 | NUR ---
ENDORSED PT TO DAY SHIFT NURSE. PT IN STABLE CONDITION.
[2019-07-17 08:00] VITALS: BP 113/54
[2019-07-17 08:01] LABS: BASOPHILS % (AUTO) 0.4 % (0.0-2.0); EOSINOPHILS # (AUTO) 0.4 K/uL (0-0.4); EOSINOPHILS % (AUTO) 3.6 % (0.0-4.0); HEMATOCRIT 38.1 % (36-52); HEMOGLOBIN 12.1 g/dL (12.0-18.0); LYMPHOCYTES # (AUTO) 0.4 K/uL (2.0-11.5); LYMPHOCYTES % (AUTO) 4.2 % (20.5-51.1); MEAN CORPUSCULAR HEMOGLOBIN 27 pg (27-31); MEAN CORPUSCULAR HGB CONC 32 g/dL (33-37); MEAN CORPUSCULAR VOLUME 84.2 fL (80-94); MONOCYTES # (AUTO) 0.8 K/uL (0.8-1.0); MONOCYTES % (AUTO) 7.9 % (1.7-9.3); NEUTROPHILS # (AUTO) 8.8 K/uL (1.8-7.7); NEUTROPHILS % (AUTO) 83.9 % (42.2-75.2); PLATELET COUNT (AUTO) 201 K/uL (140-450); RED BLOOD CELL COUNT(AUTO) 4.53 MIL/uL (4.20-6.10); RED CELL DISTRIBUTION WIDTH 18.5 % (11.6-13.7); WHITE BLOOD COUNT (AUTO) 10.6 K/uL (4.8-10.8)
[2019-07-17 08:10] LABS: ANION GAP 11.8 (8-16); CARBON DIOXIDE 27.4 mmol/L (21-32); CREATININE 0.7 mg/dL (0.7-1.3); POTASSIUM 4.2 mmol/L (3.5-5.1)
[2019-07-17] MEDS: IPRATROPIUM 0.02% 0.5 MG/2.5 ML NEBU INH SCH ×3 (08:55→20:42)
[2019-07-17] MEDS: VANCOMYCIN 1,000 MG in DEXTROSE 5% 250 ML IV SCH ×2 (09:21→20:10)
[2019-07-17] MEDS ORDERED: CRUSHER, PILL MC ONE (09:29)
[2019-07-17] MEDS: MULTIVITAMIN 1 TAB GT SCH (09:30)
[2019-07-17] MEDS: OSELTAMIVIR PHOSPHATE 75 MG CAP PO SCH ×2 (09:31→21:42)
[2019-07-17] MEDS: FAMOTIDINE 20 MG TAB GT SCH ×2 (09:32→21:40)
[2019-07-17] MEDS: FUROSEMIDE 20 MG TAB PO SCH (09:32)
[2019-07-17] MEDS: risperiDONE 1 MG TAB GT SCH ×2 (09:33→21:40)
[2019-07-17] MEDS: POLYETHYLENE GLYCOL 17 GM/PKT PO SCH (09:33)
[2019-07-17] MEDS: VALPROIC ACID 250 MG/5 ML UDC GT SCH ×2 (09:34→21:38)
--- NOTE | 2019-07-17 09:34 | NUR ---
GAVE PT ORDERED MEDICATION, EDUCATION GIVEN, PT TOLERATED WELL, NO RESIDUAL IN G-TUBE, PT IS STABLE, CALL LIGHT WITHIN REACH.
[2019-07-17] MEDS: BENZTROPINE 1 MG TAB PO SCH ×2 (09:44→21:41)
--- NOTE | 2019-07-17 11:00 | NUR ---
PT RESTING IN BED, NO SIGNS OF DISTRESS NOTED, PT IS STABLE, CALL LIGHT WITHIN REACH.
[2019-07-17 12:00] VITALS: BP 121/51
[2019-07-17] MEDS: CHLORHEXADINE GLUC 2% CLOTH TP SCH (12:23)
[2019-07-17] MEDS: MUPIROCIN CA NASAL 2% 1GM TUBE NS SCH (12:23)
--- NOTE | 2019-07-17 13:00 | NUR ---
PT RESTING IN BED, NO SIGNS OF DISTRESS NOTED, PT IS STABLE WITH EVEN AND UNLABORED RESPIRATIONS, CALL LIGHT WITHIN REACH.
--- NOTE | 2019-07-17 15:00 | NUR ---
PT IS RESTING IN BED, NO SIGNS OF DISTRESS NOTED, CALL LIGHT WITHIN REACH.
[2019-07-17 16:00] VITALS: BP 106/46
--- NOTE | 2019-07-17 19:20 | NUR ---
GAVE REPORT TO NIGHT NURSE FOR CONTINUITY OF CARE, PT IS STABLE.
--- NOTE | 2019-07-17 19:30 | NUR ---
RECEIVED PT FROM SWATI RN PT AOX1 COUGHING WITH ABUNDANT SECRETION WHITE COLOR , IV ON RT HAND GUGE #24 G TUBE FEEDING ZERO RESIDUAL WELL TOLERATED INCONTINENT ON CONTACT ISOLATION FOR POSSITIVE MRSA NARES REPOSITIONED INITIAL ASSESSMENT DONE
[2019-07-17 20:00] VITALS: BP 105/59
--- NOTE | 2019-07-17 20:47 | NUR ---
RECEIVED PT ON 2L NC WITH SP02 OF 94% AND COARSE BREATH SOUNDS. NO RESPIRATORY DISTRESS NOTED AT THIS TIME; HR 72, RR 18. HHN TX GIVEN ORDERED WITH NO ADVERSE REACTION. WILL CONTINUE TO MONITOR PT
[2019-07-17] MEDS: SENNA 8.6 MG TAB PO SCH (21:42)
--- NOTE | 2019-07-17 22:00 | NUR ---
PT REPOSITIONED G TUBE FEEDINT WELL TOLERATED NOT DISTRESS NOTED
[2019-07-18] VITALS: BP 93/49
[2019-07-18] MEDS: PIPERACILLIN/TAZOBACTAM 3.375 GM in DEXTROSE 5% 50 ML IV SCH ×4 (00:36→17:28)
[2019-07-18] MEDS: HYDRAGUARD CREAM TP SCH ×2 (01:00→12:38)
--- NOTE | 2019-07-18 01:00 | NUR ---
PT REPOSITIONED NOT DISTRESSS NOTED GTUBE WELL TOLERATED
[2019-07-18 04:00] VITALS: BP 102/57
--- NOTE | 2019-07-18 04:00 | NUR ---
SPONGE BATH GIVEN LINEN CHANGED G TUBE WELL TOLERATED IV ON RT HAND INFUSING WELL
[2019-07-18] MEDS: LEVOTHYROXINE 0.075 MG TAB GT SCH (06:45)
[2019-07-18] MEDS: METOCLOPRAMIDE 10 MG/10 ML SYRP UDC GT SCH ×3 (06:46→17:27)
--- NOTE | 2019-07-18 07:08 | NUR ---
[facility]
--- NOTE | 2019-07-18 07:09 | NUR ---
Received report from pm nurse Grace. Pt resting in bed, no signs of distress, respirations even & nonlabored. GT intact with ongoing Jevity 1.2 @ 55ml/h. HOB elevated @ 30. Right hand IV 24G intact with ongoing D5NS @ 50 ml/h. Call light within reach.
[2019-07-18 07:15] LABS: BASOPHILS % (AUTO) 0.5 % (0.0-2.0); EOSINOPHILS # (AUTO) 0.3 K/uL (0-0.4); EOSINOPHILS % (AUTO) 3.9 % (0.0-4.0); HEMATOCRIT 38.6 % (36-52); HEMOGLOBIN 12.2 g/dL (12.0-18.0); LYMPHOCYTES # (AUTO) 0.8 K/uL (2.0-11.5); LYMPHOCYTES % (AUTO) 8.7 % (20.5-51.1); MEAN CORPUSCULAR HEMOGLOBIN 27 pg (27-31); MEAN CORPUSCULAR HGB CONC 32 g/dL (33-37); MEAN CORPUSCULAR VOLUME 84.3 fL (80-94); MONOCYTES % (AUTO) 10.7 % (1.7-9.3); NEUTROPHILS # (AUTO) 6.9 K/uL (1.8-7.7); NEUTROPHILS % (AUTO) 76.2 % (42.2-75.2); PLATELET COUNT (AUTO) 196 K/uL (140-450); RED BLOOD CELL COUNT(AUTO) 4.59 MIL/uL (4.20-6.10); RED CELL DISTRIBUTION WIDTH 18.3 % (11.6-13.7); WHITE BLOOD COUNT (AUTO) 9.1 K/uL (4.8-10.8)
[2019-07-18 07:34] LABS: ANION GAP 12.7 (8-16); CARBON DIOXIDE 28.5 mmol/L (21-32); CREATININE 0.7 mg/dL (0.7-1.3); POTASSIUM 4.2 mmol/L (3.5-5.1)
[2019-07-18 08:00] VITALS: BP 117/49
[2019-07-18] MEDS: FAMOTIDINE 20 MG TAB GT SCH ×2 (08:23→20:30)
[2019-07-18] MEDS: OSELTAMIVIR PHOSPHATE 75 MG CAP PO SCH ×2 (08:23→20:32)
[2019-07-18] MEDS: BENZTROPINE 1 MG TAB PO SCH ×2 (08:23→20:31)
[2019-07-18] MEDS: POLYETHYLENE GLYCOL 17 GM/PKT PO SCH (08:24)
[2019-07-18] MEDS: MULTIVITAMIN 1 TAB GT SCH (08:24)
[2019-07-18] MEDS: VALPROIC ACID 250 MG/5 ML UDC GT SCH ×2 (08:24→20:29)
[2019-07-18] MEDS: FUROSEMIDE 20 MG TAB PO SCH (08:24)
[2019-07-18] MEDS: risperiDONE 1 MG TAB GT SCH ×2 (08:24→20:30)
[2019-07-18] MEDS: VANCOMYCIN 1,000 MG in DEXTROSE 5% 250 ML IV SCH (08:25)
[2019-07-18] MEDS: IPRATROPIUM 0.02% 0.5 MG/2.5 ML NEBU INH SCH ×3 (09:53→21:20)
[2019-07-18] MEDS: CHLORHEXADINE GLUC 2% CLOTH TP SCH (12:28)
[2019-07-18] MEDS: MUPIROCIN CA NASAL 2% 1GM TUBE NS SCH (12:28)
--- NOTE | 2019-07-18 14:00 | NUR ---
Spoke to sister Martha Dunn on the phone re: PICC insertion order from Dr Martin. Martha verbalized understanding of procedure and agree with PICC placement; 2 nurse verification completed. PICC nurse currently in ICU and is aware of new order.
--- NOTE | 2019-07-18 15:00 | NUR ---
PICC nurse arrived at bedside. Pt currently resting in bed, awake, no signs of distress. GT intact with ongoing Jevity 1.2 @ 55ml/h. Right hand IV 24G intact with ongoing D5NS @ 50ml/h. Call light within reach.
--- NOTE | 2019-07-18 15:38 | NUR ---
Per Felicity PICC nurse, PICC insertion completed to right upper arm 2-lumen without complications. Called radiology, but xr tech currently at ER and will see pt after. Felicity notified. Pt currently resting in bed, watching TV, no c/o pain, no signs of distress. Right upper arm PICC clean, dry, & intact.
[2019-07-18 16:00] VITALS: BP 119/42
--- NOTE | 2019-07-18 17:00 | NUR ---
New bottle of Jevity 1.2 initiated via enteral feeding pump. HOB kept elevated @ 30. Pt resting in bed, watching TV, no signs of distress. Right hand peripheral IV removed, cannula intact. Site with min bleeding covered with dry gauze and tape. Call light within reach.
[2019-07-18] MEDS: DEXT 5% /NACL 0.9% 1,000 ML IV SCH (17:56)
--- NOTE | 2019-07-18 19:15 | NUR ---
Report given to nurse Ashtyn.
--- NOTE | 2019-07-18 19:15 | NUR ---
RECEIVED REPORT FROM AKIL RN DAYSHIFT NURSE AT BEDSIDE FOR CONTINUITY OF CARE, PT IN STABLE CONDITION.
--- NOTE | 2019-07-18 20:00 | NUR ---
PT IN BED HE IS AOX1. PT IS APHASIAC, HE HAS N/C RUNNING AT 2LITERS , LUNG SOUNDS DIMINISHED WITH RHALES AND HE IS NOTED WITH A DRY BARKING NON PRODUCTIVE COUGH. PT HAS RIGHT UPPER PICC LINE INTACT AND RUNNING D5N/S AT 50MLS/HR. PT ALSO HAS GT INTACT AND NO RESIDUAL NOTED. PT RUNNING TUBE FEEDING OF JEVITY1.2 AT 55MLS/HR. V/S FOLLOWS: T 97.4 P 73 R 20 B/P 121/51 02 98% WITH 2 LITERS VIA N/C. ALL FALLS, SEIZURE AND CONTACT PRECAUTIONS IN PLACE.
[2019-07-18] MEDS: VANCOMYCIN 1,500 MG in DEXTROSE 5% 500 ML IV SCH (20:25)
--- NOTE | 2019-07-18 20:30 | NUR ---
VANCOCIN HUNG 500ML BAG AND IS RUNNING AT 250MLS/HR.
[2019-07-18] MEDS: SENNA 8.6 MG TAB PO SCH (20:32)
--- NOTE | 2019-07-18 21:00 | NUR ---
PT GIVEN ALL DUE MEDS VIA GT. HE WAS TURNED, CHANGED AND REPOSITIONED. HYPOGUARD APPLIED TO AREAS OF MELCHOR REDNESS. PT HAS NO S/S OF PAIN OR DISTRESS NOTED. ALL FALLS, SEIZURE AND CONTACT PRECAUTIONS IN PLACE. IV FLUIDS AND TUBE FEEDING RUNNING ORDERED.
[2019-07-19] VITALS: BP 124/59
--- NOTE | 2019-07-19 | NUR ---
PT IN BED SLEEPING NO S/S OF PAIN OR DISTRESS NOTED. V/S FOLLOWS: T 97.0 P 55 R 20 B/P 124/59 02 97% WITH 2 LITERS VIA N/C. PT REPOSITIONED IN BED. ALL SEIZURE, FALLS AND CONTACT PRECAUTIONS IN PLACE.
--- NOTE | 2019-07-19 01:00 | NUR ---
ORDERED ZOSYN HUNG AND RUNNING AT 100MLS/HR ORDERED.
[2019-07-19] MEDS: PIPERACILLIN/TAZOBACTAM 3.375 GM in DEXTROSE 5% 50 ML IV SCH ×3 (01:10→12:01)
[2019-07-19] MEDS: HYDRAGUARD CREAM TP SCH ×2 (01:17→12:26)
--- NOTE | 2019-07-19 02:30 | NUR ---
PT IN BED SLEEPING NO S/S OF PAIN OR DISTRESS NOTED. ALL FLUIDS RUNNING ORDERED AND ALL ORDERED PRECAUTIONS IN PLACE.
--- NOTE | 2019-07-19 06:00 | NUR ---
PT GIVEN ORDERED ZOSYN, HUNG AND RUNNING VIA DT AT 100MLS/HR. PT ALSO GIVEN SYNTHROID AND REGLAN ORDERED VIA GT. AL ORDERED PRECAUTIONS IN PLACE AND PT HAS NO S/S OF PAIN OR DISTRESS NOTED.
[2019-07-19] MEDS: LEVOTHYROXINE 0.075 MG TAB GT SCH (06:06)
[2019-07-19] MEDS: METOCLOPRAMIDE 10 MG/10 ML SYRP UDC GT SCH ×2 (06:06→12:01)
[2019-07-19 06:54] LABS: BASOPHILS % (AUTO) 0.6 % (0.0-2.0); EOSINOPHILS # (AUTO) 0.4 K/uL (0-0.4); EOSINOPHILS % (AUTO) 4.8 % (0.0-4.0); HEMATOCRIT 36.5 % (36-52); HEMOGLOBIN 11.6 g/dL (12.0-18.0); LYMPHOCYTES # (AUTO) 0.8 K/uL (2.0-11.5); LYMPHOCYTES % (AUTO) 10.6 % (20.5-51.1); MEAN CORPUSCULAR HEMOGLOBIN 27 pg (27-31); MEAN CORPUSCULAR HGB CONC 32 g/dL (33-37); MEAN CORPUSCULAR VOLUME 83.7 fL (80-94); MONOCYTES # (AUTO) 0.9 K/uL (0.8-1.0); MONOCYTES % (AUTO) 12.4 % (1.7-9.3); NEUTROPHILS # (AUTO) 5.4 K/uL (1.8-7.7); NEUTROPHILS % (AUTO) 71.6 % (42.2-75.2); PLATELET COUNT (AUTO) 186 K/uL (140-450); RED BLOOD CELL COUNT(AUTO) 4.36 MIL/uL (4.20-6.10); RED CELL DISTRIBUTION WIDTH 18.2 % (11.6-13.7); WHITE BLOOD COUNT (AUTO) 7.5 K/uL (4.8-10.8)
[2019-07-19 07:16] LABS: ANION GAP 10.6 (8-16); CARBON DIOXIDE 29.5 mmol/L (21-32); CREATININE 0.6 mg/dL (0.7-1.3); POTASSIUM 4.1 mmol/L (3.5-5.1)
--- NOTE | 2019-07-19 07:30 | NUR ---
RECEIVED REPORT FROM SENIOR IT SECURITY ANALYST NURSE. PT IS RESTING IN BED IN STABLE CONDITION. CALL LIGHT IN REACH.
[2019-07-19 08:00] VITALS: BP 110/58
[2019-07-19] MEDS: IPRATROPIUM 0.02% 0.5 MG/2.5 ML NEBU INH SCH (08:51)
[2019-07-19] MEDS: FUROSEMIDE 20 MG TAB PO SCH (09:00)
[2019-07-19] MEDS: FAMOTIDINE 20 MG TAB GT SCH (09:01)
[2019-07-19] MEDS: MULTIVITAMIN 1 TAB GT SCH (09:01)
[2019-07-19] MEDS: POLYETHYLENE GLYCOL 17 GM/PKT PO SCH (09:01)
[2019-07-19] MEDS: risperiDONE 1 MG TAB GT SCH (09:01)
[2019-07-19] MEDS: OSELTAMIVIR PHOSPHATE 75 MG CAP PO SCH (09:01)
[2019-07-19] MEDS: VALPROIC ACID 250 MG/5 ML UDC GT SCH (09:01)
[2019-07-19] MEDS: BENZTROPINE 1 MG TAB PO SCH (09:02)
[2019-07-19] MEDS: VANCOMYCIN 1,500 MG in DEXTROSE 5% 500 ML IV SCH (09:12)
--- NOTE | 2019-07-19 09:30 | NUR ---
PT IS IN BED IN STABLE CONDITION. NO DISTRESS NOTED. CALL LIGHT IN REACH.
[2019-07-19] MEDS: MUPIROCIN CA NASAL 2% 1GM TUBE NS SCH (12:01)
[2019-07-19] MEDS: CHLORHEXADINE GLUC 2% CLOTH TP SCH (12:02)
--- NOTE | 2019-07-19 13:30 | NUR ---
PT IS IN BED IN STABLE CONDITION. NO DISTRESS NOTED. G TUBE FEEDING CHANGED. NO RESIDUAL NOTED. CALL LIGHT IN REACH.
--- NOTE | 2019-07-19 14:09 | NUR ---
DC PLANNING PT HAS A DC ORDER TO GO TO SNF FOR IV ABX. PT IS ACCEPTED AT [facility] CAN GO TO ROOM 37C # TO GIVE REPORT [phone] ARRANGED TRANSPORT WITH [facility] [phone] DIRECTOR OF INSTITUTIONAL SALES TIME AFTER 4 PM NOTIFIED ELANA RICHMOND
[2019-07-19] MEDS: DEXT 5% /NACL 0.9% 1,000 ML IV SCH (15:00)
[2019-07-19] MEDS ORDERED: PIPE1PDS20 IV (16:30)
[2019-07-19] MEDS ORDERED: VANC1.5P7 IV (16:30)
--- NOTE | 2019-07-19 16:30 | NUR ---
PT WAS DISCHARGED TO DAY TO [facility]. PT WAS TAKEN BY TRANSPORT TO [facility] BY [facility]. PT WAS DISCHARGED WITH RIGHT UPPER ARM PICC TO CONTINUE FURTHER IV ANTIBIOTIC THERAPY. REPORT GIVEN TO NADIYA RICHMOND . PT WAS ON OXYGEN O2 2L NC. CALLED FAMILY AND REPORTED OF PATIENT TRANSFER. RECORDS CUSTODIAN RODOLFO MADE ARRANGEMENTS TO TRANSFER PATIENT TO [facility]. SKIN INTACT. G TUBE IN PLACE. DISCHARGE PACKET GIVEN TO EMS PERSONNELS. ID BAND REMOVED FROM PATIENT. PT WAS TAKEN IN [facility]. PT WAS IN STABLE CONDITION AT DISCHARGE.
== END 2019-07-19 17:20 | DRG 193 ==
LOC: MED 22:00 → MIC 07-16 00:28 → MTU 07-16 06:45
PROVIDERS: ADMIT Preventive Medicine Preventive Medicine/Occupational Environmental Medicine; ATTEND Preventive Medicine Preventive Medicine/Occupational Environmental Medicine
PROC: 02HV33Z Insertion of Infusion Device into Superior Vena Cava, Percutaneous Approach (ICD-10-PCS; principal; 2019-07-18)
PROC: B548ZZA Ultrasonography of Superior Vena Cava, Guidance (ICD-10-PCS; 2019-07-18)
DX: J18.9 Pneumonia, unspecified organism (principal); J96.00 Acute respiratory failure, unspecified whether with hypoxia or hypercapnia; R65.11 Systemic inflammatory response syndrome (SIRS) of non-infectious origin with acute organ dysfunction; J44.0 Chronic obstructive pulmonary disease with (acute) lower respiratory infection; E44.0 Moderate protein-calorie malnutrition; E03.9 Hypothyroidism, unspecified; E83.51 Hypocalcemia; F31.9 Bipolar disorder, unspecified; G40.909 Epilepsy, unspecified, not intractable, without status epilepticus; G80.9 Cerebral palsy, unspecified; I11.0 Hypertensive heart disease with heart failure; I50.9 Heart failure, unspecified; K21.9 Gastro-esophageal reflux disease without esophagitis; K80.20 Calculus of gallbladder without cholecystitis without obstruction; N20.0 Calculus of kidney; R73.9 Hyperglycemia, unspecified; R13.10 Dysphagia, unspecified; Z22.322 Carrier or suspected carrier of Methicillin resistant Staphylococcus aureus; Z93.1 Gastrostomy status; Z88.8 Allergy status to other drugs, medicaments and biological substances; Z79.899 Other long term (current) drug therapy; Z68.30 Body mass index [BMI] 30.0-30.9, adult
CPT/HCPCS: 36415; 36600; 71045; 80048; 80053; 80202; 81001; 82803; 82948; 83605; 85025; 85610; 85651; 85730; 86140; 87040; 87070; 87081; 87086; 87205; 87804; 92610; 93005; 94640; 96361; 96365; 99285; C1751; J2543; J3370; J7042; J7060; J7613; J7644; J8597; Q0092

== ENCOUNTER 2019-11-17 19:27 | Inpatient (IN) | payer OTHER, MEDICAID, SELFPAY ==
[~2019-11-17] VITALS: Ht 165.1 cm; Wt 77.1 kg
[~2019-11-17 19:27] MED LIST changes: -BENZ-203 GT; +BENZ-203 PO; -FER325 PO; -FOLI1TAB90 PO; +FURO-572 PO; -GUAI118S41 GT; -KETO5DRO OP; -LACT10SO11 PO; -LEVO750T2 PO; +METO-485 GT; -METO5TAB4 GT; +PIPE1PDS20 IV; +VANC1.5P7 IV
--- NOTE | 2019-11-17 19:40 | NUR ---
BIBA TO ER BED 11
[2019-11-17 19:45] VITALS: BP 125/58
[2019-11-17] MEDS ORDERED: ACETAMINOPHEN 650 MG SUPP RC ONE (19:45)
--- NOTE | 2019-11-17 19:45 | NUR ---
PT 64 Y/O MALE TYRA GOINS FROM [facility] BOARD AND CARE. PT HAS C/O N/V X 1 EPISODE. PT STATES HAS 5/10 RUQ ABD PAIN. PT NOTED WITH GTUBE. PT AAO TO PERSON AND PLACE. PT CURRENT TEMP 100.7. COOLING MEASURES IN PLACE. PT NON-AMBULATORY AND USES W/C AT FACILTY. PT ABLE TO MOVE IN BED WITH ASSISTANCE. PT NOTED WITH COUGH. RESPIRATIONS ARE EVEN AND UNLABORED. PT NOTED WITH CRAKLES THROUGHT A/P. PT ON HEALTHCARE PROF. PT BED LOCKED AND IN LOWEST POSITION. SEIZURE PRECAUTIONS IN PLACE. SUCTION EQUIPMENT AT BEDSIDE. MEDHX: CHF, SEIZURES, HYPOTHYROID, GERD, BIPOLAR, DYSPAHGIA. ALLERGIES: ERYTHROMYCIN
--- NOTE | 2019-11-17 20:15 | NUR ---
COVID, FLU, AND RSV COLLECTED AT BEDSIDE.
--- NOTE | 2019-11-17 20:25 | NUR ---
IV PLACED IN L THUMB 24 G. IV SITE PATENT. NO REDNESS, SWELLING, OR C/O PAIN NOTED.
--- NOTE | 2019-11-17 20:30 | NUR ---
PT HAD BM IN DIAPER. BM IS DARK BROWN IN COLOR, SOFT, AND LARGE. PT SKIN INTCT. SKIN LEFT CLEAN AND DRY.
--- NOTE | 2019-11-17 20:35 | NUR ---
TYLENOL 650 SUPPOSITORY GIVEN TO PT. CURRENT TEMP 100.7. COLLING MEASURES IN PLACE.
[2019-11-17] MEDS ORDERED: ONDANSETRON 4 MG/2 ML VIAL IVP ONE (20:40)
--- NOTE | 2019-11-17 20:40 | NUR ---
UA COLLECTED VIA URINAL.
--- NOTE | 2019-11-17 20:49 | NUR ---
LAB AT BEDSIDE.
--- NOTE | 2019-11-17 20:55 | NUR ---
PT GIVEN ZOFRAN 4MG IVP IN L THUMB. IV SITE PATENT.
--- NOTE | 2019-11-17 20:59 | NUR ---
EKG BEING DONE AT BEDSIDE.
[2019-11-17 21:31] LABS: BASOPHILS # (AUTO) 0.1 K/uL (0.00-0.22); BASOPHILS % (AUTO) 0.4 % (0.0-2.0); EOSINOPHILS # (AUTO) 0.1 K/uL (0-0.4); EOSINOPHILS % (AUTO) 0.9 % (0.0-4.0); HEMATOCRIT 38.2 % (36-52); HEMOGLOBIN 12.4 g/dL (12.0-18.0); LYMPHOCYTES # (AUTO) 0.8 K/uL (2.0-11.5); LYMPHOCYTES % (AUTO) 4.8 % (20.5-51.1); MEAN CORPUSCULAR HEMOGLOBIN 28 pg (27-31); MEAN CORPUSCULAR HGB CONC 32 g/dL (33-37); MEAN CORPUSCULAR VOLUME 87.4 fL (80-94); MONOCYTES # (AUTO) 1.3 K/uL (0.8-1.0); MONOCYTES % (AUTO) 7.7 % (1.7-9.3); NEUTROPHILS # (AUTO) 14.1 K/uL (1.8-7.7); NEUTROPHILS % (AUTO) 86.2 % (42.2-75.2); PLATELET COUNT (AUTO) 180 K/uL (140-450); RED BLOOD CELL COUNT(AUTO) 4.37 MIL/uL (4.20-6.10); RED CELL DISTRIBUTION WIDTH 14.9 % (11.6-13.7); WHITE BLOOD COUNT (AUTO) 16.4 K/uL (4.8-10.8)
--- NOTE | 2019-11-17 21:33 | NUR ---
TEMP RECHECKED. 99.8 ORAL. COOLING MEASURES IN PLACE. RESPIRATIONS AR EEVEN AND UNLABORED. O2 SAT @ 96% ON 2L/MIN VIA NC. PT STATES NO C/O ABD PAIN AT THIS TIME. PT CONTINUES ON BUSINESS ANALYSIS PROFESSIONAL. BED LOCKED AND IN LOWEST POSITION. PT CONTINUES ON SEIZURE PRECAUTIONS.
[2019-11-17 21:38] LABS: ANION GAP 10.8 (8-16); CREATININE 1.1 mg/dL (0.6-1.3); POTASSIUM 4.8 mmol/L (3.5-5.1); TOTAL BILIRUBIN 0.2 mg/dL (0.0-1.0)
[2019-11-17 21:52] LABS: APPEARANCE,URINE CLEAR (CLEAR); BILIRUBIN,URINE NEGATIVE (NEGATIVE); BLOOD, URINE TRACE-I (NEGATIVE); COLOR,URINE YELLOW (YELLOW); LEUKOCYTE ESTERASE ,URINE NEGATIVE (NEGATIVE); NITRITE, URINE NEGATIVE (NEGATIVE); UGLUCOSE NEGATIVE (NEGATIVE)
[2019-11-17] MEDS ORDERED: NACL 0.9% 1,000 ML IV ONE (21:55)
--- NOTE | 2019-11-17 21:55 | NUR ---
LAB CALLED AND GAVE REPORT OF CRITICAL LAB: LACTIC 2.5, TROPONIN 0.179. ERMD MADE AWARE.
[2019-11-17] MEDS ORDERED: PIPERACILLIN/TAZOBACTAM 3.375 GM in DEXTROSE 5% 50 ML IV ONE (22:05)
--- NOTE | 2019-11-17 22:05 | NUR ---
XRAY AT BEDSIDE.
[2019-11-17 22:16] LABS: RBC,URINE 0-5 /HPF (0-5); WBC,URINE 0-5 /HPF (0-5)
[2019-11-17] MEDS ORDERED: PIPERACILLIN/TAZOBACTAM 3.375 GM VIAL IV ONE (22:20)
--- NOTE | 2019-11-17 22:31 | NUR ---
PT RETURNED FROM [facility]IA [facility].
--- NOTE | 2019-11-17 22:32 | NUR ---
ZOSYN 3.375 GM IN D5% 50ML GIVEN AT 100ML/MIN IN L THUMB. IV SITE PATENT.
[2019-11-17] MEDS ORDERED: VITA1TAB44 PO (22:57)
[2019-11-17] MEDS ORDERED: FERR325E14 PO (22:57)
--- NOTE | 2019-11-17 23:16 | NUR ---
PT RESTING IN BED WITH EYES CLOSED. PT CONTINUES ON CATERING SOUS CHEF. RESPIRATIONS ARE EVEN AND UNLABORED. SKIN IS WARM AND DRY TO TOUCH. COOLING MEASURES IN PLACE. PT ON SEIZURE PRECAUTIONS. PT ON CARIDAC MONITOR. VSS. PT ON 2L/MIN ON NC. O2SAT% 97%. BED LOCKED AND IN LOWEST POSITION.
[2019-11-17] MEDS ORDERED: NACL 0.9% 1,500 ML IV ONE (23:30)
--- NOTE | 2019-11-18 00:10 | NUR ---
NS 0.9% 1500ML BOLUS STARTED PER SEPISIS PROTOCOL. TEMP RECHESCK CURRENTLY 98.0 ORAL. PT ON VEGETABLE WORKER. RESPIRATIONS ARE EVEN AND UNLABORED. SIZURE PRECAUTIONS IN PLACE.
[2019-11-18] MEDS ORDERED: ACETAMINOPHEN 325 MG TAB PO PRN (00:25)
[2019-11-18] MEDS ORDERED: ACETAMINOPHEN 325 MG TAB GT PRN (00:25)
[2019-11-18] MEDS ORDERED: HYDROcodone/APAP 5/325 MG 1 TAB TAB GT PRN (00:25)
[2019-11-18] MEDS ORDERED: BISMUTH SUBSALICYLATE 15 ML UDBTL GT PRN (00:25)
[2019-11-18] MEDS ORDERED: BISACODYL 10 MG SUPP RC PRN (00:25)
[2019-11-18] MEDS ORDERED: LORazepam 2 MG/ML VIAL IVP PRN (00:25)
[2019-11-18] MEDS ORDERED: IBUPROFEN CHILDRENS 100 MG/5 ML UDC GT PRN (00:25)
[2019-11-18] MEDS ORDERED: SODIUM PHOSPHATE 118 ML ENEM RC PRN (00:25)
--- NOTE | 2019-11-18 00:35 | NUR ---
Patient will be admitted to care of . Admited to TELE. Will go to room 124A. Belongings list completed. Report to JUNE RICHMOND.
[2019-11-18 00:40] VITALS: BP 122/70
--- NOTE | 2019-11-18 00:40 | NUR ---
RECEIVED PT FROM ER AA0X1 TO 2 - HX CEREBRAL PALSY , OBEYS SIMPLE COMMAND , SLURRED SPEECH , IV SITE INTACT AND PATENT , ON O2 AT 2LM/ NC - O2 SAT WNL . IV SITE INTACAT AND PATENT - STILL ON GOING IVF BOLUS FROM ER - INCONTINENET , NPO - W/ G TUBE - SOFT ABD. TRANSFER TO BED BY MANUAL LIFT - ON TELE MONITOR . SAFETY MEASURES IN PLACE , WILL CONT. TO MONITOR . WILL PAGED / CALL DR. LILY PATINO FOR FURTHER ORDERS .
--- NOTE | 2019-11-18 01:59 | NUR ---
DR Matt PATINO - CALL BACK - MADE T.O - CARRIED OUT.
--- NOTE | 2019-11-18 02:04 | NUR ---
PT RESTING COMFORTABLY SAT 99% ON 2LNC HR 63 AND PT IS OIN NO APARENT DISTRESS AT THIS TIME
[2019-11-18] MEDS: DEXT 5% / NACL 0.45% 1,000 ML IV SCH ×2 (02:30→10:25)
[2019-11-18 04:00] VITALS: BP 110/60
[2019-11-18] MEDS: PIPERACILLIN/TAZOBACTAM 3.375 GM in DEXTROSE 5% 50 ML IV SCH ×3 (04:38→22:00)
[2019-11-18] MEDS ORDERED: PIPERACILLIN/TAZOBACTAM 3.375 GM VIAL IV ONE (04:40)
--- NOTE | 2019-11-18 06:00 | NUR ---
MADE ROUNDS , NO S/S OF ACUTE DISTRESS NOTED - WILL CONT. TO MONITOR - AFEBRILE
--- NOTE | 2019-11-18 07:00 | NUR ---
ENDORSED - PT - STABLE.
--- NOTE | 2019-11-18 07:00 | NUR ---
RECEIVED REPORT FROM NIGHT NURSE FOR CONTINUITY OF CARE. PATIENT IS NPO AND HAS A GTUBE. IV INTACT. CONTINUES ON 2 L OF O2 VIA NC. BED ALARM IS ON AND BED IN LOW POSITION WITH CALL LIGHT WITHIN REACH. WILL CONTINUE TO MONITOR PATIENT.
[2019-11-18 08:00] VITALS: BP 134/69
--- NOTE | 2019-11-18 08:59 | NUR ---
CALLED [facility], MAX STATED SHE WILL BRING THE SYRINGE FOR THE PATIENT'S GTUBE IN ABOUT 15-20 MINUTES.
[2019-11-18] MEDS ORDERED: IPRATROPIUM 0.02% 0.5 MG/2.5 ML NEBU INH SCH (09:00)
--- NOTE | 2019-11-18 09:00 | NUR ---
PATIENT MEDICATION WILL BE GIVEN VIA GTUBE. PATIENT AWAKE AND RESPONDING TO NAME. NO S/S OF DISTRESS NOTED. CONTINUES ON 2L OF O2 VIA NC. WILL CONTINUE TOP MONITOR PATIENT. IV IS PATENT AND INTACT.
--- NOTE | 2019-11-18 09:21 | NUR ---
PATIENT HAS BEEN SCREENED AND CATEGORIZED HIGH NUTRITION RISK. PATIENT WILL BE SEEN WITHIN 1-2 DAYS OF ADMISSION. 11/18/19-11/19/[address]
--- NOTE | 2019-11-18 09:29 | NUR ---
GIVEN UPDATE TO CUAUHTEMOC, CUSTOMER SUPPLY CHAIN ANALYST AT [facility]. 2 GTUBE PURPLE SYRINGES FROM [facility] RECEIVED.
[2019-11-18] MEDS: risperiDONE 1 MG TAB GT SCH ×2 (09:35→22:00)
[2019-11-18] MEDS: MULTIVITAMIN 1 TAB GT SCH (09:35)
[2019-11-18] MEDS: LEVOTHYROXINE 0.075 MG TAB GT SCH (09:35)
[2019-11-18] MEDS: LANSOPRAZOLE 30 MG CAPDR GT SCH (09:35)
[2019-11-18] MEDS: FUROSEMIDE 20 MG TAB PO SCH (09:35)
[2019-11-18] MEDS: VALPROIC ACID 250 MG/5 ML UDC GT SCH ×2 (09:35→22:00)
[2019-11-18] MEDS: METOCLOPRAMIDE 10 MG TAB GT SCH ×3 (09:35→16:21)
--- NOTE | 2019-11-18 09:35 | NUR ---
ADMINISTERED MEDICATION VIA GTUBE. RESIDUAL CHECKED AND NONE ASPIRATED. PATIENT TOLERATED MEDS WELL AND EDUCATED ON MEDICATIONS GIVEN. GTUBE PATENT. NO COMPLICATIONS NOTED.
[2019-11-18] MEDS: POLYETHYLENE GLYCOL 17 GM/PKT PO SCH (09:36)
[2019-11-18] MEDS: VIT-B COMP/VIT-C/FOLIC ACID 1 TAB PO SCH (09:36)
--- NOTE | 2019-11-18 10:26 | NUR ---
ATM MECHANIC NOTE: Basic Screen: Yes High Risk DC Screen Paden: CELENA DAVIS Baldwin Relationship: SISTER Pre-Admission Living Arrangements: Other Other: [facility] Prior ADL Total/Dependent Current Home Health Name/Tel: N/A Current DME/02 Name/Tel: [facility], [facility] Current Hospice Name/Tel: N/A Current Dialysis Name/Tel: N/A Healthcare Decision Maker: Next of Kin Other: CELENA DAVIS Advance Directive No Physician Orders for Life Sustaining Treatment Form No Patient/Family Have Educational Needs No Discipline: Case Mgt/Social Svcs Tentative Discharge Plan/Destination: Other Other: [facility] Will require assistance post discharge: No Referred to Hospital Monitor: No Tentative Discharge Plan Summary: PATIENT IS A 64-YEAR-OLD MALE ADMITTED FOR PNEUMONIA. PATIENT HAS PMHX OF COPD, GERD, DYSPHAGIA, SEIZURES, BIPOLAR DISORDER, HEARING LOSS, AND CEREBRAL PALSY. PATIENT WAS ADMITTED FROM [facility]. SW CONTACTED [facility] [phone] WHO REFERRED SW TO [facility], PATIENT'S NURSE AT [facility] [phone]. PER [facility], PATIENT IS NOT ALERT/ORIENTED AT BASELINE BUT IS ABLE TO MAKE NEEDS KNOWN. [facility] STATED THAT PATIENT HAS [facility] WORKER, IVELISSE CAMACHO [phone]. [facility] ALSO STATED THAT PATIENT REQUIRES TOTAL ASSISTANCE WITH ADLS. TENTATIVE DISCHARGE PLAN IS FOR PATIENT TO RETURN TO [facility]. NO FURTHER NEEDS IDENTIFIED. Signature: HERB BENZ Date: November 18, 2019 Time: 10:26
--- NOTE | 2019-11-18 11:34 | NUR ---
REPOSITIONED PATIENT. PATIENT HAD VOIDED. PATIENT TOLERATED ACTIVITY WELL. VITAL SIGNS CHECKED. AFEBRILE. DENIES PAIN. BED IN LOW POSITION. CALL LIGHT IS WITHIN REACH. WILL CONTINUE TO MONITOR.
[2019-11-18 12:00] VITALS: BP 141/86
--- NOTE | 2019-11-18 12:03 | NUR ---
PER WELDING MACHINE OPERATOR SUBMERGED AR[employer] CALDERON, SHE RECOMMENDED G-TUBE FEEDING VITAL AT A RATE OF 60 ML/HR, H2O FLUSH AT [address] LILY PATINO TO INFORM
--- NOTE | 2019-11-18 12:04 | NUR ---
RECEIVED TELEPHONE ORDER FOR GTUBE FEEDING VITAL AT 60 ML/HR, H2O FLUSH AT 100 ML Q4H. WILL CARRY OUT ORDER
--- NOTE | 2019-11-18 13:05 | NUR ---
MEDICATION REGLAN GIVEN PER ORDER VIA GTUBE, TOLERATED WELL AND GTUBE PATENT WITH NO RESIDUAL. MEDICATION EDUCATION GIVEN. IV SITE INSERTED TO LEFT FOREARM AT 1255 WITH 24 GAUGE, AND ZOSYN ANTIBIOTIC HUNG PER ORDER. PATIENT TOLERATED IV INSERTION WELL. IV TO LEFT THUMB REMOVED BY NURSE. LAYING IN BED QUIETLY WITH EYES CLOSED YET EASILY AROUSABLE. BED IN LOW POSITION AND CALL LIGHT WITHIN REACH
--- NOTE | 2019-11-18 13:10 | NUR ---
11/18/19 RD INITIAL ASSESSMENT COMPLETED PLEASE REFER TO NUTRITION ASSESSMENT UNDER CARE ACTIVITY FOR ESTIMATED NUTRITIONAL NEEDS. 1. RECOMMEND VITAL 1.2 @ 60 ML/HR X 24 HR -THIS PROVIDES 1440 ML OF VOLUME, 1728 CALORIES, AND 108 GM OF PROTEIN WHICH MEETS ADEQUATE NUTRITION NEEDS 2. RECOMMEND FREE WATER FLUSH OF 100 ML Q4H 3. CONTINUE MVI DAILY 4. RD TO FOLLOW-UP 2-3 DAYS, HIGH RISK [address]
--- NOTE | 2019-11-18 13:15 | NUR ---
VEIN FINDER RETURNED TO ED.
[2019-11-18] MEDS: ALBUTEROL HFA MDI 90 MCG/ACTUATION 8 GM INH SCH (13:33)
--- NOTE | 2019-11-18 13:37 | NUR ---
DISCHARGE PLANNING: THIS IS A 64 Y/O MALE PATIENT FROM [facility], WHO WAS BROUGHT IN DUE TO NAUSEA, VOMITING AND FEVER. PAST MEDICAL HISTORY INCLUDED COPD, GERD, SEIZURE, BIPOLAR AND CEREBRAL PALSY. INITIAL DIAGNOSIS OF PNEUMONIA. CURRENT LABS INCLUDE WBC 16.4, H/H 12.4/38.2, NA/K 140/4.8, BUN/CREA 23/1.1 AND ALB 3.0. COVID TEST PENDING. INF A AND B NEGATIVE. ON ZOSYN. CXR ON ADMISSION SHOWED LOW LUNG VOLUMES AND RIGHT HEMIDIAPHRAGM AND RIGHT BASILAR ATELECTASIS/INFILTRATE/SCARRING. ID, CARDIO AND PULMO CONSULTS IN PLACE. DC PLAN PENDING ON PATIENT'S RESPONSE TO TREATMENT. Addendum: 11/19/19 at 1630 by Jeanna Weber DC PLANNING: COVID TEST NEGATIVE. SEEN BY PULMO CARDIO AND ID RECOMMENDED TO CONTINUE IV ABX, NEBULIZER .DC PLAN AWAITING CULTURE RESULTS. CM TO FOLLOW
--- NOTE | 2019-11-18 14:50 | NUR ---
CRITICAL LAB: TROPONIN 0.082. WILL NOTIFY Yves PANDEY Addendum: 11/18/19 at 1456 by Princess Rekha Guerrero RN DR. CAREY Marinelli, AWARE.
--- NOTE | 2019-11-18 15:15 | NUR ---
GT TUBE FEEDING VITAL @ 60 WITH WATER FLUSH 100ML Q4 HUNG AND STARTED AT 1510. RESIDUAL CHECK DONE WITH NO RESIDUAL, PATIENT TOLERATED WELL. WILL CONTINUE TO OBSERVE PATIENT.
--- NOTE | 2019-11-18 15:45 | NUR ---
DR HUERTAS MADE ROUNDS
[2019-11-18 16:00] VITALS: BP 116/62
--- NOTE | 2019-11-18 16:21 | NUR ---
GIVEN REGLAN VIA GT. GASTRIC RESIDUAL 5ML. PATIENT TOLERATING FEEDING. EXPLAINED MEDICATION. VITAL SIGNS CHECKED. DENIES PAIN. AFEBRILE.
[2019-11-18] MEDS ORDERED: CRUSHER, PILL MC ONE (16:22)
--- NOTE | 2019-11-18 17:30 | NUR ---
PATIENT IS SLEEPING COMFORTABLY AT THIS TIME. NO SIGNS OF DISTRESS NOTED. GTUBE FEEDING AND IVF RUNNING WELL. BED IN LOW POSITION. CALL LIGHT IS WITHIN REACH. SEIZURE PRECAUTION IN PLACE. WILL CONTINUE TO MONITOR.
--- NOTE | 2019-11-18 17:46 | NUR ---
PATIENT RECEIVED 2 UNITS OF HUMALOG IN ABDOMEN FOR BLOOD SUGAR OF 185 Addendum: 11/18/19 at 1757 by Irina Naranjo RN PLEASE DISREGARD, WRONG PATIENT
--- NOTE | 2019-11-18 18:02 | NUR ---
PAGED DR Fermín PATINO REGARDING PATIENTS FLUID ORDER OF D5 1/2 NS AND PATIENTS CURRENT GTUBE FEEDING STATUS. WILL WAIT FOR CALL BACK
--- NOTE | 2019-11-18 18:42 | NUR ---
RECEIVED TELEPHONE ORDER FROM DR Fermín PATINO TO DC IV FLUID D5 1/2 NS. WILL CARRY OUT ORDER.
--- NOTE | 2019-11-18 19:15 | NUR ---
PATIENT REPORT GIVEN TO ONCOMING NIGHT NURSE FOR CONTINUITY OF CARE. PATIENT LAYING IN BED WATCHING TV, CONTINUES ON O2 @ 2L NC. NO S/S OF DISTRESS NOTED. CALL LIGHT WITHIN REACH, SEIZURE PRECAUTIONS IN PLACE AND BED IN LOW POSITION.
--- NOTE | 2019-11-18 19:15 | NUR ---
RECEIVED BEDSIDE REPORT FROM AM SHIFT RN FOR PT'S CONTINUITY OF CARE. PT IS AAOX1, IS ON ISOLATION FOR R/O COVID, IS ON SHORE MAN, ON 2L O2 VIA NC, HAS TUBE FEEDING WITH VITAL AF AT 60ML/HR 100ML H2O FLUSH Q4H, IS INCONTINENT, HAS LEFT FA 24G SALINE LOCK, DENIES ANY PAIN AT THIS TIME. SAFETY MEASURES IN PLACE, ISOLATION PRECAUTION IN PLACE, AND CALL LIGHT IS WITHIN REACH. WILL MONITOR PT THROUGHOUT SHIFT.
[2019-11-18 20:00] VITALS: BP 136/76
[2019-11-18] MEDS: SENNA 8.6 MG TAB PO SCH (22:00)
--- NOTE | 2019-11-18 22:00 | NUR ---
ADMINISTERED SCHEDULED MEDICATIONS ORDERED THROUGH GTUBE AND SUBQ. GTUBE PLACEMENT VERIFIED BY AUSCULTATION, NO RESIDUAL ASPIRATED, PT TOLERATED IT WELL. CHANGED PT'S LINENS, PT ABLE TO TURN TO SIDES. PT MADE COMFORTABLE, AND DENIES ANY PAIN OR DISCOMFORT. WILL CONTINUE TO MONITOR PT.
[2019-11-19] VITALS: BP 116/65
--- NOTE | 2019-11-19 00:10 | NUR ---
VS CHECKED AND CHARTED. PT IS ASLEEP WITH NO SIGNS OF DISTRESS. WILL CONTINUE TO MONITOR PT,
--- NOTE | 2019-11-19 02:25 | NUR ---
MADE ROUNDS. PT ASLEEP WITH NO SIGNS OF DISTRESS OR DISCOMFORT. WILL CONTINUE TO MONITOR PT.
[2019-11-19 04:00] VITALS: BP 116/72
[2019-11-19] MEDS: PIPERACILLIN/TAZOBACTAM 3.375 GM in DEXTROSE 5% 50 ML IV SCH ×3 (04:57→20:33)
--- NOTE | 2019-11-19 04:58 | NUR ---
ADMINISTERED SCHEDULED IV ABX ORDERED. PT CHANGED AND REPOSITIONED. PT TOLERATED IT WELL. PT DENIES ANY PAIN OR DISCOMFORT. WILL CONTINUE TO MONITOR PT.
[2019-11-19 06:16] LABS: BASOPHILS % (AUTO) 0.5 % (0.0-2.0); EOSINOPHILS # (AUTO) 0.5 K/uL (0-0.4); EOSINOPHILS % (AUTO) 5.5 % (0.0-4.0); HEMATOCRIT 38.8 % (36-52); HEMOGLOBIN 12.8 g/dL (12.0-18.0); LYMPHOCYTES # (AUTO) 0.5 K/uL (2.0-11.5); LYMPHOCYTES % (AUTO) 5.8 % (20.5-51.1); MEAN CORPUSCULAR HEMOGLOBIN 29 pg (27-31); MEAN CORPUSCULAR HGB CONC 33 g/dL (33-37); MEAN CORPUSCULAR VOLUME 88.3 fL (80-94); MONOCYTES # (AUTO) 0.7 K/uL (0.8-1.0); MONOCYTES % (AUTO) 7.6 % (1.7-9.3); NEUTROPHILS # (AUTO) 7.3 K/uL (1.8-7.7); NEUTROPHILS % (AUTO) 80.6 % (42.2-75.2); PLATELET COUNT (AUTO) 170 K/uL (140-450); WHITE BLOOD COUNT (AUTO) 9.1 K/uL (4.8-10.8)
[2019-11-19 06:49] LABS: ANION GAP 9.9 (8-16); CARBON DIOXIDE 31.2 mmol/L (21-32); CREATININE 0.8 mg/dL (0.6-1.3); POTASSIUM 4.1 mmol/L (3.5-5.1)
--- NOTE | 2019-11-19 06:56 | NUR ---
PT ASLEEP WITH NO SIGNS OF DISTRESS. WILL ENDORSE TO AM SHIFT RN FOR PT'S CONTINUITY OF CARE.
--- NOTE | 2019-11-19 07:15 | NUR ---
RECEIVED PT FROM [facility] SHIFT NURSEELIAZAR, PT IS ASLEEP AND LYING ON THE BED WITH SAFETY AND FALL PRECAUTION IN PLACE, PT HAS IV IV LINES ON THE LEFT FA G. 24 ON SALINE LOCK, G-TUBE IN PLACE, ON CONTINUOUS FEEDING OF VITAL AF AT 60ML/HR,AND INTACT AND NO SIGN OF DISTRESS NOTED, WILL MONITOR PT.
[2019-11-19 08:00] VITALS: BP 115/78
[2019-11-19] MEDS: LANSOPRAZOLE 30 MG CAPDR GT SCH (09:06)
[2019-11-19] MEDS: POLYETHYLENE GLYCOL 17 GM/PKT PO SCH (09:06)
[2019-11-19] MEDS: VALPROIC ACID 250 MG/5 ML UDC GT SCH ×2 (09:07→20:32)
[2019-11-19] MEDS: METOCLOPRAMIDE 10 MG TAB GT SCH ×3 (09:07→18:25)
[2019-11-19] MEDS: VIT-B COMP/VIT-C/FOLIC ACID 1 TAB PO SCH (09:09)
[2019-11-19] MEDS: risperiDONE 1 MG TAB GT SCH ×2 (09:10→20:33)
[2019-11-19] MEDS: LEVOTHYROXINE 0.075 MG TAB GT SCH (09:11)
[2019-11-19] MEDS: MULTIVITAMIN 1 TAB GT SCH (09:11)
[2019-11-19] MEDS: FUROSEMIDE 20 MG TAB PO SCH (09:11)
--- NOTE | 2019-11-19 09:11 | NUR ---
PT WAS GIVEN THE SCHEDULED AM MEDICATIONS VIA SUBQ ROUTES IN ABDOMEN AND G-TUBE, CRUSHED, PARAMETERS CHECKED, NO RESIDUAL NOTED, TOLERATED, NO SIGN OF DISTRESS NOTED AND WILL MONITOR PT.
[2019-11-19] MEDS: ALBUTEROL HFA MDI 90 MCG/ACTUATION 8 GM INH SCH ×2 (09:55→13:59)
[2019-11-19 12:00] VITALS: BP 104/58
--- NOTE | 2019-11-19 12:31 | NUR ---
PT WAS GIVEN THE SCHEDULED MEDICATION AND TOLERATED, WAS REPOSITIONED AND CLEANED WELL, WILL MONITOR PT.
--- NOTE | 2019-11-19 13:59 | NUR ---
PATIENT UNABLE TO FOLLOW [facility] COMMANDS/COORDINATE FOR DEEP INSPIRATIONS FOR MDI THERAPY AT THIS TIME
--- NOTE | 2019-11-19 14:15 | NUR ---
PT WAS CLEANED NOW AND REPOSITIONED.
[2019-11-19 16:00] VITALS: BP 112/51
--- NOTE | 2019-11-19 18:21 | NUR ---
PT WAS GIVEN MEDICATION VIA G-TUBE NO RESIDUAL NOTED.
--- NOTE | 2019-11-19 19:05 | NUR ---
RECEIVED BEDSIDE REPORT FROM AM SHIFT RN FOR PT'S CONTINUITY OF CARE. PT IS AAOX1-2, FOLLOWS COMMANDS, DELAYED SPEECH, COOPERATIVE, IS ON INSIDE SALES ADVERTISING EXECUTIVE, I SON 2L O2 VIA NC, HAS GTUBE FEEDING WITH VITAL AF AT 60ML/HR 100ML WATER FLUSH Q4H, IS INCONTINENT, HAS LEFT FA 24G SALINE LOCK, DENIES ANY PAIN AT THIS TIME. EXPLAINED TO PT THE SENIOR SYSTEMS ENGINEER ROUTINE AND REORIENTED WITH HOSPITAL SURROUNDINGS. SAFETY MEASURES IN PLACE AND CALL LIGHT IS WITHIN REACH. WILL MONITOR PT THROUGHOUT SHIFT.
--- NOTE | 2019-11-19 19:15 | NUR ---
ENDORSED PT TO ORDER CONTROL CLERK BLOOD BANK NURSE FOR CONTINUITY OF CARE.
[2019-11-19 20:00] VITALS: BP 97/57
[2019-11-19] MEDS: SENNA 8.6 MG TAB PO SCH (20:34)
--- NOTE | 2019-11-19 20:35 | NUR ---
ADMINISTERED SCHEDULED MEDICATIONS ORDERED. PT TOLERATED THEM WELL THROUGH GTUBE, NO RESIDUAL ASPIRATED, PLACEMENT VERIFIED THROUGH AUSCULTATION. ADMINISTERED SUBQ AND IV ABX ORDERED. PT MADE COMFORTABLE, SAFETY MEASURES IN PLACE, AND CALL LIGHT IS WITHIN REACH. WILL CONTINUE TO MONITOR.
--- NOTE | 2019-11-19 22:00 | NUR ---
PT SCREAMING AND YELLING, PT WANTED THE TRASH TO BE IN SIGHT. PT PROVIDED WITH REQUEST. PT MADE COMFORTABLE AND CALM. WILL CONTINUE TO MONITOR PT.
[2019-11-20] VITALS: BP 107/59
--- NOTE | 2019-11-20 00:15 | NUR ---
PT'S VS CHECKED AND CHARTED. PT ASLEEP WITH NO SIGNS OF DISTRESS OR DISCOMFORT. WILL CONTINUE TO MONITOR PT.
--- NOTE | 2019-11-20 02:15 | NUR ---
PT ASLEEP WITH NO SIGNS OF DISTRESS. WILL CONTINUE TO MONITOR PT.
[2019-11-20 04:00] VITALS: BP 104/41
--- NOTE | 2019-11-20 04:30 | NUR ---
VS CHECKED AND CHARTED. PERFORMED PERICARE, LINENS CHANGED, PT ABLE TO TURN WITH ASSIST. PT DENIES ANY PAIN AT THIS TIME. WILL CONTINUE TO MONITOR PT.
[2019-11-20] MEDS: PIPERACILLIN/TAZOBACTAM 3.375 GM in DEXTROSE 5% 50 ML IV SCH ×2 (04:45→13:00)
--- NOTE | 2019-11-20 06:15 | NUR ---
PT SCREAMING AND YELLING TO STOP THE FEEDING AND ATTEMPTED TO PULL OUT GTUBE. FRAMING MANAGER ALSO TRIED TO CALM PT DOWN. PT COMPLIED AFTER. PT YELLED AT RN TO "GET OUT". PT CALMED DOWN AFTER. WILL ENDORSE PT TO AM SHIFT RN FOR PT'S CONTINUITY OF CARE.
--- NOTE | 2019-11-20 07:15 | NUR ---
RECEIVED REPORT FROM RECORD CUTTER NURSE ELIAZAR FOR CONTINUITY OF CARE. PATIENT IN STABLE CONDITION. RESPIRATIONS EVEN AND UNLABORED, ROOM AIR. IV INTACT AND PATENT. G-TUBE IN PLACE AND PATENT. SAFETY MEASURES IN PLACE. BED IN LOW POSITION. CALL LIGHT WITHIN REACH. BED ALARM ON. WILL CONTINUE TO MONITOR.
[2019-11-20 07:34] LABS: BASOPHILS # (AUTO) 0.1 K/uL (0.00-0.22); BASOPHILS % (AUTO) 0.8 % (0.0-2.0); EOSINOPHILS # (AUTO) 0.6 K/uL (0-0.4); HEMATOCRIT 39.1 % (36-52); LYMPHOCYTES # (AUTO) 0.8 K/uL (2.0-11.5); LYMPHOCYTES % (AUTO) 9.2 % (20.5-51.1); MEAN CORPUSCULAR HEMOGLOBIN 29 pg (27-31); MEAN CORPUSCULAR HGB CONC 33 g/dL (33-37); MEAN CORPUSCULAR VOLUME 87.4 fL (80-94); MONOCYTES # (AUTO) 0.9 K/uL (0.8-1.0); MONOCYTES % (AUTO) 10.6 % (1.7-9.3); NEUTROPHILS # (AUTO) 6.3 K/uL (1.8-7.7); NEUTROPHILS % (AUTO) 72.4 % (42.2-75.2); PLATELET COUNT (AUTO) 175 K/uL (140-450); RED BLOOD CELL COUNT(AUTO) 4.47 MIL/uL (4.20-6.10); RED CELL DISTRIBUTION WIDTH 14.8 % (11.6-13.7); WHITE BLOOD COUNT (AUTO) 8.8 K/uL (4.8-10.8)
[2019-11-20 08:00] VITALS: BP 137/61
[2019-11-20 08:01] LABS: MAGNESIUM 1.8 mg/dL (1.8-2.4); PHOSPHORUS 4.6 mg/dL (2.5-4.9)
[2019-11-20] MEDS: ALBUTEROL HFA MDI 90 MCG/ACTUATION 8 GM INH SCH ×2 (09:00→13:00)
[2019-11-20 09:24] LABS: CARBON DIOXIDE 26.7 mmol/L (21-32); CREATININE 0.7 mg/dL (0.6-1.3)
--- NOTE | 2019-11-20 09:33 | NUR ---
PATIENT LYING IN BED IN STABLE CONDITION. BED IN LOW POSITION. BED ALARM ON. CALL LIGHT WITHIN REACH. WILL CONTINUE TO MONITOR.
[2019-11-20 09:54] LABS: ANION GAP 15.6 (8-16); POTASSIUM 4.3 mmol/L (3.5-5.1)
--- NOTE | 2019-11-20 10:15 | NUR ---
CLEANED AND CHANGED PATIENT AT THIS TIME. PATIENT TOLERATED WELL. BED IN LOW POSITION. BED ALARM ON. CALL LIGHT WITHIN REACH. WILL CONTINUE TO MONITOR.
[2019-11-20] MEDS: VIT-B COMP/VIT-C/FOLIC ACID 1 TAB PO SCH (10:35)
[2019-11-20] MEDS: LEVOTHYROXINE 0.075 MG TAB GT SCH (10:35)
[2019-11-20] MEDS: VALPROIC ACID 250 MG/5 ML UDC GT SCH (10:35)
[2019-11-20] MEDS: risperiDONE 1 MG TAB GT SCH (10:35)
[2019-11-20] MEDS: FUROSEMIDE 20 MG TAB PO SCH (10:36)
[2019-11-20] MEDS: MULTIVITAMIN 1 TAB GT SCH (10:36)
[2019-11-20] MEDS: POLYETHYLENE GLYCOL 17 GM/PKT PO SCH (10:36)
[2019-11-20] MEDS: LANSOPRAZOLE 30 MG CAPDR GT SCH (10:36)
[2019-11-20] MEDS: METOCLOPRAMIDE 10 MG TAB GT SCH ×3 (10:36→14:11)
[2019-11-20] MEDS ORDERED: ALBU0.0912 INH (11:29)
[2019-11-20] MEDS ORDERED: LEVO750T2 GT (11:29)
[2019-11-20 12:00] VITALS: BP 114/59
--- NOTE | 2019-11-20 12:34 | NUR ---
PATIENT SLEEPING AT THIS TIME. RESPIRATIONS EVEN AND UNLABORED. BED IN LOW POSITION. BED ALARM ON. CALL LIGHT WITHIN REACH. WILL CONTINUE TO MONITOR.
--- NOTE | 2019-11-20 14:20 | NUR ---
SPOKE WITH PARISH ( DROP CLIPPER FROM [facility]. GAVE REPORT AT THIS TIME. LUIS ANGEL WILL COORDINATE TRANSPORTATION WITH [employer].
--- NOTE | 2019-11-20 15:14 | NUR ---
PATIENT DISCHARGED FROM FACILITY
--- NOTE | 2019-11-20 15:20 | NUR ---
GAVE DISCHARGE INSTRUCTIONS TO PATIENT AND TRANSPORT TEAM. PRESCRIPTIONS GIVEN TO PATIENT TO TAKE TO HOME PHARMACY. PATIENT DISCHARGED HOME TO [facility]. ID BAND REMOVED. PATIENT PLACED ON GURNEY IN STABLE CONDITION.
== END 2019-11-20 15:20 | disposition home or self-care (01) | DRG 871 ==
LOC: EEVIPCON 19:27 → MED 19:27 → MTU 23:38
PROVIDERS: ADMIT Preventive Medicine Preventive Medicine/Occupational Environmental Medicine; ATTEND Preventive Medicine Preventive Medicine/Occupational Environmental Medicine
DX: A41.9 Sepsis, unspecified organism (principal); J18.9 Pneumonia, unspecified organism; I21.A1 Myocardial infarction type 2; J96.01 Acute respiratory failure with hypoxia; E44.0 Moderate protein-calorie malnutrition; I13.0 Hypertensive heart and chronic kidney disease with heart failure and stage 1 through stage 4 chronic kidney disease, or unspecified chronic kidney disease; E87.2 Acidosis; M48.56XA Collapsed vertebra, not elsewhere classified, lumbar region, initial encounter for fracture; D64.9 Anemia, unspecified; E03.9 Hypothyroidism, unspecified; E83.52 Hypercalcemia; E86.9 Volume depletion, unspecified; F31.9 Bipolar disorder, unspecified; G40.909 Epilepsy, unspecified, not intractable, without status epilepticus; G80.9 Cerebral palsy, unspecified; H91.90 Unspecified hearing loss, unspecified ear; I50.9 Heart failure, unspecified; J44.9 Chronic obstructive pulmonary disease, unspecified; K21.9 Gastro-esophageal reflux disease without esophagitis; K40.20 Bilateral inguinal hernia, without obstruction or gangrene, not specified as recurrent; N18.9 Chronic kidney disease, unspecified; N20.0 Calculus of kidney; R13.10 Dysphagia, unspecified; Z22.322 Carrier or suspected carrier of Methicillin resistant Staphylococcus aureus; Z93.1 Gastrostomy status; Z88.1 Allergy status to other antibiotic agents; R73.9 Hyperglycemia, unspecified; E87.5 Hyperkalemia; E88.09 Other disorders of plasma-protein metabolism, not elsewhere classified; Z03.818 Encounter for observation for suspected exposure to other biological agents ruled out
CPT/HCPCS: 36415; 71045; 80048; 80053; 81001; 83605; 83690; 83735; 83880; 84100; 84484; 85025; 85651; 86140; 87040; 87081; 87086; 87804; 93005; 94640; 94664; 96361; 96365; 96375; 99285; J1644; J2405; J2543; J7060; J8597; Q0092

== ENCOUNTER 2020-11-21 18:40 | Emergency (ER) | payer OTHER, MEDICAID, SELFPAY ==
[~2020-11-21] VITALS: Ht 170.2 cm; Wt 74.8 kg
[2020-11-21 18:40] VITALS: BP 120/54
[~2020-11-21 18:40] MED LIST changes: +ALBU0.0912 INH; -BENZ-203 PO; +FERR325E14 PO; -PIPE1PDS20 IV; -VANC1.5P7 IV; +VITA1TAB44 PO; +[UNRECOGNIZED DRUG - CODE] GT; -[UNRECOGNIZED DRUG - CODE] GT
--- NOTE | 2020-11-21 18:40 | NUR ---
Patient BIBA BLS from [facility], transferred to bed 5. RN evaluating the patient at bedside.
--- NOTE | 2020-11-21 18:41 | NUR ---
65 Y/O MALE BIBA FROM [facility] C/O LACERATION TO L EAR. PER MEDIC, FACILITY NOTICED BLEEDING AT 1415 TODAY AND CONTROLLED THE BLEEDING WITH GAUZE. FACILITY IS UNAWARE OF CAUSE. PT IS A/O X1- TO SELF AND GCS 11- PT BASELINE PER FACILITY. CLEAN LACERATION TO L EAR, CONTROLLED BLEEDING. PT HAS G-TUBE AND IS IN A DIAPER. PT HAS EVEN AND UNLABORED RESPIRATIONS WITH NO SIGN OF DISTRESS. BED IN LOWEST POSITION, BRAKES LOCKED, X2 SIDERAILS UP FOR SAFETY. PMH:CP, EPILEPSY, BIPOLAR, HEARING LOSS, HYPOTHYROID, GERD, MILD INTELLECTUAL DISABILITY. ALLERGIES:ERYTHROMYCIN
--- NOTE | 2020-11-21 19:11 | NUR ---
Report received from BASILIO Lopez for continuation of care.
--- NOTE | 2020-11-21 19:11 | NUR ---
REPORT GIVEN TO GEORGE RICHMOND. TRANSFER OF CARE AT THIS TIME.
--- NOTE | 2020-11-21 19:40 | NUR ---
Patient resting in bed respirations even and unlabored. Patient is A/O X1 to self. Patient GCS 13, patient follows commands, responds appropriately and at times responds inappropriately. Patient laying down in bed locked in lowest position, x 2 side rail up for patient safety. NAD noted.
--- NOTE | 2020-11-21 20:35 | NUR ---
ERMD at bedside for patient care of laceration.
--- NOTE | 2020-11-21 21:15 | NUR ---
CALLED [facility] S/W BASILIO VAZQUEZ TO CONFIRM LAST TETANUS SHOT AND PER GEORGE PATIENT HAS BEEN IN FACILITY SINCE 2018 AND THERE IS NO RECORD OF TETANUS VACCINATION.
--- NOTE | 2020-11-21 21:30 | NUR ---
Patient laying supine in bed, breathing even and unlabored. NAD noted.
--- NOTE | 2020-11-21 23:16 | NUR ---
PT UP FOR DISCHARGE AT THIS TIME. CALLED [facility] S/W GEORGE WHO STATED SHE WOULD ARRANGE TRANSPORTATION THROUGH [facility] FOR PT TO BE PICKED UP. PER GEORGE WOULD PHONE BACK WITH AN UPDATE ON ETA.
--- NOTE | 2020-11-22 00:15 | NUR ---
Patient will be transported to [facility] via [facility] ETA 20 minutes. Spoke jose c Ortiz from [facility] to provide update on patients transportation and ETA.
--- NOTE | 2020-11-22 02:05 | NUR ---
[facility] AT BEDSIDE.
[2020-11-22 02:13] VITALS: BP 136/64
--- NOTE | 2020-11-22 02:13 | NUR ---
Patient discharged with v/s stable. Written and verbal after care instructions given and explained. Patient verbalized understanding. Ambulance Transport with to board and care. All questions addressed prior to discharge. Advised to follow up with PMD.
== END 2020-11-22 02:13 ==
LOC: MED 18:40
DX: S01.312A Laceration without foreign body of left ear, initial encounter (principal); K21.9 Gastro-esophageal reflux disease without esophagitis; E03.9 Hypothyroidism, unspecified; Z79.899 Other long term (current) drug therapy; Z98.890 Other specified postprocedural states; Z88.1 Allergy status to other antibiotic agents; X58.XXXA Exposure to other specified factors, initial encounter; Y93.89 Activity, other specified; Y92.89 Other specified places as the place of occurrence of the external cause; Y99.8 Other external cause status
CPT/HCPCS: 12001; 90471; 90715; 99283

== ENCOUNTER 2021-03-01 15:15 | Inpatient (IN) | payer OTHER, MEDICAID, SELFPAY ==
[~2021-03-01] VITALS: Ht 162.6 cm; Wt 72.6 kg
[~2021-03-01 15:15] MED LIST changes: +FAMO-368 GT; -FAMO10TA93 GT
--- NOTE | 2021-03-01 15:35 | NUR ---
BIBA TAKEN TO BED 8
[2021-03-01 15:36] VITALS: BP 134/55
[2021-03-01] MEDS ORDERED: NACL 0.9% 1,000 ML IV ONE ×2 (15:55→21:35)
--- NOTE | 2021-03-01 16:00 | NUR ---
65/M BIBA from [facility]. Per EMS staff called 911 stating patient has been increasingly more lethargic and altered today. Patient has hx of cerebral palsy and epilepsy and is nonverbal and nonambulatory at baseline.
[2021-03-01 16:55] LABS: BASOPHILS % (AUTO) 0.3 % (0.0-2.0); EOSINOPHILS # (AUTO) 0.3 K/uL (0-0.4); EOSINOPHILS % (AUTO) 2.9 % (0.0-4.0); HEMOGLOBIN 12.4 g/dL (12.0-18.0); LYMPHOCYTES # (AUTO) 1.3 K/uL (2.0-11.5); LYMPHOCYTES % (AUTO) 12.3 % (20.5-51.1); MEAN CORPUSCULAR HEMOGLOBIN 30 pg (27-31); MEAN CORPUSCULAR HGB CONC 34 g/dL (33-37); MEAN CORPUSCULAR VOLUME 89.5 fL (80-94); NEUTROPHILS # (AUTO) 7.7 K/uL (1.8-7.7); NEUTROPHILS % (AUTO) 74.5 % (42.2-75.2); PLATELET COUNT (AUTO) 155 K/uL (140-450); RED BLOOD CELL COUNT(AUTO) 4.13 MIL/uL (4.20-6.10); RED CELL DISTRIBUTION WIDTH 14.5 % (11.6-13.7); WHITE BLOOD COUNT (AUTO) 10.4 K/uL (4.8-10.8)
--- NOTE | 2021-03-01 16:56 | NUR ---
HERSON SWAB COLLECTED AND WALKED TO LAB.
[2021-03-01 17:24] LABS: ALBUMIN 2.7 g/dL (3.4-5.0); ANION GAP 9.2 (8-16); CARBON DIOXIDE 30.3 mmol/L (21-32); CREATININE 0.7 mg/dL (0.6-1.3); POTASSIUM 4.5 mmol/L (3.5-5.1); TOTAL BILIRUBIN 0.2 mg/dL (0.0-1.0)
--- NOTE | 2021-03-01 18:50 | NUR ---
Straight cath used to collect urine, only enough for dipstick, Dr. Barnett made aware.
[2021-03-01] MEDS ORDERED: LORazepam 2 MG/ML VIAL IVP ONE (19:30)
--- NOTE | 2021-03-01 19:44 | NUR ---
Pt report given to Ludwig RICHMOND. Transfer of care at this time.
--- NOTE | 2021-03-01 20:11 | NUR ---
CODE BLUE INITIATED
--- NOTE | 2021-03-01 20:11 | NUR ---
CALLED TO ED FOR CODE BLUE. PT WAS INTUBATED SUCCESSFULLY BY DR. SANTOS WITH ETT 8.0 AND SECURE AT 23 @ TEETH. VENT CONNECTED TO RED OUTLET.ALARMS SET AND FUNCTINONING. OKAY WITH VENT SETTINGS. AC 18, 450, +6 100. WILL CONTINUE TO MONITOR.
--- NOTE | 2021-03-01 20:21 | NUR ---
PT INTUBATED. ERMD, RT, RNS PRESENT.
[2021-03-01 20:47] VITALS: BP 124/63
--- NOTE | 2021-03-01 21:34 | NUR ---
CORPORATE WEBMASTER FROM [facility] CALLED TO CHECK ON PT. ADV OF CARDIAC ARREST. RN TO CONTACT FOR MEDICAL ISSUES IS PARISH MARTINEZ [phone]
[2021-03-01] MEDS ORDERED: PROPOFOL 1000 MG/100 ML PREMIX 100 ML IV ONE ×2 (21:47→21:50)
--- NOTE | 2021-03-01 22:00 | NUR ---
PT WAKING UP AND RESTLESS. PROPOFOL DRIP STARTED ORDERED. VS STABLE AT THIS TIME. WILL CONTINUE TO MONITOR.
[2021-03-01] MEDS ORDERED: ACETAMINOPHEN 325 MG TAB GT PRN (22:45)
[2021-03-01] MEDS ORDERED: IBUPROFEN 600 MG TAB GT PRN (22:45)
[2021-03-01] MEDS ORDERED: BISMUTH SUBSALICYLATE 15 ML UDBTL GT PRN (22:45)
[2021-03-01] MEDS ORDERED: ONDANSETRON 4 MG/2 ML VIAL IVP PRN (22:45)
[2021-03-01] MEDS ORDERED: SODIUM PHOSPHATE 118 ML ENEM RC PRN (22:45)
[2021-03-01] MEDS ORDERED: bisacodyL 10 MG SUPP RC PRN (22:45)
[2021-03-01 23:03] VITALS: BP 129/58
[2021-03-02] VITALS (16 sets, daily range): BP systolic 117–147; BP diastolic 60–97
--- NOTE | 2021-03-02 00:15 | NUR ---
RECEIVED CALL FROM DR. Juanita JACINTO. RECEIVED ORDER TO GIVE ASPIRIN 162MG AND ATORVASTATIN 40MG ONCE. LAB ORDERS PLACED WELL.
[2021-03-02] MEDS: DEXT 5% /NACL 0.9% 1,000 ML IV SCH ×3 (00:19→19:11)
[2021-03-02] MEDS: ALBUTEROL 0.083% 2.5 MG/3 ML NEBU INH SCH ×3 (01:00→13:38)
[2021-03-02] MEDS ORDERED: ASPIRIN 81 MG TAB.CHEW PO STA (01:59)
[2021-03-02] MEDS ORDERED: ATORVASTATIN 20 MG TAB PO SCH (02:00)
--- NOTE | 2021-03-02 02:07 | NUR ---
PT ASLEEP. FLACC 0. NO S/SX OF RESPIRATORY DISTRESS NOTED. PT REPOSITIONED. WILL CONTINUE TO MONITOR.
[2021-03-02] MEDS ORDERED: ASPIRIN 81 MG TAB.CHEW PO SCH (02:09)
--- NOTE | 2021-03-02 04:34 | NUR ---
PERINEAL CARE DONE. PT TOLERATED WELL. FLACC 0. SAFETY MEASURES IN PLACE. WILL CONITNUE TO MONITOR.
[2021-03-02] MEDS: PROPOFOL 1000 MG/100 ML PREMIX 100 ML IV PRN ×2 (04:40→19:34)
--- NOTE | 2021-03-02 05:30 | NUR ---
PT SEDATED. VS STABLE AT THIS TIME. NO S/SX OF RESPI DISTRESS. FLACC 0. PT KEPT COMFORTABLE. SAFETY MEASURES IN PLACE. WILL CONTINUE TO MONITOR.
[2021-03-02] MEDS: LEVOTHYROXINE 0.075 MG TAB GT SCH (05:50)
[2021-03-02 06:50] LABS: BASOPHILS # (AUTO) 0.1 K/uL (0.00-0.22); BASOPHILS % (AUTO) 0.5 % (0.0-2.0); EOSINOPHILS # (AUTO) 0.2 K/uL (0-0.4); HEMATOCRIT 37.3 % (36-52); HEMOGLOBIN 12.2 g/dL (12.0-18.0); LYMPHOCYTES # (AUTO) 0.8 K/uL (2.0-11.5); LYMPHOCYTES % (AUTO) 7.1 % (20.5-51.1); MEAN CORPUSCULAR HEMOGLOBIN 30 pg (27-31); MEAN CORPUSCULAR HGB CONC 33 g/dL (33-37); MEAN CORPUSCULAR VOLUME 90.7 fL (80-94); MONOCYTES # (AUTO) 1.2 K/uL (0.8-1.0); MONOCYTES % (AUTO) 10.3 % (1.7-9.3); NEUTROPHILS # (AUTO) 9.4 K/uL (1.8-7.7); NEUTROPHILS % (AUTO) 80.1 % (42.2-75.2); PLATELET COUNT (AUTO) 174 K/uL (140-450); RED BLOOD CELL COUNT(AUTO) 4.12 MIL/uL (4.20-6.10); RED CELL DISTRIBUTION WIDTH 14.2 % (11.6-13.7); WHITE BLOOD COUNT (AUTO) 11.7 K/uL (4.8-10.8)
--- NOTE | 2021-03-02 07:25 | NUR ---
ENDORSED TO MUNA RICHMOND FOR CONTINUITY OF CARE
--- NOTE | 2021-03-02 07:30 | NUR ---
RCV'D PT INTUBATED WITH 8.0 ETT AT 23 CM. TUBE IS IN PLACE AND SECURED WITH ANCHOR-FAST. NO SOB OR DISTRESS NOTED. VENT CONNECTED TO RED OUTLET. ALARMS AUDIBLE. AMBU BAG AT BEDSIDE. BREATH SOUNDS CLEAR. WILL CONTINUE TO MONITOR PATIENT.
[2021-03-02] MEDS: IPRATROPIUM 0.02% 0.5 MG/2.5 ML NEBU INH SCH ×2 (07:45→13:37)
[2021-03-02 08:00] LABS: CREATINE KINASE MB 2.1 ng/mL (0-3.6)
--- NOTE | 2021-03-02 08:53 | NUR ---
PATIENT HAS BEEN SCREENED AND CATEGORIZED HIGH NUTRITION RISK. PATIENT WILL BE SEEN WITHIN 1-2 DAYS OF ADMISSION. 03/02/21-03/03/[address]
[2021-03-02] MEDS: POLYETHYLENE GLYCOL 17 GM/PKT GT SCH (09:00)
[2021-03-02] MEDS ORDERED: IPRATROPIUM 0.02% 0.5 MG/2.5 ML NEBU INH SCH (09:00)
[2021-03-02] MEDS: FUROSEMIDE 20 MG TAB GT SCH (09:00)
[2021-03-02] MEDS ORDERED: MULTIVITAMIN 5 ML ORASYR GT SCH (09:00)
[2021-03-02] MEDS: METOCLOPRAMIDE 10 MG TAB GT SCH ×3 (09:00→17:31)
[2021-03-02] MEDS: risperiDONE 1 MG TAB GT SCH ×2 (09:00→21:12)
[2021-03-02] MEDS ORDERED: NON-FORMULARY ITEM (Multivitamin (Multivitamins) 1 TAB) GT SCH (09:00)
[2021-03-02] MEDS: FAMOTIDINE 20 MG TAB GT SCH ×2 (09:00→21:11)
[2021-03-02] MEDS ORDERED: NON-FORMULARY ITEM (Famotidine (Famotidine) 20 MG) GT SCH (09:00)
--- NOTE | 2021-03-02 10:00 | NUR ---
GT TUBE WITH NO RESIDUALS AT THIS TIME.
--- NOTE | 2021-03-02 10:36 | NUR ---
Patient will be admitted to care of CAREY MEDELLIN. Admited to ICU. Will go to room 5. Belongings list completed. Report to PAKO RICHMOND.
--- NOTE | 2021-03-02 10:45 | NUR ---
RECEIVED FROM ER BY CHRIS PT. SLEEPING NOT RESPONSE TO VERBAL COMMAND SKIN DRY AND WARM TO TOUCH.IV HAS GATE #22 ON LEFT ARM WHICH INFILTRATE AND HAS IO ON LT LEG BELOW KNEE.. INFUSING PROPOFOLAT 10MCG/KG/H BUTCHER CATH DRAIN KYAW URINE.
--- NOTE | 2021-03-02 10:50 | NUR ---
BUTCHER URINE OUTPUT 400MLS EMPTIED
[2021-03-02 12:59] LABS: CARBON DIOXIDE 24.1 mmol/L (21-32); CREATININE 0.6 mg/dL (0.6-1.3); POTASSIUM 4.1 mmol/L (3.5-5.1); TOTAL BILIRUBIN 0.2 mg/dL (0.0-1.0)
[2021-03-02 13:00] LABS: ALBUMIN 2.7 g/dL (3.4-5.0); MAGNESIUM 1.8 mg/dL (1.8-2.4); PHOSPHORUS 3.9 mg/dL (2.5-4.9)
[2021-03-02] MEDS: VIT-B COMP/VIT-C/FOLIC ACID 1 TAB GT SCH (13:00)
[2021-03-02] MEDS: VALPROIC ACID 250 MG/5 ML UDC GT SCH ×2 (13:00→21:07)
--- NOTE | 2021-03-02 13:25 | NUR ---
PT. WITH LOW JAMES SCALE AT HIGH RISK, CONTINUE TO FOLLOW PRESSURE INJURY PREVENTION INTERVENTIONS. -TURN AND REPOSITION PATIENT Q 2H -ASSESS AND MONITOR SKIN CONDITION DURING POSITION CHANGE -OFFLOAD BILATERAL HEELS BY PLACING PILLOWS UNDER CALVES AT ALL TIMES, UNLESS OTHERWISE CONTRAINDICATED -PRESSURE REDISTRIBUTION SURFACE AND PLACING PILLOWS OFFLOADING SACRALCOCCYX -KEEP SKIN CLEAN AND DRY AT ALL TIMES.
--- NOTE | 2021-03-02 13:44 | NUR ---
PT. MOVE HIS HEAD AND SHAKE IT HIS EYES ARE ROLL UP AND BLINKING IT LAST ABOUT 5MINTS
[2021-03-02 14:05] LABS: FREE T4 (FREE THYROXINE) 1.07 ng/dL (0.76-1.46); THYROID STIMULATING HORMONE 3.49 uIU/mL (0.34-3.74)
--- NOTE | 2021-03-02 14:38 | NUR ---
RECEIVED TORB FROM DR. PATINO FOR TUBE FEEDING ORDER.
--- NOTE | 2021-03-02 15:59 | NUR ---
03/02/21 RD INITIAL ASSESSMENT COMPLETED PLEASE REFER TO NUTRITION ASSESSMENT UNDER CARE ACTIVITY FOR ESTIMATED NUTRITIONAL NEEDS. 1. RECOMMENDED JEVITY 1.2 @ 60 ML/HR; FLUSH OF 140 ML Q6H -THIS WILL PROVIDE 1728 KCAL/DAY AND 80 GM OF PROTEIN/DAY. MEETING 100% OF ESTIMATED KCAL AND PROTEIN NEEDS. 2. RD TO FOLLOW-UP 2-3 DAYS, HIGH RISK CALDERON ESPAÑA, RD
[2021-03-02] MEDS ORDERED: VANCOMYCIN PER PHARMACY MC PRN (16:45)
--- NOTE | 2021-03-02 16:49 | NUR ---
DC PLANNIN YRS OLD MALE PATIENT WAS ADMITTED FROM [facility] WITH A DX OF CARDIAC ARREST. PATIENT WITH A HX OF CEREBRAL PALSY AND EPILEPSY, NON-VERBAL. PT INTUBATED SEDATED FIO2 100% SATING 95% ON PROPOFOL DRIP AND CONTINUED HOME MEDS. HEAD CT NO EVIDENCE OF ACUTE INTRACRANIAL HEMORRHAGE MASS EFFECT OR HYDROCEPHALUS. CXR LOW LUNG VOLUMES MINIMAL LEFT BASILAR ATELECTASIS. RAPID COVID NEGATIVE. CONSULTED WITH CARDIO AND PULMO. DC PLAN PER PATIENT RESPOND TO THE TREATMENT. CM TO FOLLOW Addendum: 03/05/21 at 1207 by Jeanna Weber RN DC PLANNING: REMAINED INTUBATED SEDATED FIO2 28% ON PRECEDEX DRIP CONTINUE IV ABX ZOSYN AND VANCOMYCIN. PULMO, ID AND CARDIO FOLLOWING. DC PLAN TO WEAN OFF VENT. CM TO FOLLOW Addendum: 03/07/21 at 1552 by Jeanna Weber RN DC PLANNING: PATIENT HAS AN ORDER FOR [facility] EVALUATION FAXED TO ANGELICA CORTEZ TO FOLLOW
[2021-03-02] MEDS ORDERED: VANCOMYCIN IV ONE (17:00)
[2021-03-02] MEDS ORDERED: PIGGYBACK IV ONE (17:00)
[2021-03-02] MEDS ORDERED: DEXT IV ONE (17:00)
[2021-03-02] MEDS: PIPERACILLIN/TAZOBACTAM 3.375 GM in DEXTROSE 5% 50 ML IV SCH ×2 (17:47→23:45)
--- NOTE | 2021-03-02 19:11 | NUR ---
PT. HAS HIS HEAD MOVING AND RYRE TWITCHING AGAIN, IT LAST ABOUT 3 MIN.
--- NOTE | 2021-03-02 19:22 | NUR ---
REPORT GIVE TO JESSICA RICHMOND.
--- NOTE | 2021-03-02 19:30 | NUR ---
RECEIVED CARE AND REPORT FROM DAYSVTFT RN. PATIENT RASS -3, INTUBATED AND SEDATED, VENT SETTINGS AC/VC FIO2 35%, VT 450, RR 18, AND PEEP 6, HOB 30 DEGREES. PATIENT HAS A G TUBE IN PLACE, SECURED AND INTACT. PATIENT AIRWAY OPEN, CLEAR AND MAINTAINABLE. PATIENT CONNECTED TO CONTINUOUS BATCH TRUCKER, NSR 68 HR, NO SIGNS OF DISTRESS OBSERVED WHILE AT THE BEDSIDE. PATIENT HAS IV SITE OF RIGHT ANKLE/FOOT 18G, IV SITE DRESSING DRY, INTACT AND FLUSHING WELL. IV DRIPS FOUND RUNNING AT PROPOFOL 10 MCG/KG/MIN, AND NS 0.9% 100 ML/HR. PATIENT APPROXIMATE DRY WEIGHT 72.5 KG. PATIENT HAS A BUTCHER CATHETER IN PLACE, INTACT AND DRAINING WELL. PATIENT SKIN INTACT, SOME MILD NON PITTING EDEMA AND MILD REDNESS AND BRUISING OBSERVED ON BILATERAL UPPER EXTREMITIES. PATIENT CURRENTLY BEING OFFLOADED FROM PRESSURE POINTS WITH USE OF PILLOWS AND FREQUENT REPOSITIONING. BED LOCKED AND LOWERED INTO A POSITION OF SAFETY AND COMFORT. WILL CONTINUE TO CLOSELY MONITOR AND FREQUENTLY ROUND THROUGHOUT THE SHIFT.
[2021-03-02] MEDS: VANCOMYCIN 1,000 MG in DEXTROSE 5% 250 ML IV SCH (19:53)
--- NOTE | 2021-03-02 20:06 | NUR ---
VAP ORAL CARE, HYGIENE, ET/ORAL SUCTIONING, REPOSITIONING AND SAFETY CHECKS PROVIDED. PATIENT TOLERATING CURRENT VENT SETTINGS WELL. MINIMAL CLEAR/COOK SECRETIONS SUCTIONED. AIRWAY OPEN, CLEAR AND MAINTAINABLE. NO SIGNS OF DISTRESS OBSERVED WHILE AT THE BEDSIDE. SYMMETRICAL CHEST RISE AND FALL. WILL CONTINUE TO CLOSELY MONITOR AND FREQUENTLY ROUND.
--- NOTE | 2021-03-02 21:16 | NUR ---
SCHEDULED MEDICATIONS GIVEN ORDERED BY MD. NO SIGNS OF DISTRESS OBSERVED WHILE AT THE BEDSIDE. WILL CONTINUE TO CLOSELY MONITOR AND FREQUENTLY ROUND.
[2021-03-02] MEDS: SENNA 8.6 MG TAB GT SCH (21:20)
[2021-03-02] MEDS: ALBUTEROL SULFATE/IPRATROPIU 3 ML SOL IH SCH (21:30)
--- NOTE | 2021-03-02 22:49 | NUR ---
PATIENT RESTING IN A POSITION OF COMFORT, SYMMETRICAL CHEST RISE AND FALL OBSERVED, NO SIGNS OF DISTRESS. HOB 30 DEGREES, AIRWAY OPEN, CLEAR AND MAINTAINABLE. TOLERATING CURRENT THERAPIES AND VENT SETTINGS WELL. WILL CONTINUE TO CLOSELY MONITOR AND FREQUENTLY ROUND.
[2021-03-03] VITALS (25 sets, daily range): BP systolic 99–137; BP diastolic 44–98
--- NOTE | 2021-03-03 00:25 | NUR ---
VAP ORAL CARE, HYGIENE, ET/ORAL SUCTIONING, REPOSITIONING AND SAFETY CHECKS PROVIDED. INTUBATED AND SEDATED, RASS -3. PATIENT TOLERATING CURRENT VENT SETTINGS WELL. MINIMAL CLEAR/COOK SECRETIONS SUCTIONED. AIRWAY OPEN, CLEAR AND MAINTAINABLE. NO SIGNS OF DISTRESS OBSERVED WHILE AT THE BEDSIDE. SYMMETRICAL CHEST RISE AND FALL. WILL CONTINUE TO CLOSELY MONITOR AND FREQUENTLY ROUND.
[2021-03-03] MEDS: ALBUTEROL SULFATE/IPRATROPIU 3 ML SOL IH SCH ×4 (00:54→21:03)
--- NOTE | 2021-03-03 02:14 | NUR ---
PATIENT RESTING IN A POSITION OF COMFORT, HOB 30 DEGREES, AIRWAY OPEN, CLEAR AND MAINTAINABLE. PATIENT TOLERATING CURRENT THERAPIES AND VENT SETTINGS. NO SIGNS OF DISTRESS OBSERVED. SUCTIONING, HYGIENE AND REPOSITIONING PROVIDED. SYMMETRICAL CHEST RISE AND FALL OBSERVED. WILL CONTINUE TO CLOSELY MONITOR AND FREQUENTLY ROUND.
[2021-03-03] MEDS: PROPOFOL 1000 MG/100 ML PREMIX 100 ML IV PRN ×2 (02:26→12:25)
--- NOTE | 2021-03-03 04:16 | NUR ---
MORNING CARE, VAP ORAL CARE, SUCTIONING, HYGIENE, POSITIONING AND SAFETY CHECKS PROVIDED. MINIMAL CLEAR SECRETIONS SUCTIONED FROM MOUTH/ET TUBE, AIRWAY, OPEN, CLEAR AND MAINTAINABLE. PATIENT TOLERATING CURRENT VENT SETTINGS WELL, CONTINUING PRONE POSITIONING PER MD ORDER, RR 18, OXYGEN SATURATION 98%, NO SIGNS OF DISTRESS OBSERVED WHILE AT THE BEDSIDE. SAFETY CHECKS CONTINUE TO BE IN PLACE, VS STABLE, WILL CONTINUE TO CLOSELY MONITOR AND FREQUENTLY ROUND.
[2021-03-03] MEDS: DEXT 5% /NACL 0.9% 1,000 ML IV SCH ×3 (04:45→23:59)
[2021-03-03] MEDS: PIPERACILLIN/TAZOBACTAM 3.375 GM in DEXTROSE 5% 50 ML IV SCH ×4 (05:13→23:11)
[2021-03-03] MEDS: LEVOTHYROXINE 0.075 MG TAB GT SCH (05:47)
--- NOTE | 2021-03-03 06:02 | NUR ---
SCHEDULED MEDICATION GIVEN ORDERED BY MD, NO SIGNS OF DISTRESS OBSERVED WHILE AT THE BEDSIDE. WILL CONTINUE TO CLOSELY MONITOR AND FREQUENTLY ROUND.
[2021-03-03 07:10] LABS: BASOPHILS # (AUTO) 0.1 K/uL (0.00-0.22); BASOPHILS % (AUTO) 0.4 % (0.0-2.0); EOSINOPHILS # (AUTO) 0.2 K/uL (0-0.4); EOSINOPHILS % (AUTO) 1.7 % (0.0-4.0); HEMATOCRIT 38.1 % (36-52); HEMOGLOBIN 12.5 g/dL (12.0-18.0); LYMPHOCYTES # (AUTO) 0.4 K/uL (2.0-11.5); LYMPHOCYTES % (AUTO) 2.8 % (20.5-51.1); MEAN CORPUSCULAR HEMOGLOBIN 30 pg (27-31); MEAN CORPUSCULAR HGB CONC 33 g/dL (33-37); MEAN CORPUSCULAR VOLUME 90.1 fL (80-94); MONOCYTES # (AUTO) 1.5 K/uL (0.8-1.0); MONOCYTES % (AUTO) 11.5 % (1.7-9.3); NEUTROPHILS % (AUTO) 83.6 % (42.2-75.2); PLATELET COUNT (AUTO) 162 K/uL (140-450); RED BLOOD CELL COUNT(AUTO) 4.23 MIL/uL (4.20-6.10); RED CELL DISTRIBUTION WIDTH 14.3 % (11.6-13.7); WHITE BLOOD COUNT (AUTO) 13.2 K/uL (4.8-10.8)
--- NOTE | 2021-03-03 07:13 | NUR ---
REPORT AND CARE ENDORSED TO DAYSHIFT RN, VS STABLE.
[2021-03-03 07:29] LABS: ANION GAP 15.4 (8-16); CARBON DIOXIDE 23.2 mmol/L (21-32); CREATININE 0.6 mg/dL (0.6-1.3); POTASSIUM 3.6 mmol/L (3.5-5.1)
--- NOTE | 2021-03-03 07:30 | NUR ---
RECEIVED REPORT FROM JESSICA. PT, SLEEPING IN BED HOB UP 30 DEGREE ETT TO VENT ACPSC FIO2 35% VT 450 RATE 18 PEEP OF 5 SAT 98% GT FEEDING 60 ML/HR. BUTCHER CATH DRAINDARK KYAW URINE.
--- NOTE | 2021-03-03 07:46 | NUR ---
Talked to picc rn aware of the order
[2021-03-03] MEDS: VANCOMYCIN 1,000 MG in DEXTROSE 5% 250 ML IV SCH ×2 (08:19→19:33)
[2021-03-03] MEDS: ENOXAPARIN 40 MG/0.4 ML SYR SUBQ SCH (08:22)
[2021-03-03] MEDS: FUROSEMIDE 20 MG TAB GT SCH (08:27)
[2021-03-03] MEDS: METOCLOPRAMIDE 10 MG TAB GT SCH ×3 (08:28→17:06)
[2021-03-03] MEDS: POLYETHYLENE GLYCOL 17 GM/PKT GT SCH (08:29)
[2021-03-03] MEDS: risperiDONE 1 MG TAB GT SCH ×2 (08:29→20:15)
[2021-03-03] MEDS: FAMOTIDINE 20 MG TAB GT SCH ×2 (08:29→20:16)
[2021-03-03] MEDS ORDERED: CRUSHER, PILL MC ONE (08:50)
[2021-03-03] MEDS: VIT-B COMP/VIT-C/FOLIC ACID 1 TAB GT SCH (09:00)
[2021-03-03] MEDS: VALPROIC ACID 250 MG/5 ML UDC GT SCH ×2 (09:00→20:16)
--- NOTE | 2021-03-03 09:00 | NUR ---
ALLL SCHEDULE MED GIVEN TOLERATED WELL.
--- NOTE | 2021-03-03 09:43 | NUR ---
PT HAS SIEZURE ACTIVITY HIS HEAD CHECKING EYES OPEN AND ROLL UP AND BLINKING IT LAST ABOUT 6 MINS
--- NOTE | 2021-03-03 12:30 | NUR ---
SEEN BY DR. DAVIS ORDER RECEIVED WILL HAVE NEURO CONSULT.
--- NOTE | 2021-03-03 16:59 | NUR ---
PT SLEEPING QUIETLY HE HAS 3 MORE SIEZURE ACTIVITY DURING THE DAY.
--- NOTE | 2021-03-03 18:00 | NUR ---
SLEEPING V/S WITH IN NORMAL LIMIT.
--- NOTE | 2021-03-03 19:29 | NUR ---
REPORT GIVE TO JESSICA RICHMOND,
--- NOTE | 2021-03-03 19:30 | NUR ---
RECEIVED CARE AND REPORT FROM DAYSMOFT RN. PATIENT RASS -3, INTUBATED AND SEDATED, VENT SETTINGS AC/VC FIO2 35%, VT 450, RR 18, AND PEEP 5, HOB 30 DEGREES. PATIENT HAS A G TUBE IN PLACE, SECURED AND INTACT. PATIENT AIRWAY OPEN, CLEAR AND MAINTAINABLE. PATIENT CONNECTED TO CONTINUOUS PATIENT CENTERED CARE SPECIALIST, NSR 64 HR, NO SIGNS OF DISTRESS OBSERVED WHILE AT THE BEDSIDE. PATIENT HAS IV SITE OF RIGHT ANKLE/FOOT 18G, IV SITE DRESSING DRY, INTACT AND FLUSHING WELL. IV DRIPS FOUND RUNNING AT PROPOFOL 20 MCG/KG/MIN, AND NS 0.9% 100 ML/HR. PATIENT APPROXIMATE DRY WEIGHT 72.5 KG. PATIENT HAS A BUTCHER CATHETER IN PLACE, INTACT AND DRAINING WELL. PATIENT SKIN MOSTLY INTACT, SOME MILD NON PITTING EDEMA AND MILD REDNESS AND BRUISING OBSERVED ON BILATERAL UPPER EXTREMITIES. PATIENT CURRENTLY BEING OFFLOADED FROM PRESSURE POINTS WITH USE OF PILLOWS AND FREQUENT REPOSITIONING. BED LOCKED AND LOWERED INTO A POSITION OF SAFETY AND COMFORT. WILL CONTINUE TO CLOSELY MONITOR AND FREQUENTLY ROUND THROUGHOUT THE SHIFT.
[2021-03-03] MEDS: SENNA 8.6 MG TAB GT SCH (20:16)
--- NOTE | 2021-03-03 20:22 | NUR ---
SCHEDULED MEDICATIONS GIVEN ORDERED BY MD, NO SIGNS OF DISTRESS OBSERVED WHILE AT THE BEDSIDE. WILL CONTINUE TO CLOSELY MONITOR AND FREQUENTLY ROUND.
--- NOTE | 2021-03-03 20:49 | NUR ---
VAP ORAL CARE, HYGIENE, ET/ORAL SUCTIONING, REPOSITIONING AND SAFETY CHECKS PROVIDED. INTUBATED AND SEDATED, RASS -3. PATIENT TOLERATING CURRENT VENT SETTINGS WELL. HOB 30 DEGREES MODERATE CLEAR/COOK SECRETIONS SUCTIONED. AIRWAY OPEN, CLEAR AND MAINTAINABLE. NO SIGNS OF DISTRESS OBSERVED WHILE AT THE BEDSIDE. SYMMETRICAL CHEST RISE AND FALL. WILL CONTINUE TO CLOSELY MONITOR AND FREQUENTLY ROUND.
--- NOTE | 2021-03-03 22:15 | NUR ---
JOHAN, PICC LINE RN AT BEDSIDE TO PLACE PICC LINE.
--- NOTE | 2021-03-03 22:35 | NUR ---
XRAY, FOR PICC LINE PLACEMENT CONFIRMATION AT BEDSIDE.
--- NOTE | 2021-03-03 22:47 | NUR ---
RIGHT UPPER ARM PICC LINE OK TO USE PER PICC LINE JOHAN RICHMOND.
--- NOTE | 2021-03-03 23:24 | NUR ---
SCHEDULED MEDICATION GIVEN ORDERED BY MD, NO SIGNS OF DISTRESS OBSERVED, WILL CONTINUE TO CLOSELY MONITOR AND FREQUENTLY ROUND.
[2021-03-04] VITALS (25 sets, daily range): BP systolic 78–131; BP diastolic 45–72
--- NOTE | 2021-03-04 00:14 | NUR ---
ETT RETRACTED AND RE-SECURED AT 22CM PER XRAY PER CXR INTERP
--- NOTE | 2021-03-04 00:47 | NUR ---
VAP ORAL CARE, HYGIENE, ET/ORAL SUCTIONING, REPOSITIONING AND SAFETY CHECKS PROVIDED. INTUBATED AND SEDATED, RASS -3. PATIENT TOLERATING CURRENT VENT SETTINGS WELL. HOB 30 DEGREES MINIMAL CLEAR/COOK SECRETIONS SUCTIONED. AIRWAY OPEN, CLEAR AND MAINTAINABLE. NO SIGNS OF DISTRESS OBSERVED WHILE AT THE BEDSIDE. SYMMETRICAL CHEST RISE AND FALL. WILL CONTINUE TO CLOSELY MONITOR AND FREQUENTLY ROUND.
--- NOTE | 2021-03-04 02:05 | NUR ---
PATIENT RESTING IN A POSITION OF COMFORT, NO SIGNS OF DISTRESS OBSERVED WHILE AT THE BEDSIDE. PATIENT TOLERATING CURRENT THERAPIES AND VENT SETTINGS WELL. SYMMETRICAL CHEST RISE A FALL OBSERVED. AIRWAY OPEN, CLEAR AND MAINTAINABLE. SUCTIONING, SAFETY CHECKS AND REPOSITIONING PROVIDED. VS STABLE, WILL CONTINUE TO CLOSELY MONITOR AND FREQUENTLY ROUND.
--- NOTE | 2021-03-04 05:05 | NUR ---
MORNING CARE, VAP ORAL CARE, SUCTIONING, HYGIENE, POSITIONING AND SAFETY CHECKS PROVIDED. MINIMAL CLEAR SECRETIONS SUCTIONED FROM MOUTH/ET TUBE, AIRWAY, OPEN, CLEAR AND MAINTAINABLE. PATIENT TOLERATING CURRENT VENT SETTINGS WELL, CONTINUING PRONE POSITIONING PER MD ORDER, RR 19, OXYGEN SATURATION 97%, NO SIGNS OF DISTRESS OBSERVED WHILE AT THE BEDSIDE. SAFETY CHECKS CONTINUE TO BE IN PLACE, VS STABLE, WILL CONTINUE TO CLOSELY MONITOR AND FREQUENTLY ROUND.
[2021-03-04] MEDS: PIPERACILLIN/TAZOBACTAM 3.375 GM in DEXTROSE 5% 50 ML IV SCH ×4 (05:13→23:52)
[2021-03-04] MEDS: LEVOTHYROXINE 0.075 MG TAB GT SCH (05:44)
[2021-03-04 06:43] LABS: BASOPHILS % (AUTO) 0.4 % (0.0-2.0); EOSINOPHILS # (AUTO) 0.5 K/uL (0-0.4); EOSINOPHILS % (AUTO) 4.9 % (0.0-4.0); HEMATOCRIT 32.1 % (36-52); HEMOGLOBIN 10.7 g/dL (12.0-18.0); LYMPHOCYTES # (AUTO) 0.4 K/uL (2.0-11.5); MEAN CORPUSCULAR HEMOGLOBIN 31 pg (27-31); MEAN CORPUSCULAR HGB CONC 34 g/dL (33-37); MEAN CORPUSCULAR VOLUME 90.9 fL (80-94); MONOCYTES # (AUTO) 1.3 K/uL (0.8-1.0); NEUTROPHILS # (AUTO) 7.9 K/uL (1.8-7.7); PLATELET COUNT (AUTO) 152 K/uL (140-450); RED BLOOD CELL COUNT(AUTO) 3.53 MIL/uL (4.20-6.10); RED CELL DISTRIBUTION WIDTH 14.4 % (11.6-13.7); WHITE BLOOD COUNT (AUTO) 10.1 K/uL (4.8-10.8)
[2021-03-04 07:05] LABS: ANION GAP 8.7 (8-16); CARBON DIOXIDE 28.2 mmol/L (21-32); CREATININE 0.6 mg/dL (0.6-1.3); POTASSIUM 3.9 mmol/L (3.5-5.1); TOTAL BILIRUBIN 0.2 mg/dL (0.0-1.0)
--- NOTE | 2021-03-04 07:16 | NUR ---
CARE AND REPORT ENDORSED TO DAYSHIFT RN, VS STABLE.
--- NOTE | 2021-03-04 07:16 | NUR ---
RECEIVED BEDSIDE REPORT FROM IRONING MACHINE OPERATOR NURSE. PATIENT SUPINE IN BED, HOB 30 DEGREES, SEDATED TO RASS -3. BREATHING EVEN AND UNLABORED, NO SIGNS OF ACUTE DISTRESS NOTED/ G TUBE IN LUQ IN PLACE, STOPPED AT THIS TIME DUE TO PATIENT BECOMING AGITATED AND HITTING STOMACH PER IRONING MACHINE OPERATOR NURSE. BUTCHER CATHETER IN PLACE, DRAINING TO GRAVITY. ISAAK PICC LINE INFUSING PROPOFOL @ 25 MCG/KG/MIN, D5NS @ 100 ML/HR. SEIZURE PRECAUTIONS IN PLACE, CHRISTMAS TREE GROWER AND SAFETY MEASURES IN PLACE.
[2021-03-04] MEDS: ALBUTEROL SULFATE/IPRATROPIU 3 ML SOL IH SCH ×3 (07:39→21:34)
[2021-03-04] MEDS: VANCOMYCIN 1,000 MG in DEXTROSE 5% 250 ML IV SCH ×3 (08:00→19:40)
[2021-03-04 08:13] LABS: LYMPHOCYTES % (AUTO) 4.4 % (20.5-51.1); MONOCYTES % (AUTO) 12.8 % (1.7-9.3); NEUTROPHILS % (AUTO) 77.5 % (42.2-75.2)
[2021-03-04] MEDS: VALPROIC ACID 250 MG/5 ML UDC GT SCH ×2 (08:40→23:46)
[2021-03-04] MEDS: FUROSEMIDE 20 MG TAB GT SCH (08:41)
[2021-03-04] MEDS: POLYETHYLENE GLYCOL 17 GM/PKT GT SCH (08:41)
[2021-03-04] MEDS: VIT-B COMP/VIT-C/FOLIC ACID 1 TAB GT SCH (08:41)
[2021-03-04] MEDS: risperiDONE 1 MG TAB GT SCH ×2 (08:41→23:45)
[2021-03-04] MEDS: FAMOTIDINE 20 MG TAB GT SCH ×2 (08:42→23:46)
[2021-03-04] MEDS: METOCLOPRAMIDE 10 MG TAB GT SCH ×3 (08:42→17:47)
[2021-03-04] MEDS: ENOXAPARIN 40 MG/0.4 ML SYR SUBQ SCH (08:42)
--- NOTE | 2021-03-04 08:45 | NUR ---
ADMINISTERED SCHEDULED MEDS PER MD ORDER. MED EDUCATION PROVIDED, REINFORCEMENT NEEDED. G TUBE RESIDUAL 0 ML, FLUSHED BORE AND AFTER MEDS. MORNING HYGIENE PROVIDED: ORAL CARE, CATHETER CARE, CHG BATH, CHANGED ALL DIRTY LINEN. OFFLOADED PRESSURE WITH PILLOWS. PIE FILLING MIXER IN PLACE, SAFETY MEASURES IN PLACE.
[2021-03-04] MEDS: PROPOFOL 1000 MG/100 ML PREMIX 100 ML IV PRN ×4 (09:06→21:38)
--- NOTE | 2021-03-04 10:00 | NUR ---
PATIENT SUPINE IN BED, SEDATED, BREATHING EVEN AND UNLABORED NO SIGNS OF ACUTE DISTRESS NOTED.
[2021-03-04] MEDS: DEXT 5% /NACL 0.9% 1,000 ML IV SCH ×2 (10:58→21:46)
[2021-03-04] MEDS ORDERED: KETOROLAC 30 MG/ML VIAL IVP PRN (11:00)
--- NOTE | 2021-03-04 12:05 | NUR ---
PATIENT CALM, SEDATED, BREATHING EVEN AND UNLABORED, NO SIGNS OF ACUTE DISTRESS NOTED. PER DR DAVIS BEGIN ON PRECEDEX AND PREPARE FOR CPAP TRIALS. RT AT BEDSIDE AND AWARE.
--- NOTE | 2021-03-04 14:00 | NUR ---
PATIENT CONTINUE ON PROPOFOL DRIP, SEDATED, BREATHING EVEN AND UNLABORED, NO SIGNS OF ACUTE DISTRESS NOTED. AWAITING PRECEDEX DRIP FROM PHARMACY.
--- NOTE | 2021-03-04 14:02 | NUR ---
03/04/21 RD FOLLOW UP COMPLETED PLEASE REFER TO NUTRITION PROGRESS NOTE UNDER CARE ACTIVITY FOR ESTIMATED NUTRITION NEEDS. RD RECOMMENDATIONS: 1.CONTINUE JEVITY 1.2 @ 60 ML/HR; FLUSH OF 140 ML Q6H -THIS WILL PROVIDE 1728 KCAL/DAY AND 80 GM OF PROTEIN/DAY. MEETING 100% OF ESTIMATED KCAL AND PROTEIN NEEDS. 2. RD TO FOLLOW-UP 2-3 DAYS, HIGH RISK JUNIE POTTS, RD
--- NOTE | 2021-03-04 17:48 | NUR ---
PATIENT CONTINUES WITH NO ACUTE DISTRESS NOTED, CHEST RISE AND FALL EVEN BILATERALLY.
--- NOTE | 2021-03-04 19:32 | NUR ---
PATIENT AND SBT TRIAL ENDORSED TO WELFARE OFFICER NURSE. PATIENT STABLE AT THIS TIME.
--- NOTE | 2021-03-04 21:30 | NUR ---
PT RECEIVED ON ACVC 450 +5 f12 W/ ETT 8 SECURED AT 22 VENT PLUGGED INTO RED OUTLET W/ ALARMS ON AND AUDIBLE AMBU AT BEDSIDE WILL CONTINUE TO MONITOR
[2021-03-04] MEDS: SENNA 8.6 MG TAB GT SCH (23:48)
[2021-03-05] VITALS (28 sets, daily range): BP systolic 104–158; BP diastolic 51–76
[2021-03-05] MEDS: DEXMEDETOMIDINE HCL 400 MCG in NACL 0.9% 96 ML IV PRN ×2
[2021-03-05] MEDS: ALBUTEROL SULFATE/IPRATROPIU 3 ML SOL IH SCH ×4 (01:19→19:32)
--- NOTE | 2021-03-05 01:58 | NUR ---
patient sedated on propofol at 30 mcg started precedex at 2400 at 0.2 mcg/kg/hr. titrate propofol down 5mcg every hour.. patient has upper right picc line. sinus on monitor. lungs diminish to listen. abdomen soft with active bowel sound. jevity 1.2 infusing at 60 hour. no residual at 2000. 2400. flush with 140 cc water at 2400. and again at 0600. has f/c draining yellowish greenish urine. has et-tube ac/vc rate 12, tv 450,,fi02 32%, peep 5. patient has -4 rass.no distress noted.
[2021-03-05] MEDS: PROPOFOL 1000 MG/100 ML PREMIX 100 ML IV PRN (03:36)
[2021-03-05] MEDS: DEXT 5% /NACL 0.9% 1,000 ML IV SCH (05:19)
[2021-03-05] MEDS: PIPERACILLIN/TAZOBACTAM 3.375 GM in DEXTROSE 5% 50 ML IV SCH ×3 (05:52→17:50)
[2021-03-05] MEDS: LEVOTHYROXINE 0.075 MG TAB GT SCH (06:11)
[2021-03-05 06:21] LABS: BASOPHILS % (AUTO) 0.5 % (0.0-2.0); EOSINOPHILS # (AUTO) 0.6 K/uL (0-0.4); EOSINOPHILS % (AUTO) 6.7 % (0.0-4.0); HEMATOCRIT 31.5 % (36-52); HEMOGLOBIN 10.4 g/dL (12.0-18.0); LYMPHOCYTES # (AUTO) 0.6 K/uL (2.0-11.5); LYMPHOCYTES % (AUTO) 7.2 % (20.5-51.1); MEAN CORPUSCULAR HEMOGLOBIN 30 pg (27-31); MEAN CORPUSCULAR HGB CONC 33 g/dL (33-37); MONOCYTES % (AUTO) 11.5 % (1.7-9.3); NEUTROPHILS # (AUTO) 6.5 K/uL (1.8-7.7); NEUTROPHILS % (AUTO) 74.1 % (42.2-75.2); PLATELET COUNT (AUTO) 153 K/uL (140-450); RED BLOOD CELL COUNT(AUTO) 3.47 MIL/uL (4.20-6.10); RED CELL DISTRIBUTION WIDTH 14.6 % (11.6-13.7); WHITE BLOOD COUNT (AUTO) 8.7 K/uL (4.8-10.8)
[2021-03-05 07:00] LABS: ALBUMIN 1.9 g/dL (3.4-5.0); CARBON DIOXIDE 28.1 mmol/L (21-32); CREATININE 0.6 mg/dL (0.6-1.3); MAGNESIUM 1.9 mg/dL (1.8-2.4); PHOSPHORUS 4.3 mg/dL (2.5-4.9); POTASSIUM 4.1 mmol/L (3.5-5.1); TOTAL BILIRUBIN 0.2 mg/dL (0.0-1.0)
[2021-03-05] MEDS: FAMOTIDINE 20 MG TAB GT SCH ×2 (09:44→20:54)
[2021-03-05] MEDS: POLYETHYLENE GLYCOL 17 GM/PKT GT SCH (09:45)
[2021-03-05] MEDS: risperiDONE 1 MG TAB GT SCH ×2 (09:45→20:54)
[2021-03-05] MEDS: METOCLOPRAMIDE 10 MG TAB GT SCH ×3 (09:45→17:50)
[2021-03-05] MEDS: FUROSEMIDE 20 MG TAB GT SCH (09:45)
[2021-03-05] MEDS: VIT-B COMP/VIT-C/FOLIC ACID 1 TAB GT SCH (09:46)
[2021-03-05] MEDS: VALPROIC ACID 250 MG/5 ML UDC GT SCH ×2 (09:47→20:53)
[2021-03-05] MEDS: VANCOMYCIN 1,000 MG in DEXTROSE 5% 250 ML IV SCH ×2 (09:47→20:55)
[2021-03-05] MEDS: ENOXAPARIN 40 MG/0.4 ML SYR SUBQ SCH (09:48)
--- NOTE | 2021-03-05 09:58 | NUR ---
AM MEDS GIVEN, RASS -4 NOW, PROPOFOL DECREASED
--- NOTE | 2021-03-05 11:02 | NUR ---
MAIL MANAGER AT BEDSIDE
--- NOTE | 2021-03-05 11:20 | NUR ---
STARTED SBT TRIAL ON CPAP 5 PS 5, NO SIGN OF RESPIRATORY DISTRESS. TOLERATING WELL, RN NOTIFIED.
--- NOTE | 2021-03-05 11:25 | NUR ---
PROPOFOL TURNED OFF FOR SBT, RT HANDY AT BEDSIDE
[2021-03-05 12:09] LABS: APPEARANCE,URINE CLEAR (CLEAR); BILIRUBIN,URINE NEGATIVE (NEGATIVE); BLOOD, URINE 1+ (NEGATIVE); COLOR,URINE YELLOW (YELLOW); LEUKOCYTE ESTERASE ,URINE NEGATIVE (NEGATIVE); NITRITE, URINE NEGATIVE (NEGATIVE); UGLUCOSE NEGATIVE (NEGATIVE)
[2021-03-05 12:21] LABS: WBC,URINE 0-5 /HPF (0-5)
--- NOTE | 2021-03-05 14:27 | NUR ---
REPORTED ABG RESULTS TO DR DAVIS, ORDERED TO EXTUBATE PT. BIPAP AND RACEMIC EPI PRN.
--- NOTE | 2021-03-05 15:20 | NUR ---
EXTUBATED PT AND PLACED ON 3L NC PER DR DAVIS. PT IS RESTING COMFORTABLY AND SPO2 IS 93%.
--- NOTE | 2021-03-05 15:30 | NUR ---
PRECEDEX TURNED OFF AT THIS TIME
--- NOTE | 2021-03-05 16:25 | NUR ---
BED BATH GIVEN, BUTCHER CARE DONE, CHG WIPE DONE, PT ZEINA WELL, PT AWAKE, ALERT, SMILING
--- NOTE | 2021-03-05 17:15 | NUR ---
PT WITH UPPER AIRWAY CONGESTION, RT AT BEDSIDE TO DEEP SUCTION
--- NOTE | 2021-03-05 19:30 | NUR ---
RECEIVED PATIENT ON BED WITH HOB ELEVATED TO 30 DEGREE; AWAKE, ALERT NON VERBAL; ON 4 LITERS 02/ AND PATIENT IS SOMEWHAT RESTLESS AND DESATURATING S02 BELOW 90%. CARDIACSCOPE SHOWS ON SINUS RHYTHM HR 93/MIN NO ARRHYTHMIAS SEEN. COMMENCING ON IVF D5 NS AT 100 ML/HR VIA PICC LINE TO RIGHT UPPER ARM, PATENT AND INTACT. ABDOMEN IS SOFT; ACTIVE BOWEL SOUNDS. WITH G TUBE IN PLACE; TUBE FEEDING RESUME AT 60 ML/HR. BUTCHER CATH IN SITU TO GRAVITY DRAINAGE BAG DRAINING TO CLEAR YELLOW URINE OUTPUT, INTACT.
[2021-03-05] MEDS: SENNA 8.6 MG TAB GT SCH (20:55)
--- NOTE | 2021-03-05 21:27 | NUR ---
CHANGED PATIENTS NC FROM 3L TO PARTIAL NRB MASK DUE TO LOW SATS AND PATIENT IS A MOUTH BREATHER. PATIENT IS ON 50% FIO2 AT THIS TIME. SATS IMPROVED
--- NOTE | 2021-03-05 22:18 | NUR ---
2200 PLACED PATIENT ON BIPAP DUE TO SHORTNESS OF BREATH. PATIENT SXNED WITH 14 FR CATHETER DOWN HIS MOUTH. LARGE AMTS OF YELLOW PINK TINGED SECRETIONS. PLACED PATIENT ON IPAP12 EPAP 6 RR 14 100% FIO2. WILL TITRATE FIO2 TO KEEP SATS GREATER THAN 92%. RN AWARE
--- NOTE | 2021-03-05 22:20 | NUR ---
ERIN RUSHING(S[employer]IOR [employer]) UPDATED HIM ON PATIENT'S LATEST CONDITION WITH NEW ORDERS, CARRIED OUT.
--- NOTE | 2021-03-05 22:20 | NUR ---
PATIENT STILL DESATURATING AT 4 LITERS WITH S02 67-70%; RT PUT HIM ON 100 % BIPAP.
[2021-03-06] VITALS (22 sets, daily range): BP systolic 111–169; BP diastolic 52–89
[2021-03-06] MEDS: ALBUTEROL SULFATE/IPRATROPIU 3 ML SOL IH SCH ×4 (01:05→20:16)
--- NOTE | 2021-03-06 04:30 | NUR ---
MORNING BED BATH DONE; KEPT CLEAN DRY AND COMFORTABLE.
[2021-03-06 06:27] LABS: BASOPHILS # (AUTO) 0.1 K/uL (0.00-0.22); BASOPHILS % (AUTO) 0.4 % (0.0-2.0); EOSINOPHILS # (AUTO) 0.8 K/uL (0-0.4); EOSINOPHILS % (AUTO) 4.7 % (0.0-4.0); HEMATOCRIT 32.6 % (36-52); HEMOGLOBIN 10.6 g/dL (12.0-18.0); LYMPHOCYTES # (AUTO) 0.8 K/uL (2.0-11.5); LYMPHOCYTES % (AUTO) 5.2 % (20.5-51.1); MEAN CORPUSCULAR HEMOGLOBIN 30 pg (27-31); MEAN CORPUSCULAR HGB CONC 33 g/dL (33-37); MEAN CORPUSCULAR VOLUME 90.2 fL (80-94); MONOCYTES # (AUTO) 1.5 K/uL (0.8-1.0); MONOCYTES % (AUTO) 9.7 % (1.7-9.3); NEUTROPHILS # (AUTO) 12.7 K/uL (1.8-7.7); PLATELET COUNT (AUTO) 194 K/uL (140-450); RED BLOOD CELL COUNT(AUTO) 3.61 MIL/uL (4.20-6.10); RED CELL DISTRIBUTION WIDTH 14.2 % (11.6-13.7); WHITE BLOOD COUNT (AUTO) 15.9 K/uL (4.8-10.8)
[2021-03-06] MEDS: LEVOTHYROXINE 0.075 MG TAB GT SCH (06:30)
[2021-03-06 06:46] LABS: ANION GAP 10.1 (8-16); CARBON DIOXIDE 28.4 mmol/L (21-32); CREATININE 0.6 mg/dL (0.6-1.3); POTASSIUM 4.5 mmol/L (3.5-5.1)
--- NOTE | 2021-03-06 07:30 | NUR ---
Change of shift report received from Anu RN met pt with BIPAP oxygenation support rate 14 FIO2 50% 12/6 o2 SAT 98%, able to follow command, moves all extremities confused, PEG tube feeding checked 30cc vitals signs stable no sign of distress, oral care done and pt repositioned for comfort .
[2021-03-06] MEDS: ENOXAPARIN 40 MG/0.4 ML SYR SUBQ SCH (09:36)
[2021-03-06] MEDS: VANCOMYCIN 1,000 MG in DEXTROSE 5% 250 ML IV SCH ×2 (09:37→20:00)
[2021-03-06] MEDS: PIPERACILLIN/TAZOBACTAM 3.375 GM in DEXTROSE 5% 50 ML IV SCH ×5 (09:37→17:49)
[2021-03-06] MEDS: POLYETHYLENE GLYCOL 17 GM/PKT GT SCH (09:39)
[2021-03-06] MEDS: VALPROIC ACID 250 MG/5 ML UDC GT SCH ×2 (09:39→21:00)
[2021-03-06] MEDS: FUROSEMIDE 20 MG TAB GT SCH (09:40)
[2021-03-06] MEDS: VIT-B COMP/VIT-C/FOLIC ACID 1 TAB GT SCH (09:41)
[2021-03-06] MEDS: FAMOTIDINE 20 MG TAB GT SCH ×2 (09:42→21:00)
[2021-03-06] MEDS: risperiDONE 1 MG TAB GT SCH ×2 (09:42→21:00)
[2021-03-06] MEDS: METOCLOPRAMIDE 10 MG TAB GT SCH ×3 (09:42→17:48)
--- NOTE | 2021-03-06 10:00 | NUR ---
All scheduled meds given no adverse reaction noted flushed with free water.
--- NOTE | 2021-03-06 12:40 | NUR ---
Oral care and pt repositioned for comfort still on Bipap for oxygenation support tolerating all care and treatments
--- NOTE | 2021-03-06 14:11 | NUR ---
03/06/21 RD FOLLOW UP COMPLETED PLEASE REFER TO NUTRITION ASSESSMENT UNDER CARE ACTIVITY FOR ESTIMATED NUTRITIONAL NEEDS. 1.CONTINUE JEVITY 1.2 @ 60 ML/HR; FLUSH OF 140 ML Q6H -THIS WILL PROVIDE 1728 KCAL/DAY AND 80 GM OF PROTEIN/DAY. MEETING 100% OF ESTIMATED KCAL AND PROTEIN NEEDS. 2. RD TO FOLLOW-UP 2-3 DAYS, HIGH RISK CALDERON ESPAÑA, RD
--- NOTE | 2021-03-06 16:10 | NUR ---
Complete bed bath, linen changed, perineal fley care pt had large brown bowel tool .
--- NOTE | 2021-03-06 16:50 | NUR ---
PT REMOVED FROM BIPAP AND PLACED ON 5L OXYMIZER. PT ORALLY SUCTIONED WITH 14 FR CATHETER OBTAINED MODERATE AMOUNT OF THICK YELLOW SECRETIONS. NURSE MADE AWARE.
--- NOTE | 2021-03-06 17:58 | NUR ---
Dr DAVIS rounds on pt as at this time pt was just on 5 lters via oxymizer tolerating well o2 sat 94% pt required frequent oral suctioning too congested and order received to transfer pt to telemetry unit. @[id number] Notified supervisor bottle house cleaners about the order as at this time no bed allocated
--- NOTE | 2021-03-06 19:40 | NUR ---
Change of shift report to [facility] shift RN as at this time no chnages in care plan and pt's condition vitals signs stable afebrile resting comfortable in bed .
--- NOTE | 2021-03-06 20:32 | NUR ---
PLACED PT BACK ON BI-PAP, DUE TO LOW SATURATIONS, AND INCREASED WORK OF BREATHING, IPAP 12 EPAP 6 RATE 14 100% FIO2 PT SATURATIONS IMPROVED, WILL CONTINUE TO MONITOR
[2021-03-06] MEDS: SENNA 8.6 MG TAB GT SCH (21:00)
[2021-03-07] VITALS (30 sets, daily range): BP systolic 91–158; BP diastolic 53–93
[2021-03-07] MEDS: PIPERACILLIN/TAZOBACTAM 3.375 GM in DEXTROSE 5% 50 ML IV SCH ×2
--- NOTE | 2021-03-07 02:15 | NUR ---
PATIENT AWAKE NON VERBRAL ON BI-PAP IPAP12,EPAP 6, FI02 85 RATE 14. SAT 99% ON MONITOR SINUS TACH AND SINUS RHYTHM. LUNGS WITH CRACKLES SUCTION MOUTH THICK SECRETIONS.TEMP98.8. PATIENT HAS GT INFUSING JEVRTY AT 60 HOUR. NO RESIDUAL AT 0000 FLUSH GTWITH 140 WATER.HAS F/C DRAINING KYAW URINE. NO BOWEL MOVEMENT.PATIENT HAS D5NS 5CC HOUR. NO DISTRESS NOTED.
[2021-03-07 06:12] LABS: BASOPHILS # (AUTO) 0.1 K/uL (0.00-0.22); BASOPHILS % (AUTO) 0.4 % (0.0-2.0); EOSINOPHILS # (AUTO) 0.5 K/uL (0-0.4); EOSINOPHILS % (AUTO) 2.9 % (0.0-4.0); HEMATOCRIT 32.9 % (36-52); HEMOGLOBIN 10.8 g/dL (12.0-18.0); LYMPHOCYTES # (AUTO) 0.6 K/uL (2.0-11.5); LYMPHOCYTES % (AUTO) 3.8 % (20.5-51.1); MEAN CORPUSCULAR HEMOGLOBIN 30 pg (27-31); MEAN CORPUSCULAR HGB CONC 33 g/dL (33-37); MEAN CORPUSCULAR VOLUME 91.1 fL (80-94); MONOCYTES # (AUTO) 1.6 K/uL (0.8-1.0); MONOCYTES % (AUTO) 9.6 % (1.7-9.3); NEUTROPHILS # (AUTO) 13.8 K/uL (1.8-7.7); NEUTROPHILS % (AUTO) 83.3 % (42.2-75.2); PLATELET COUNT (AUTO) 217 K/uL (140-450); RED BLOOD CELL COUNT(AUTO) 3.61 MIL/uL (4.20-6.10); RED CELL DISTRIBUTION WIDTH 14.2 % (11.6-13.7); WHITE BLOOD COUNT (AUTO) 16.5 K/uL (4.8-10.8)
[2021-03-07] MEDS: LEVOTHYROXINE 0.075 MG TAB GT SCH (06:30)
[2021-03-07 06:55] LABS: ALBUMIN 2.1 g/dL (3.4-5.0); ANION GAP 12.4 (8-16); CARBON DIOXIDE 29.1 mmol/L (21-32); CREATININE 0.7 mg/dL (0.6-1.3); POTASSIUM 4.5 mmol/L (3.5-5.1); TOTAL BILIRUBIN 0.4 mg/dL (0.0-1.0)
--- NOTE | 2021-03-07 07:20 | NUR ---
Assumed pt care change of shift report received from Shae RICHMOND. Pt awake alert follows command non verbal gesticulates, vitals signs stable oxygenation via Bipap Fio2 80% 12/6 rate 14 o2 sat 98%. No sign of distress will continue to monitor and treat as per care plan
[2021-03-07] MEDS: ALBUTEROL SULFATE/IPRATROPIU 3 ML SOL IH SCH ×3 (07:46→19:00)
--- NOTE | 2021-03-07 08:56 | NUR ---
Dr Mcgee was here updates on pt's condition that now on Bipap downgraded to telemetry by Dr Mary since 913. No new order received
[2021-03-07] MEDS: METOCLOPRAMIDE 10 MG TAB GT SCH ×3 (09:00→17:00)
[2021-03-07] MEDS: ENOXAPARIN 40 MG/0.4 ML SYR SUBQ SCH (10:02)
[2021-03-07] MEDS: VALPROIC ACID 250 MG/5 ML UDC GT SCH ×2 (10:03→20:28)
[2021-03-07] MEDS: risperiDONE 1 MG TAB GT SCH ×2 (10:03→20:29)
[2021-03-07] MEDS: VIT-B COMP/VIT-C/FOLIC ACID 1 TAB GT SCH (10:04)
[2021-03-07] MEDS ORDERED: VANCOMYCIN PER PHARMACY MC PRN (10:05)
[2021-03-07] MEDS: POLYETHYLENE GLYCOL 17 GM/PKT GT SCH (10:05)
[2021-03-07] MEDS: FAMOTIDINE 20 MG TAB GT SCH ×2 (10:05→20:29)
[2021-03-07] MEDS: FUROSEMIDE 20 MG TAB GT SCH (10:05)
[2021-03-07] MEDS: VANCOMYCIN 1,000 MG in DEXTROSE 5% 250 ML IV SCH ×2 (11:00→22:19)
--- NOTE | 2021-03-07 12:40 | NUR ---
Dr Mary updates at the bedside on pt's condition bipap settings ABG ordered done by RT, decreasing Fio2 by RT due to high PO2 127.7 PCO2 41.6 PH 7.43 said to retain pt in ICU
--- NOTE | 2021-03-07 13:19 | NUR ---
ABG RESULTS GIVEN TO . PHYSICIAN STATES TO KEEP PT ON BIPAP AT THIS TIME. WILL CONTINUE TO MONITOR.
--- NOTE | 2021-03-07 13:24 | NUR ---
FIO2 TITRATED TO 50% PER ABG RESULTS. WILL CONTINUE TO MONITOR.
--- NOTE | 2021-03-07 15:30 | NUR ---
PT's sister Shaun Thomas called updates over the phone pt's condition, bipap pt's alertness and vitals signs. She verbalized appreciation for the care pt receiving .
--- NOTE | 2021-03-07 16:11 | NUR ---
FIO2 TITRATED TO 35%. PT TOLERATING WELL AT THIS TIME. BIPAP ALARMS ON AND FUNCTIONING. WILL CONTINUE TO MONITOR.
--- NOTE | 2021-03-07 19:31 | NUR ---
Chnage of shift report to ASAD RICHMOND as at this time pt is resting comfortably in bed, vital signs stable still on Bipap 35% O2 sat 98% no sign of distress no changes in care plan and condition
--- NOTE | 2021-03-07 19:32 | NUR ---
RECEIVED REPORT FROM DAY SHIFT NURSE. PT IN BED RESTING WITH HOB ELEVATED. PT NON-VERBAL WITH SPONTANEOUS EYE OPENING. PT CURRENTLY ON BIPAP FI02 35. CURRENT SPO2 97%. PT NOT IN DISTRESS. ABDOMEN SOFT AND NON-TENDER, PT WITH GTUBE IN PLACE, ON CONTINUOUS FEEDING. PT WITH ISAAK PICC LINE IN PLACE. BUTCHER CATHETER IN PLACE, DRAINING YELLOW URINE. SKIN IS WARM AND DRY. PT WITH SKIN TEAR ON LEFT UPPER ARM, DRESSING IN PLACE. NO S/SX OF PAIN OR DISCOMFORT NOTED, FLACC 0. SAFETY MEASURES IN PLACE, WILL CONTINUE TO MONITOR.
[2021-03-07] MEDS: FUROSEMIDE 40 MG/4 ML VIAL IVP SCH (20:28)
[2021-03-07] MEDS: SENNA 8.6 MG TAB GT SCH (20:28)
--- NOTE | 2021-03-07 20:30 | NUR ---
VS STABLE. 0ML GTUBE RESIDUAL. SCHEDULED MEDICATIONS GIVEN ORDERED. BIPAP IN PLACE. PT NOT IN DISTRESS. WILL CONTINUE TO MONITOR.
[2021-03-07] MEDS: LORazepam 2 MG/ML VIAL IVP PRN (22:20)
--- NOTE | 2021-03-07 22:20 | NUR ---
PT AGITATED, SCREAMING AND SHOUTING. PRN ATIVAN GIVEN ORDERED. WILL CONTINUE TO MONITOR.
[2021-03-08] VITALS (25 sets, daily range): BP systolic 89–165; BP diastolic 46–98
--- NOTE | 2021-03-08 00:10 | NUR ---
PT ASLEEP WITH HOB ELEVATED. VISIBLE CHEST RISE AND FALL NOTED. VS STABLE. BIPAP IN PLACE. PT NOT IN DISTRESS. FEEDING INFUSING WELL. FLACC 0. SAFETY MEASURES IN PLACE. WILL CONTIINUE TO MONITOR.
[2021-03-08] MEDS: ALBUTEROL SULFATE/IPRATROPIU 3 ML SOL IH SCH ×4 (01:00→21:31)
--- NOTE | 2021-03-08 01:12 | NUR ---
PT SUCTIONED ORALLY. MODERATE AMOUNT OF CREAMY SECRETION OBTAINED. BIPAP KEPT IN PLACE. SPO2 96%. WILL CONTINUE TO MONITOR.
[2021-03-08] MEDS: LORazepam 2 MG/ML VIAL IVP PRN ×2 (02:39→18:54)
--- NOTE | 2021-03-08 02:39 | NUR ---
PT RESTLESS AND AGITATED. KEEPS SCREAMING AND REMOVING GOWN AND LEADS. PRN ATIVAN GIVEN ORDERED. WILL CONTINUE TO MONITOR.
--- NOTE | 2021-03-08 04:19 | NUR ---
PT SUCTIONED. SCANT CREAMY SECRETIONS OBTAINED. ORAL CARE, MELCHOR CARE, CATHETER CARE PROVIDED. PT TURNED AND REPOSITIONED. PT TOLERATED ALL CARE PROVIDED. WILL CONTINUE TO MONITOR.
[2021-03-08 06:13] LABS: BASOPHILS % (AUTO) 0.2 % (0.0-2.0); EOSINOPHILS # (AUTO) 0.4 K/uL (0-0.4); EOSINOPHILS % (AUTO) 2.9 % (0.0-4.0); HEMATOCRIT 29.2 % (36-52); HEMOGLOBIN 9.7 g/dL (12.0-18.0); LYMPHOCYTES % (AUTO) 7.5 % (20.5-51.1); MEAN CORPUSCULAR HEMOGLOBIN 30 pg (27-31); MEAN CORPUSCULAR HGB CONC 33 g/dL (33-37); MEAN CORPUSCULAR VOLUME 89.6 fL (80-94); MONOCYTES # (AUTO) 1.9 K/uL (0.8-1.0); MONOCYTES % (AUTO) 13.9 % (1.7-9.3); NEUTROPHILS # (AUTO) 10.4 K/uL (1.8-7.7); NEUTROPHILS % (AUTO) 75.5 % (42.2-75.2); PLATELET COUNT (AUTO) 197 K/uL (140-450); RED BLOOD CELL COUNT(AUTO) 3.27 MIL/uL (4.20-6.10); WHITE BLOOD COUNT (AUTO) 13.8 K/uL (4.8-10.8)
[2021-03-08 06:30] LABS: ANION GAP 9.3 (8-16); CARBON DIOXIDE 32.5 mmol/L (21-32); CREATININE 0.9 mg/dL (0.6-1.3); POTASSIUM 3.8 mmol/L (3.5-5.1)
[2021-03-08] MEDS: LEVOTHYROXINE 0.075 MG TAB GT SCH (06:39)
[2021-03-08 07:02] LABS: MAGNESIUM 2.2 mg/dL (1.8-2.4); PHOSPHORUS 4.1 mg/dL (2.5-4.9)
--- NOTE | 2021-03-08 07:16 | NUR ---
REPORT GIVEN TO NEGRO RICHMOND FOR CONTINUITY OF CARE
--- NOTE | 2021-03-08 07:30 | NUR ---
RECEIVED REPORT FROM ASAD VILLAR. AWAKE AT THE TIME TRY PULL THE MASK OUT FROM HIS FACE SKIN DRY AND WARM TO TOUCH . BREATHING VENT MASK --HAS PICC LINE ON RT UPPER ARM HAS IV KVO FOR MED PIGGY BAG BUTCHER CATH DRAIN LIGHT KYAW URINE ,
--- NOTE | 2021-03-08 08:47 | NUR ---
SEEN BY DR. VIEYRA AT BED SIDE ORDER RECEIVED
[2021-03-08] MEDS ORDERED: VALPROATE SODIUM 750 MG in NACL 0.9% 100 ML IV SCH (09:00)
[2021-03-08] MEDS: risperiDONE 1 MG TAB GT SCH ×2 (09:09→20:37)
[2021-03-08] MEDS: METOCLOPRAMIDE 10 MG TAB GT SCH ×3 (09:09→17:00)
[2021-03-08] MEDS: FUROSEMIDE 40 MG/4 ML VIAL IVP SCH (09:10)
[2021-03-08] MEDS: ENOXAPARIN 40 MG/0.4 ML SYR SUBQ SCH (09:11)
[2021-03-08] MEDS: POLYETHYLENE GLYCOL 17 GM/PKT GT SCH (09:16)
[2021-03-08] MEDS: VIT-B COMP/VIT-C/FOLIC ACID 1 TAB GT SCH (09:17)
[2021-03-08] MEDS: FAMOTIDINE 20 MG TAB GT SCH ×2 (09:17→20:37)
--- NOTE | 2021-03-08 09:25 | NUR ---
SEENBY DR. PATINO WILL HAVE OIL WELL ENGINEER CARE EVAL.
[2021-03-08] MEDS: VANCOMYCIN 1,000 MG in DEXTROSE 5% 250 ML IV SCH (11:00)
--- NOTE | 2021-03-08 11:36 | NUR ---
[facility] CALLED CALL FOR EVALUATE.HAS NO BED AT THIS TIME.
[2021-03-08] MEDS: amLODIPine 5 MG TAB PO SCH (11:45)
[2021-03-08] MEDS: VALPROATE SODIUM 750 MG in NACL 0.9% 100 ML IV SCH ×2 (13:48→20:37)
--- NOTE | 2021-03-08 18:15 | NUR ---
PT AWAKE MAKE ALOT OF NOISE AND TRY TO PULL OUT OXIGEN AND LINE.
--- NOTE | 2021-03-08 18:30 | NUR ---
MEDICATION GAVE ORDERED,
--- NOTE | 2021-03-08 19:30 | NUR ---
REPORT GIVE TO CHIVO
--- NOTE | 2021-03-08 19:31 | NUR ---
RECEIVED REPORT FROM DAY SHIFT NURSE. PT IN BED RESTING WITH HOB ELEVATED. PT NON-VERBAL WITH SPONTANEOUS EYE OPENING. PT CURRENTLY ON NASAL CANNULA 15/LPM. CURRENT SPO2 95%. PT NOT IN DISTRESS. ABDOMEN SOFT AND NON-TENDER, PT WITH GTUBE IN PLACE, ON CONTINUOUS FEEDING. PT WITH ISAAK PICC LINE IN PLACE. BUTCHER CATHETER IN PLACE, DRAINING YELLOW URINE. SKIN IS WARM AND DRY. PT WITH SKIN TEAR ON LEFT UPPER ARM, DRESSING IN PLACE. NO S/SX OF PAIN OR DISCOMFORT NOTED, FLACC 0. SAFETY MEASURES IN PLACE, WILL CONTINUE TO MONITOR.
--- NOTE | 2021-03-08 20:37 | NUR ---
VS STABLE, 5ML GTUBE RESIDUAL NOTED, SCHEDULED MEDS GIVEN ORDERED. PT TURNED AND REPOSITIONED. FLACC 0. SAFETY MEASURES IN PLACE. WILL CONTINUE TO MONITOR.
[2021-03-08] MEDS: SENNA 8.6 MG TAB GT SCH (20:38)
--- NOTE | 2021-03-08 22:16 | NUR ---
PT SUCTIONED ORALLY, SCANT CREAMY SECRETIONS NOTED. PT TOLERATING NASAL CANNULA. SPO2 98%. PT REPOSITIONED IN BED. WILL CONTINUE TO MONITOR.
[2021-03-08] MEDS ORDERED: VANCOMYCIN PER PHARMACY MC PRN (23:05)
[2021-03-09] VITALS (22 sets, daily range): BP systolic 114–160; BP diastolic 57–95
--- NOTE | 2021-03-09 00:18 | NUR ---
ORAL CARE AND SUCTIONING DONE. VS STABLE. O2 IN PLACE, PT TURNED AND REPOSITIONED. NO S/SX OF PAIN OR DISCOMFORT NOTED. SAFETY MEASURES IN PLACE. WILL CONTINUE TO MONITOR.
[2021-03-09] MEDS: ALBUTEROL SULFATE/IPRATROPIU 3 ML SOL IH SCH ×4 (01:53→19:00)
--- NOTE | 2021-03-09 02:15 | NUR ---
ASLEEP. NC IN PLACE. SPO2 98%. NO S/S OF RESPIRATORY DISTRESS NOTED. PT KEPT COMFORTABLE. SAFETY MEASURES IN PLACE. WILL CONTINUE TO MONITOR.
[2021-03-09] MEDS ORDERED: VANCOMYCIN 1GM/DEXT 5% PREMIX 200 ML IV SCH (02:30)
--- NOTE | 2021-03-09 04:17 | NUR ---
PERINEAL CARE, ORAL CARE, SUCTIONING, CATHETER CARE DONE. PT TOLERATED CARE PROVIDED. PT TURNED AND REPOSITIONED IN BED. NO S/SX OF DISTRESS OR DISCOMFORT NOTED. PT KEPT COMFORTABLE. SAFETY MEASURES IN PLACE. WILL CONTINUE TO MONITOR.
[2021-03-09 04:37] LABS: BASOPHILS # (AUTO) 0.1 K/uL (0.00-0.22); BASOPHILS % (AUTO) 0.4 % (0.0-2.0); EOSINOPHILS # (AUTO) 0.6 K/uL (0-0.4); EOSINOPHILS % (AUTO) 4.5 % (0.0-4.0); HEMATOCRIT 30.5 % (36-52); LYMPHOCYTES # (AUTO) 1.2 K/uL (2.0-11.5); LYMPHOCYTES % (AUTO) 9.2 % (20.5-51.1); MEAN CORPUSCULAR HEMOGLOBIN 30 pg (27-31); MEAN CORPUSCULAR HGB CONC 33 g/dL (33-37); MEAN CORPUSCULAR VOLUME 90.3 fL (80-94); MONOCYTES # (AUTO) 1.2 K/uL (0.8-1.0); MONOCYTES % (AUTO) 9.9 % (1.7-9.3); NEUTROPHILS # (AUTO) 9.5 K/uL (1.8-7.7); PLATELET COUNT (AUTO) 244 K/uL (140-450); RED BLOOD CELL COUNT(AUTO) 3.38 MIL/uL (4.20-6.10); RED CELL DISTRIBUTION WIDTH 13.9 % (11.6-13.7); WHITE BLOOD COUNT (AUTO) 12.5 K/uL (4.8-10.8)
[2021-03-09] MEDS: VALPROATE SODIUM 750 MG in NACL 0.9% 100 ML IV SCH ×3 (04:43→21:27)
[2021-03-09 04:49] LABS: ALBUMIN 2.1 g/dL (3.4-5.0); ANION GAP 9.3 (8-16); CARBON DIOXIDE 32.7 mmol/L (21-32); MAGNESIUM 2.4 mg/dL (1.8-2.4); PHOSPHORUS 4.4 mg/dL (2.5-4.9); TOTAL BILIRUBIN 0.2 mg/dL (0.0-1.0)
[2021-03-09] MEDS: LEVOTHYROXINE 0.075 MG TAB GT SCH (06:10)
--- NOTE | 2021-03-09 07:13 | NUR ---
ENDORSED TO JENN RN FOR CONTINUITY OF CARE
--- NOTE | 2021-03-09 07:20 | NUR ---
RECEIVED REPORT FROM FUNDRAISING OFFICER NURSE. PT IN BED RESTING WITH HOB ELEVATED. PT NON-VERBAL WITH SPONTANEOUS EYE OPENING. PT CURRENTLY ON NC O2 AT 15L. CURRENT SPO2 97%. PT NOT IN DISTRESS. ABDOMEN SOFT AND NON-TENDER, PT WITH GTUBE IN PLACE, ON CONTINUOUS FEEDING. PT WITH ISAAK PICC LINE IN PLACE, SITE WNL,. BUTCHER CATHETER IN PLACE, DRAINING YELLOW URINE. SKIN IS WARM AND DRY, COLOR PALE, CAP REFILL <3SEC. PT WITH SKIN TEAR ON LEFT UPPER ARM, DRESSING IN PLACE. NO S/SX OF PAIN OR DISCOMFORT NOTED, FLACC 0. SAFETY MEASURES IN PLACE, PLAN OF CARE REVIEWED, WILL CONTINUE TO MONITOR.
[2021-03-09] MEDS: POLYETHYLENE GLYCOL 17 GM/PKT GT SCH (09:09)
[2021-03-09] MEDS: amLODIPine 5 MG TAB PO SCH (09:10)
[2021-03-09] MEDS: risperiDONE 1 MG TAB GT SCH ×2 (09:10→21:11)
[2021-03-09] MEDS: METOCLOPRAMIDE 10 MG TAB GT SCH ×3 (09:10→17:40)
[2021-03-09] MEDS: FAMOTIDINE 20 MG TAB GT SCH ×2 (09:11→21:11)
[2021-03-09] MEDS: VIT-B COMP/VIT-C/FOLIC ACID 1 TAB GT SCH (09:11)
[2021-03-09] MEDS: ENOXAPARIN 40 MG/0.4 ML SYR SUBQ SCH (09:13)
--- NOTE | 2021-03-09 09:14 | NUR ---
AM MEDS GIVEN PER ORDER, PT REPEATEDLY REMOVED HIS NASAL CANULA, DESATURATES DOWN TO 84%, NC TAPED TO HIS FACE, TUBING HIDDEN BEHIND PILLOW.
[2021-03-09] MEDS: VANCOMYCIN 1,000 MG in DEXTROSE 5% 250 ML IV SCH (11:15)
--- NOTE | 2021-03-09 13:10 | NUR ---
BED BATH GIVEN, CHG WIPE DONE, BUTCHER CARE DONE, ORAL CARE DONE, WOUND CARE DONE, BED LINEN AND GOWN CHANGED.
--- NOTE | 2021-03-09 13:21 | NUR ---
DR Fermín PATINO, AT BEDSIDE FOR EVAL
--- NOTE | 2021-03-09 14:19 | NUR ---
03/09/21 RD FOLLOW UP COMPLETED PLEASE REFER TO NUTRITION ASSESSMENT UNDER CARE ACTIVITY FOR ESTIMATED NUTRITIONAL NEEDS. 1. CONTINUE JEVITY 1.2 @ 60 ML/HR; FLUSH OF 140 ML Q6H -THIS WILL PROVIDE 1728 KCAL/DAY AND 80 GM OF PROTEIN/DAY. MEETING 100% OF ESTIMATED KCAL AND PROTEIN NEEDS. 2. RD TO FOLLOW-UP 2-3 DAYS, HIGH RISK CALDERON ESPAÑA, RD
--- NOTE | 2021-03-09 15:19 | NUR ---
PRIMARY RN REPORT CHANGE OF SKIN CONDITION TO LEFT UPPER ARM. PER PRIMARY RN SKIN ALTERATION INITIALLY FROM IV SITE EXTRAVASATION. LEFT UPPER ARM PARTIAL THICKNESS SKIN LOSS 3X2X0.1CM WITH WOUND BED RED ,MOIST AND SCATTERED YELLOW THIN SLOUGH TISSUE, MELCHOR WOUND SKIN ERYTHEMA,NO SWELLING, NO EDEMA, NOT WARM TO TOUCH, PT. ABLE TO MOVE ARMS WITHOUT LIMITATION. POC DISCUSSED WITH PRIMARY RN. RECOMMENDATIONS -CLEANSE LEFT UPPER ARM WITH NS, PAT DRY, APPLY THERAHONEY DRESSING SHEET AND COVER WITH ISLAND DRESSING CHANGE 2X/WEEK ON FRIDAY,FRIDAY AND PRN IF SOILING, PLEASE KEEP AREA DRY AND CLEAN. -TURN AND REPOSITION PATIENT Q 2H -ASSESS AND MONITOR SKIN CONDITION DURING POSITION CHANGE -OFFLOAD BILATERAL HEELS BY PLACING PILLOWS UNDER CALVES AT ALL TIMES, UNLESS OTHERWISE CONTRAINDICATED -PRESSURE REDISTRIBUTION SURFACE THERAPY -KEEP SKIN CLEAN AND DRY AT ALL TIMES. PLEASE CONTACT WOUND CARE NURSE FOR ANY QUESTION AND CHANGE OF WOUND CONDITION.
--- NOTE | 2021-03-09 16:20 | NUR ---
PERICARE DONE, BUTCHER LEAKING, BALLOON REINFLATED, PT REPOSITIONED, ORAL CARE DONE.
[2021-03-09] MEDS ORDERED: THERAHONEY WOUND DRESSING TP SCH (17:00)
--- NOTE | 2021-03-09 17:22 | NUR ---
[id number] DECREASED TO 84-87, RT TO BEDSIDE, PT PLACED ON BIPAP
--- NOTE | 2021-03-09 17:30 | NUR ---
LEFT ARM WOUND PHOTO TAKEN, THERAHONEY APPLIED PER ORDER
[2021-03-09] MEDS ORDERED: DEXMEDETOMIDINE HCL 400 MCG in NACL 0.9% 96 ML IV PRN (17:50)
--- NOTE | 2021-03-09 18:07 | NUR ---
DR DAVIS AT BEDSIDE
[2021-03-09] MEDS: DEXMEDETOMIDINE HCL 400 MCG in NACL 0.9% 96 ML IV PRN ×2 (18:39→20:00)
--- NOTE | 2021-03-09 19:30 | NUR ---
RECEIVED REPORT FROM RN DAYSHIFT NURSE AT BEDSIDE FOR CONTINUITY OF CARE, PT LYING IN BED HE IS AOX1 WITH BIPAP ON FI02 AT 80%. HE ALSO HAS A G TUBE RUNNING JEVITY 1.2 AT 60MLS/HR AND D5N/S RUNNING AT 10MLS/HR TO KVO VIA RIGHT UPPER ARM PICC LINE. PT HAS BUTCHER CATHETER INTACT AND DRAINING YELLOW URINE. ALL FALLS AND ASPIRATION PRECAUTIONS IN PLACE.
--- NOTE | 2021-03-09 20:00 | NUR ---
PT IN BED V/S FOLLOWS: T 97 P 99 R 20 B/P 123/61 02 95% ON ALL CURRENT VENT SETTINGS. JEVITY 1.[address] WITH NEW BOTTLE WELL NEW BAG OF D5N/S RUNNING AT 10MLS TO KVO. PT WAS TURNED AND REPOSITIONED IN BED. ALL FALLS PRECAUTIONS IN PLACE.
--- NOTE | 2021-03-09 20:15 | NUR ---
RESTARTED PRECEDEX DUE TO PT BECOMING AGITATED TRYING TO TAKE OFF BIPAP AND PULLING ON MEDICAL LINES.
--- NOTE | 2021-03-09 21:00 | NUR ---
PT IN BED, HE WAS GIVEN ORDERED SENOKOT, LAMICTAL, PEPCID AND RISPERDAL VIA GT. ALSO DEPACON ANTI SEIZURE MED HUNG AND RUNNING ORDERED AT 105MLS/HR. PT STARTED TO GET AGITATED AND PRECEDEX WAS RESTARTED AND RUNNING ORDERED. EDUCATION REGARDING MEDICATION AND ITS PURPOSES PROVIDED AT BEDSIDE, PT WAS SUCTIONED AND REPOSITIONED IN BED. ALL FALLS AND ASPIRATION PRECAUTIONS IN PLACE.
[2021-03-09] MEDS: SENNA 8.6 MG TAB GT SCH (21:12)
--- NOTE | 2021-03-09 22:57 | NUR ---
MASK + GEL HAS BEEN RE-ADJUSTED DUE TO LARGE LEAK
[2021-03-10] VITALS (23 sets, daily range): BP systolic 84–168; BP diastolic 39–98
[2021-03-10] MEDS: VANCOMYCIN 1,000 MG in DEXTROSE 5% 250 ML IV SCH (00:10)
--- NOTE | 2021-03-10 00:15 | NUR ---
PT WAS TURNED, CHANGED AND REPOSITIONED IN BED. BIPAP IN PLACE, V/S STABLE 02 BETWEEN 94-98%. V/S FOLLOWS:T 97 P 98 R 22 B/P 118/74 02 97%. ALL FALLS PRECAUTIONS IN PLACE.
[2021-03-10] MEDS: ALBUTEROL SULFATE/IPRATROPIU 3 ML SOL IH SCH ×2 (01:00→07:39)
--- NOTE | 2021-03-10 02:00 | NUR ---
PT CLEANED, TURNED AND REPOSITIONED IN BED , PT HAD A VERY SMALL BM. HE CONTINUES ON BIPAP WITH CURRENT SETTINGS. HOB UP 35%. JEVITY CONTINUES ORDERED. PT HAS MOMENTS OF RESTLESS. HE CONTINUES ON THE PRECEDEX FOR AGITATION. PT BUTCHER CATHETER REMAINS INTACT AND DRAINING YELLOW URINE. ALL FALLS AND ASPIRATIONS PRECAUTIONS IN PLACE.
--- NOTE | 2021-03-10 05:30 | NUR ---
HUNG VALPROATE SODIUM FOR ANTI- SEIZURE MEDICATION, HUNG AND RUNNING ORDERED. PT TURNED AND REPOSITIONED IN BED, ALL ORDERED PRECAUTIONS IN PLACE.
[2021-03-10] MEDS: VALPROATE SODIUM 750 MG in NACL 0.9% 100 ML IV SCH (05:46)
[2021-03-10 06:10] LABS: BASOPHILS # (AUTO) 0.1 K/uL (0.00-0.22); BASOPHILS % (AUTO) 0.4 % (0.0-2.0); EOSINOPHILS # (AUTO) 0.5 K/uL (0-0.4); HEMATOCRIT 30.6 % (36-52); HEMOGLOBIN 10.1 g/dL (12.0-18.0); LYMPHOCYTES # (AUTO) 0.9 K/uL (2.0-11.5); LYMPHOCYTES % (AUTO) 6.5 % (20.5-51.1); MEAN CORPUSCULAR HEMOGLOBIN 30 pg (27-31); MEAN CORPUSCULAR HGB CONC 33 g/dL (33-37); MEAN CORPUSCULAR VOLUME 89.9 fL (80-94); MONOCYTES # (AUTO) 1.3 K/uL (0.8-1.0); MONOCYTES % (AUTO) 9.7 % (1.7-9.3); NEUTROPHILS # (AUTO) 10.5 K/uL (1.8-7.7); NEUTROPHILS % (AUTO) 79.4 % (42.2-75.2); PLATELET COUNT (AUTO) 258 K/uL (140-450); RED BLOOD CELL COUNT(AUTO) 3.41 MIL/uL (4.20-6.10); RED CELL DISTRIBUTION WIDTH 14.1 % (11.6-13.7); WHITE BLOOD COUNT (AUTO) 13.3 K/uL (4.8-10.8)
[2021-03-10 06:28] LABS: CARBON DIOXIDE 33.4 mmol/L (21-32); CREATININE 0.9 mg/dL (0.6-1.3); POTASSIUM 4.4 mmol/L (3.5-5.1)
--- NOTE | 2021-03-10 06:30 | NUR ---
PT GIVEN ORAL CARE AND REPOSITIONED IN BED V/S STABLE PT GIVEN ORDERED SYNTHROID VIA GTUBE.ALL ORDERED PRECAUTIONS IN PLACE.
[2021-03-10] MEDS: LEVOTHYROXINE 0.075 MG TAB GT SCH (06:36)
--- NOTE | 2021-03-10 07:39 | NUR ---
RECEIVED PT ON BIPAP. SETTINGS 12/6, R14 AND FIO2 80%. PROTECTA GEL IS UNDER MASK FOR SKIN PROTECTION. PT NOT IN ANY DISTRESS AT THIS TIME. BIPAP IS PLUGGED INTO A RED OUTLET WITH ALARMS ON AND FUNCTIONING. WILL CONTINUE TO MONITOR.
--- NOTE | 2021-03-10 08:00 | NUR ---
RECEIVED REPORT FROM DAYSWIFT NURSE AT BEDSIDE. PT LETHARGIC, UNABLE TO MAKE EYE CONTACT OR FOLLOW COMMANDS. WITHDRAWS TO PAIN. ON BIPAP, 05/28,FI02 80%, RT AT BEDSIDE FOR BREATHING TREATMENT. AFEBRILE, SKIN COOL TO TOUCH. LEFT UPPER ARM NOTED WITH SMALL ABRASION, DRESSING INTACT.RIGHT UPPER ARM PICC, PRECEDEX 0.2 MCG/KG/HR, D5NS TKO. GTUBE IN PLACE CONNECTED TO CONTINUOUS TUBE FEEDING JEVITY @60ML/HR. BUTCHER CATHETER IN PLACE, CLEAR YELLOW URINE NOTED, NO DEPENDENT LOOPS. HEEL PROTECTORS IN PLACE. PT TURNED AND REPOSITIONED. FLACC0. BED LOCKED AND IN LOWEST POSITION, SIDERAILS UP.WILL CONTINUE TO MONITOR.
[2021-03-10] MEDS: METOCLOPRAMIDE 10 MG TAB GT SCH ×3 (08:35→17:00)
[2021-03-10] MEDS: VIT-B COMP/VIT-C/FOLIC ACID 1 TAB GT SCH (08:40)
[2021-03-10] MEDS: FAMOTIDINE 20 MG TAB GT SCH (08:41)
[2021-03-10] MEDS: amLODIPine 5 MG TAB PO SCH (08:45)
[2021-03-10] MEDS: risperiDONE 1 MG TAB GT SCH (08:46)
[2021-03-10] MEDS: ENOXAPARIN 40 MG/0.4 ML SYR SUBQ SCH (08:51)
[2021-03-10] MEDS: POLYETHYLENE GLYCOL 17 GM/PKT GT SCH (08:52)
--- NOTE | 2021-03-10 09:10 | NUR ---
GASTRIC RESIDUALS 5ML, PT TOLERATING WELL. ALL SCHEDULED MEDS GIVEN. PROVIDED ORAL CARE, PT DESATS TO 80%, BIPAP ON WITH 90% FI02 TO INCREASE SP02, WILL CONTINUE TO MONITOR.
--- NOTE | 2021-03-10 09:55 | NUR ---
PAGED REGARDING ABG RESULTS WAITING FOR CALL BACK.
--- NOTE | 2021-03-10 10:02 | NUR ---
ABG RESULTS GIVEN TO OVER THE PHONE. UPDATED PHYSICIAN ON PT STATUS AND CXR. PHYSICIAN STATES HE WILL BE IN TO SEE PT IN FEW HOURS TO GET A BETTER LOOK AT HIS MEDICAL STATUS AND WHETHER HE WILL BENEFIT FROM INTUBATION. PHYSICIAN STATES TO KEEP ON BIPAP FOR NOW AND MONITOR CLOSELY.
--- NOTE | 2021-03-10 10:45 | NUR ---
PT TURNED AND REPOSITIONED, PROVIDED BUTCHER CARE, SKIN CARE, AND SPONGE BATH. PT SOILED. NO SKIN BREAKDOWN NOTED. OFFLOADED PRESSURE AREAS. PT LETHARGIC, UNABLE TO FOLLOW COMMANDS. SAFETY MEASURES IN PLACE.
--- NOTE | 2021-03-10 12:06 | NUR ---
DR LOPEZ AT BEDSIDE FOR EVAL, NOW ON THE PHONE WITH SISTER LAKIA REGARDING PT CONDITION AND PLAN OF CARE.
[2021-03-10] MEDS ORDERED: MORPHINE SULFATE 50 MG in NACL 0.9% 45 ML IV PRN (12:15)
[2021-03-10] MEDS ORDERED: LORazepam 2 MG/ML VIAL IVP PRN (12:20)
[2021-03-10] MEDS ORDERED: MORPHINE SULFATE 100 MG in NACL 0.9% 90 ML IV PRN (12:45)
[2021-03-10] MEDS ORDERED: MORPHINE SULFATE 250 MG in NACL 0.9% 250 ML IV PRN (13:00)
--- NOTE | 2021-03-10 14:15 | NUR ---
PER CODE CHANGE, PT D/C ALL MEDS AND PRECEDEX DRIP, STARTED ON COMFORT MEASURES ORDERED.
--- NOTE | 2021-03-10 14:30 | NUR ---
PHONE CALL MADE TO SISTER LAKIA ([phone]) TO NOTIFY HER OF WITHDRAW OF CARE AND COMFORT CARE WITH MORPHINE DRIP. ALL QUESTIONS ANSWERED. PREARRANGED HOME INFORMATION OBTAINED: [facility] ([phone])
--- NOTE | 2021-03-10 17:38 | NUR ---
PT TAKEN OFF OF BIPAP PER COMFORT MEASURES ORDERED BY ON FAMILIES DECISION. NURSE IS AWARE. PT PLACED ON 2L NC.
--- NOTE | 2021-03-10 19:55 | NUR ---
Pt received as a transfer from ICU, report given by RAILS DEVELOPER via telephone, pt transferred to unit during shift report as a DNR with chief complaint of Cardiac Arrest s/p 2 code blues (date and time in pt records). Pt is a 65 y/o ,Male, Sedated, and non-responsive. Resp-pt is mouth breathing w/ use of accessory muscles RR 13, T97.1, P102, BP 84/39, PO2 75% on O2 4L N/C.Unable to orient to room as customary, per report family aware of pt status, and only want to be called once pt is no longer alive. ID bracelet on. IV morphine drip going at 9mg/hr at present via pump. On front of patients' chart are specific instructions to call [facility] in [place] at [phone]. [facility] Facility Director is Yun Juan at [phone].
--- NOTE | 2021-03-10 22:15 | NUR ---
ON ROUNDS PT 'S OVERALL STATUS REMAINS UNCHANGED, PO2 HOWEVER W/ A STEADY DROP TO 35%,THEN PT PULSE DROPPED FROM 109 TO 60'S, THEN BACK UP TO 95 W/ PO2 AT 60. WILL CONT TO MONITOR FOR CHANGES.
--- NOTE | 2021-03-10 23:21 | NUR ---
PT . PRONOUNCED BY ER MD DR GILBERT SMALLS.
--- NOTE | 2021-03-10 23:22 | NUR ---
OBJECTS CONSERVATOR, AND NURSING FIXED INCOME DIRECTOR MADE AWARE OF PT'S DEMISE.
--- NOTE | 2021-03-10 23:50 | NUR ---
APPROPRIATE PARTIES CALLED RE: PT , SISTER CELENA DAVIS CALLED [phone] AT [phone]. MARTINA MOURA DIRECTOR OF [facility]ARD[facility] CARE CALLED [phone] AT [phone]. MORTUARY CALLED: [facility] [employer] CALLED [phone] AT [phone], [facility] AT THE ANSWERING SERVICE-INFO REQUESTED ON PT GIVEN, PENDING PT PICK-UP.
--- NOTE | 2021-03-11 | NUR ---
Admitting: called at x [phone] Carmenza Garvin notified, stated Isi notified her as well
--- NOTE | 2021-03-11 01:41 | NUR ---
PAGED DR PATINO AND MADE AWARE THAT PT .
--- NOTE | 2021-03-11 02:20 | NUR ---
[employer] CALLED, FITTER / WELDER CALLED, RECORD OF / AUTHORIZATION FOR RELEASE OF REMAINS COMPLETED W/ THE ASSIST OF NSG EDUCATIONAL ADVISER AND WORKERS' COMPENSATION MEDIATOR. PATIENT STRIPPED, TAGGED AND PLACED IN THE BODY BAG. PT WAS PICKED UP FROM THE HOSPITAL BY CARMELA LAM AT 0220.
== END 2021-03-10 23:21 | DRG 871 ==
LOC: MED 15:15 → MMU 22:47 → UNDODEPER 03-02 01:37 → MIC 03-02 07:55 → MMU 03-10 19:00
PROVIDERS: ADMIT Preventive Medicine Preventive Medicine/Occupational Environmental Medicine; ATTEND Preventive Medicine Preventive Medicine/Occupational Environmental Medicine
PROC: 5A1945Z Respiratory Ventilation, 24-96 Consecutive Hours (ICD-10-PCS; principal; 2021-03-02)
PROC: 0BH17EZ Insertion of Endotracheal Airway into Trachea, Via Natural or Artificial Opening (ICD-10-PCS; 2021-03-02)
PROC: 5A12012 Performance of Cardiac Output, Single, Manual (ICD-10-PCS; 2021-03-02)
PROC: 5A09457 Assistance with Respiratory Ventilation, 24-96 Consecutive Hours, Continuous Positive Airway Pressure (ICD-10-PCS; 2021-03-06)
PROC: 5A09357 Assistance with Respiratory Ventilation, Less than 24 Consecutive Hours, Continuous Positive Airway Pressure (ICD-10-PCS; 2021-03-09)
DX: A41.9 Sepsis, unspecified organism (principal); J96.00 Acute respiratory failure, unspecified whether with hypoxia or hypercapnia; E43 Unspecified severe protein-calorie malnutrition; J69.0 Pneumonitis due to inhalation of food and vomit; I21.4 Non-ST elevation (NSTEMI) myocardial infarction; R65.21 Severe sepsis with septic shock; Z99.11 Dependence on respirator [ventilator] status; G93.40 Encephalopathy, unspecified; G40.909 Epilepsy, unspecified, not intractable, without status epilepticus; E03.9 Hypothyroidism, unspecified; D64.9 Anemia, unspecified; E83.52 Hypercalcemia; K21.9 Gastro-esophageal reflux disease without esophagitis; E88.09 Other disorders of plasma-protein metabolism, not elsewhere classified; G80.9 Cerebral palsy, unspecified; R13.10 Dysphagia, unspecified; R73.9 Hyperglycemia, unspecified; Z20.822 Contact with and (suspected) exposure to COVID-19; Z88.8 Allergy status to other drugs, medicaments and biological substances; Z79.899 Other long term (current) drug therapy; Z68.27 Body mass index [BMI] 27.0-27.9, adult; Z79.01 Long term (current) use of anticoagulants; Z86.74 Personal history of sudden cardiac arrest
CPT/HCPCS: 31500; 36415; 36600; 70450; 71045; 80048; 80053; 80202; 81001; 82140; 82550; 82553; 82803; 83605; 83690; 83735; 83880; 84100; 84439; 84443; 84484; 85025; 85651; 86140; 87040; 87070; 87081; 87086; 87205; 89220; 93005; 94002; 94003; 94640; 94660; 96361; 96374; 99291; 99465; J1650; J1885; J1940; J2060; J2270; J2543; J2704; J3370; J3490; J7030; J7060; J7613; J7644; J8597; Q0092